=== PATIENT | female | born 1975 | race Caucasian/White ===

== ENCOUNTER 2018-03-12 21:18 | Emergency (ER) | payer OTHER, MEDICAID, SELFPAY ==
[2018-03-12 21:18] VITALS: BP 162/81; PULSE 75; RESP 15; TEMP 36.8; O2SAT 98; BMI 40.8
--- NOTE | 2018-03-12 22:31 | ED.VISSUMM ---
- ER Visit Summary Date of Service: 03/12/18 Chief Complaint: Left-sided facial pain and swelling History of Present Illness: The patient is a 43 F who notes 2-3 days of toothache and beginning yesterday left mandibular swelling. This has gotten worse today. The patient states that she is on Coumadin for DVT and PE due to antiphospholipid syndrome she is also diabetic. No fevers. She is unsure if she has a dentist due to insurance reasons Physical Examination: Afebrile vital signs are stable Patient has swelling along the left mandible. She has focal gum swelling is still very soft and I would not characterize is fluctuant along the left outer gumline. She has dental tenderness of 1 of the premolars. There is no significant erythema of the face there is no trismus and floor the mouth is soft. Test Results: INR was checked. This was 4.8. Emergency Department Course and Treatment: Patient will be started on Pen-Vee K and a few [place]. Dose given in the department. She is to follow-up with dentistry as soon as possible. Patient was advised that there is a chance she may require incision and drainage of this abscess if it would progress and she will return. As the area along the gumline is still very soft but not fluctuant and her INR is 4.8 I do not feel strongly we should incise and drain this area. She is to hold her Coumadin tonight tomorrow and have her rechecked on Wednesday. Impression: 1. Dental abscess 2. Supratherapeutic INR This note was generated with DashThis dictation software. It may contain incorrect words, spelling, and punctuation that were not noted in review of the chart prior to signing ED Disposition - Plan for ED Patient: Disposition: Home or Assisted Living Chief Complaint: Dental Instructions: Dental Abscess Prescriptions: Hydrocodone/Acetaminophen [[place] 5-325 Tablet] 1 - 2 ea PO 4X/DAY PRN PRN 3 Days #12 tab PRN Reason: Pain Penicillin V Potassium 500 mg PO 4X/DAY #40 tab Referrals: Carla Fountain MD [Primary Care Provider] - As Needed Additional Instructions: Return if worsening or concerns. As we discussed your abscess may progress to require incision and drainage. You need to see a dentist as soon as possible Your INR was 4.8 tonight. Please hold your Coumadin dose tonight as well as tomorrow and you will need your INR rechecked on Wednesday.
--- NOTE | 2018-03-12 22:36 | ED.DCSUM_ITS ---
- ER Visit Summary Date of Service: 03/12/18 Chief Complaint: Left-sided facial pain and swelling History of Present Illness: The patient is a 43 F who notes 2-3 days of toothache and beginning yesterday left mandibular swelling. This has gotten worse today. The patient states that she is on Coumadin for DVT and PE due to antiphospholipid syndrome she is also diabetic. No fevers. She is unsure if she has a dentist due to insurance reasons Physical Examination: Afebrile vital signs are stable Patient has swelling along the left mandible. She has focal gum swelling is still very soft and I would not characterize is fluctuant along the left outer gumline. She has dental tenderness of 1 of the premolars. There is no significant erythema of the face there is no trismus and floor the mouth is soft. Test Results: INR was checked. This was 4.8. Emergency Department Course and Treatment: Patient will be started on Pen-Vee K and a few [place]. Dose given in the department. She is to follow-up with dentistry as soon as possible. Patient was advised that there is a chance she may require incision and drainage of this abscess if it would progress and she will return. As the area along the gumline is still very soft but not fluctuant and her INR is 4.8 I do not feel strongly we should incise and drain this area. She is to hold her Coumadin tonight tomorrow and have her rechecked on Wednesday. Impression: 1. Dental abscess 2. Supratherapeutic INR This note was generated with [employer] dictation software. It may contain incorrect words, spelling, and punctuation that were not noted in review of the chart prior to signing ED Disposition - Plan for ED Patient: Disposition: Home or Assisted Living Chief Complaint: Dental Instructions: Dental Abscess Prescriptions: Hydrocodone/Acetaminophen [[place] 5-325 Tablet] 1 - 2 ea PO 4X/DAY PRN PRN 3 Days #12 tab PRN Reason: Pain Penicillin V Potassium 500 mg PO 4X/DAY #40 tab Referrals: Carla Fountain MD [Primary Care Provider] - As Needed Additional Instructions: Return if worsening or concerns. As we discussed your abscess may progress to require incision and drainage. You need to see a dentist as soon as possible Your INR was 4.8 tonight. Please hold your Coumadin dose tonight as well as tomorrow and you will need your INR rechecked on Wednesday.
[2018-03-12 22:42] LABS: Prothrombin Time (Protime)PT. 45.2 SECONDS (11.7-14.9)
[2018-03-12 22:45] LABS: International Normalized Ratio 4.8
[2018-03-12] MEDS: Penicillin Vk 250 MG Tablet 1000 MG PO (23:10)
[2018-03-12] MEDS: HYDROcodone Bitartrate/Apap 5/325 Tablet PO (23:11)
[2018-03-12 23:16] VITALS: BP 170/80; PULSE 82; RESP 16; O2SAT 94
== END 2018-03-12 23:17 | disposition home or self-care (01) ==
PROVIDERS: Emergency Provider Emergency Medicine; Family Provider Internal Medicine; PCP Internal Medicine
DX: K04.7 Periapical abscess without sinus (principal); D68.61 Antiphospholipid syndrome; E11.9 Type 2 diabetes mellitus without complications; Z79.01 Long term (current) use of anticoagulants; Z86.711 Personal history of pulmonary embolism; Z86.718 Personal history of other venous thrombosis and embolism
CPT/HCPCS: 36415; 85610; 99283

== ENCOUNTER 2018-03-13 22:22 | Inpatient (IN) | payer OTHER, SELFPAY ==
[2018-03-13 22:24] VITALS: BP 121/72; PULSE 93; RESP 18; TEMP 36.9; O2SAT 94; BMI 40.0
--- NOTE | 2018-03-13 22:58 | CT_ITS ---
STUDY: CT SOFT TISSUE NECK WITH CONTRAST REASON FOR EXAM: Female, 43 years old. Left-sided dental abscess. RADIATION DOSAGE (If Supplied By Facility): CTDIvol = ( 19.87 ) mGy, DLP = ( 521.02 ) mGycm TECHNIQUE: The patient was scanned in a multi-detector CT scanner. High resolution transaxial imaging was performed following intravenous administration of 100 ml of Isovue 300 contrast material. Sagittal and coronal images were reconstructed. Individualized dose optimization techniques were used for this CT. COMPARISON: None. FINDINGS: Normal bilateral parotid glands. There is enlargement of the left-sided masseter muscle compared to the right probably related to the left-sided dental infection. Normal bilateral parapharyngeal spaces. Normal bilateral carotid spaces. Normal bilateral sublingual and submandibular glands and spaces. Normal visualized nasopharynx. Normal retropharyngeal space. Normal perivertebral space. Normal visualized bilateral faucial tonsils. The visualized tongue, tongue base and oropharynx are normal. There are enlarged bilateral submandibular nodes. The largest node is on left measuring 1.6 x 1.1 x 1.2 cm in size. This is likely hyperplastic. Scattered subcentimeter lymph nodes within the rest of the neck are within normal limits. There is abnormal heterogeneous increased attenuation within the subcutaneous soft tissues adjacent to the mandible. This is likely related to the known dental abscess. There may be some phlegmon adjacent to the left mandible. This is located near the molar teeth. There is no definite evidence for abscess however. There is gas adjacent to the left-sided mandibular molars consistent also with periodontal disease and infection. There is no abnormal contrast enhancement. Normal epiglottis, bilateral vallecula and hypopharynx. The pre-epiglottic and paraglottic adipose spaces are normal. Normal visualized bilateral piriform sinuses, aryepiglottic folds, vocal cords, and arytenoid-cricoid articulations. Normal subglottic trachea. Normal bilateral lobes of the thyroid gland. Normal visualized pulmonary apices. Normal visualized paranasal sinuses. Normal visualized cervical spine. CT/Soft Tissue Neck WITH Contrast IMPRESSION: Acute inflammation involving the left mandibular region of the face and submandibular regions with hyperplastic lymph nodes and evidence for phlegmon adjacent to the left mandibular body. Electronically Signed: Lisa Albert MD at 0:13 EDT , Service support ,
[2018-03-13 23:21] LABS: Absolute Lymphocyte Count 1.64 X10^3/ul (0.83-4.51); Absolute Neutrophil Count 5.5 X10^3/uL (2.0-7.7); Basophil# 0.01 X10^3/uL; Basophil% 0.1 % (0-1); Eosinophil# 0.12 X10^3/uL; Eosinophils% 1.5 % (0-5); Hematocrit 38.2 % (37-47); Hemoglobin 12.4 g/dl (12.0-15.0); Lymphocyte # 1.64 X10^3/ul (4.0); Lymphocyte % 20.5 % (19-41); Mean Corp Hgb Conc 32.5 g/gl (32-36); Mean Corpuscular Hgb 28.3 pg (27.0-32.0); Mean Corpuscular Volume 87.2 fL (81-99); Mean Platelet Vol. 9.3 fl (6.2-12.0); Monocyte# 0.72 X10^3/uL; Neutrophil % 68.8 % (47-70); POSITIVE COUNT NO; POSITIVE DIFFERENTIAL NO; POSITIVE MORPHOLOGY NO; Platelet Count 220 K/mm3 (150-450); RBC Distribution Width CV 12.8 % (11.6-14.6); RBC Distribution Width SD 41.2 fl (35.1-43.9); Red Blood Count 4.38 M/mm3 (4.2-5.4)
[2018-03-13 23:30] LABS: Anion Gap 4 (5-15); BUN 9 mg/dL (7-18); Calcium,Total 8.6 mg/dL (8.5-10.1); Chloride 103 mmol/L (98-107); EST Glomerular Filtration Rate 114 mL/min (>60); Est Glom Filt Rate - Afr Amer 138 mL/min (>60); Estimated Creatinine Clearance 102.25 ml/min; Glucose 316 mg/dL (74-106); Potassium 4.1 mmol/L (3.5-5.1); Sodium Level 137 mmol/L (136-145)
[2018-03-13 23:40] LABS: Prothrombin Time (Protime)PT. 35.3 SECONDS (11.7-14.9)
--- NOTE | 2018-03-13 23:45 | ED.VISSUMM ---
- ER Visit Summary Date of Service: 03/13/18 Chief Complaint: Dental infection History of Present Illness: The patient is a 43 F presenting with dental infection. She states this started 3 days ago. She has swelling to the left lower face. She was seen in the emergency department last night for similar complaints. She was started on penicillin. She states today the swelling worsened. She has swelling of her lower lip as well as her left side of her face. She has no difficulty swallowing. Denies fever. Denies other complaints. Physical Examination: Vitals are stable. Patient is afebrile. Alert no acute distress. HEENT exam tenderness left lower molar with no intraoral fluctuance. No sublingual edema. Left mandibular swelling. Neck is supple. Lungs are clear and equal bilaterally. Heart is regular rate and rhythm. Abdomen is soft nontender nondistended. Extremities are unremarkable. Skin is warm and dry. Remainder of exam is unremarkable. Emergency Department Course and Treatment: CBC, chemistries unremarkable other than glucose 316. INR is 3.5. CT soft tissue neck shows acute inflammation involving the left mandibular region of the face and submandibular regions with hyperplastic lymph nodes and evidence for phlegmon adjacent to the left mandibular body. She was given Clindamycin IV. Discussed with the hospitalist for admission. Disposition: Admission Impression: Facial cellulitis secondary to dental infection This note was generated with PasswordBank dictation software. It may contain incorrect words, spelling, and punctuation that were not noted in review of the chart prior to signing ED Disposition - Plan for ED Patient: Chief Complaint: Abscess Referrals: Calra Fountain MD [Primary Care Provider] -
[2018-03-13 23:55] LABS: International Normalized Ratio 3.5
--- NOTE | 2018-03-13 23:56 | ED.RN ---
DR IZAGUIRRE AWARE OF INR3.5.
[2018-03-14 00:38] VITALS: BP 120/75; PULSE 80; RESP 17; O2SAT 99
--- NOTE | 2018-03-14 00:57 | PCM.HP.STD ---
Problem List (1) Cellulitis and abscess of face Status: Acute (2) Diabetes Status: Acute Qualifiers: Diabetes mellitus type: type 2 (3) Antiphospholipid syndrome Status: Chronic History of Present Illness Date of Admission: 03/14/18 Chief Complaint: Swelling of left side of face The patient is a 43 year old F with a significant history of antiphospholipid syndrome on home warfarin therapy; DVT; PE and type 2 diabetes who presented with 3 days swelling of her left mandibular area radiating to her neck. She reported that her symptoms first started as a painful knot at her left mandibular region that was preventing her from chewing. She resulted to chewing at the right side. This is her second visit to our emergency department. She first came to our emergency department a day before this admission. At that time she was prescribed antibiotics and sent home. Because her symptoms progressively got worse she came back to the emergency department and will be admitted. Past Medical History Past Medical History (Chronic Problems): Chronic Problems (Last Updated 03/14/18 @ 02:42 by Yamil Bettencourt MD) Antiphospholipid syndrome (Chronic) Medical History: Medical History (Last Updated 03/14/18 @ 02:42 by Yamil Bettencourt MD) Antiphospholipid syndrome D68.61 DVT (deep venous thrombosis) I82.409 Diabetes mellitus type 2 in obese E11.69, E66.9 Pulmonary embolism I26.99 Allergies codeine Allergy (Verified 03/13/18 22:24) Rash Home Medications: Ambulatory Orders Medication Instructions Recorded Metformin HCl 1,000 mg PO DAILY 03/21/17 Pantoprazole Sodium 40 mg PO DAILY 03/21/17 Sertraline HCl [Zoloft] 50 mg PO DAILY 03/21/17 Hydrocodone/Acetaminophen [[place] 1 - 2 ea PO 4X/DAY PRN PRN 3 Days 03/12/18 5-325 Tablet] #12 tab Warfarin [Coumadin ([facility])] 5 mg PO TUTHSA 03/12/18 Warfarin [Coumadin ([facility])] 7.5 mg PO MOWEFR 03/12/18 Penicillin V Potassium 500 mg PO 4X/DAY 03/14/18 Surgical History: - - Lipoma removal from her abdomen; skin graft to right leg Psychiatric History: No pertinent psych hx Smoking Status: Former smoker Tobacco Use: Non-smoker Alcohol: None Drugs: None - *Family History Maternal History Items: No pertinent history Paternal History Items: No pertinent history Review of Systems Constitutional: Denies: Chills, Fever, Weight Change Eyes: Denies: Blurred vision, Pain HEENT: Reports: - - Difficulty chewing at left side of cheek Cardiovascular: Denies: Chest Pain, Palpitations Respiratory: Denies: Cough, Shortness of breath at rest, Sputum production Gastrointestinal: Denies: Abdominal Pain, Nausea, Vomiting Genitourinary: Denies: Dysuria Musculoskeletal: Denies: Joint Pain, Joint Tenderness Skin: Denies: Rash, Wounds Neurological: Denies: Numbness, Tingling, Focal weakness Psychiatric: Denies: Anxiety, Depression, Homicidal Ideations, Suicidal Ideations Hematologic/ Lymphatic: Reports: Adenopathy VTE Information - Inpt Only VTE Present on Admission: No VTE Mechan Device Prophylaxis: SCD's VTE Pharm Prophylaxis ordered?: No Reason prophylaxis not ordered:: Medical Contraindication Patient Problems: Active and Suspected Problems (Last Updated 03/14/18 @ 02:42 by Yamil Bettencourt MD) Cellulitis and abscess of face (Acute) Diabetes (Acute) - Physical Exam General: Alert, Oriented x3, Cooperative HEENT: Atraumatic, PERRLA, EOMI, - - Swelling and tenderness of left mandibular area. Redness to midline of neck. Neck: No Nuchal Rigidity, Trachea Midline Lungs: Clear to auscultation, Normal air movement Cardiovascular: Regular rate, No murmurs Abdomen: Bowel Sounds Present, Soft, Non Tender Extremities: No edema, Capillary Refill Less than 3 Seconds Skin: No rashes, No breakdown Musculoskeletal: No Tenderness to Palpation of Joints or Extremities Lymphatic: - - Could not be fully assessed because of extreme pain to left jaw and neck. Neurological: Cranial nerves II-XII grossly intact Psych/Mental Status: Normal Affect, Appropriate Vital Signs Temp Pulse Resp BP Pulse Ox 98.5 F 80 17 120/75 99 03/13/18 22:24 03/14/18 00:38 03/14/18 00:38 03/14/18 00:38 03/14/18 00:38 Oxygen Delivery Method Room Air Weight: 105.9 kg Body Mass Index (BMI) 40.0 Laboratory Tests Past 24 Hrs 03/13/18 03/13/18 03/13/18 23:08 23:08 23:08 WBC 8.0 RBC 4.38 Hgb 12.4 Hct 38.2 MCV 87.2 MCH 28.3 MCHC 32.5 RDW 12.8 RDW Differential 41.2 Plt Count 220 MPV 9.3 Immature Gran % (Auto) 0.100 Neut % (Auto) 68.8 Lymph % (Auto) 20.5 [place] % (Auto) 9.0 Eos % (Auto) 1.5 Baso % (Auto) 0.1 Absolute Neuts (auto) 5.5 Absolute Lymphs (auto) 1.64 Total Counted Not Reportable PT 35.3 H INR 3.5 H* Sodium 137 Potassium 4.1 Chloride 103 Carbon Dioxide 30.0 Anion Gap 4 L BUN 9 Creatinine 0.60 Estim Creat Clear Calc 102.25 Est GFR (MDRD) Af Amer 138 Est GFR (MDRD) Non-Af 114 BUN/Creatinine Ratio 15.0 Glucose 316 H Calcium 8.6 Assessment/Plan All Active Problems (Last Updated 03/14/18 @ 02:42 by Yamil Bettencourt MD) Cellulitis and abscess of face (Acute) Diabetes (Acute) The patient is a 43 year old F with a significant history of antiphospholipid syndrome on home warfarin therapy; DVT; PE and type 2 diabetes who presented with swelling of left mandibular area; radiographic evidence of acute inflammation of left mandibular region; lymphadenopathy and phlegmon to left mandibular body. Cellulitis of left mandibular area with phelgmon Receive clindamycin at the ED. We will continue clindamycin for aerobic and anaerobic bacteria in the mouth. I am concerned about Pedro angina. Oxycodone and morphine sulfate as needed for pain. Tylenol scheduled Prednisone for [id number] ID and oral surgeon consulted Diabetes mellitus with acute hypoglycemia. It is too early in her admission. Will hold metformin for now to prevent any obstruction with further diagnostic study if needed. Because of hypoglycemia with blood glucose over 250 will start patient on a correction scale short acting insulin and basal insulin Lispro 6 units subcutaneous ?1 now Antiphospholipid syndrome with history of DVT and PE Patient INR is elevated at this time. Coumadin on hold. Daily PT/INR. Will patient on SCDs for now DVT prophylaxis SCD Code Visit Inpatient E&M: 67243 Init Hosp L2
[2018-03-14] MEDS: Clindamycin 600 MG/50 ML BAG 100 MG IV (01:04)
[2018-03-14] MEDS: HYDROcodone Bitartrate/Apap 5/325 Tablet PO (01:12)
[2018-03-14 02:03] VITALS: BMI 39.5; BMI 39.6
[2018-03-14 02:19] VITALS: BP 118/79; PULSE 73; RESP 18; TEMP 37; O2SAT 95
[2018-03-14] MEDS: 0.9% Normal Saline 1,000 ML 75 ML IV ×2 (02:48→17:11)
--- NOTE | 2018-03-14 03:10 | NURSING ---
Dr. Bettencourt notified of blood glucose 251. OK to give 6 units humalog and 10 units of Lantus now.
[2018-03-14] MEDS: Insulin Lispro 100 UNIT/ML INSULN.PEN 8 UNIT SC (03:13)
[2018-03-14 03:26] LABS: Bedside Glucose 251 mg/dL (70-110)
[2018-03-14 04:15] LABS: Absolute Lymphocyte Count 2.18 X10^3/ul (0.83-4.51); Absolute Neutrophil Count 5.7 X10^3/uL (2.0-7.7); Basophil# 0.02 X10^3/uL; Basophil% 0.2 % (0-1); Eosinophil# 0.13 X10^3/uL; Eosinophils% 1.5 % (0-5); Hematocrit 36.8 % (37-47); Hemoglobin 12.1 g/dl (12.0-15.0); Lymphocyte # 2.18 X10^3/ul (4.0); Lymphocyte % 24.8 % (19-41); Mean Corp Hgb Conc 32.9 g/gl (32-36); Mean Corpuscular Hgb 28.8 pg (27.0-32.0); Mean Corpuscular Volume 87.6 fL (81-99); Mean Platelet Vol. 9.4 fl (6.2-12.0); Monocyte# 0.75 X10^3/uL; Monocyte% 8.5 % (0-10); Neutrophil % 64.8 % (47-70); Platelet Count 235 K/mm3 (150-450); RBC Distribution Width CV 12.6 % (11.6-14.6); RBC Distribution Width SD 39.2 fl (35.1-43.9); White Blood Count 8.8 K/mm3 (4.4-11.0)
[2018-03-14 04:16] LABS: POSITIVE COUNT NO; POSITIVE DIFFERENTIAL NO; POSITIVE MORPHOLOGY NO
[2018-03-14 04:23] LABS: Erythrocyte Sedimentation Rate 47 mm/hr (0-20)
[2018-03-14 04:30] LABS: Prothrombin Time (Protime)PT. 35.4 SECONDS (11.7-14.9)
[2018-03-14 04:32] LABS: Anion Gap 9 (5-15); BUN 8 mg/dL (7-18); BUN/Creat Ratio 16.8 RATIO (10-20); Calcium,Total 8.4 mg/dL (8.5-10.1); Chloride 103 mmol/L (98-107); Creatinine, Serum 0.48 mg/dL (0.55-1.02); EST Glomerular Filtration Rate 150 mL/min (>60); Est Glom Filt Rate - Afr Amer 182 mL/min (>60); Estimated Creatinine Clearance 127.81 ml/min; Glucose 255 mg/dL (74-106); Potassium 3.8 mmol/L (3.5-5.1); Sodium Level 139 mmol/L (136-145)
[2018-03-14] MEDS: predniSONE 20 MG Tablet PO (05:00)
[2018-03-14] MEDS: Acetaminophen 500 MG Tablet PO ×4 (05:01→23:10)
[2018-03-14 05:06] LABS: International Normalized Ratio 3.5
--- NOTE | 2018-03-14 06:38 | NURSING ---
Dr. Ibanez paged via drum saw operator.
[2018-03-14 07:01] VITALS: O2SAT 95
[2018-03-14 08:20] VITALS: BP 113/65; PULSE 72; RESP 18; TEMP 36.7; O2SAT 96
[2018-03-14] MEDS: Insulin Lispro 100 UNIT/ML INSULN.PEN SQ ×4 (08:22→21:44)
[2018-03-14] MEDS: Sertraline 50 MG Tablet PO (08:24)
[2018-03-14] MEDS: Pantoprazole Sodium 40 MG Tablet PO (08:24)
[2018-03-14] MEDS: oxyCODONE 5 MG Tablet 10 MG PO ×3 (08:28→21:43)
[2018-03-14 08:36] LABS: Bedside Glucose 252 mg/dL (70-110)
--- NOTE | 2018-03-14 10:30 | CASEMGMT ---
RN MALINDA Face to Face with patient for initial transition planning/care coordination assessment. RN CM introduced self and role at [facility]. Patient lyingin bed, alert and oriented. Patient willing to participate in assessment and is able to answer all questions appropriately. Care providers, pharmacy, and demographics verified. See link attached. Patient wishes to discharge home, denies need for home health at this time. Patient states she has no further needs or concerns at this time. CM to follow for discharge planning needs that may arise. Disposition Plan: Patient to discharge home with follow-up plans in place.
[2018-03-14 12:16] LABS: Bedside Glucose 243 mg/dL (70-110)
--- NOTE | 2018-03-14 12:50 | PCM.HP.ID ---
Problem List (1) Cellulitis and abscess of face Status: Acute Reason for Consult: abscess Consulted by: Dr. Ruvalcaba History of Present Illness: The patient is a 43 year old F with h/o APLAS who presented to ED 03/13 with 3-4 days of L face pain (rated 6/10), swelling, redness, and difficulty opening jaw. Had cavity in the area before. No drainage inside her mouth. Sx started, came to ED 03/12, sent home on po PCN, sx worsened, came back. No fever or chills. No n/v/d. Face much better, on iv clinda. ENT consulted. Full ROS performed and neg except as noted above. - Medical History Past Medical History (Chronic Problems): Chronic Problems (Last Updated 03/14/18 @ 02:42 by Yamil Bettencourt MD) Antiphospholipid syndrome (Chronic) Allergies/Adverse Reactions: Allergies codeine Allergy (Verified 03/13/18 22:24) Rash Home Medications: Ambulatory Orders Medication Instructions Recorded Metformin HCl 1,000 mg PO DAILY 03/21/17 Pantoprazole Sodium 40 mg PO DAILY 03/21/17 Sertraline HCl [Zoloft] 50 mg PO DAILY 03/21/17 Hydrocodone/Acetaminophen [[place] 1 - 2 ea PO 4X/DAY PRN PRN 3 Days 03/12/18 5-325 Tablet] #12 tab Warfarin [Coumadin ([facility])] 5 mg PO TUTHSA 03/12/18 Warfarin [Coumadin ([facility])] 7.5 mg PO MOWEFR 03/12/18 Penicillin V Potassium 500 mg PO 4X/DAY 03/14/18 - Social History SMOKING STATUS:: Former smoker Vital Signs Temp Pulse Resp BP Pulse Ox 98.0 F 72 18 113/65 96 03/14/18 08:20 03/14/18 08:20 03/14/18 08:20 03/14/18 08:20 03/14/18 08:20 Oxygen Delivery Method Room Air Weight: 104.553 kg Body Mass Index (BMI) 39.5 Laboratory Tests Past 24 Hrs 03/14/18 03/14/18 03/14/18 03:56 03:56 03:56 WBC 8.8 RBC 4.20 Hgb 12.1 Hct 36.8 L MCV 87.6 MCH 28.8 MCHC 32.9 RDW 12.6 RDW Differential 39.2 Plt Count 235 MPV 9.4 Immature Gran % (Auto) 0.200 Neut % (Auto) 64.8 Lymph % (Auto) 24.8 [place] % (Auto) 8.5 Eos % (Auto) 1.5 Baso % (Auto) 0.2 Absolute Neuts (auto) 5.7 Absolute Lymphs (auto) 2.18 Total Counted Not Reportable ESR 47 H PT 35.4 H INR 3.5 H* Sodium 139 Potassium 3.8 Chloride 103 Carbon Dioxide 27.0 Anion Gap 9 BUN 8 Creatinine 0.48 L Estim Creat Clear Calc 127.81 Est GFR (MDRD) Af Amer 182 Est GFR (MDRD) Non-Af 150 BUN/Creatinine Ratio 16.8 Glucose 255 H Calcium 8.4 L - Other Studies Radiology: [] reviewed Other Studies: [] Route of nutrition/ use of supplements: [] Nutritional Intake: [] IV Site: [] Nieto Catheter: [] - Physical Exam General: Alert, Oriented x3, Cooperative, No apparent distress HEENT: Atraumatic, PERRLA, EOMI, - - difficulty opening jaw, some inflammation and swelling around L mandible Neck: Supple, No Nodes Lungs: Clear to auscultation, Normal air movement Cardiovascular: Regular rate, Regular Rhythm, No murmurs Abdomen: Soft, Non Tender, Non-Distended Extremities: No edema Skin: No rashes IV Site: Peripheral, without redness Musculoskeletal: No Tenderness to Palpation of Joints or Extremities Neurological: Cranial nerves II-XII grossly intact - Assessment/Plan Antibiotics: [] Assessment/Plan: [] Active and Suspected Problems (Last Updated 03/14/18 @ 02:42 by Yamil Bettencourt MD) Cellulitis and abscess of face (Acute) Diabetes (Acute) L mandibular dental abscess - ENT consulted for I&D. Improved since admit. Change clinda to unasyn for narrower coverage of oral coco. Thank you, will follow.
--- NOTE | 2018-03-14 12:54 | CON.PCM_ITS ---
Problem List (1) Cellulitis and abscess of face Status: Acute Reason for Consult: abscess Consulted by: Dr. Ruvalcaba History of Present Illness: The patient is a 43 year old F with h/o APLAS who presented to ED 03/13 with 3-4 days of L face pain (rated 6/10), swelling, redness, and difficulty opening jaw. Had cavity in the area before. No drainage inside her mouth. Sx started , came to ED 03/12, sent home on po PCN, sx worsened, came back. No fever or chills. No n/v/d. Face much better, on iv clinda. ENT consulted. Full ROS performed and neg except as noted above. - Medical History Past Medical History (Chronic Problems): Chronic Problems (Last Updated 03/14/18 @ 02:42 by Yamil Bettencourt MD) Antiphospholipid syndrome (Chronic) Allergies/Adverse Reactions: Allergies codeine Allergy (Verified 03/13/18 22:24) Rash Home Medications: Ambulatory Orders Medication Instructions Recorded Metformin HCl 1,000 mg PO DAILY 03/21/17 Pantoprazole Sodium 40 mg PO DAILY 03/21/17 Sertraline HCl [Zoloft] 50 mg PO DAILY 03/21/17 Hydrocodone/Acetaminophen [[place] 1 - 2 ea PO 4X/DAY PRN PRN 3 Days 03/12/18 5-325 Tablet] #12 tab Warfarin [Coumadin ([facility])] 5 mg PO TUTHSA 03/12/18 Warfarin [Coumadin ([facility])] 7.5 mg PO MOWEFR 03/12/18 Penicillin V Potassium 500 mg PO 4X/DAY 03/14/18 - Social History SMOKING STATUS:: Former smoker Vital Signs Temp Pulse Resp BP Pulse Ox 98.0 F 72 18 113/65 96 03/14/18 08:20 03/14/18 08:20 03/14/18 08:20 03/14/18 08:20 03/14/18 08:20 Oxygen Delivery Method Room Air Weight: 104.553 kg Body Mass Index (BMI) 39.5 Laboratory Tests Past 24 Hrs 03/14/18 03/14/18 03/14/18 03:56 03:56 03:56 WBC 8.8 RBC 4.20 Hgb 12.1 Hct 36.8 L MCV 87.6 MCH 28.8 MCHC 32.9 RDW 12.6 RDW Differential 39.2 Plt Count 235 MPV 9.4 Immature Gran % (Auto) 0.200 Neut % (Auto) 64.8 Lymph % (Auto) 24.8 [place] % (Auto) 8.5 Eos % (Auto) 1.5 Baso % (Auto) 0.2 Absolute Neuts (auto) 5.7 Absolute Lymphs (auto) 2.18 Total Counted Not Reportable ESR 47 H PT 35.4 H INR 3.5 H* Sodium 139 Potassium 3.8 Chloride 103 Carbon Dioxide 27.0 Anion Gap 9 BUN 8 Creatinine 0.48 L Estim Creat Clear Calc 127.81 Est GFR (MDRD) Af Amer 182 Est GFR (MDRD) Non-Af 150 BUN/Creatinine Ratio 16.8 Glucose 255 H Calcium 8.4 L - Other Studies Radiology: [] reviewed Other Studies: [] Route of nutrition/ use of supplements: [] Nutritional Intake: [] IV Site: [] Nieto Catheter: [] - Physical Exam General: Alert, Oriented x3, Cooperative, No apparent distress HEENT: Atraumatic, PERRLA, EOMI, - - difficulty opening jaw, some inflammation and swelling around L mandible Neck: Supple, No Nodes Lungs: Clear to auscultation, Normal air movement Cardiovascular: Regular rate, Regular Rhythm, No murmurs Abdomen: Soft, Non Tender, Non-Distended Extremities: No edema Skin: No rashes IV Site: Peripheral, without redness Musculoskeletal: No Tenderness to Palpation of Joints or Extremities Neurological: Cranial nerves II-XII grossly intact - Assessment/Plan Antibiotics: [] Assessment/Plan: [] Active and Suspected Problems (Last Updated 03/14/18 @ 02:42 by Yamil Bettencourt MD) Cellulitis and abscess of face (Acute) Diabetes (Acute) L mandibular dental abscess - ENT consulted for I&D. Improved since admit. Change clinda to unasyn for narrower coverage of oral coco. Thank you, will follow.
--- NOTE | 2018-03-14 13:17 | PCM.CONS.GEN ---
Problem List (1) Cellulitis and abscess of face Status: Acute Comment: Have evaluated the patient. She is sitting upright speaking coherently. She can swallow. The neck is soft. She is able to open her mouth wide and is handling secretions well. There is no evidence for airway distress. She appears to have an abscessed tooth most likely tooth 19. It involves the bucaal space and deepr spaces such as the submandibular, sublingual and electric fan assembler spaces do not appear to be involved. This is not a sol angina picture. She states her swelling is reduced since last night. I would continue IV fluids and antibiotics and I will be glad to see her if the clinical picture does not continue to improve. No acute surgery necessary at this time. She can also f/u to her dentist if discharge will be soon. Reason for Consult History of Present Illness: The patient is a 43 year old F [] Past Medical History Past Medical History (Chronic Problems): Chronic Problems (Last Updated 03/14/18 @ 02:42 by Yamil Bettencourt MD) Antiphospholipid syndrome (Chronic) Medical History: Medical History (Last Updated 03/14/18 @ 02:42 by Yamil Bettencourt MD) Antiphospholipid syndrome D68.61 DVT (deep venous thrombosis) I82.409 Diabetes mellitus type 2 in obese E11.69, E66.9 Pulmonary embolism I26.99 Allergies codeine Allergy (Verified 03/13/18 22:24) Rash Home Medications: Ambulatory Orders Medication Instructions Recorded Metformin HCl 1,000 mg PO DAILY 03/21/17 Pantoprazole Sodium 40 mg PO DAILY 03/21/17 Sertraline HCl [Zoloft] 50 mg PO DAILY 03/21/17 Hydrocodone/Acetaminophen [[place] 1 - 2 ea PO 4X/DAY PRN PRN 3 Days 03/12/18 5-325 Tablet] #12 tab Warfarin [Coumadin ([facility])] 5 mg PO TUTHSA 03/12/18 Warfarin [Coumadin ([facility])] 7.5 mg PO MOWEFR 03/12/18 Penicillin V Potassium 500 mg PO 4X/DAY 03/14/18 Surgical History: - - Lipoma removal from her abdomen; skin graft to right leg Psychiatric History: No pertinent psych hx Smoking Status: Former smoker Tobacco Use: Non-smoker Alcohol: None Drugs: None - *Family History Maternal History Items: No pertinent history Paternal History Items: No pertinent history Patient Problems: Active and Suspected Problems (Last Updated 03/14/18 @ 02:42 by Yamil Bettencourt MD) Cellulitis and abscess of face (Acute) Have evaluated the patient. She is sitting upright speaking coherently. She can swallow. The neck is soft. She is able to open her mouth wide and is handling secretions well. There is no evidence for airway distress. She appears to have an abscessed tooth most likely tooth 19. It involves the bucaal space and deepr spaces such as the submandibular, sublingual and electric fan assembler spaces do not appear to be involved. This is not a sol angina picture. She states her swelling is reduced since last night. I would continue IV fluids and antibiotics and I will be glad to see her if the clinical picture does not continue to improve. No acute surgery necessary at this time. She can also f/u to her dentist if discharge will be soon. Diabetes (Acute) - Physical Exam Vital Signs Temp Pulse Resp BP Pulse Ox 98.0 F 72 18 113/65 96 03/14/18 08:20 03/14/18 08:20 03/14/18 08:20 03/14/18 08:20 03/14/18 08:20 Oxygen Delivery Method Room Air Weight: 104.553 kg Body Mass Index (BMI) 39.5 Intake and Output for Last 24 Hours 03/12/18 03/13/18 03/14/18 23:59 23:59 23:59 Intake Total 1556 / 1556 Output Total 450 / 450 Balance 1106 / 1106 Laboratory Tests Past 24 Hrs 03/14/18 03/14/18 03/14/18 03:56 03:56 03:56 WBC 8.8 RBC 4.20 Hgb 12.1 Hct 36.8 L MCV 87.6 MCH 28.8 MCHC 32.9 RDW 12.6 RDW Differential 39.2 Plt Count 235 MPV 9.4 Immature Gran % (Auto) 0.200 Neut % (Auto) 64.8 Lymph % (Auto) 24.8 [place] % (Auto) 8.5 Eos % (Auto) 1.5 Baso % (Auto) 0.2 Absolute Neuts (auto) 5.7 Absolute Lymphs (auto) 2.18 Total Counted Not Reportable ESR 47 H PT 35.4 H INR 3.5 H* Sodium 139 Potassium 3.8 Chloride 103 Carbon Dioxide 27.0 Anion Gap 9 BUN 8 Creatinine 0.48 L Estim Creat Clear Calc 127.81 Est GFR (MDRD) Af Amer 182 Est GFR (MDRD) Non-Af 150 BUN/Creatinine Ratio 16.8 Glucose 255 H Calcium 8.4 L POC Glucose 03/14/18 03/14/18 03/14/18 11:15 08:15 03:00 POC Glucose 243 H 252 H 251 H Assessment/Plan All Active Problems (Last Updated 03/14/18 @ 02:42 by Yamil Bettencourt MD) Cellulitis and abscess of face (Acute) Diabetes (Acute)
--- NOTE | 2018-03-14 16:25 | PN_ITS ---
<Milan Cates - Last Filed: 03/14/18 16:19> Patient Problems: Active and Suspected Problems (Last Updated 03/14/18 @ 02:42 by Yamil Bettencourt MD) Cellulitis and abscess of face (Acute) Have evaluated the patient. She is sitting upright speaking coherently. She can swallow. The neck is soft. She is able to open her mouth wide and is handling secretions well. There is no evidence for airway distress. She appears to have an abscessed tooth most likely tooth 19. It involves the bucaal space and deepr spaces such as the submandibular, sublingual and supervisor plate forming spaces do not appear to be involved. This is not a sol angina picture. She states her swelling is reduced since last night. I would continue IV fluids and antibiotics and I will be glad to see her if the clinical picture does not continue to improve. No acute surgery necessary at this time. She can also f/u to her dentist if discharge will be soon. Diabetes (Acute) Subjective: Pt still having complaints of mouth pain. No fever or chills. She is able to eat. Speaking without issue. No discharge in her mouth. She had some bleeding in her mouth, none this AM. - Physical Exam General: Alert, Oriented x3, Cooperative HEENT: Atraumatic, PERRLA, EOMI, Normocephalic, - - left cheek and neck swollen Neck: Supple, No JVD, Negative Carotid Bruits Lungs: Clear to auscultation, Normal air movement Cardiovascular: Regular rate, No murmurs Abdomen: Bowel Sounds Present, Soft, Non Tender Extremities: No edema, Capillary Refill Less than 3 Seconds Skin: No rashes, No breakdown Musculoskeletal: No Tenderness to Palpation of Joints or Extremities Neurological: Cranial nerves II-XII grossly intact Psych/Mental Status: Normal Affect, Appropriate Vital Signs Temp Pulse Resp BP Pulse Ox 98.0 F 72 18 113/65 96 03/14/18 08:20 03/14/18 08:20 03/14/18 08:20 03/14/18 08:20 03/14/18 08:20 Oxygen Delivery Method Room Air Weight: 230 lb 8 oz Body Mass Index (BMI) 39.5 Intake and Output for Last 24 Hours 03/12/18 03/13/18 03/14/18 23:59 23:59 23:59 Intake Total 1556 / 1556 Output Total 450 / 450 Balance 1106 / 1106 Laboratory Tests Past 24 Hrs 03/14/18 03/14/18 03/14/18 03:56 03:56 03:56 WBC 8.8 RBC 4.20 Hgb 12.1 Hct 36.8 L MCV 87.6 MCH 28.8 MCHC 32.9 RDW 12.6 RDW Differential 39.2 Plt Count 235 MPV 9.4 Immature Gran % (Auto) 0.200 Neut % (Auto) 64.8 Lymph % (Auto) 24.8 [place] % (Auto) 8.5 Eos % (Auto) 1.5 Baso % (Auto) 0.2 Absolute Neuts (auto) 5.7 Absolute Lymphs (auto) 2.18 Total Counted Not Reportable ESR 47 H PT 35.4 H INR 3.5 H* Sodium 139 Potassium 3.8 Chloride 103 Carbon Dioxide 27.0 Anion Gap 9 BUN 8 Creatinine 0.48 L Estim Creat Clear Calc 127.81 Est GFR (MDRD) Af Amer 182 Est GFR (MDRD) Non-Af 150 BUN/Creatinine Ratio 16.8 Glucose 255 H Calcium 8.4 L POC Glucose 03/14/18 03/14/18 03/14/18 11:15 08:15 03:00 POC Glucose 243 H 252 H 251 H Medical Necessity - Tobacco Use Smoking Status: Former smoker Tobacco Use: Non-smoker Assessment/Plan All Active Problems (Last Updated 03/14/18 @ 02:42 by Yamil Bettencourt MD) Cellulitis and abscess of face (Acute) Diabetes (Acute) 1. Dental abscess - ID consulted. No signs of sepsis. Oral surgeon following. Monitor on abx for now. Failed PenVK as o/p. Unasyn now, also had doses of clinda. Blood cultures pending. CT neck with inflammation and adenopathy, phlegmon. 2. Antiphospholipid antibody syndrome - hold warfarin for high inr. 3. DMt2 - continue lantus and SSI. Metformin held. 4. Anx/dep - continue current meds. DVT ppx: coumadin. This patient was seen by Milan Cates PA-C under the supervision of Doctor Jordon. <Yamile Ruvalcaba - Last Filed: 03/14/18 16:42> - Physical Exam Vital Signs Temp Pulse Resp BP Pulse Ox 98.0 F 72 18 113/65 96 03/14/18 08:20 03/14/18 08:20 03/14/18 08:20 03/14/18 08:20 03/14/18 08:20 Oxygen Delivery Method Room Air Weight: 230 lb 8 oz Body Mass Index (BMI) 39.5 Intake and Output for Last 24 Hours 03/12/18 03/13/18 03/14/18 23:59 23:59 23:59 Intake Total 1556 / 1556 Output Total 450 / 450 Balance 1106 / 1106 Laboratory Tests Past 24 Hrs 03/14/18 03/14/18 03/14/18 03:56 03:56 03:56 WBC 8.8 RBC 4.20 Hgb 12.1 Hct 36.8 L MCV 87.6 MCH 28.8 MCHC 32.9 RDW 12.6 RDW Differential 39.2 Plt Count 235 MPV 9.4 Immature Gran % (Auto) 0.200 Neut % (Auto) 64.8 Lymph % (Auto) 24.8 [place] % (Auto) 8.5 Eos % (Auto) 1.5 Baso % (Auto) 0.2 Absolute Neuts (auto) 5.7 Absolute Lymphs (auto) 2.18 Total Counted Not Reportable ESR 47 H PT 35.4 H INR 3.5 H* Sodium 139 Potassium 3.8 Chloride 103 Carbon Dioxide 27.0 Anion Gap 9 BUN 8 Creatinine 0.48 L Estim Creat Clear Calc 127.81 Est GFR (MDRD) Af Amer 182 Est GFR (MDRD) Non-Af 150 BUN/Creatinine Ratio 16.8 Glucose 255 H Calcium 8.4 L POC Glucose 03/14/18 03/14/18 03/14/18 11:15 08:15 03:00 POC Glucose 243 H 252 H 251 H Assessment/Plan Hospitalist note: I am seeing this patient in conjunction with Milan Cates. I independently seen and examined the patient. Progress note above, laboratory data and imaging studies reviewed and I agree with above treatment plan. Patient was admitted for left mandibular dental abscess with failure of outpatient therapy. She is on IV Unasyn. Routine blood work was unremarkable. No leukocytosis. Vital signs are stable, afebrile. Blood cultures are pending. Oral surgeon consulted , recommended to continue IV antibiotics and no indication for surgical intervention. Plan to continue same treatment, repeat INR tomorrow morning. Appreciate infectious disease input.
[2018-03-14 16:53] VITALS: BP 116/70; PULSE 66; RESP 18; TEMP 36.8; O2SAT 97
[2018-03-14 17:11] LABS: Bedside Glucose 167 mg/dL (70-110)
[2018-03-14] MEDS: Morphine 2 MG/ML Syringe IV (19:18)
[2018-03-14 21:37] VITALS: BP 149/80; PULSE 69; RESP 16; TEMP 37; O2SAT 100
[2018-03-14] MEDS: Zolpidem Tartrate 5 MG Tablet PO (21:44)
[2018-03-14 21:55] LABS: Bedside Glucose 249 mg/dL (70-110)
[2018-03-15 03:40] VITALS: BP 125/80; PULSE 64; RESP 16; TEMP 36.7; O2SAT 97
[2018-03-15] MEDS: Acetaminophen 500 MG Tablet PO ×2 (05:28→11:21)
[2018-03-15] MEDS: oxyCODONE 5 MG Tablet 10 MG PO ×2 (05:28→11:21)
[2018-03-15] MEDS: 0.9% Normal Saline 1,000 ML 75 ML IV (05:28)
[2018-03-15 06:09] LABS: International Normalized Ratio 3.2; Prothrombin Time (Protime)PT. 32.7 SECONDS (11.7-14.9)
[2018-03-15] MEDS: Insulin Lispro 100 UNIT/ML INSULN.PEN SQ ×2 (07:35→11:22)
[2018-03-15 07:41] LABS: Bedside Glucose 203 mg/dL (70-110)
[2018-03-15 08:55] VITALS: BP 146/89; PULSE 69; RESP 16; TEMP 36.8; O2SAT 99
[2018-03-15 09:00] VITALS: PULSE 60
[2018-03-15] MEDS: Sertraline 50 MG Tablet PO (09:01)
[2018-03-15] MEDS: Pantoprazole Sodium 40 MG Tablet PO (09:01)
[2018-03-15] MEDS: 0.9% NaCl Peripheral Flush Adult/Peds IV (09:01)
--- NOTE | 2018-03-15 10:40 | PN.ID_ITS ---
Patient Problems: Active and Suspected Problems (Last Updated 03/14/18 @ 02:42 by Yamil Bettencourt MD) Cellulitis and abscess of face (Acute) Have evaluated the patient. She is sitting upright speaking coherently. She can swallow. The neck is soft. She is able to open her mouth wide and is handling secretions well. There is no evidence for airway distress. She appears to have an abscessed tooth most likely tooth 19. It involves the bucaal space and deepr spaces such as the submandibular, sublingual and airworthiness safety inspector spaces do not appear to be involved. This is not a sol angina picture. She states her swelling is reduced since last night. I would continue IV fluids and antibiotics and I will be glad to see her if the clinical picture does not continue to improve. No acute surgery necessary at this time. She can also f/u to her dentist if discharge will be soon. Diabetes (Acute) Subjective: Feeling better, pain and swelling improved. No fever, no n/v/d. - Physical Exam General: Alert, Cooperative, No apparent distress HEENT: - - improved L jaw induration/redness/pain Lungs: Clear to auscultation, Normal air movement Cardiovascular: Regular rate, Regular Rhythm Abdomen: Soft, Non Tender, Non-Distended Skin: No rashes Vital Signs Temp Pulse Resp BP Pulse Ox 98.2 F 60 16 146/89 H 99 03/15/18 08:55 03/15/18 09:00 03/15/18 08:55 03/15/18 08:55 03/15/18 08:55 Oxygen Delivery Method Room Air Weight: 104.553 kg Body Mass Index (BMI) 39.5 Intake and Output for Last 24 Hours 03/13/18 03/14/18 03/15/18 23:59 23:59 23:59 Intake Total 3012 / 3012 470 / 470 Output Total 1250 / 1250 Balance 1762 / 1762 470 / 470 Laboratory Tests Past 24 Hrs 03/15/18 05:15 PT 32.7 H INR 3.2 POC Glucose 03/15/18 03/14/18 03/14/18 07:35 21:40 16:51 POC Glucose 203 H 249 H 167 H 03/14/18 11:15 POC Glucose 243 H Medical Necessity - Tobacco Use Smoking Status: Former smoker Tobacco Use: Non-smoker Route of nutrition/ use of supplements: [] Nutritional Intake: [] IV Site: [] Nieto Catheter: [] - Assessment/Plan Antibiotics: [] Assessment/Plan: [] Active and Suspected Problems (Last Updated 03/14/18 @ 02:42 by Yamil Bettencourt MD) Cellulitis and abscess of face (Acute) Diabetes (Acute) L mandibular dental abscess - Improving on unasyn. ENT has seen, plan is for outpatient dental extraction. Ok for d/c home on 2 weeks of augmentin; needs to stay on abx until gets tooth out. D/w primary team, will follow.
[2018-03-15 11:10] LABS: Bedside Glucose 192 mg/dL (70-110)
--- NOTE | 2018-03-15 11:46 | PCM.DC ---
- Discharge Diagnoses Current Active Problems: Current Active and Chronic Problems (Last Updated 03/14/18 @ 02:42 by Yamil Bettencourt MD) Cellulitis and abscess of face (Acute) Have evaluated the patient. She is sitting upright speaking coherently. She can swallow. The neck is soft. She is able to open her mouth wide and is handling secretions well. There is no evidence for airway distress. She appears to have an abscessed tooth most likely tooth 19. It involves the bucaal space and deepr spaces such as the submandibular, sublingual and urban planner spaces do not appear to be involved. This is not a sol angina picture. She states her swelling is reduced since last night. I would continue IV fluids and antibiotics and I will be glad to see her if the clinical picture does not continue to improve. No acute surgery necessary at this time. She can also f/u to her dentist if discharge will be soon. Diabetes (Acute) Antiphospholipid syndrome (Chronic) You will use the following diet at home:: Calorie/Carbohydrate Controlled (specify 1200, 1400, etc) - 1800 marcial / day, Cardiac - 2-3 g sodium per day max Your food should be the consistency of: Regular Your liquids should be the consistency of: Regular/Thin Discharge Activity: Return to Normal Activity Allergies/Adverse Reactions: Allergies codeine Allergy (Verified 03/13/18 22:24) Rash Medications to take at Discharge Metformin HCl 1,000 mg PO DAILY 03/21/17 Pantoprazole Sodium 40 mg PO DAILY 03/21/17 Sertraline HCl [Zoloft] 50 mg PO DAILY 03/21/17 Acetaminophen [Tylenol] 500 mg PO Q6 tablet 03/15/18 Amoxicillin/Potassium Clav [Augmentin 875-125 Tablet] 1 ea PO BID #28 tab 03/15/18 Warfarin [Coumadin] 5 mg PO TUTHSA #0 03/15/18 Warfarin [Coumadin] 7.5 mg PO MOWEFR #0 03/15/18 The following prescriptions were given: Amoxicillin/Potassium Clav [Augmentin 875-125 Tablet] 1 ea PO BID #28 tab Primary Care Physician: Carla Fountain MD [Primary Care Provider] - Please follow up with your Primary Care Physician in: 1-2 weeks Test Results: Test results from this visit will be discussed in further detail at your follow-up appointment, if applicable. Please Follow Up With: Dentist,Your When: 3 days
[2018-03-15 13:39] VITALS: BP 159/94; PULSE 72; RESP 18; TEMP 37.1; O2SAT 98
--- NOTE | 2018-03-15 13:45 | PCM.DC.SUM ---
<Milan Cates - Last Filed: 03/15/18 13:45> Discharge Date and Diagnosis Date of Admission: 03/14/18 Date of Discharge: 03/15/18 - Primary Discharge Diagnosis Active and Suspected Problems (Last Updated 03/14/18 @ 02:42 by Yamil Bettencourt MD) Dental abscess Antiphospholipid antibody syndrome Diabetes mellitus type 2 Anxiety/depression - Secondary Discharge Diagnosis Chronic Problems (Last Updated 03/14/18 @ 02:42 by Yamil Bettencourt MD) Antiphospholipid syndrome (Chronic) Hospital Course and Treatment Imaging Results: CT/Soft Tissue Neck WITH Contrast IMPRESSION: Acute inflammation involving the left mandibular region of the face and submandibular regions with hyperplastic lymph nodes and evidence for phlegmon adjacent to the left mandibular body. Consultations: Infectious disease-[place] Oral facial surgeon-Marcelle Operations: None Procedures: None Summary of Care Provided: Physical exam on day of discharge: General: Resting comfortably NAD Psych: A/Ox3 normal affect HEENT: Improvement in left facial swelling. No discharge. Neck: Supple NT CV: RRR no m/t/r/g/h Resp: CTA Abd: [id number] Soft NT no guarding or rigidity Ext: DP2+= no edema Skin: W/D normal turgor Lymph/Heme: No active bleeding or adenopathy Neuro: CN2-12 intact Hospital course: The patient is a 43 year old F with a history of diabetes mellitus type 2, antiphospholipid antibody syndrome on Coumadin, anxiety and depression who presented to the emergency room with left-sided facial swelling and pain, previously diagnosed with dental abscess and started on PenVK as an outpatient. She had no improvement on oral medications. She presented to the hospital with worsening swelling. CAT scan of the soft tissue of the neck with contrast demonstrated acute inflammation of the left mandibular region, submandibular regions, hyperplastic lymph nodes and phlegmon. Infectious disease and oral facial surgery were consulted. She was placed on clindamycin transitioned to Unasyn. She had no evidence of sepsis at admission. By the following day her pain and swelling had improved. She was able to eat. Surgery did not feel that there is any need for acute intervention that she could follow-up as an outpatient with her dentist. She is transitioned to Augmentin for 14 more days and discharged home in stable condition. She will also need to follow up with her PCP in 1-2 weeks. This patient was seen by Milan Cates PA-C under the supervision of Doctor Jordon. [] Discharge Diet: 1800 Calorie Control Diet Discharge Activity: Return to Normal Activity Home Medications: Medications to take at Discharge Metformin HCl 1,000 mg PO DAILY 03/21/17 Pantoprazole Sodium 40 mg PO DAILY 03/21/17 Sertraline HCl [Zoloft] 50 mg PO DAILY 03/21/17 Acetaminophen [Tylenol] 500 mg PO Q6 tablet 03/15/18 Amoxicillin/Potassium Clav [Augmentin 875-125 Tablet] 1 ea PO BID #28 tab 03/15/18 Oxycodone [Oxyir] 5 mg PO Q6H PRN PRN 3 Days #10 tab 03/15/18 Warfarin [Coumadin] 5 mg PO TUTHSA #0 03/15/18 Warfarin [Coumadin] 7.5 mg PO MOWEFR #0 03/15/18 Following Prescrptions Were Given to Patient: Amoxicillin/Potassium Clav [Augmentin 875-125 Tablet] 1 ea PO BID #28 tab Oxycodone [Oxyir] 5 mg PO Q6H PRN PRN 3 Days #10 tab PRN Reason: Pain Primary Care Physician: Carla Fountain MD [Primary Care Provider] - Please follow up with your Primary Care Physician in: 1-2 weeks Please Follow Up With: Dentist,Your When: 3 days Disposition: Home Medical Necessity - Tobacco Use Smoking Status: Former smoker Tobacco Use: Non-smoker Meaningful Use Info Meaningful Use Diagnoses (Choose all that apply): None applicable <aYmile Ruvalcaba E - Last Filed: 03/15/18 16:20> Discharge Date and Diagnosis - Secondary Discharge Diagnosis Chronic Problems (Last Updated 03/14/18 @ 02:42 by Yamil Bettencourt MD) Antiphospholipid syndrome (Chronic) Hospital Course and Treatment Imaging Results: Clinical Impression(s) from Imaging Studies Soft Tissue Neck CT 03/13/18 22:58 IMPRESSION: Acute inflammation involving the left mandibular region of the face and submandibular regions with hyperplastic lymph nodes and evidence for phlegmon adjacent to the left mandibular body. Electronically Signed: Lisa Albert MD at 0:13 EDT , Service support , Summary of Care Provided: Hospitalist note: Discharge summary above reviewed and I agree with above discharge and treatment plan. Patient was admitted for left mandibular pain and swelling, found to have left mandibular dental abscess with failure of outpatient therapy. She was treated with IV antibiotics. Oral surgery consulted and recommended to continue IV antibiotic therapy and no indication for surgical interventions. Patient was treated with IV Unasyn. Her routine blood work was unremarkable, no leukocytosis. She remained afebrile throughout admission. Blood cultures remain negative up to the time of discharge. With treatment, swelling of her left mandible improved as well as her pain. Patient discharged home on Augmentin, recommend follow-up with her dentist as outpatient and follow-up with her PCP in 1-2 weeks. - Physical Exam General: Alert, Oriented x3, Cooperative, No apparent distress. HEENT: Atraumatic, PERRLA, EOMI. Neck: Supple, No JVD, Negative Carotid Bruits, Trachea Midline, Thyroid Normal. Lungs: Clear to auscultation, Normal air movement, No rhonchi, No wheeze, No rales. Cardiovascular: Regular rate, Regular Rhythm, Normal S1, Normal S2, PMI Normal. Abdomen: Bowel Sounds Present, Soft, Non Tender, Non-Distended, No Hepato-splenomegaly. Extremities: No clubbing, No cyanosis, No edema Skin: No rashes, No breakdown Neurological: Neuro grossly intact Vital Signs are stable. This note was generated with [employer] dictation software. It may contain incorrect words, spelling, and punctuation that were not noted in checking the note before signing. Disposition: Home Minutes spent on discharge:: 26 Patient Condition:: Stable Meaningful Use Info Meaningful Use Diagnoses (Choose all that apply): None applicable Code Visit Inpatient E&M: 68109 Disch Hosp
--- NOTE | 2018-03-15 13:51 | DS.PCM_ITS ---
<Milan Cates - Last Filed: 03/15/18 13:45> Discharge Date and Diagnosis Date of Admission: 03/14/18 Date of Discharge: 03/15/18 - Primary Discharge Diagnosis Active and Suspected Problems (Last Updated 03/14/18 @ 02:42 by Yamil Bettencourt MD) Dental abscess Antiphospholipid antibody syndrome Diabetes mellitus type 2 Anxiety/depression - Secondary Discharge Diagnosis Chronic Problems (Last Updated 03/14/18 @ 02:42 by Yamil Bettencourt MD) Antiphospholipid syndrome (Chronic) Hospital Course and Treatment Imaging Results: CT/Soft Tissue Neck WITH Contrast IMPRESSION: Acute inflammation involving the left mandibular region of the face and submandibular regions with hyperplastic lymph nodes and evidence for phlegmon adjacent to the left mandibular body. Consultations: Infectious disease-Kwesi Oral facial surgeon-Marcelle Operations: None Procedures: None Summary of Care Provided: Physical exam on day of discharge: General: Resting comfortably NAD Psych: A/Ox3 normal affect HEENT: Improvement in left facial swelling. No discharge. Neck: Supple NT CV: RRR no m/t/r/g/h Resp: CTA Abd: [id number] Soft NT no guarding or rigidity Ext: DP2+= no edema Skin: W/D normal turgor Lymph/Heme: No active bleeding or adenopathy Neuro: CN2-12 intact Hospital course: The patient is a 43 year old F with a history of diabetes mellitus type 2, antiphospholipid antibody syndrome on Coumadin, anxiety and depression who presented to the emergency room with left-sided facial swelling and pain, previously diagnosed with dental abscess and started on PenVK as an outpatient. She had no improvement on oral medications. She presented to the hospital with worsening swelling. CAT scan of the soft tissue of the neck with contrast demonstrated acute inflammation of the left mandibular region, submandibular regions, hyperplastic lymph nodes and phlegmon. Infectious disease and oral facial surgery were consulted. She was placed on clindamycin transitioned to Unasyn. She had no evidence of sepsis at admission. By the following day her pain and swelling had improved. She was able to eat. Surgery did not feel that there is any need for acute intervention that she could follow-up as an outpatient with her dentist. She is transitioned to Augmentin for 14 more days and discharged home in stable condition. She will also need to follow up with her PCP in 1-2 weeks. This patient was seen by Milan Cates PA-C under the supervision of Doctor Jordon. [] Discharge Diet: 1800 Calorie Control Diet Discharge Activity: Return to Normal Activity Home Medications: Medications to take at Discharge Metformin HCl 1,000 mg PO DAILY 03/21/17 Pantoprazole Sodium 40 mg PO DAILY 03/21/17 Sertraline HCl [Zoloft] 50 mg PO DAILY 03/21/17 Acetaminophen [Tylenol] 500 mg PO Q6 tablet 03/15/18 Amoxicillin/Potassium Clav [Augmentin 875-125 Tablet] 1 ea PO BID #28 tab Oxycodone [Oxyir] 5 mg PO Q6H PRN PRN 3 Days #10 tab 03/15/18 Warfarin [Coumadin] 5 mg PO TUTHSA #0 03/15/18 Warfarin [Coumadin] 7.5 mg PO MOWEFR #0 03/15/18 Following Prescrptions Were Given to Patient: Amoxicillin/Potassium Clav [Augmentin 875-125 Tablet] 1 ea PO BID #28 tab Oxycodone [Oxyir] 5 mg PO Q6H PRN PRN 3 Days #10 tab PRN Reason: Pain Primary Care Physician: Carla Fountain MD [Primary Care Provider] - Please follow up with your Primary Care Physician in: 1-2 weeks Please Follow Up With: Dentist,Your When: 3 days Disposition: Home Medical Necessity - Tobacco Use Smoking Status: Former smoker Tobacco Use: Non-smoker Meaningful Use Info Meaningful Use Diagnoses (Choose all that apply): None applicable <Yamile Ruvalcaba E - Last Filed: 03/15/18 16:20> Discharge Date and Diagnosis - Secondary Discharge Diagnosis Chronic Problems (Last Updated 03/14/18 @ 02:42 by Yamil Bettencourt MD) Antiphospholipid syndrome (Chronic) Hospital Course and Treatment Imaging Results: Clinical Impression(s) from Imaging Studies Soft Tissue Neck CT 03/13/18 22:58 IMPRESSION: Acute inflammation involving the left mandibular region of the face and submandibular regions with hyperplastic lymph nodes and evidence for phlegmon adjacent to the left mandibular body. Electronically Signed: Lisa Albert MD at 0:13 EDT , Service support , Summary of Care Provided: Hospitalist note: Discharge summary above reviewed and I agree with above discharge and treatment plan. Patient was admitted for left mandibular pain and swelling, found to have left mandibular dental abscess with failure of outpatient therapy. She was treated with IV antibiotics. Oral surgery consulted and recommended to continue IV antibiotic therapy and no indication for surgical interventions. Patient was treated with IV Unasyn. Her routine blood work was unremarkable, no leukocytosis. She remained afebrile throughout admission. Blood cultures remain negative up to the time of discharge. With treatment, swelling of her left mandible improved as well as her pain. Patient discharged home on Augmentin, recommend follow-up with her dentist as outpatient and follow-up with her PCP in 1-2 weeks. - Physical Exam General: Alert, Oriented x3, Cooperative, No apparent distress. HEENT: Atraumatic, PERRLA, EOMI. Neck: Supple, No JVD, Negative Carotid Bruits, Trachea Midline, Thyroid Normal. Lungs: Clear to auscultation, Normal air movement, No rhonchi, No wheeze, No rales. Cardiovascular: Regular rate, Regular Rhythm, Normal S1, Normal S2, PMI Normal. Abdomen: Bowel Sounds Present, Soft, Non Tender, Non-Distended, No Hepato- splenomegaly. Extremities: No clubbing, No cyanosis, No edema Skin: No rashes, No breakdown Neurological: Neuro grossly intact Vital Signs are stable. This note was generated with [employer] dictation software. It may contain incorrect words, spelling, and punctuation that were not noted in checking the note before signing. Disposition: Home Minutes spent on discharge:: 26 Patient Condition:: Stable Meaningful Use Info Meaningful Use Diagnoses (Choose all that apply): None applicable Code Visit Inpatient E&M: 30687 Disch Hosp
== END 2018-03-15 13:48 | disposition home or self-care (01) | DRG 158 ==
LOC: ED 22:51 → MS3 03-14 01:35
PROVIDERS: Admitting Provider Hospitalist; Emergency Provider Emergency Medicine; Family Provider Internal Medicine; PCP Internal Medicine; Visit Provider Hospitalist
DX: K04.7 Periapical abscess without sinus (principal); L03.211 Cellulitis of face; D68.61 Antiphospholipid syndrome; E11.649 Type 2 diabetes mellitus with hypoglycemia without coma; F41.9 Anxiety disorder, unspecified; F32.9 Major depressive disorder, single episode, unspecified; Z88.5 Allergy status to narcotic agent; Z79.01 Long term (current) use of anticoagulants; Z87.891 Personal history of nicotine dependence; Z86.718 Personal history of other venous thrombosis and embolism; Z86.711 Personal history of pulmonary embolism
CPT/HCPCS: 36415; 70491; 80048; 82962; 85025; 85610; 85652; 87040; 97802; 97803; 99282; J7030; Q9967; A4216; J0295

== ENCOUNTER 2019-03-10 23:10 | Emergency (ER) | payer MEDICAID, SELFPAY ==
[2019-03-10 23:10] VITALS: BP 148/88; PULSE 101; RESP 15; TEMP 36.8; BMI 39.4
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
--- NOTE | 2019-03-10 23:22 | ED.RN ---
PT DECLINES REFERRAL TO CASE MANAGEMENT OR HARP REGULATOR.
[2019-03-10] MEDS: Acetaminophen 500 MG Tablet 1000 MG PO (23:25)
== END 2019-03-10 23:33 | disposition home or self-care (01) ==
LOC: ED 23:32
PROVIDERS: Emergency Provider Emergency Medicine; Family Provider Internal Medicine; PCP Internal Medicine
DX: S00.31XA Abrasion of nose, initial encounter (principal); Y04.2XXA Assault by strike against or bumped into by another person, initial encounter; Y93.9 Activity, unspecified; Y92.89 Other specified places as the place of occurrence of the external cause; Y99.9 Unspecified external cause status; E11.9 Type 2 diabetes mellitus without complications; D68.61 Antiphospholipid syndrome; Z88.5 Allergy status to narcotic agent; Z87.891 Personal history of nicotine dependence
CPT/HCPCS: 99283

== ENCOUNTER → 2020-02-26 12:17 | Outpatient (CLI) | payer MEDICAID, SELFPAY ==
[2019-12-15 17:11] VITALS: BMI 39.4
[2020-02-26 13:06] LABS: Prothrombin Time (Protime)PT. 37.7 SECONDS (11.7-14.9)
[2020-02-26 14:03] LABS: International Normalized Ratio 3.9
== END ==
PROVIDERS: PCP Internal Medicine; Referring Provider Internal Medicine; Visit Provider Internal Medicine
DX: Z79.01 Long term (current) use of anticoagulants (principal)
CPT/HCPCS: 85610

== ENCOUNTER 2021-03-14 21:30 | Emergency (ER) | payer MEDICAID, SELFPAY ==
[2019-12-15 17:11] VITALS: BMI 39.4
[2021-03-14 21:32] VITALS: BP 156/89; PULSE 87; RESP 15; TEMP 36.7; O2SAT 98; BMI 36.6
--- NOTE | 2021-03-14 22:33 | US_ITS ---
HISTORY: LLE PAIN EXAMINATION: US Venous Duplex LE Unilat / Limited: TECHNIQUE: Mcmillan scale, pulse wave, and color flow Doppler imaging was performed of the lower extremity venous system. The left greater saphenous, common femoral, femoral, popliteal and posterior tibial veins were interrogated. COMPARISON: None FINDINGS: # of images incl. paperwork: 36 There is normal compression, augmentation, and color flow signal throughout the visualized deep lower extremity veins. Lymph node proximal thigh measures up to 3.7 cm. US/Venous Duplex Imag/Limited/Uni IMPRESSION: No sonographic evidence of deep venous thrombosis. at 2339 Reported and signed by: Tramaine Villalobos MD Electronically Signed: Tramaine Villalobos MD at 23:37 EDT Tel , Service support ,
--- NOTE | 2021-03-14 23:11 | ED.VIS.LOWEX ---
HPI History of Present Illness Chief Complaint: Lower Extremity Injury Informant: patient Onset/Context/Timing Onset: Yesterday Context: Gradual Onset Timing: Continuous Quality of Pain: Dull Current Severity: Moderate Maximum Severity: Moderate Worsened by: palpation Relieved by: leaving alone Associated Symptoms Associated Symptoms: Negative for Parasthesia, Weakness and Loss of Funtion Narrative Narrative: Spontaneous onset of pain and some redness in her distal left lower leg where she has some chronic scarring and discoloration related to prior injuries and according to her prior blood clots in the veins. She was diagnosed with antiphospholipid antibody syndrome after being diagnosed with DVT and pulmonary embolus in the past, and is chronically on warfarin; she is not on a NOAC mainly related to cost and insurance coverage. She states that several weeks ago she stopped taking it inadvertently and did not go back on it, but yesterday when she started having discomfort she started herself back on warfarin without consulting anyone. She has taken no other anticoagulants with it. She denies any shortness of breath, chest pain, presyncopal symptoms, or any other systemic symptoms such as fevers or chills or recent injury to her leg to explain this. [facility] Medical History Antiphospholipid syndrome Diabetes mellitus type 2 in obese DVT (deep venous thrombosis) Pulmonary embolism Home Medications metformin 1,000 mg PO DAILY 03/21/17 [History Last Taken 03/11/18 08:00 1000 mg] pantoprazole 40 mg PO DAILY 03/21/17 [History Last Taken 03/11/18 08:00 40 mg] sertraline [Zoloft] 50 mg PO DAILY 03/21/17 [History Last Taken 03/11/18 08:00 50 mg] acetaminophen 500 mg PO Q6 tablet 03/15/18 [Rx Last Taken Unknown] amoxicillin-pot clavulanate 1 ea PO BID #28 tab 03/15/18 [Rx Last Taken Unknown] oxycodone 5 mg PO Q6H PRN PRN 3 Days #10 tab 03/15/18 [Rx Last Taken Unknown] atorvastatin 40 mg PO QHS 03/14/21 [History Last Taken Unknown] cephalexin 500 mg PO Q6 #40 capsule 03/14/21 [Rx Last Taken Unknown] enoxaparin [Lovenox] 100 mg SUBCUT Q12H 5 Days #10 ml 03/14/21 [Rx Last Taken Unknown] gabapentin 100 mg PO DAILY 03/14/21 [History Last Taken Unknown] Allergy/AdvReac Type Severity Reaction Status Date / Time codeine Allergy Rash Verified 03/14/21 21:37 Social History Smoking Status: Former smoker ROS ROS ED Constitutional Constitutional ED: Denies chills or fever(s) Musculoskeletal Musculoskeletal: Reports extremity pain; Denies neck pain Integumentary Reports as per HPI, erythema and rash; Denies Abrasions or wounds Neurologic Neurologic: Denies paresthesias or weakness EXAM Physical Exam Const Vital Signs: 03/14/21 21:32 Temperature 98.0 F Temperature Source Temporal Pulse Rate 87 Respiratory Rate 15 Blood Pressure 156/89 H Blood Pressure Mean 111 Pulse Ox 98 Oxygen Delivery Method Room Air Positive well nourished and well developed General Appearance ED: well developed and NAD Neck full ROM and supple Back/Spine normal ROM and normal to inspection Extremity Extremity Narrative: Tender at the distal right graf, where there is some erythematous skin. It is a patch approximately 3 cm x 3 cm. Full range of motion throughout all joints. No calf tenderness. No palpable cords. Neuro oriented x3, no focal motor deficits and no sensory deficits noted Sensorium / Orientation: alert Psych mental status grossly normal and thought process normal Skin no wounds Skin Narrative: There is chronic appearing discoloration in the skin of the left lower leg mostly medial, a fairly large portion of it. At the anterior aspect of the lower leg, more distal within this discoloration which is more brown-conley, there is some erythema that is mild, blanching, and tender. No focal abscess or collection palpable. No lymphangitis. Rashes: no rashes MDM MDM MDM Narrative Medical decision making narrative: Venous duplex ultrasound was obtained of the left lower extremity, it shows no evidence of a DVT or SVT, there is some edematous tissue according to the forestry technician in the affected area, in my opinion this is consistent with its appearance of probable cellulitis more so than DVT. I will treat her for this with antibiotics. The bigger concern is that the patient started warfarin treatment on her own, making her hypercoagulable in the acute phase of doing so which I discussed with her. Since she was off of her warfarin completely for several weeks, I think it is relatively useless to perform an INR especially since blue top tubes right now are in critical shortage. She needs to start back on her warfarin and she knows that, but she needs to do it while bridging with Lovenox. She was given a 1.5 mg/kg dose here in the emergency department to last her 24 hours. She was given a prescription for 5 days of Lovenox twice daily that she will need to use while taking her warfarin and follow-up with her doctor for repeat INR check and further advice, also recheck of her cellulitis. She understands and is comfortable with that plan. Additionally, patient initially expressed interest in getting the single injection Covid vaccine from [employer] which we recently started offering here. When I asked her about it she said that she did not want it because of the risk of blood clots associated with it. This I discussed with her this risk is very low, and additionally she is fully anticoagulated, probably for the rest of her life which she agreed with. Therefore, she is at even lower risk of getting clots from this injection. She was agreeable to it and it was given by nursing. Discharge Plan Triage Chief Complaint: Lower Extremity Injury ED Provider: Gautam Jarquin Dx/Rx/DC Orders Clinical Impression: Cellulitis of left lower leg, Noncompliance with medication regimen Instructions: ED Cellulitis Prescriptions: New cephalexin [cephalexin] 500 MG capsule 500 mg PO Q6 Qty: 40 RF: 0 enoxaparin [Lovenox] 100 mg/mL syringe 100 mg subcut Q12H 5 Days Qty: 10 RF: 0 No Action metformin 500 MG tablet 1,000 mg PO DAILY RF: 0 pantoprazole 40 MG tablet,delayed release (DR/EC) 40 mg PO DAILY RF: 0 sertraline [Zoloft] 50 MG tablet 50 mg PO DAILY RF: 0 acetaminophen 500 MG tablet 500 mg PO Q6 RF: 0 amoxicillin-pot clavulanate 1 EACH tablet 1 ea PO BID Qty: 28 RF: 0 oxycodone 5 MG tablet 5 mg PO Q6H PRN PRN (Reason: Pain) 3 Days Qty: 10 RF: 0 atorvastatin 40 mg tablet 40 mg PO QHS RF: 0 gabapentin 100 mg capsule 100 mg PO DAILY RF: 0 Primary Care Provider: Carla Fountain Referrals: Carla Fountain MD [Primary Care Provider] - 3-5 Days (For reevaluation of cellulitis and INR) Activity Restrictions/Additional Instructions: Your next dose of Lovenox is due around 11 PM on 03/15. Then, as prescribed every 12 hours or so. Continue taking your warfarin as prescribed. Make sure you follow-up with your doctor to get a repeat INR so that you can be guided on when to discontinue the Lovenox. Disposition Disposition: Home, Self Care
[2021-03-14] MEDS: Enoxaparin 150 MG/ML Syringe SC (23:18)
[2021-03-15] MEDS: Cefazolin 1 GM/5 ML Vial IM
[2021-03-15] MEDS: COVID-19 VAC,AD26(JANSSEN)/PF 0.5 ML SYRINGE IM (00:24)
== END 2021-03-15 01:08 | disposition home or self-care (01) ==
PROVIDERS: Emergency Provider Emergency Medicine; PCP Internal Medicine
DX: L03.116 Cellulitis of left lower limb (principal); D68.61 Antiphospholipid syndrome; E11.9 Type 2 diabetes mellitus without complications; E66.9 Obesity, unspecified; Z79.01 Long term (current) use of anticoagulants; Z79.899 Other long term (current) drug therapy; Z91.14 Patient's other noncompliance with medication regimen; Z79.84 Long term (current) use of oral hypoglycemic drugs; Z86.711 Personal history of pulmonary embolism; Z86.718 Personal history of other venous thrombosis and embolism; Z87.891 Personal history of nicotine dependence
CPT/HCPCS: 91303; 93971; 96372; 99282; A4216

== ENCOUNTER 2022-05-13 09:45 | Outpatient (RCR) | payer MEDICAID, SELFPAY ==
[2022-05-06 08:13] VITALS: BP 148/85; PULSE 73; RESP 18; TEMP 36.1; BMI 38.6
--- NOTE | 2022-05-06 09:05 | PCM.WC.HP ---
History of Present Illness Date of Service: 05/06/22 Chief Complaint: Left medial, distal leg non healing ulcer History of Wound: Patient is a 47 year old female who presents with a non healing ulcer that occurred in February after tripping. She states she tripped, hitting her left lower leg, then noticed the wound starting a couple weeks later, so she associates it with the tripping. She has been treating it with antibiotic ointment, has seen her PCP who has treated her several different antibiotics. She has a history of DM II, Antiphospholipid syndrome which she is on anticoagulants, DVT and PE. Today she denies fever, chills, nausea and vomiting. She states she has a good appetite. Progress of Wound: Left medial distal leg ulcer is very painful and has fibrous tissue in the base. Left leg has hemosiderin staining. She has +1 pitting edema. Left pedal pulse audible with Doppler. [facility] Medical History Antiphospholipid syndrome Diabetes mellitus type 2 in obese DVT (deep venous thrombosis) Pulmonary embolism Home Medications pantoprazole 40 mg tablet,delayed release 40 mg PO DAILY GERD 03/21/17 [History Last Taken 03/11/18 08:00 40 mg] sertraline 50 mg tablet (Zoloft) 50 mg PO DAILY anxiety 03/21/17 [History Last Taken 03/11/18 08:00 50 mg] acetaminophen 500 mg tablet 500 mg PO Q6 03/15/18 [Rx Last Taken Unknown] atorvastatin 40 mg tablet 40 mg PO QHS 03/14/21 [History Last Taken Unknown] gabapentin 100 mg capsule 100 mg PO DAILY 03/14/21 [History Last Taken Unknown] Lactobacillus acidoph-L.bulgaricus 1 million cell tablet 2 tab PO DAILY 05/06/22 [History Last Taken Unknown] ascorbic acid (vitamin C) 500 mg tablet (Vitamin C) 500 mg PO DAILY 05/06/22 [History Last Taken Unknown] canagliflozin 100 mg tablet (Invokana) 100 mg PO DAILY 05/06/22 [History Last Taken Unknown] celecoxib 100 mg capsule (Celebrex) 100 mg PO BID 05/06/22 [History Last Taken Unknown] clonazepam 1 mg tablet (Klonopin) 1 mg PO QHS 05/06/22 [History Last Taken Unknown] copper 380 square mm intrauterine device (ParaGard T 380A) mm2 intrauterine 05/06/22 [History Last Taken Unknown] cyanocobalamin (vitamin B-12) 1,000 mcg tablet 1,000 mcg PO DAILY 05/06/22 [History Last Taken Unknown] diclofenac sodium 1 % topical gel (Voltaren Arthritis Pain) 1 ea topical PRN PRN Pain 05/06/22 [History Last Taken Unknown] glimepiride 4 mg tablet (Amaryl) 4 mg PO DAILY 05/06/22 [History Last Taken Unknown] hydrocortisone acetate 1 % rectal ointment ea 05/06/22 [History Last Taken Unknown] warfarin 5 mg tablet 5 mg PO DAILY 05/06/22 [History Last Taken Unknown] Allergy/AdvReac Type Severity Reaction Status Date / Time codeine Allergy Rash Verified 03/14/21 21:37 Social History Smoking Status: Never smoker ROS Constitutional Constitutional: Denies chills, frequent falls, headache(s) or malaise Eyes Eyes: Reports requires corrective lenses ENT HEENT: Reports none Cardiovascular Cardiovascular: Denies chest pain or dyspnea Respiratory/Chest Respiratory/Chest: Denies cough or dyspnea Gastrointestinal Gastrointestinal: Denies abdominal pain, diarrhea, nausea or vomiting Genitourinary Genitourinary: Reports none Musculoskeletal Musculoskeletal: Reports systems reviewed and no addt'l complaints, except as documented Integumentary Integumentary: Reports skin ulcer Neurologic Neurologic: Denies dizziness, frequent falls or numbness Psychiatric Psychiatric: Reports anxiety and depression Endocrine Endocrinology: Reports none Hematologic/Lymphatic Hematologic/Lymphatic: Reports easy bleeding, easy bruising and other Details: clotting disorder Allergic/Immunologic Allergic/Immunologic: Reports none Vital Signs Vital Signs Vital Signs: 05/06/22 08:13 Temperature 97 F L Temperature Source Temporal Pulse Rate 73 Respiratory Rate 18 Blood Pressure 148/85 H Blood Pressure Mean 106 Blood Pressure Source Monitor Blood Pressure Position Semi-Fowlers Blood Pressure Location Left Arm Weight Weight: 225 lb Body Mass Index (BMI) 38.6 Physical Exam Const alert, oriented x3 and well nourished General Appearance: cooperative HEENT normocephalic Head and Scalp: normocephalic Lymph Lymphatic: no lymphedema noted Resp normal respiratory effort and normal air movement Effort and Inspection: able to speak in complete sentences Auscultation: clear to auscultation bilaterally Cardio regular rate and regular rhythm Peripheral Pulses: dorsalis pedis pulses present right 2+ and left dopplerable GI soft to palpation and non-tender Back/Spine normal ROM Extremity full ROM and normal capillary refill Extremity Narrative: +1-+2 edema of left leg Skin Wound Narrative: Left medial distal leg ulcer, very painful with fibrous tissue in the base of ulcer. Neuro oriented x3 Sensorium / Orientation: awake Psych mental status grossly normal Appearance: appropriate and well kempt Debridement Note Debridement Note Wound debrided: Medial, distal leg ulcer Laterality: Left Wound Grade/Stage: Stage III Type of Debridement: Excisional debridement Anesthesia Used: 5% Lidocaine Gel Depth: Down to and including healthy tissue and in the subcutaneous layer Percentage of wound debrided: 100 Instrument Used: 3mm curette Tissue Removed: Devitalized tissue and slough Severity: Fat Layer Exposed Amount of bleeding with debridement: Mild Bleeding Controlled with: Compression and gauze Patient tolerated procedure: Patient tolerated procedure well Post-Debridement Measurements and Additional Note: Post-Debridement Measurements/Treatment - Nurse 1 - General Ulcer Assessment Start: 05/06/22 08:12 Freq: Status: Active Protocol: ERIK.SAHRA Activity Type Activity Date Activity User E-sign Co-sign Detail Recorded Client Recorded Date Recorded By Document 05/06/22 08:13 [id number] 05/06/22 08:23 05/06/22 08:13 - Today's Visit Information Type of service Initial Visit Arrival Mode Ambulatory Transfer Assistance None Patient Identification Verified (Name & Yes ) Patient Requires Transmission-Based No Precautions Height and Weight Height 5 ft 4 in Weight 225 lb Weight in Pounds 225.0 lbs Body Mass Index (BMI) 38.6 BMI Classification Obese BSA - Gabbie 2.06 Vital Signs Temperature (97.8 F-99.1 F) 97 F L Temperature Source Temporal Pulse Rate (60-100) 73 Pulse Location Apical Respiratory Rate (12-18) 18 Respiratory rate source Observation Blood Pressure (90/60-120/80) 148/85 H Blood Pressure Mean 106 Source Monitor Position Semi-Fowlers Blood Pressure Location Left Arm History Since Last Visit- (Skip if this is Patient's initial visit) Have you changed medications since your No last visit? Any new allergies or adverse reactions No Had a fall/change in ADL's that may No increase risk of falls Signs or symptoms of abuse and/or No neglect since last visit Have you been in the hospital since your No last visit? Has dressing in place as prescribed Yes Has compression in place as prescribed No Has offloadiing in place as prescribed No Experienced any changes in pain level or No management Left Footwear Regular Shoe Right Footwear Regular Shoe Pain Scale: 0-10 Numeric Is Patient Pain Free? No LLE -Description Aching -Intensity 7 -Duration (hours) Chronic -Pain Behavior Withdrawal from Touch -Pain Aggravating Factors ADL's -Alleviating Factors/Interventions Medication -Effectiveness of Alleviating Factor/ Minimally Intervention effective Lower Extremity Assessment/ Foot Assessment/ Toe Nail Assessment Right -Posterior Tibial Palpable Yes -Posterior Tibial Doppler Multiphasic -Dorsalis Pedis Palpable Yes -Dorsalis Pedis Doppler Multiphasic -Extremity Color Normal -Hair Growth on Legs Yes -Hair Growth on Toes No -Temperature of Extremity Cool -Dependent Rubor No -Blanched when Elevated No -Lipodermatosclerosis No -Other Deformity No -Prior Foot Ulcer No -Charcot Joint No -Prior Amputation No -Thick Yes -Discolored Yes -Deformed Yes -Improper Length & Hygeine No Left -Posterior Tibial Palpable Yes -Posterior Tibial Doppler Multiphasic -Dorsalis Pedis Palpable Yes -Dorsalis Pedis Doppler Multiphasic -Extremity Color Hemosiderin -Hair Growth on Legs Yes -Hair Growth on Toes No -Temperature of Extremity Cool -Capillary Refill Less than 3 Seconds -Dependent Rubor No -Blanched when Elevated No -Lipodermatosclerosis No -Other Deformity No -Prior Foot Ulcer No -Charcot Joint No -Prior Amputation No -Thick Yes -Discolored Yes -Deformed Yes -Improper Length & Hygeine No Communication Assessment Preferred language Maori Appliance Servicer Required No Able to Read Yes Able to Write Yes Communication Tools None Caregiver Communication Skills No Impairment Impairment Right Hearing Abillity Normal Left Hearing Abillity Normal Visual Assistive Devices Glasses Teaching Assessment Preferences Verbal,Written, Demonstration Barriers to Learning Unable to Comprehend Readiness To Learn Good Willingness to Engage in Self Management Med Activies Readiness to Engage in Self Management Med Activities Anxiety Level Calm Cooperation Cooperative Perception Coherent Interest in Health Problem Asks Questions Education Importance Acknowledges Need Does Patient Smoke tobacco or other No substances Smoking Status Never smoker Is Patient Diabetic Yes Functional Assessment Recent Decline in Ability to Perform Denies Any Declines Assistive Device With Patient No Culture/Druze/Java Web Developer Cultural/Druze Needs that may affect No Treatment Plan Would you allow our hospital sports book writer to No meet you for the purpose of spiritual/ emotional support? Java Web Developer to contact place of cheondoism No Teaching: Wound Center *Welcome to the Wound Center -Person Taught Patient -Teaching Method Discussion -Response to teaching Verbalize understanding ERIK - Nurse 1 - General Ulcer Measurement Start: 05/06/22 08:12 Freq: Status: Active Protocol: Activity Type Activity Date Activity User E-sign Co-sign Detail Recorded Client Recorded Date Recorded By Document 05/06/22 08:13 RB [id number] 05/06/22 08:23 RB 05/06/22 08:13 Wound Center Nurse 1 1. LLE medial -Combined with other wound No -Current Size (cm) - Length 0.1 -Current Size (cm) - Width 0.1 -Current Size (cm) - Depth 0.1 -Total Square Cm 0.01 -Photo Taken Yes -Tunneling No -Undermining/Tunneling No -Circular Undermining No -Exudate Amt Small -Exudate Type Serosanguineous -Wound Margin Distinct, Outline Attached -Granulation Amt Medium (34-66%) -Granulation Quality Cadott -Slough/Fibrin Yes -Necrosis Amt Medium (34-66%) -Necrotic Tissue Type Adherent Slough -Structure Exposed N/A -Texture (Darlene-wound Skin Appearance) Assessed -Moisture (Darlene-wound Skin Appearance) Assessed -Color (Darleen-wound Skin Appearance) Assessed, Hemosiderin Staining -Temperature (Darlene-wound Skin No Abnormality Appearance) (Pt Warm) -Tenderness on Palpation (Darlene-wound No Skin Appearance) -Ulcer Cleansing Wound Cleanser -Foul Odor after Cleansing No -Anesthetic Used 5% Lidocaine Gel Lower Limb Edema Present Yes Right Calf (cm) 39.5 Right Ankle (cm) 24 Left Calf (cm) 43 Left Ankle (cm) 24.7 ERIK - Nurse 2 - General Ulcer CM Notes Start: 05/06/22 08:12 Freq: Status: Active Protocol: Activity Type Activity Date Activity User E-sign Co-sign Detail Recorded Client Recorded Date Recorded By Document 05/06/22 08:45 JAMES [id number] 05/06/22 08:49 JF 05/06/22 08:45 Wound Center Nurse 2 1Hanane BRAN medial -Time 08:45 -Correct Patient Yes -Correct Side, Site, Position Yes -Correct Procedure Yes -Procedure Performed Yes -Type of Procedure Debridement -Clinical Debridement Subcutaneous -Tissue Removed Subcutaneous -Post Debridement (cm) - Length 1.4 -Post Debridement (cm) - Width 0.7 -Post Debridement (cm) - Depth 0.3 -Total Square (Post) (cm) 0.98 -Area of Debridement (cm) - Length 1.4 -Area of Debridement (cm) - Width 0.7 -Total Square (Area) (cm) 0.98 -Tunneling No -Undermining/Tunneling No -Circular Undermining No -Wound/Ulcer Outcome Not Healed -Ulcer Cleansing Rinsed/ Irrigated with Saline -Foul Odor after Cleansing No -Bioengineered Tissue No -Bleeding Controlled with Pressure -Treatment Response Procedure Tolerated Well -Offloading No -Debridement - Subq, 1st 20sq cm Yes Pain Scale: 0-10 Numeric Is Patient Pain Free? Yes Charges/Coding Visit Charges Office Visits / Consults: 41398 OV L4 Est (25 modifier) Procedures Integumentary [id number]: [id number] Shefali subq tissue 20 sq cm/< Assessment/Plan Assessment/Plan (1) Ulcer of left lower extremity with fat layer exposed: CODE(S): L97.922 - Non-pressure chronic ulcer of unspecified part of left lower leg with fat layer exposed (2) Non-healing ulcer: CODE(S): L98.499 - Non-pressure chronic ulcer of skin of other sites with unspecified severity (3) Diabetes: CODE(S): E11.9 - Type 2 diabetes mellitus without complications QUALIFIERS: Diabetes mellitus type: type 2 (4) History of DVT of lower extremity: CODE(S): Z86.718 - Personal history of other venous thrombosis and embolism PLAN: Plan Patient was evaluated at the wound center today, a subcutaneous debridement was performed as documented. Wound care - Collagen Santyl, gatito thickness, covered with gauze daily. Compression - Double tubigrip stockings. May remove when sleeping. Will order venous and arterial studies since she has had this ulcer over 2 months. Encouraged patient to keep legs elevated when sitting. Encouraged increase in protein intake to help with wound healing. Will consider a wound culture next week. Follow up one week. Call or come in sooner if develop any concerns. 25 minutes spent with patient, planning of care, reviewing previous notes and ordering tests.
[2022-05-13 10:03] VITALS: BP 178/88; PULSE 63; RESP 18; TEMP 36.6; BMI 38.6
--- NOTE | 2022-05-13 12:42 | PCM.WC.PN ---
History of Present Illness Date of Service: 05/13/22 Chief Complaint: Left medial, distal leg non healing ulcer History of Wound: Patient is a 47 year old female who presents with a non healing ulcer that occurred in February after tripping. She states she tripped, hitting her left lower leg, then noticed the wound starting a couple weeks later, so she associates it with the tripping. She has been treating it with antibiotic ointment, has seen her PCP who has treated her several different antibiotics. She has a history of DM II, Antiphospholipid syndrome which she is on anticoagulants, DVT and PE. Today she denies fever, chills, nausea and vomiting. She states she has a good appetite. Progress of Wound: Left medial distal leg ulcer is very painful and has fibrous tissue in the base. Left leg has hemosiderin staining. She has +1 pitting edema. Objective Data Objective Data Vital Signs: Vital Signs Temp Pulse Resp BP 97.8 F 63 18 178/88 H 05/13/22 10:03 05/13/22 10:03 05/13/22 10:03 05/13/22 10:03 Weight: 225 lb Body Mass Index (BMI) 38.6 Charges/Coding Procedures Integumentary 111xxx-113xx: 70049 Shefali subq tissue 20 sq cm/< Physical Exam Const alert and oriented x3 General Appearance: cooperative HEENT normocephalic Lymph Lymphatic: no lymphedema noted Resp normal respiratory effort Effort and Inspection: able to speak in complete sentences Cardio regular rate Extremity full ROM and normal capillary refill Extremity Narrative: +1-+2 edema of left leg Skin Wound Narrative: Left medial distal leg ulcer, very painful with fibrous tissue in the base of ulcer. Neuro oriented x3 Sensorium / Orientation: awake Psych mental status grossly normal Appearance: appropriate and well kempt Debridement Note Debridement Note Wound debrided: Medial, distal leg ulcer Laterality: Left Type of Debridement: Excisional debridement Anesthesia Used: 5% Lidocaine Gel Depth: Down to and including healthy tissue and in the subcutaneous layer Percentage of wound debrided: 100 Instrument Used: - (Misonix aquasonic) Tissue Removed: Devitalized tissue and slough Severity: Fat Layer Exposed Amount of bleeding with debridement: Mild Bleeding Controlled with: Compression and gauze Patient tolerated procedure: Patient tolerated procedure well Post-Debridement Measurements and Additional Note: Post-Debridement Measurements/Treatment WC - Nurse 1 - General Ulcer Assessment Start: 05/06/22 08:12 Freq: Status: Active Protocol: ERIK.LOWANDRIYT Activity Type Activity Date Activity User E-sign Co-sign Detail Recorded Client Recorded Date Recorded By Document 05/06/22 08:13 RB [id number] 05/06/22 08:23 RB Document 05/13/22 10:03 RB [id number] 05/13/22 10:11 RB 05/06/22 05/13/22 08:13 10:03 - Today's Visit Information Type of service Initial Visit 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/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 ) Arrival Mode Ambulatory Ambulatory Transfer Assistance None None Patient Identification Verified (Name & Yes Yes ) Patient Requires Transmission-Based No No Precautions Height and Weight Height 5 ft 4 in Weight 225 lb Weight in Pounds 225.0 lbs Body Mass Index (BMI) 38.6 38.6 BMI Classification Obese Obese BSA - Gabbie 2.06 Vital Signs Temperature (97.8 F-99.1 F) 97 F L 97.8 F Temperature Source Temporal Temporal Pulse Rate (60-100) 73 63 Pulse Location Apical Monitor Respiratory Rate (12-18) 18 18 Respiratory rate source Observation Observation Blood Pressure (90/60-120/80) 148/85 H 178/88 H Blood Pressure Mean (mm Hg) 106 118 Source Monitor Monitor Position Semi-Fowlers Sitting Blood Pressure Location Left Arm Right Arm History Since Last Visit- (Skip if this is Patient's initial visit) Have you changed medications since your No No last visit? Any new allergies or adverse reactions No No Had a fall/change in ADL's that may No No increase risk of falls Signs or symptoms of abuse and/or No No neglect since last visit Have you been in the hospital since your No No last visit? Has dressing in place as prescribed Yes Yes Has compression in place as prescribed No Yes Has offloadiing in place as prescribed No No Experienced any changes in pain level or No No management Left Footwear Regular Shoe Right Footwear Regular Shoe Pain Scale: 0-10 Numeric Is Patient Pain Free? No Yes LLE -Description Aching -Intensity 7 -Duration (hours) Chronic -Pain Behavior Withdrawal from Touch -Pain Aggravating Factors ADL's -Alleviating Factors/Interventions Medication -Effectiveness of Alleviating Factor/ Minimally Intervention effective Lower Extremity Assessment/ Foot Assessment/ Toe Nail Assessment Right -Posterior Tibial Palpable Yes -Posterior Tibial Doppler Multiphasic -Dorsalis Pedis Palpable Yes -Dorsalis Pedis Doppler Multiphasic -Extremity Color Normal -Hair Growth on Legs Yes -Hair Growth on Toes No -Temperature of Extremity Cool -Dependent Rubor No -Blanched when Elevated No -Lipodermatosclerosis No -Other Deformity No -Prior Foot Ulcer No -Charcot Joint No -Prior Amputation No -Thick Yes -Discolored Yes -Deformed Yes -Improper Length & Hygeine No Left -Posterior Tibial Palpable Yes -Posterior Tibial Doppler Multiphasic -Dorsalis Pedis Palpable Yes -Dorsalis Pedis Doppler Multiphasic -Extremity Color Hemosiderin -Hair Growth on Legs Yes -Hair Growth on Toes No -Temperature of Extremity Cool -Capillary Refill Less than 3 Seconds -Dependent Rubor No -Blanched when Elevated No -Lipodermatosclerosis No -Other Deformity No -Prior Foot Ulcer No -Charcot Joint No -Prior Amputation No -Thick Yes -Discolored Yes -Deformed Yes -Improper Length & Hygeine No Communication Assessment Preferred language Swedish Electronic Prepress Technician Required No Able to Read Yes Able to Write Yes Communication Tools None Caregiver Communication Skills No Impairment Impairment Right Hearing Abillity Normal Left Hearing Abillity Normal Visual Assistive Devices Glasses Teaching Assessment Preferences Verbal,Written, Demonstration Barriers to Learning Unable to Comprehend Readiness To Learn Good Willingness to Engage in Self Management Med Activies Readiness to Engage in Self Management Med Activities Anxiety Level Calm Cooperation Cooperative Perception Coherent Interest in Health Problem Asks Questions Education Importance Acknowledges Need Does Patient Smoke tobacco or other No substances Smoking Status Never smoker Is Patient Diabetic Yes Functional Assessment Recent Decline in Ability to Perform Denies Any Declines Assistive Device With Patient No Culture/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 Production Assembly Supervisor to contact place of mandaen No Teaching: Wound Center *Welcome to the Wound Center -Person Taught Patient -Teaching Method Discussion -Response to teaching Verbalize understanding WC - Nurse 1 - General Ulcer Measurement Start: 05/06/22 08:12 Freq: Status: Active Protocol: Activity Type Activity Date Activity User E-sign Co-sign Detail Recorded Client Recorded Date Recorded By Document 05/06/22 08:13 [id number] 05/06/22 08:23 RB Document 05/13/22 10:03 [id number] 05/13/22 10:11 05/06/22 05/13/22 08:13 10:03 Wound Center Nurse 1 1. LLE medial -Combined with other wound No No -Current Size (cm) - Length 0.1 0.8 -Current Size (cm) - Width 0.1 0.5 -Current Size (cm) - Depth 0.1 0.2 -Total Square Cm 0.01 0.40 -Photo Taken Yes Yes -Tunneling No No -Undermining/Tunneling No No -Circular Undermining No No -Exudate Amt Small Medium -Exudate Type Serosanguineous Serosanguineous -Wound Margin Distinct, Distinct, Outline Outline Attached Attached -Granulation Amt Medium (34-66%) Medium (34-66%) -Granulation Quality [place] -Slough/Fibrin Yes Yes -Necrosis Amt Medium (34-66%) Medium (34-66%) -Necrotic Tissue Type Adherent Slough Adherent Slough -Structure Exposed N/A N/A -Texture (Darlene-wound Skin Appearance) Assessed No Abnormality -Moisture (Darlene-wound Skin Appearance) Assessed Assessed -Color (Darlene-wound Skin Appearance) Assessed, Hemosiderin Hemosiderin Staining Staining -Temperature (Darlene-wound Skin No Abnormality No Abnormality Appearance) (Pt Warm) (Pt Warm) -Tenderness on Palpation (Darlene-wound No No Skin Appearance) -Ulcer Cleansing Wound Cleanser Wound Cleanser -Foul Odor after Cleansing No No -Anesthetic Used 5% Lidocaine 5% Lidocaine Gel Gel Lower Limb Edema Present Yes Right Calf (cm) 39.5 Right Ankle (cm) 24 Left Calf (cm) 43 Left Ankle (cm) 24.7 WC - Nurse 2 - General Ulcer CM Notes Start: 05/06/22 08:12 Freq: Status: Active Protocol: Activity Type Activity Date Activity User E-sign Co-sign Detail Recorded Client Recorded Date Recorded By Document 05/06/22 08:45 [id number] 05/06/22 08:49 Document 05/13/22 10:41 Desktop 05/13/22 10:49 05/06/22 05/13/22 08:45 10:41 Wound Center Nurse 2 1. LLE medial -Time 08:45 10:48 -Correct Patient Yes Yes -Correct Side, Site, Position Yes Yes -Correct Procedure Yes Yes -Procedure Performed Yes Yes -Type of Procedure Debridement Debridement -Clinical Debridement Subcutaneous Subcutaneous -Tissue Removed Subcutaneous Subcutaneous -Post Debridement (cm) - Length 1.4 1.1 -Post Debridement (cm) - Width 0.7 1 -Post Debridement (cm) - Depth 0.3 0.2 -Total Square (Post) (cm) 0.98 1.1 -Area of Debridement (cm) - Length 1.4 1.1 -Area of Debridement (cm) - Width 0.7 1 -Total Square (Area) (cm) 0.98 1.1 -Tunneling No No -Undermining/Tunneling No No -Circular Undermining No No -Wound/Ulcer Outcome Not Healed Not Healed -Ulcer Cleansing Rinsed/ Rinsed/ Irrigated with Irrigated with Saline Saline -Foul Odor after Cleansing No No -Bioengineered Tissue No No -Bleeding Controlled with Pressure Pressure -Treatment Response Procedure Procedure Tolerated Well Tolerated Well -Offloading No No -Debridement - Subq, 1st 20sq cm Yes Yes Pain Scale: 0-10 Numeric Is Patient Pain Free? Yes Yes - Nurse 3 - General Ulcer D/C NN Start: 05/06/22 08:12 Freq: Status: Active Protocol: Activity Type Activity Date Activity User E-sign Co-sign Detail Recorded Client Recorded Date Recorded By Document 05/06/22 09:43 [id number] 05/06/22 09:44 RB Document 05/13/22 10:59 [facility] [id number] 05/13/22 11:00 [facility] 05/06/22 05/13/22 09:43 10:59 Wound Care Nurse 3 1. LLE medial -Ulcer Cleansing Rinsed/ Rinsed/ Irrigated with Irrigated with Saline Saline -Foul Odor after Cleansing No -Primary Dressing Applied Other -Other Dressing hydrogel hydrogel -Primary Dressing Covered/Secured with Dry Gauze,Dry Dry Gauze & Gauze & Roll Roll Gauze, Gauze,Secured Secured with with Tape Tape Left -Tubular Bandage Double Layer Double Layer -Size of Tubigrip Used Size E Size E -Size E ($) 2 1 Treatment Response Procedure Procedure Tolerated Well Tolerated Well Pain Scale: 0-10 Numeric Is Patient Pain Free? No No LLE -Duration (hours) Acute -Pain Behavior Withdrawal from Touch,Facial Grimacing -Pain Aggravating Factors Sitting -Alleviating Factors/Interventions Distraction, Patient denies need for intervention, Emotional Support Teaching: Wound Center Dressing Your Wound -Person Taught Patient -Teaching Method Discussion, Demonstration -Response to teaching Verbalize understanding WC - Visit Discharge Discharge Condition Stable Stable Ambulatory Status Ambulatory Ambulatory Transportation Private Auto Private Auto Medication Reconcilliation completed & No provided to patient/care provider Clinical Summary of Care Provided Yes Assessment/Plan Assessment/Plan (1) Ulcer of left lower extremity with fat layer exposed: CODE(S): L97.922 - Non-pressure chronic ulcer of unspecified part of left lower leg with fat layer exposed (2) Non-healing ulcer: CODE(S): L98.499 - Non-pressure chronic ulcer of skin of other sites with unspecified severity (3) Diabetes: CODE(S): E11.9 - Type 2 diabetes mellitus without complications QUALIFIERS: Diabetes mellitus type: type 2 (4) History of DVT of lower extremity: CODE(S): Z86.718 - Personal history of other venous thrombosis and embolism PLAN: Plan Patient was evaluated at the wound center today, a subcutaneous debridement was performed as documented. Wound care - Collagen Santyl, gatito thickness, covered with gauze daily. Compression - Double tubigrip stockings. May remove when sleeping. Obtained today, 05/13/2022, depending on the results of the culture it may necessitate treatment with antibiotics. Ordered venous and arterial studies since she has had this ulcer over 2 months. Encouraged patient to keep legs elevated when sitting. Encouraged increase in protein intake to help with wound healing. Follow up one week. Call or come in sooner if develop any concerns.
== END 2022-05-15 23:59 | disposition home or self-care (01) ==
LOC: WC 09:45
PROVIDERS: PCP Internal Medicine; Visit Provider Nurse Practitioner Family
DX: E11.622 Type 2 diabetes mellitus with other skin ulcer (principal); L97.822 Non-pressure chronic ulcer of other part of left lower leg with fat layer exposed; D68.61 Antiphospholipid syndrome; R60.0 Localized edema; Z79.84 Long term (current) use of oral hypoglycemic drugs; Z79.899 Other long term (current) drug therapy; Z86.711 Personal history of pulmonary embolism; Z86.718 Personal history of other venous thrombosis and embolism
CPT/HCPCS: 11042; 87070; 87075; 87077; 87186; 87205; 99213; G0463

== ENCOUNTER 2022-06-10 08:30 | Outpatient (RCR) | payer MEDICAID, SELFPAY ==
[2022-05-16 01:44] VITALS: BP 178/88; PULSE 63; RESP 18; TEMP 36.6; BMI 38.6
[2022-05-20 09:02] VITALS: BP 157/86; PULSE 70; RESP 18; TEMP 36.1; BMI 38.6
--- NOTE | 2022-05-20 09:47 | PN.PCM_ITS ---
History of Present Illness Date of Service: 05/20/22 Chief Complaint: Left medial, distal leg non healing ulcer History of Wound: Patient is a 47 year old female who presents with a non healing ulcer that occurred in February after tripping. She states she tripped, hitting her left lower leg, then noticed the wound starting a couple weeks later, so she associates it with the tripping. She has been treating it with antibiotic ointment, has seen her PCP who has treated her several different antibiotics. She has a history of DM II, Antiphospholipid syndrome which she is on anticoagulants, DVT and PE. Wound culture from 05/13/22 positive for Staphylococcus haemolyticus, Corynebacterium minutissimum, Corynebacterium amycolatum and Anaerobic cocci. With the resistance of the Staph, will start her on Levaquin and Flagyl to treat the anaerobic bacteria. Wound care 0 Aquacel-Ag covered with gauze. 3M 2 layer wraps for compression. Today she denies fever, chills, nausea and vomiting. She states she has a good appetite. Progress of Wound: Left leg ulcer is stable and continues to be very painful with hemosiderin staining surrounding the ulcer. Objective Data Objective Data Vital Signs: Vital Signs Temp Pulse Resp BP 97 F L 70 18 157/86 H 05/20/22 09:02 05/20/22 09:02 05/20/22 09:02 05/20/22 09:02 Weight: 225 lb Body Mass Index (BMI) 38.6 Charges/Coding Procedures Integumentary 111xxx-113xx: 64716 Shefali subq tissue 20 sq cm/< Physical Exam Const alert and oriented x3 General Appearance: cooperative HEENT normocephalic Lymph Lymphatic: no lymphedema noted Resp normal respiratory effort Effort and Inspection: able to speak in complete sentences Cardio regular rate Extremity full ROM and normal capillary refill Extremity Narrative: +2 edema of left leg Skin Wound Narrative: Left medial distal leg ulcer, very painful with fibrous tissue in the base of ulcer. Neuro oriented x3 Sensorium / Orientation: awake Psych mental status grossly normal Appearance: appropriate and well kempt Debridement Note Debridement Note Wound debrided: Medial, distal leg ulcer Laterality: Left Type of Debridement: Excisional debridement Anesthesia Used: 5% Lidocaine Gel Depth: Down to and including healthy tissue and in the subcutaneous layer Percentage of wound debrided: 100 Instrument Used: - (Misonix aquasonic) Tissue Removed: Devitalized tissue and slough Severity: Fat Layer Exposed Amount of bleeding with debridement: Mild Bleeding Controlled with: Compression and gauze Patient tolerated procedure: Patient tolerated procedure well Post-Debridement Measurements and Additional Note: Post-Debridement Measurements/Treatment - Nurse 1 - General Ulcer Assessment Start: 05/20/22 09:02 Freq: Status: Active Protocol: FLO Activity Type Activity Date Activity User E-sign Co-sign Detail Recorded Client Recorded Date Recorded By Document 05/20/22 09:02 RB Desktop 05/20/22 09:04 RB 05/20/22 09:02 WC - Today's Visit Information Type of service 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/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 ) Arrival Mode Ambulatory Transfer Assistance None Patient Identification Verified (Name & Yes ) Patient Requires Transmission-Based No Precautions Height and Weight Body Mass Index (BMI) 38.6 BMI Classification Obese Vital Signs Temperature (97.8 F-99.1 F) 97 F L Temperature Source Temporal Pulse Rate (60-100) 70 Pulse Location Monitor Respiratory Rate (12-18) 18 Respiratory rate source Observation Blood Pressure (90/60-120/80) 157/86 H Blood Pressure Mean (mm Hg) 109 Source Monitor Position Sitting Blood Pressure Location Right Arm History Since Last Visit- (Skip if this is Patient's initial visit) Have you changed medications since your No last visit? Any new allergies or adverse reactions No Had a fall/change in ADL's that may No increase risk of falls Signs or symptoms of abuse and/or No neglect since last visit Have you been in the hospital since your No last visit? Has dressing in place as prescribed Yes Has compression in place as prescribed Yes Has offloadiing in place as prescribed No Experienced any changes in pain level or No management Left Footwear Regular Shoe Right Footwear Regular Shoe Pain Scale: 0-10 Numeric Is Patient Pain Free? Yes - Nurse 1 - General Ulcer Measurement Start: 05/20/22 09:02 Freq: Status: Active Protocol: Activity Type Activity Date Activity User E-sign Co-sign Detail Recorded Client Recorded Date Recorded By Document 05/20/22 09:02 RB Desktop 05/20/22 09:04 RB 05/20/22 09:02 Wound Center Nurse 1 1. LLE medial -Combined with other wound No -Current Size (cm) - Length 2 -Current Size (cm) - Width 1.8 -Current Size (cm) - Depth 0.1 -Total Square Cm 3.6 -Tunneling No -Undermining/Tunneling No -Circular Undermining No -Exudate Amt Medium -Exudate Type Serosanguineous -Wound Margin Distinct, Outline Attached -Granulation Amt Medium (34-66%) -Granulation Quality [place] -Slough/Fibrin Yes -Necrosis Amt Medium (34-66%) -Necrotic Tissue Type Adherent Slough -Structure Exposed N/A -Texture (Darlene-wound Skin Appearance) Assessed, Localized Edema -Moisture (Darlene-wound Skin Appearance) Assessed -Color (Darlene-wound Skin Appearance) Hemosiderin Staining -Temperature (Darlene-wound Skin No Abnormality Appearance) (Pt Warm) -Tenderness on Palpation (Darlene-wound No Skin Appearance) -Ulcer Cleansing Wound Cleanser -Foul Odor after Cleansing No -Anesthetic Used 5% Lidocaine Gel Left Calf (cm) 44.2 Left Ankle (cm) 26 WC - Nurse 2 - General Ulcer CM Notes Start: 05/20/22 09:02 Freq: Status: Active Protocol: Activity Type Activity Date Activity User E-sign Co-sign Detail Recorded Client Recorded Date Recorded By Document 05/20/22 09:17 JAMES [id number] 05/20/22 09:19 JAMES 05/20/22 09:17 Wound Center Nurse 2 1. LLE medial -Time 09:17 -Correct Patient Yes -Correct Side, Site, Position Yes -Correct Procedure Yes -Procedure Performed Yes -Type of Procedure Debridement -Clinical Debridement Subcutaneous -Tissue Removed Subcutaneous -Post Debridement (cm) - Length 2.0 -Post Debridement (cm) - Width 2 -Post Debridement (cm) - Depth 0.1 -Total Square (Post) (cm) 4.0 -Area of Debridement (cm) - Length 2 -Area of Debridement (cm) - Width 2 -Total Square (Area) (cm) 4 -Tunneling No -Undermining/Tunneling No -Circular Undermining No -Wound/Ulcer Outcome Not Healed -Ulcer Cleansing Rinsed/ Irrigated with Saline -Foul Odor after Cleansing No -Bioengineered Tissue No -Bleeding Controlled with Pressure -Treatment Response Procedure Tolerated Well -Offloading No -Debridement - Subq, 1st 20sq cm Yes Pain Scale: 0-10 Numeric Is Patient Pain Free? Yes - Nurse 3 - General Ulcer D/C NN Start: 05/20/22 09:02 Freq: Status: Active Protocol: Activity Type Activity Date Activity User E-sign Co-sign Detail Recorded Client Recorded Date Recorded By Document 05/20/22 09:40 [facility] [id number] 05/20/22 09:40 [facility] 05/20/22 09:40 Wound Care Nurse 3 1. LLE medial -Ulcer Cleansing Rinsed/ Irrigated with Saline -Foul Odor after Cleansing No -Primary Dressing Applied Aquacel AG 2x2 -Primary Dressing Covered/Secured with Dry Gauze -Aquacel AG 2x2 1 Left -Lotion applied to leg before Yes compression wrap -Multi-Layered Wrap Application Multi-Layer Comp - Left ($) Treatment Response Procedure Tolerated Well Pain Scale: 0-10 Numeric Is Patient Pain Free? Yes WC - Visit Discharge Discharge Condition Stable Ambulatory Status Ambulatory Transportation Private Auto Assessment/Plan Assessment/Plan (1) Ulcer of left lower extremity with fat layer exposed: CODE(S): L97.922 - Non-pressure chronic ulcer of unspecified part of left lower leg with fat layer exposed (2) Non-healing ulcer: CODE(S): L98.499 - Non-pressure chronic ulcer of skin of other sites with unspecified severity (3) Diabetes: CODE(S): E11.9 - Type 2 diabetes mellitus without complications QUALIFIERS: Diabetes mellitus type: type 2 (4) History of DVT of lower extremity: CODE(S): Z86.718 - Personal history of other venous thrombosis and embolism PLAN: Plan Patient was evaluated at the wound center today, a subcutaneous debridement was performed as documented. Wound care - Aquacel-Ag covered with gauze. Compression - 3M 2 layer wraps. She will come in Wednesday for a nurses visit to have the wrap and the dressing changed. Encouraged to keep legs elevated as much as possible when sitting. 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 Obtained today, 05/13/2022, depending on the results of the culture it may necessitate treatment with antibiotics. Ordered venous and arterial studies since she has had this ulcer over 2 months. Encouraged patient to keep legs elevated when sitting. Encouraged increase in protein intake to help with wound healing. Wound cultures results positive and will start her on Levaquin and Flagyl. Follow up for a nurses visit on Wednesday. Follow up one week to see me. Call or come in sooner if develop any concerns.
[2022-05-25 08:50] VITALS: BP 163/69; PULSE 78; TEMP 35.7; BMI 38.6
[2022-05-27 08:41] VITALS: BP 150/75; PULSE 71; RESP 18; TEMP 36.3; BMI 38.6
--- NOTE | 2022-05-27 09:40 | PCM.WC.PN ---
History of Present Illness Date of Service: 05/27/22 Chief Complaint: Left medial, distal leg non healing ulcer History of Wound: Patient is a 47 year old female who presents with a non healing ulcer that occurred in February after tripping. She states she tripped, hitting her left lower leg, then noticed the wound starting a couple weeks later, so she associates it with the tripping. She has been treating it with antibiotic ointment, has seen her PCP who has treated her several different antibiotics. She has a history of DM II, Antiphospholipid syndrome which she is on anticoagulants, DVT and PE. Wound culture from 05/13/22 positive for Staphylococcus haemolyticus, Corynebacterium minutissimum, Corynebacterium amycolatum and Anaerobic cocci. With the resistance of the Staph, will start her on Levaquin and Flagyl to treat the anaerobic bacteria. Wound care 0 Aquacel-Ag covered with gauze. 3M 2 layer wraps for compression. Today she denies fever, chills, nausea and vomiting. She states she has a good appetite. Progress of Wound: Left leg ulcer is slightly smaller and continues to be very painful with hemosiderin staining surrounding the ulcer. Edema is controlled with the 3M 2layer wraps which she states she is tolerating well while working. Objective Data Objective Data Vital Signs: Vital Signs Temp Pulse Resp BP 97.4 F L 71 18 150/75 H 05/27/22 08:41 05/27/22 08:41 05/27/22 08:41 05/27/22 08:41 Weight: 225 lb Body Mass Index (BMI) 38.6 Charges/Coding Procedures Integumentary [id number]: [id number] Shefali subq tissue 20 sq cm/< Debridement Note Debridement Note Wound debrided: Medial, distal leg ulcer Laterality: Left Type of Debridement: Excisional debridement Anesthesia Used: 5% Lidocaine Gel Depth: Down to and including healthy tissue and in the subcutaneous layer Percentage of wound debrided: 100 Instrument Used: 5mm curette Tissue Removed: Devitalized tissue and slough Severity: Fat Layer Exposed Amount of bleeding with debridement: Mild Bleeding Controlled with: Compression and gauze Patient tolerated procedure: Patient tolerated procedure well Debridement Free Text: She continues to have discomfort with debridement. Post-Debridement Measurements and Additional Note: Post-Debridement Measurements/Treatment WC - Nurse 1 - General Ulcer Assessment Start: 05/20/22 09:02 Freq: Status: Active Protocol: [email or web address] Activity Type Activity Date Activity User E-sign Co-sign Detail Recorded Client Recorded Date Recorded By Document 05/20/22 09:02 RB Desktop 05/20/22 09:04 RB Document 05/25/22 08:50 AK [id number] 05/25/22 08:52 AK Document 05/27/22 08:41 DL [id number] 05/27/22 08:48 DL 05/20/22 05/25/22 05/27/22 09:02 08:50 08:41 WC - Today's Visit Information Type of service Follow-up Visit Nurse-only 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/RIVET STICKER Visit (Physician/RIVET STICKER ) ) Arrival Mode Ambulatory Ambulatory Ambulatory Transfer Assistance None None Patient Identification Verified (Name & Yes Yes Yes ) Patient Requires Transmission-Based No No No Precautions Height and Weight Body Mass Index (BMI) 38.6 38.6 38.6 BMI Classification Obese Obese Obese Vital Signs Temperature (97.8 F-99.1 F) 97 F L 96.2 F L 97.4 F L Temperature Source Temporal Temporal Temporal Pulse Rate (60-100) 70 78 71 Pulse Location Monitor Monitor Monitor Respiratory Rate (12-18) 18 18 Respiratory rate source Observation Observation Blood Pressure (90/60-120/80) 157/86 H 163/69 H 150/75 H Blood Pressure Mean (mm Hg) 109 100 100 Source Monitor Monitor Monitor Position Sitting Blood Pressure Location Right Arm History Since Last Visit- (Skip if this is Patient's initial visit) Have you changed medications since your No No No last visit? Any new allergies or adverse reactions No No No Had a fall/change in ADL's that may No No No increase risk of falls Signs or symptoms of abuse and/or No No No neglect since last visit Have you been in the hospital since your No No last visit? Has dressing in place as prescribed Yes Yes Yes Has compression in place as prescribed Yes Yes Yes Has offloadiing in place as prescribed No N/A N/A Experienced any changes in pain level or No No No management Left Footwear Regular Shoe Regular Shoe Right Footwear Regular Shoe Regular Shoe Pain Scale: 0-10 Numeric Is Patient Pain Free? Yes No Yes - Nurse 1 - General Ulcer Measurement Start: 05/20/22 09:02 Freq: Status: Active Protocol: Activity Type Activity Date Activity User E-sign Co-sign Detail Recorded Client Recorded Date Recorded By Document 05/20/22 09:02 RB Desktop 05/20/22 09:04 RB Document 05/27/22 08:41 DL [id number] 05/27/22 08:48 DL 05/20/22 05/27/22 09:02 08:41 Wound Center Nurse 1 1. LLE medial -Combined with other wound No -Current Size (cm) - Length 2 1.8 -Current Size (cm) - Width 1.8 1.9 -Current Size (cm) - Depth 0.1 0.2 -Total Square Cm 3.6 3.42 -Photo Taken Yes -Tunneling No -Undermining/Tunneling No -Circular Undermining No -Exudate Amt Medium Medium -Exudate Type Serosanguineous Serosanguineous -Wound Margin Distinct, Distinct, Outline Outline Attached Attached -Granulation Amt Medium (34-66%) Medium (34-66%) -Granulation Quality [place] Red -Slough/Fibrin Yes -Necrosis Amt Medium (34-66%) Medium (34-66%) -Necrotic Tissue Type Adherent Slough Adherent Slough -Structure Exposed N/A N/A -Texture (Darlene-wound Skin Appearance) Assessed, Scarring Localized Edema -Moisture (Darlene-wound Skin Appearance) Assessed No Abnormality -Color (Darlene-wound Skin Appearance) Hemosiderin Hemosiderin Staining Staining -Temperature (Darlene-wound Skin No Abnormality No Abnormality Appearance) (Pt Warm) (Pt Warm) -Tenderness on Palpation (Darlene-wound No Yes Skin Appearance) -Ulcer Cleansing Wound Cleanser Soap and Water -Foul Odor after Cleansing No No -Anesthetic Used 5% Lidocaine 4% Lidocaine Gel Solution Left Calf (cm) 44.2 39 Left Ankle (cm) 26 24.2 WC - Nurse 2 - General Ulcer CM Notes Start: 05/20/22 09:02 Freq: Status: Active Protocol: Activity Type Activity Date Activity User E-sign Co-sign Detail Recorded Client Recorded Date Recorded By Document 05/20/22 09:17 JAMES [id number] 05/20/22 09:19 JAMES 05/20/22 09:17 Wound Center Nurse 2 1. LLE medial -Time 09:17 -Correct Patient Yes -Correct Side, Site, Position Yes -Correct Procedure Yes -Procedure Performed Yes -Type of Procedure Debridement -Clinical Debridement Subcutaneous -Tissue Removed Subcutaneous -Post Debridement (cm) - Length 2.0 -Post Debridement (cm) - Width 2 -Post Debridement (cm) - Depth 0.1 -Total Square (Post) (cm) 4.0 -Area of Debridement (cm) - Length 2 -Area of Debridement (cm) - Width 2 -Total Square (Area) (cm) 4 -Tunneling No -Undermining/Tunneling No -Circular Undermining No -Wound/Ulcer Outcome Not Healed -Ulcer Cleansing Rinsed/ Irrigated with Saline -Foul Odor after Cleansing No -Bioengineered Tissue No -Bleeding Controlled with Pressure -Treatment Response Procedure Tolerated Well -Offloading No -Debridement - Subq, 1st 20sq cm Yes Pain Scale: 0-10 Numeric Is Patient Pain Free? Yes WC - Nurse 3 - General Ulcer D/C NN Start: 05/20/22 09:02 Freq: Status: Active Protocol: Activity Type Activity Date Activity User E-sign Co-sign Detail Recorded Client Recorded Date Recorded By Document 05/20/22 09:40 [facility] [id number] 05/20/22 09:40 [facility] Document 05/25/22 08:50 AK [id number] 05/25/22 08:52 AK 05/20/22 05/25/22 09:40 08:50 Wound Care Nurse 3 1. LLE medial -Ulcer Cleansing Rinsed/ Soap and Water Irrigated with Saline -Foul Odor after Cleansing No No -Negative Pressure Wound Therapy N/A -Primary Dressing Applied Aquacel AG 2x2 Aquacel AG 4x4 -Primary Dressing Covered/Secured with Dry Gauze Dry Gauze -Aquacel AG 4x4 1 -Aquacel AG 2x2 1 Left -Lotion applied to leg before Yes No compression wrap -Multi-Layered Wrap Application Multi-Layer Multi-Layer Comp - Left ($) Comp - Left ($) Treatment Response Procedure Tolerated Well Vital Signs Temperature (97.8 F-99.1 F) 96.2 F L Temperature Source Temporal Pulse Rate (60-100) 78 Pulse Location Monitor Blood Pressure (90/60-120/80) 163/69 H Blood Pressure Mean (mm Hg) 100 Source Monitor Pain Scale: 0-10 Numeric Is Patient Pain Free? Yes No WC - Visit Discharge Discharge Condition Stable Stable Ambulatory Status Ambulatory Ambulatory Transportation Private Auto Private Auto Medication Reconcilliation completed & Yes provided to patient/care provider Clinical Summary of Care Provided Yes Assessment/Plan Assessment/Plan (1) Ulcer of left lower extremity with fat layer exposed: CODE(S): L97.922 - Non-pressure chronic ulcer of unspecified part of left lower leg with fat layer exposed (2) Non-healing ulcer: CODE(S): L98.499 - Non-pressure chronic ulcer of skin of other sites with unspecified severity (3) Diabetes: CODE(S): E11.9 - Type 2 diabetes mellitus without complications QUALIFIERS: Diabetes mellitus type: type 2 (4) History of DVT of lower extremity: CODE(S): Z86.718 - Personal history of other venous thrombosis and embolism PLAN: Plan Patient was evaluated at the wound center today, a subcutaneous debridement was performed as documented. Wound care - Moistened Aquacel-Ag covered with gauze. Compression - 3M 2 layer wraps. Encouraged to keep legs elevated as much as possible when sitting. 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 Obtained today, 05/13/2022, depending on the results of the culture it may necessitate treatment with antibiotics. Ordered venous and arterial studies since she has had this ulcer over 2 months. Scheduled 06/05. Encouraged patient to keep legs elevated when sitting. Encouraged increase in protein intake to help with wound healing. Wound cultures results positive, continue Levaquin and Flagyl. Follow up one week. Call or come in sooner if develop any concerns.
--- NOTE | 2022-06-05 09:11 | VDLE_ITS ---
Reason For Study: ulcer RIGHT LEFT CFV is compressible, spontaneous, phasic, CFV is compressible, spontaneous, phasic, competent and demonstrates normal competent, and demonstrates normal augmentation. augmentation. FV is compressible, spontaneous, phasic, FV is compressible, spontaneous, phasic, competent and demonstrates normal competent and demonstrates normal augmentation. augmentation. POP V is compressible, spontaneous, phasic, POP V is compressible, spontaneous, phasic, competent and demonstrates normal competent and demonstrates normal augmentation. augmentation. T/P Trunk is compressible. T/P Trunk is compressible. PTV is compressible. PTV is compressible. RT PerV is compressible. LT PerV is compressible. SFJ is competent and measures .62 cm. SFJ is competent and measures .72 cm. GSV proximal thigh measures .45 x .49 cm. GSV proximal thigh measures .6 x .66 cm. GSV at knee measures .63 x .62 cm. GSV at knee measures .58 x .58 cm. GSV INCOMPETENT throughout for greater than GSV INCOMPETENT throughout for greater than 0.5 seconds. 0.5 seconds. SSV proximal calf is INCOMPETENT for greater SSV proximal calf is INCOMPETENT for greater than 0.5 seconds and measures .35 x .35 cm. than 0.5 seconds and measures .53 x .63 cm. ASV distal thigh is INCOMPETENT for greater ASV proximal thigh is INCOMPETENT for greater than 0.5 seconds and measures .28 x .28 cm. than 0.5 seconds and measures .29 x .31 cm. ASV at knee is INCOMPETENT for greater than ASV at knee is INCOMPETENT for greater than 0.5 seconds and measures .28 x .33 cm. 0.5 seconds and measures .33 x .37 cm. ASV mid calf is INCOMPETENT for greater than 0.5 seconds and measures .29 x .3 cm. Procedure This is a venous duplex using B-mode, color flow and spectral Doppler. Exam performed in department. The exam was diagnostic. VL/Venous Duplex US - [place] Extrem Interpretation Summary Deep veins of the lower extremities are bilaterally patent and compressible seg mentally. There is no evidence of deep vein thrombosis on either side. Valvular competence appears in tact within the proximal deep venous systems bilaterally. The great saphenous veins appear bila terally patent and compressible segmentally. Sapheno-femoral junctions are bilaterally competent . Segmental valvular incompetence is noted within the great saphenous veins bilaterally. Small saphe nous veins are patent and incompetent bilaterally. The accessory saphenous vein in the right distal t high is incompetent. The accessory saphenous vein at the right knee is incomprtent. The accessory sa phenous vein in the right mid-calf is incompetent. The accessory saphenous vein in the left proxima l thigh is incompetent. The accessory saphenous vein at the left knee is incompetent. Ordering Physician: Kiya Almeida Performed By: Jm Blandon RVT
--- NOTE | 2022-06-05 09:13 | ART_ITS ---
Reason For Study: ulcer Procedure A bilateral lower extremity continuous wave Doppler with analog waveform analysis,segmental pressures,and ankle brachial indexes without exercise. Left Segmental Pressures Left brachial= 148mmHg. Left posterior tibial artery = 167mmHg. Left dorsalis pedis artery = 180mmHg. Left digit = 138 mmHg. The left posterior tibial artery waveforms are biphasic. The left dorsalis pedis waveforms are triphasic. Right Segmental Pressures Right brachial= 151mmHg. Right posterior tibial artery = 198mmHg. Right dorsalis pedis artery = 188mmHg. Right digit = 142 mmHg. The right dorsalis pedis waveforms are triphasic. The right posterior tibial artery waveforms are triphasic. Indices The right ankle brachial index by the posterior tibial artery is 1.31. The right ankle brachial index by the dorsalis pedis is 1.25. The right digital-brachial index is .94. The left ankle brachial index by the dorsalis pedis is 1.19. The left ankle brachial index by the posterior tibial artery is 1.11. The left digital-brachial index is .91. VL/Lower Ext Art Exam w/o Exercis Interpretation Summary Triphasic Doppler waveforms are noted at ankle level on the right. Triphasic an d biphasic Doppler waveforms are noted at ankle level on the left. Pulse-volume recordings appear satisfactory at all levels bilaterally. Resting ankle-brachial indices are normal bilaterally. Digi kamryn-brachial indices are normal bilaterally. There is no evidence of significant arterial occlusive disease in the lower ext remities bilaterally. Ordering Physician: Kiya Almeida Performed By: Jm Blandon RVT
[2022-06-05 11:30] VITALS: BP 128/79; PULSE 74; TEMP 36.7; BMI 38.6
[2022-06-10 08:47] VITALS: BP 162/90; PULSE 93; RESP 16; BMI 38.6
--- NOTE | 2022-06-10 12:30 | PCM.WC.PN ---
History of Present Illness Date of Service: 06/10/22 Chief Complaint: Left medial, distal leg non healing ulcer History of Wound: Patient is a 47 year old female who presents with a non healing ulcer that occurred in February after tripping. She states she tripped, hitting her left lower leg, then noticed the wound starting a couple weeks later, so she associates it with the tripping. She has been treating it with antibiotic ointment, has seen her PCP who has treated her several different antibiotics. She has a history of DM II, Antiphospholipid syndrome which she is on anticoagulants, DVT and PE. Wound culture from 05/13/22 positive for Staphylococcus haemolyticus, Corynebacterium minutissimum, Corynebacterium amycolatum and Anaerobic cocci. With the resistance of the Staph, will start her on Levaquin and Flagyl to treat the anaerobic bacteria. Wound care - Aquacel-Ag covered with gauze. 3M 2 layer wraps for compression. Arterial studies done 06/05/22 - Right DONAVON = 1.25, Left DONAVON = 1.19. There is no evidence of significant arterial occlusive disease in the lower extremities bilaterally. Venous duplex studies from 06/05/22 - Deep veins of the lower extremities are bilaterally patent and compressible segmentally. There is no evidence of deep vein thrombosis on either side. Valvular competence appears intact within the proximal deep venous systems bilaterally. The great saphenous veins appear bilaterally patent and compressible segmentally. Sapheno-femoral junctions are bilaterally competent . Segmental valvular incompetence is noted within the great saphenous veins bilaterally. Small saphenous veins are patent and incompetent bilaterally. The accessory saphenous vein in the right distal thigh is incompetent. The accessory saphenous vein at the right knee is incompetent. The accessory saphenous vein in the right mid-calf is incompetent. The accessory saphenous vein in the left proximal thigh is incompetent. The accessory saphenous vein at the left knee is incompetent. Will refer to Dr. Olson for further evaluation. Today she denies fever, chills, nausea and vomiting. She states she has a good appetite. Progress of Wound: Left leg ulcer cluster is slightly smaller and continues to be very painful with hemosiderin staining surrounding the ulcer. Edema is controlled with the 3M 2layer wraps which she states she is tolerating well while working. Objective Data Objective Data Vital Signs: Vital Signs Temp Pulse Resp BP O2 Del Method 98.0 F 93 16 162/90 H Room Air 06/05/22 11:30 06/10/22 08:47 06/10/22 08:47 06/10/22 08:47 06/10/22 08:47 Oxygen Delivery Method Room Air Weight: 225 lb Body Mass Index (BMI) 38.6 Charges/Coding Procedures Integumentary 111xxx-113xx: [id number] Shefali subq tissue 20 sq cm/< Debridement Note Debridement Note Wound debrided: Medial, distal leg ulcer Laterality: Left Wound Grade/Stage: Stage II Type of Debridement: Excisional debridement Anesthesia Used: 5% Lidocaine Gel Depth: Down to and including healthy tissue and in the subcutaneous layer Percentage of wound debrided: 100 Instrument Used: 5mm curette Tissue Removed: Devitalized tissue and slough Severity: Fat Layer Exposed Amount of bleeding with debridement: Mild Bleeding Controlled with: Compression and gauze Patient tolerated procedure: Patient did not tolerate procedure well Debridement Free Text: She continues to have quite a bit of discomfort with debridement. Post-Debridement Measurements and Additional Note: Post-Debridement Measurements/Treatment - Nurse 1 - General Ulcer Assessment Start: 05/20/22 09:02 Freq: Status: Active Protocol: FLO Activity Type Activity Date Activity User E-sign Co-sign Detail Recorded Client Recorded Date Recorded By Document 05/20/22 09:02 RB Desktop 05/20/22 09:04 RB Document 05/25/22 08:50 AK [id number] 05/25/22 08:52 AK Document 05/27/22 08:41 DL [id number] 05/27/22 08:48 DL Document 06/05/22 11:30 KR [id number] 06/05/22 11:32 KR Document 06/10/22 08:47 BMF [id number] 06/10/22 08:53 BMF 05/20/22 05/25/22 05/27/22 09:02 08:50 08:41 - Today's Visit Information Type of service Follow-up Visit Nurse-only 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/BOLT MAN Visit (Physician/BOLT MAN ) ) Arrival Mode Ambulatory Ambulatory Ambulatory Transfer Assistance None None Patient Identification Verified (Name & Yes Yes Yes ) Patient Requires Transmission-Based No No No Precautions Height and Weight Body Mass Index (BMI) 38.6 38.6 38.6 BMI Classification Obese Obese Obese Vital Signs Temperature (97.8 F-99.1 F) 97 F L 96.2 F L 97.4 F L Temperature Source Temporal Temporal Temporal Pulse Rate (60-100) 70 78 71 Pulse Location Monitor Monitor Monitor Respiratory Rate (12-18) 18 18 Respiratory rate source Observation Observation Oxygen Delivery Method Blood Pressure (90/60-120/80) 157/86 H 163/69 H 150/75 H Blood Pressure Mean (mm Hg) 109 100 100 Source Monitor Monitor Monitor Position Sitting Blood Pressure Location Right Arm History Since Last Visit- (Skip if this is Patient's initial visit) Have you changed medications since your No No No last visit? Any new allergies or adverse reactions No No No Had a fall/change in ADL's that may No No No increase risk of falls Signs or symptoms of abuse and/or No No No neglect since last visit Have you been in the hospital since your No No last visit? Has dressing in place as prescribed Yes Yes Yes Has compression in place as prescribed Yes Yes Yes Has offloadiing in place as prescribed No N/A N/A Experienced any changes in pain level or No No No management Left Footwear Regular Shoe Regular Shoe Right Footwear Regular Shoe Regular Shoe Pain Scale: 0-10 Numeric Is Patient Pain Free? Yes No Yes 06/05/22 06/10/22 11:30 08:47 WC - Today's Visit Information Type of service Nurse-only Follow-up Visit Visit (Physician/BOLT MAN ) Arrival Mode Ambulatory Ambulatory Transfer Assistance None Patient Identification Verified (Name & Yes Yes ) Patient Requires Transmission-Based No Precautions Height and Weight Body Mass Index (BMI) 38.6 38.6 BMI Classification Obese Obese Vital Signs Temperature (97.8 F-99.1 F) 98.0 F Temperature Source Temporal Pulse Rate (60-100) 74 93 Pulse Location Monitor Monitor Respiratory Rate (12-18) 16 Respiratory rate source Observation Oxygen Delivery Method Room Air Blood Pressure (90/60-120/80) 128/79 H 162/90 H Blood Pressure Mean (mm Hg) 95 114 Source Monitor Monitor Position Semi-Fowlers Sitting Blood Pressure Location Left Arm Left Arm History Since Last Visit- (Skip if this is Patient's initial visit) Have you changed medications since your No No last visit? Any new allergies or adverse reactions No No Had a fall/change in ADL's that may No No increase risk of falls Signs or symptoms of abuse and/or No No neglect since last visit Have you been in the hospital since your No No last visit? Has dressing in place as prescribed Yes Yes Has compression in place as prescribed Yes Yes Has offloadiing in place as prescribed N/A N/A Experienced any changes in pain level or No No management Left Footwear Regular Shoe Regular Shoe Right Footwear Regular Shoe Regular Shoe Pain Scale: 0-10 Numeric Is Patient Pain Free? Yes Yes WC - Nurse 1 - General Ulcer Measurement Start: 05/20/22 09:02 Freq: Status: Active Protocol: Activity Type Activity Date Activity User E-sign Co-sign Detail Recorded Client Recorded Date Recorded By Document 05/20/22 09:02 RB Desktop 05/20/22 09:04 RB Document 05/27/22 08:41 DL [id number] 05/27/22 08:48 DL Document 06/05/22 11:32 KR [id number] 06/05/22 11:32 KR Document 06/10/22 08:47 BMF [id number] 06/10/22 08:53 BMF 05/20/22 05/27/22 06/05/22 09:02 08:41 11:32 Wound Center Nurse 1 1. LLE medial -Combined with other wound No -Current Size (cm) - Length 2 1.8 -Current Size (cm) - Width 1.8 1.9 -Current Size (cm) - Depth 0.1 0.2 -Total Square Cm 3.6 3.42 -Photo Taken Yes -Epithelialization -Tunneling No -Undermining/Tunneling No -Circular Undermining No -Exudate Amt Medium Medium -Exudate Type Serosanguineous Serosanguineous -Wound Margin Distinct, Distinct, Outline Outline Attached Attached -Granulation Amt Medium (34-66%) Medium (34-66%) -Granulation Quality [place] Red -Slough/Fibrin Yes -Necrosis Amt Medium (34-66%) Medium (34-66%) -Necrotic Tissue Type Adherent Slough Adherent Slough -Structure Exposed N/A N/A -Texture (Darlene-wound Skin Appearance) Assessed, Scarring Localized Edema -Moisture (Darlene-wound Skin Appearance) Assessed No Abnormality -Color (Darlene-wound Skin Appearance) Hemosiderin Hemosiderin Staining Staining -Temperature (Darlene-wound Skin No Abnormality No Abnormality Appearance) (Pt Warm) (Pt Warm) -Tenderness on Palpation (Darlene-wound No Yes Skin Appearance) -Ulcer Cleansing Wound Cleanser Soap and Water -Foul Odor after Cleansing No No -Anesthetic Used 5% Lidocaine 4% Lidocaine Gel Solution Lower Limb Edema Present Left Calf (cm) 44.2 39 42 Left Ankle (cm) 26 24.2 24 06/10/22 08:47 Wound Center Nurse 1 1. LLE medial -Combined with other wound No -Current Size (cm) - Length 1.5 -Current Size (cm) - Width 1 -Current Size (cm) - Depth 0.2 -Total Square Cm 1.5 -Photo Taken No -Epithelialization Small 1-33% -Tunneling No -Undermining/Tunneling No -Circular Undermining No -Exudate Amt Medium -Exudate Type Serosanguineous -Wound Margin Distinct, Outline Attached -Granulation Amt Medium (34-66%) -Granulation Quality Red -Slough/Fibrin Yes -Necrosis Amt Medium (34-66%) -Necrotic Tissue Type Adherent Slough -Structure Exposed -Texture (Darlene-wound Skin Appearance) Assessed, Scarring -Moisture (Darlene-wound Skin Appearance) Assessed -Color (Darlene-wound Skin Appearance) Assessed, Hemosiderin Staining -Temperature (Darlene-wound Skin No Abnormality Appearance) (Pt Warm) -Tenderness on Palpation (Darlene-wound Yes Skin Appearance) -Ulcer Cleansing Soap and Water -Foul Odor after Cleansing No -Anesthetic Used 5% Lidocaine Gel Lower Limb Edema Present Yes Left Calf (cm) 40.4 Left Ankle (cm) 24.8 WC - Nurse 2 - General Ulcer CM Notes Start: 05/20/22 09:02 Freq: Status: Active Protocol: Activity Type Activity Date Activity User E-sign Co-sign Detail Recorded Client Recorded Date Recorded By Document 05/20/22 09:17 JAMES [id number] 05/20/22 09:19 JF Document 05/27/22 07:05 PL [id number] 05/28/22 07:07 PL Document 06/10/22 09:10 Laptop 10/26/22 09:15 05/20/22 05/27/22 06/10/22 09:17 07:05 09:10 Wound Center Nurse 2 1Hanane KATEJacque medial -Time 09:17 09:10 -Correct Patient Yes Yes Yes -Correct Side, Site, Position Yes Yes Yes -Correct Procedure Yes Yes Yes -Procedure Performed Yes Yes Yes -Type of Procedure Debridement Debridement Debridement -Clinical Debridement Subcutaneous Subcutaneous Subcutaneous -Tissue Removed Subcutaneous Subcutaneous Subcutaneous -Post Debridement (cm) - Length 2.0 1.8 2.0 -Post Debridement (cm) - Width 2 1.9 2.0 -Post Debridement (cm) - Depth 0.1 0.2 0.2 -Total Square (Post) (cm) 4.0 3.42 4.00 -Area of Debridement (cm) - Length 2 1.8 2.0 -Area of Debridement (cm) - Width 2 1.9 2.0 -Total Square (Area) (cm) 4 3.42 4.00 -Tunneling No No No -Undermining/Tunneling No No No -Circular Undermining No No No -Wound/Ulcer Outcome Not Healed Not Healed Not Healed -Ulcer Cleansing Rinsed/ Rinsed/ Irrigated with Irrigated with Saline Saline -Foul Odor after Cleansing No No -Bioengineered Tissue No No No -Bleeding Controlled with Pressure Pressure Pressure -Treatment Response Procedure Procedure Procedure Tolerated Well Tolerated Well Tolerated Well -Offloading No No -Debridement - Subq, 1st 20sq cm Yes Yes Yes Pain Scale: 0-10 Numeric Is Patient Pain Free? Yes Yes Yes WC - Nurse 3 - General Ulcer D/C NN Start: 05/20/22 09:02 Freq: Status: Active Protocol: Activity Type Activity Date Activity User E-sign Co-sign Detail Recorded Client Recorded Date Recorded By Document 05/20/22 09:40 [facility] [id number] 05/20/22 09:40 [facility] Document 05/25/22 08:50 AK [id number] 05/25/22 08:52 AK Document 05/27/22 09:46 DL [id number] 05/27/22 09:47 DL Document 06/05/22 11:30 KR [id number] 06/05/22 11:32 KR Document 06/10/22 09:26 [facility] [id number] 06/10/22 09:27 [facility] 05/20/22 05/25/22 05/27/22 09:40 08:50 09:46 Wound Care Nurse 3 1. LLE medial -Ulcer Cleansing Rinsed/ Soap and Water Soap and Water Irrigated with Saline -Foul Odor after Cleansing No No No -Negative Pressure Wound Therapy N/A -Primary Dressing Applied Aquacel AG 2x2 Aquacel AG 4x4 Aquacel AG 2x2 -Primary Dressing Covered/Secured with Dry Gauze Dry Gauze Dry Gauze -Aquacel AG 4x4 1 -Aquacel AG 2x2 1 1 Left -Lotion applied to leg before Yes No compression wrap -Multi-Layered Wrap Application Multi-Layer Multi-Layer Multi-Layer Comp - Left ($) Comp - Left ($) Comp - Left ($) Treatment Response Procedure Procedure Tolerated Well Tolerated Well Vital Signs Temperature (97.8 F-99.1 F) 96.2 F L Temperature Source Temporal Pulse Rate (60-100) 78 Pulse Location Monitor Blood Pressure (90/60-120/80) 163/69 H Blood Pressure Mean (mm Hg) 100 Source Monitor Position Blood Pressure Location Pain Scale: 0-10 Numeric Is Patient Pain Free? Yes No Yes WC - Visit Discharge Discharge Condition Stable Stable Stable Ambulatory Status Ambulatory Ambulatory Ambulatory Transportation Private Auto Private Auto Private Auto Medication Reconcilliation completed & Yes provided to patient/care provider Clinical Summary of Care Provided Yes 06/05/22 06/10/22 11:30 09:26 Wound Care Nurse 3 1. LLE medial -Ulcer Cleansing Soap and Water Rinsed/ Irrigated with Saline -Foul Odor after Cleansing No -Negative Pressure Wound Therapy -Primary Dressing Applied Aquacel AG 4x4 Aquacel AG 2x2 -Primary Dressing Covered/Secured with Dry Gauze, Dry Gauze Secured with Tape -Aquacel AG 4x4 1 -Aquacel AG 2x2 1 Left -Lotion applied to leg before Yes compression wrap -Multi-Layered Wrap Application Multi-Layer Multi-Layer Comp - Left ($) Comp - Left ($) Treatment Response Procedure Tolerated Well Vital Signs Temperature (97.8 F-99.1 F) 98.0 F Temperature Source Temporal Pulse Rate (60-100) 74 Pulse Location Monitor Blood Pressure (90/60-120/80) 128/79 H Blood Pressure Mean (mm Hg) 95 Source Monitor Position Semi-Fowlers Blood Pressure Location Left Arm Pain Scale: 0-10 Numeric Is Patient Pain Free? Yes Yes WC - Visit Discharge Discharge Condition Stable Stable Ambulatory Status Ambulatory Ambulatory Transportation Private Auto Private Auto Medication Reconcilliation completed & provided to patient/care provider Clinical Summary of Care Provided Assessment/Plan Assessment/Plan (1) Ulcer of left lower extremity with fat layer exposed: CODE(S): L97.922 - Non-pressure chronic ulcer of unspecified part of left lower leg with fat layer exposed (2) Non-healing ulcer: CODE(S): L98.499 - Non-pressure chronic ulcer of skin of other sites with unspecified severity (3) Diabetes: CODE(S): E11.9 - Type 2 diabetes mellitus without complications QUALIFIERS: Diabetes mellitus type: type 2 (4) History of DVT of lower extremity: CODE(S): Z86.718 - Personal history of other venous thrombosis and embolism PLAN: Plan Patient was evaluated at the wound center today, a subcutaneous debridement was performed as documented. Wound care - Moistened Aquacel-Ag covered with gauze. Compression - 3M 2 layer wraps. Encouraged to keep legs elevated as much as possible when sitting. 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 Obtained wound cultures on 05/13/2022, which were positive for Staphylococcus haemolyticus, Corynebacterium minutissimum, Corynebacterium amycolatum and Anaerobic cocci. She was treated with Levofloxacin and Metronidazole. Ordered venous and arterial studies which were done on 06/05. She has no arterial compromise but has bilateral venous insufficiency. With the amount of pain she is experiencing, her young age and lack of improvement in her ulcer, I will refer her to Dr. Olson for further evaluation. Encouraged patient to keep legs elevated when sitting. This is difficult for her since she works 3-5, 12 hour shifts per week. Encouraged increase in protein intake to help with wound healing. Follow up one week. Call or come in sooner if develop any concerns.
== END 2022-06-15 23:59 | disposition home or self-care (01) ==
LOC: WC 08:30
PROVIDERS: PCP Internal Medicine; Referring Provider Nurse Practitioner Family; Visit Provider Nurse Practitioner Family
DX: E11.622 Type 2 diabetes mellitus with other skin ulcer (principal); L97.822 Non-pressure chronic ulcer of other part of left lower leg with fat layer exposed; L97.922 Non-pressure chronic ulcer of unspecified part of left lower leg with fat layer exposed; D68.61 Antiphospholipid syndrome; M79.605 Pain in left leg; Z86.718 Personal history of other venous thrombosis and embolism; Z86.711 Personal history of pulmonary embolism; Z79.899 Other long term (current) drug therapy; Z79.84 Long term (current) use of oral hypoglycemic drugs; R60.0 Localized edema
CPT/HCPCS: 11042; 29581; 93923; 93970

== ENCOUNTER → 2022-06-26 | Outpatient (CLI) | payer MEDICAID, SELFPAY ==
[2022-06-26 11:10] LABS: International Normalized Ratio 1.3
[2022-06-26 11:35] LABS: Creatinine, Serum 0.79 mg/dL (0.55-1.02); EST Glomerular Filtration Rate 83 mL/min (>60); Est Glom Filt Rate - Afr Amer 100 mL/min (>60)
== END | disposition home or self-care (01) ==
PROVIDERS: PCP Internal Medicine; Referring Provider Physician Assistant; Visit Provider Physician Assistant
DX: E11.9 Type 2 diabetes mellitus without complications (principal); D68.61 Antiphospholipid syndrome
CPT/HCPCS: 36415; 82565; 85610

== ENCOUNTER 2022-07-06 14:15 | Outpatient (RCR) | payer MEDICAID, SELFPAY ==
[2022-06-16 00:36] VITALS: BP 162/90; PULSE 93; RESP 16; TEMP 36.7; BMI 38.6
[2022-06-17 08:53] VITALS: BP 157/75; PULSE 92; RESP 18; TEMP 36.2; BMI 38.6
--- NOTE | 2022-06-17 13:44 | PCM.WC.PN ---
History of Present Illness Date of Service: 06/17/22 Chief Complaint: Left medial, distal leg non healing ulcer History of Wound: Patient is a 47 year old female who presents with a non healing ulcer that occurred in February after tripping. She states she tripped, hitting her left lower leg, then noticed the wound starting a couple weeks later, so she associates it with the tripping. She has been treating it with antibiotic ointment, has seen her PCP who has treated her several different antibiotics. She has a history of DM II, Antiphospholipid syndrome which she is on anticoagulants, DVT and PE. Wound culture from 05/13/22 positive for Staphylococcus haemolyticus, Corynebacterium minutissimum, Corynebacterium amycolatum and Anaerobic cocci. With the resistance of the Staph, will start her on Levaquin and Flagyl to treat the anaerobic bacteria. Wound care - Aquacel-Ag covered with gauze. 3M 2 layer wraps for compression. Arterial studies done 06/05/22 - Right DONAVON = 1.25, Left DONAVON = 1.19. There is no evidence of significant arterial occlusive disease in the lower extremities bilaterally. Venous duplex studies from 06/05/22 - Deep veins of the lower extremities are bilaterally patent and compressible segmentally. There is no evidence of deep vein thrombosis on either side. Valvular competence appears intact within the proximal deep venous systems bilaterally. The great saphenous veins appear bilaterally patent and compressible segmentally. Sapheno-femoral junctions are bilaterally competent . Segmental valvular incompetence is noted within the great saphenous veins bilaterally. Small saphenous veins are patent and incompetent bilaterally. The accessory saphenous vein in the right distal thigh is incompetent. The accessory saphenous vein at the right knee is incompetent. The accessory saphenous vein in the right mid-calf is incompetent. The accessory saphenous vein in the left proximal thigh is incompetent. The accessory saphenous vein at the left knee is incompetent. Will refer to Dr. Olson for further evaluation. Today she denies fever, chills, nausea and vomiting. She states she has a good appetite. Progress of Wound: Left medial leg ulcer is stable, it continues to be very painful. She has been tolerating the 3M 2 layer wraps but would like a break for a couple days. Objective Data Objective Data Vital Signs: Vital Signs Temp Pulse Resp BP 97.1 F L 92 18 157/75 H 06/17/22 08:53 06/17/22 08:53 06/17/22 08:53 06/17/22 08:53 Weight: 225 lb Body Mass Index (BMI) 38.6 Charges/Coding Procedures Integumentary 111xxx-113xx: [id number] Shefali subq tissue 20 sq cm/< Debridement Note Debridement Note Wound debrided: Medial, distal leg ulcer Laterality: Left Wound Grade/Stage: Stage II Type of Debridement: Excisional debridement Anesthesia Used: 5% Lidocaine Gel Depth: Down to and including healthy tissue and in the subcutaneous layer Percentage of wound debrided: 100 Instrument Used: 5mm curette Tissue Removed: Devitalized tissue and slough Severity: Fat Layer Exposed Amount of bleeding with debridement: Mild Bleeding Controlled with: Compression and gauze Patient tolerated procedure: Patient did not tolerate procedure well Debridement Free Text: She continues to have quite a bit of discomfort with debridement. Post-Debridement Measurements and Additional Note: Post-Debridement Measurements/Treatment - Nurse 1 - General Ulcer Assessment Start: 06/17/22 08:53 Freq: Status: Active Protocol: .LOWANDRIYT Activity Type Activity Date Activity User E-sign Co-sign Detail Recorded Client Recorded Date Recorded By Document 06/17/22 08:53 Desktop 06/17/22 08:57 06/17/22 08:53 - Today's Visit Information Type of service 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/AIRLINE LOUNGE RECEPTIONIST ) Arrival Mode Ambulatory Transfer Assistance None Patient Identification Verified (Name & Yes ) Patient Requires Transmission-Based No Precautions Height and Weight Body Mass Index (BMI) 38.6 BMI Classification Obese Vital Signs Temperature (97.8 F-99.1 F) 97.1 F L Temperature Source Temporal Pulse Rate (60-100) 92 Pulse Location Monitor Respiratory Rate (12-18) 18 Respiratory rate source Observation Blood Pressure (90/60-120/80) 157/75 H Blood Pressure Mean (mm Hg) 102 Source Monitor Position Semi-Fowlers Blood Pressure Location Left Arm History Since Last Visit- (Skip if this is Patient's initial visit) Have you changed medications since your No last visit? Any new allergies or adverse reactions No Had a fall/change in ADL's that may No increase risk of falls Signs or symptoms of abuse and/or No neglect since last visit Have you been in the hospital since your No last visit? Has dressing in place as prescribed Yes Has compression in place as prescribed No Has offloadiing in place as prescribed No Experienced any changes in pain level or No management Left Footwear Regular Shoe Right Footwear Regular Shoe Pain Scale: 0-10 Numeric Is Patient Pain Free? Yes - Nurse 1 - General Ulcer Measurement Start: 06/17/22 08:53 Freq: Status: Active Protocol: Activity Type Activity Date Activity User E-sign Co-sign Detail Recorded Client Recorded Date Recorded By Document 06/17/22 08:53 RB Desktop 06/17/22 08:57 RB 06/17/22 08:53 Wound Center Nurse 1 1. LLE medial -Combined with other wound No -Current Size (cm) - Length 1.7 -Current Size (cm) - Width 1 -Current Size (cm) - Depth 0.1 -Total Square Cm 1.7 -Photo Taken Yes -Tunneling No -Undermining/Tunneling No -Circular Undermining No -Exudate Amt Medium -Exudate Type Serosanguineous -Wound Margin Distinct, Outline Attached -Granulation Amt Medium (34-66%) -Granulation Quality [place] -Slough/Fibrin Yes -Necrosis Amt Medium (34-66%) -Necrotic Tissue Type Adherent Slough -Structure Exposed N/A -Texture (Darlene-wound Skin Appearance) Assessed, Scarring -Moisture (Darlene-wound Skin Appearance) Assessed -Color (Darlene-wound Skin Appearance) Hemosiderin Staining -Temperature (Darlene-wound Skin No Abnormality Appearance) (Pt Warm) -Tenderness on Palpation (Darlene-wound No Skin Appearance) -Ulcer Cleansing Wound Cleanser -Anesthetic Used 5% Lidocaine Gel Lower Limb Edema Present Yes Left Calf (cm) 39 Left Ankle (cm) 25.7 - Nurse 2 - General Ulcer CM Notes Start: 06/17/22 08:53 Freq: Status: Active Protocol: Activity Type Activity Date Activity User E-sign Co-sign Detail Recorded Client Recorded Date Recorded By Document 06/17/22 09:30 JAMES [id number] 06/17/22 09:34 JAMES 06/17/22 09:30 Wound Center Nurse 2 1. LLE medial -Time 09:31 -Correct Patient Yes -Correct Side, Site, Position Yes -Correct Procedure Yes -Procedure Performed Yes -Type of Procedure Debridement -Clinical Debridement Subcutaneous -Tissue Removed Subcutaneous -Post Debridement (cm) - Length 2.0 -Post Debridement (cm) - Width 2.0 -Post Debridement (cm) - Depth 0.1 -Total Square (Post) (cm) 4.00 -Area of Debridement (cm) - Length 2.0 -Area of Debridement (cm) - Width 2.0 -Total Square (Area) (cm) 4.00 -Tunneling No -Undermining/Tunneling No -Circular Undermining No -Wound/Ulcer Outcome Not Healed -Ulcer Cleansing Rinsed/ Irrigated with Saline -Foul Odor after Cleansing No -Bioengineered Tissue No -Bleeding Controlled with Pressure -Treatment Response Procedure Tolerated Well -Offloading No -Debridement - Subq, 1st 20sq cm Yes Pain Scale: 0-10 Numeric Is Patient Pain Free? Yes - Nurse 3 - General Ulcer D/C NN Start: 06/17/22 08:53 Freq: Status: Active Protocol: Activity Type Activity Date Activity User E-sign Co-sign Detail Recorded Client Recorded Date Recorded By Document 06/17/22 09:57 [facility] [id number] 06/17/22 09:58 [facility] 06/17/22 09:57 Wound Care Nurse 3 1. LLE medial -Ulcer Cleansing Rinsed/ Irrigated with Saline -Foul Odor after Cleansing No -Other Dressing hydrogel -Primary Dressing Covered/Secured with Dry Gauze & Roll Gauze, Secured with Tape Left -Compression Wrap Donaldo Wrap -Tubular Bandage Single Layer -Size of Tubigrip Used Size E -Size E ($) 1 Treatment Response Procedure Tolerated Well Pain Scale: 0-10 Numeric Is Patient Pain Free? Yes - Visit Discharge Discharge Condition Stable Ambulatory Status Ambulatory Transportation Private Auto Assessment/Plan Assessment/Plan (1) Ulcer of left lower extremity with fat layer exposed: CODE(S): L97.922 - Non-pressure chronic ulcer of unspecified part of left lower leg with fat layer exposed (2) Non-healing ulcer: CODE(S): L98.499 - Non-pressure chronic ulcer of skin of other sites with unspecified severity (3) Diabetes: CODE(S): E11.9 - Type 2 diabetes mellitus without complications QUALIFIERS: Diabetes mellitus type: type 2 (4) History of DVT of lower extremity: CODE(S): Z86.718 - Personal history of other venous thrombosis and embolism PLAN: Plan Patient was evaluated at the wound center today, a subcutaneous debridement was performed as documented. Wound care - Today will do collagen hydrogel covered with gauze daily after washing with soap and water. Compression - Tubigrip and DONALDO wrap. Encouraged to keep legs elevated as much as possible when sitting. 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 Obtained wound cultures on 05/13/2022, which were positive for Staphylococcus haemolyticus, Corynebacterium minutissimum, Corynebacterium amycolatum and Anaerobic cocci. She was treated with Levofloxacin and Metronidazole. Ordered venous and arterial studies which were done on 06/05. She has no arterial compromise but has bilateral venous insufficiency. With the amount of pain she is experiencing, her young age and lack of improvement in her ulcer, she was referred to Dr. Olson for further evaluation. Encouraged patient to keep legs elevated when sitting. This is difficult for her since she works 3-5, 12 hour shifts per week. Encouraged increase in protein intake to help with wound healing. Follow up Wednesday for 3M 2 layer wraps to be placed to help control her edema. May apply Aquacel-Ag covered with gauze at that time. Follow up one week. Call or come in sooner if develop any concerns.
[2022-06-19 13:24] VITALS: BP 161/88; PULSE 88; RESP 16; TEMP 36.2; BMI 38.6
[2022-06-24 08:57] VITALS: BP 165/90; PULSE 86; RESP 18; TEMP 36.1; BMI 38.6
--- NOTE | 2022-06-24 09:52 | PCM.WC.PN ---
History of Present Illness Date of Service: 06/24/22 Chief Complaint: Left medial, distal leg non healing ulcer History of Wound: Patient is a 47 year old female who presents with a non healing ulcer that occurred in February after tripping. She states she tripped, hitting her left lower leg, then noticed the wound starting a couple weeks later, so she associates it with the tripping. She has been treating it with antibiotic ointment, has seen her PCP who has treated her several different antibiotics. She has a history of DM II, Antiphospholipid syndrome which she is on anticoagulants, DVT and PE. Wound culture from 05/13/22 positive for Staphylococcus haemolyticus, Corynebacterium minutissimum, Corynebacterium amycolatum and Anaerobic cocci. With the resistance of the Staph, will start her on Levaquin and Flagyl to treat the anaerobic bacteria. Wound care - Aquacel-Ag covered with gauze. 3M 2 layer wraps for compression. Arterial studies done 06/05/22 - Right DONAVON = 1.25, Left DONAVON = 1.19. There is no evidence of significant arterial occlusive disease in the lower extremities bilaterally. Venous duplex studies from 06/05/22 - Deep veins of the lower extremities are bilaterally patent and compressible segmentally. There is no evidence of deep vein thrombosis on either side. Valvular competence appears intact within the proximal deep venous systems bilaterally. The great saphenous veins appear bilaterally patent and compressible segmentally. Sapheno-femoral junctions are bilaterally competent . Segmental valvular incompetence is noted within the great saphenous veins bilaterally. Small saphenous veins are patent and incompetent bilaterally. The accessory saphenous vein in the right distal thigh is incompetent. The accessory saphenous vein at the right knee is incompetent. The accessory saphenous vein in the right mid-calf is incompetent. The accessory saphenous vein in the left proximal thigh is incompetent. The accessory saphenous vein at the left knee is incompetent. Will refer to Dr. Olson for further evaluation. Today she denies fever, chills, nausea and vomiting. She states she has a good appetite. Progress of Wound: Left medial leg ulcer is stable, it continues to be very painful and fibrous. Her edema is improved wearing the 3M 2 layer wraps. Objective Data Objective Data Vital Signs: Vital Signs Temp Pulse Resp BP O2 Del Method 97 F L 86 18 165/90 H Room Air 06/24/22 08:57 06/24/22 08:57 06/24/22 08:57 06/24/22 08:57 06/19/22 13:24 Oxygen Delivery Method Room Air Weight: 225 lb Body Mass Index (BMI) 38.6 Charges/Coding Procedures Integumentary 111xxx-113xx: 29695 Shefali subq tissue 20 sq cm/< Debridement Note Debridement Note Wound debrided: Medial, distal leg ulcer Laterality: Left Wound Grade/Stage: Stage II Type of Debridement: Excisional debridement Anesthesia Used: 5% Lidocaine Gel Depth: Down to and including healthy tissue and in the subcutaneous layer Percentage of wound debrided: 100 Instrument Used: 5mm curette Tissue Removed: Devitalized tissue and slough Severity: Fat Layer Exposed Amount of bleeding with debridement: Mild Bleeding Controlled with: Compression and gauze Patient tolerated procedure: Patient did not tolerate procedure well Debridement Free Text: She continues to have quite a bit of discomfort with debridement. Post-Debridement Measurements and Additional Note: Post-Debridement Measurements/Treatment - Nurse 1 - General Ulcer Assessment Start: 06/17/22 08:53 Freq: Status: Active Protocol: FLO Activity Type Activity Date Activity User E-sign Co-sign Detail Recorded Client Recorded Date Recorded By Document 06/17/22 08:53 Desktop 06/17/22 08:57 Document 06/19/22 13:24 [id number] 06/19/22 13:26 Document 06/24/22 08:57 [id number] 06/24/22 08:58 RB 06/17/22 06/19/22 06/24/22 08:53 13:24 08:57 - Today's Visit Information Type of service Follow-up Visit Nurse-only 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/SWIMMING COACH OR INSTRUCTOR Visit (Physician/SWIMMING COACH OR INSTRUCTOR ) ) Arrival Mode Ambulatory Ambulatory Ambulatory Transfer Assistance None None None Accompanied by self Patient Identification Verified (Name & Yes Yes Yes ) Patient Requires Transmission-Based No No No Precautions Safety Precautions NA Height and Weight Body Mass Index (BMI) 38.6 38.6 38.6 BMI Classification Obese Obese Obese Vital Signs Temperature (97.8 F-99.1 F) 97.1 F L 97.1 F L 97 F L Temperature Source Temporal Temporal Temporal Pulse Rate (60-100) 92 88 86 Pulse Location Monitor Monitor Monitor Respiratory Rate (12-18) 18 16 18 Respiratory rate source Observation Observation Observation Oxygen Delivery Method Room Air Blood Pressure (90/60-120/80) 157/75 H 161/88 H 165/90 H Blood Pressure Mean (mm Hg) 102 112 115 Source Monitor Monitor Monitor Position Semi-Fowlers Sitting Semi-Fowlers Blood Pressure Location Left Arm Left Arm Left Arm History Since Last Visit- (Skip if this is Patient's initial visit) Have you changed medications since your No No No last visit? Any new allergies or adverse reactions No No No Had a fall/change in ADL's that may No No No increase risk of falls Signs or symptoms of abuse and/or No No No neglect since last visit Have you been in the hospital since your No No No last visit? Has dressing in place as prescribed Yes Yes Yes Has compression in place as prescribed No Yes Yes Has offloadiing in place as prescribed No N/A No Experienced any changes in pain level or No No No management Left Footwear Regular Shoe Regular Shoe Right Footwear Regular Shoe Regular Shoe Pain Scale: 0-10 Numeric Is Patient Pain Free? Yes Yes Yes WC - Nurse 1 - General Ulcer Measurement Start: 06/17/22 08:53 Freq: Status: Active Protocol: Activity Type Activity Date Activity User E-sign Co-sign Detail Recorded Client Recorded Date Recorded By Document 06/17/22 08:53 RB Desktop 06/17/22 08:57 RB Document 06/19/22 13:24 [id number] 06/19/22 13:26 Document 06/24/22 08:57 RB [id number] 06/24/22 08:58 RB 06/17/22 06/19/22 06/24/22 08:53 13:24 08:57 Wound Center Nurse 1 1. LLE medial -Combined with other wound No No -Current Size (cm) - Length 1.7 1.7 -Current Size (cm) - Width 1 1.5 -Current Size (cm) - Depth 0.1 0.1 -Total Square Cm 1.7 2.55 -Photo Taken Yes Yes -Tunneling No No -Undermining/Tunneling No No -Circular Undermining No No -Exudate Amt Medium Medium -Exudate Type Serosanguineous Serosanguineous -Wound Margin Distinct, Distinct, Outline Outline Attached Attached -Granulation Amt Medium (34-66%) Large (67-100%) -Granulation Quality [place] -Slough/Fibrin Yes Yes -Necrosis Amt Medium (34-66%) Small (1-33%) -Necrotic Tissue Type Adherent Slough -Structure Exposed N/A N/A -Texture (Darlene-wound Skin Appearance) Assessed, Assessed, Scarring Scarring Localized Edema -Moisture (Darlene-wound Skin Appearance) Assessed Assessed,Dry/ Assessed Scaly -Color (Darlene-wound Skin Appearance) Hemosiderin No Abnormality, Hemosiderin Staining Assessed Staining -Temperature (Darlene-wound Skin No Abnormality No Abnormality No Abnormality Appearance) (Pt Warm) (Pt Warm) (Pt Warm) -Tenderness on Palpation (Darlene-wound No No No Skin Appearance) -Ulcer Cleansing Wound Cleanser Soap and Water Wound Cleanser -Foul Odor after Cleansing No -Anesthetic Used 5% Lidocaine 5% Lidocaine Gel Gel Lower Limb Edema Present Yes Yes Yes Left Calf (cm) 39 39.7 41.5 Left Ankle (cm) 25.7 24.0 24 - Nurse 2 - General Ulcer CM Notes Start: 06/17/22 08:53 Freq: Status: Active Protocol: Activity Type Activity Date Activity User E-sign Co-sign Detail Recorded Client Recorded Date Recorded By Document 06/17/22 09:30 [id number] 06/17/22 09:34 Document 06/24/22 09:27 [id number] 06/24/22 09:32 06/17/22 06/24/22 09:30 09:27 Wound Center Nurse 2 1. YINA medial -Time 09:31 09:28 -Correct Patient Yes Yes -Correct Side, Site, Position Yes Yes -Correct Procedure Yes Yes -Procedure Performed Yes Yes -Type of Procedure Debridement Debridement -Clinical Debridement Subcutaneous Subcutaneous -Tissue Removed Subcutaneous Subcutaneous -Post Debridement (cm) - Length 2.0 2.2 -Post Debridement (cm) - Width 2.0 1.9 -Post Debridement (cm) - Depth 0.1 0.1 -Total Square (Post) (cm) 4.00 4.18 -Area of Debridement (cm) - Length 2.0 2.2 -Area of Debridement (cm) - Width 2.0 1.9 -Total Square (Area) (cm) 4.00 4.18 -Tunneling No No -Undermining/Tunneling No No -Circular Undermining No No -Wound/Ulcer Outcome Not Healed Not Healed -Ulcer Cleansing Rinsed/ Rinsed/ Irrigated with Irrigated with Saline Saline -Foul Odor after Cleansing No No -Bioengineered Tissue No No -Bleeding Controlled with Pressure Pressure -Treatment Response Procedure Procedure Tolerated Well Tolerated Well -Offloading No No -Debridement - Subq, 1st 20sq cm Yes Yes Pain Scale: 0-10 Numeric Is Patient Pain Free? Yes Yes WC - Nurse 3 - General Ulcer D/C NN Start: 06/17/22 08:53 Freq: Status: Active Protocol: Activity Type Activity Date Activity User E-sign Co-sign Detail Recorded Client Recorded Date Recorded By Document 06/17/22 09:57 [facility] [id number] 06/17/22 09:58 BMF Document 06/19/22 13:24 MW [id number] 06/19/22 13:26 MW Document 06/24/22 09:45 RB [id number] 06/24/22 09:46 RB 06/17/22 06/19/22 06/24/22 09:57 13:24 09:45 Wound Care Nurse 3 1. LLE medial -Ulcer Cleansing Rinsed/ Soap and Water Rinsed/ Irrigated with Irrigated with Saline Saline -Foul Odor after Cleansing No No -Negative Pressure Wound Therapy N/A -Primary Dressing Applied Aquacel AG 4x4 C Hydrogel ($), NonAdherent Contact Layer -Other Dressing hydrogel -Primary Dressing Covered/Secured with Dry Gauze & Dry Gauze, Roll Gauze, Secured with Secured with Tape Tape -Aquacel AG 4x4 1 Left -Lotion applied to leg before Yes compression wrap -Multi-Layered Wrap Application Multi-Layer Comp - Left ($) -Compression Wrap Donaldo Wrap -Tubular Bandage Single Layer Double Layer -Size of Tubigrip Used Size E Size D -Size D ($) 2 -Size E ($) 1 -Stockings Yes Treatment Response Procedure Procedure Procedure Tolerated Well Tolerated Well Tolerated Well Vital Signs Temperature (97.8 F-99.1 F) 97.1 F L Temperature Source Temporal Pulse Rate (60-100) 88 Pulse Location Monitor Respiratory Rate (12-18) 16 Respiratory rate source Observation Oxygen Delivery Method Room Air Blood Pressure (90/60-120/80) 161/88 H Blood Pressure Mean (mm Hg) 112 Source Monitor Position Sitting Blood Pressure Location Left Arm Pain Scale: 0-10 Numeric Is Patient Pain Free? Yes Yes Yes WC - Visit Discharge Discharge Condition Stable Stable Stable Ambulatory Status Ambulatory Ambulatory Ambulatory Transportation Private Auto Private Auto Private Auto Accompanied by self Medication Reconcilliation completed & No No provided to patient/care provider Clinical Summary of Care Provided Yes Yes Assessment/Plan Assessment/Plan (1) Ulcer of left lower extremity with fat layer exposed: CODE(S): L97.922 - Non-pressure chronic ulcer of unspecified part of left lower leg with fat layer exposed (2) Non-healing ulcer: CODE(S): L98.499 - Non-pressure chronic ulcer of skin of other sites with unspecified severity (3) Diabetes: CODE(S): E11.9 - Type 2 diabetes mellitus without complications QUALIFIERS: Diabetes mellitus type: type 2 (4) History of DVT of lower extremity: CODE(S): Z86.718 - Personal history of other venous thrombosis and embolism PLAN: Plan Patient was evaluated at the wound center today, a subcutaneous debridement was performed as documented. Wound care - Santyl nickel thickness covered with gauze daily after washing with soap and water. Compression - Tubigrip and DONALDO wrap. Encouraged to keep legs elevated as much as possible when sitting. 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 Obtained wound cultures on 05/13/2022, which were positive for Staphylococcus haemolyticus, Corynebacterium minutissimum, Corynebacterium amycolatum and Anaerobic cocci. She was treated with Levofloxacin and Metronidazole. Ordered venous and arterial studies which were done on 06/05. She has no arterial compromise but has bilateral venous insufficiency. With the amount of pain she is experiencing, her young age and lack of improvement in her ulcer, she was referred to Dr. Olson for further evaluation. Encouraged patient to keep legs elevated when sitting. This is difficult for her since she works 3-5, 12 hour shifts per week. Encouraged increase in protein intake to help with wound healing. Follow up one week. Call or come in sooner if develop any concerns.
[2022-07-06 14:25] VITALS: BP 144/81; PULSE 89; RESP 18; TEMP 36.4; BMI 38.6
--- NOTE | 2022-07-06 15:15 | PN.PCM_ITS ---
History of Present Illness Date of Service: 07/06/22 Chief Complaint: Left medial, distal leg non healing ulcer History of Wound: Patient is a 47 year old female who presents with a non healing ulcer that occurred in February after tripping. She states she tripped, hitting her left lower leg, then noticed the wound starting a couple weeks later, so she associates it with the tripping. She has been treating it with antibiotic ointment, has seen her PCP who has treated her several different antibiotics. She has a history of DM II, Antiphospholipid syndrome which she is on anticoagulants, DVT and PE. Wound culture from 05/13/22 positive for Staphylococcus haemolyticus, Corynebacterium minutissimum, Corynebacterium amycolatum and Anaerobic cocci. With the resistance of the Staph, will start her on Levaquin and Flagyl to treat the anaerobic bacteria. Wound care - Aquacel-Ag covered with gauze. 3M 2 layer wraps for compression. Arterial studies done 06/05/22 - Right DONAVON = 1.25, Left DONAVON = 1.19. There is no evidence of significant arterial occlusive disease in the lower extremities bilaterally. Venous duplex studies from 06/05/22 - Deep veins of the lower extremities are bilaterally patent and compressible segmentally. There is no evidence of deep vein thrombosis on either side. Valvular competence appears intact within the proximal deep venous systems bilaterally. The great saphenous veins appear bilaterally patent and compressible segmentally. Sapheno-femoral junctions are bilaterally competent . Segmental valvular incompetence is noted within the great saphenous veins bilaterally. Small saphenous veins are patent and incompetent bilaterally. The accessory saphenous vein in the right distal thigh is incompetent. The accessory saphenous vein at the right knee is incompetent. The accessory saphenous vein in the right mid-calf is incompetent. The accessory saphenous vein in the left proximal thigh is incompetent. The accessory saphenous vein at the left knee is incompetent. She has seen Dr. Olson and he is recommending a venogram to assess central system. Today she denies fever, chills, nausea and vomiting. She states she has a good appetite. Progress of Wound: Left medial leg ulcer is slighlty smaller, it continues to be very painful and fibrous. Her edema is improved wearing her tubigrip and DONALDO wrap. Objective Data Objective Data Vital Signs: Vital Signs Temp Pulse Resp BP O2 Del Method 97.6 F L 89 18 144/81 H Room Air 07/06/22 14:25 07/06/22 14:25 07/06/22 14:25 07/06/22 14:25 06/19/22 13:24 Oxygen Delivery Method Room Air Weight: 225 lb Body Mass Index (BMI) 38.6 Charges/Coding Procedures Integumentary 111xxx-113xx: [id number] Shefali subq tissue 20 sq cm/< Debridement Note Debridement Note Wound debrided: Medial, distal leg ulcer Laterality: Left Wound Grade/Stage: Stage II Type of Debridement: Excisional debridement Anesthesia Used: 5% Lidocaine Gel Depth: Down to and including healthy tissue and in the subcutaneous layer Percentage of wound debrided: 100 Instrument Used: 5mm curette Tissue Removed: Devitalized tissue and slough Severity: Fat Layer Exposed Amount of bleeding with debridement: Mild Bleeding Controlled with: Compression and gauze Patient tolerated procedure: Patient did not tolerate procedure well Debridement Free Text: She continues to have quite a bit of discomfort with debridement. Post-Debridement Measurements and Additional Note: Post-Debridement Measurements/Treatment - Nurse 1 - General Ulcer Assessment Start: 06/17/22 08:53 Freq: Status: Active Protocol: FLO Activity Type Activity Date Activity User E-sign Co-sign Detail Recorded Client Recorded Date Recorded By Document 06/17/22 08:53 RB Desktop 06/17/22 08:57 RB Document 06/19/22 13:24 MW [id number] 06/19/22 13:26 MW Document 06/24/22 08:57 RB [id number] 06/24/22 08:58 RB Document 07/06/22 14:25 DL [id number] 07/06/22 14:28 DL 06/17/22 06/19/22 06/24/22 08:53 13:24 08:57 - Today's Visit Information Type of service Follow-up Visit Nurse-only 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/[facility] Visit (Physician/[facility] ) ) Arrival Mode Ambulatory Ambulatory Ambulatory Transfer Assistance None None None Accompanied by self Patient Identification Verified (Name & Yes Yes Yes ) Patient Requires Transmission-Based No No No Precautions Safety Precautions NA Height and Weight Body Mass Index (BMI) 38.6 38.6 38.6 BMI Classification Obese Obese Obese Vital Signs Temperature (97.8 F-99.1 F) 97.1 F L 97.1 F L 97 F L Temperature Source Temporal Temporal Temporal Pulse Rate (60-100) 92 88 86 Pulse Location Monitor Monitor Monitor Respiratory Rate (12-18) 18 16 18 Respiratory rate source Observation Observation Observation Oxygen Delivery Method Room Air Blood Pressure (90/60-120/80) 157/75 H 161/88 H 165/90 H Blood Pressure Mean (mm Hg) 102 112 115 Source Monitor Monitor Monitor Position Semi-Fowlers Sitting Semi-Fowlers Blood Pressure Location Left Arm Left Arm Left Arm History Since Last Visit- (Skip if this is Patient's initial visit) Have you changed medications since your No No No last visit? Any new allergies or adverse reactions No No No Had a fall/change in ADL's that may No No No increase risk of falls Signs or symptoms of abuse and/or No No No neglect since last visit Have you been in the hospital since your No No No last visit? Has dressing in place as prescribed Yes Yes Yes Has compression in place as prescribed No Yes Yes Has offloadiing in place as prescribed No N/A No Experienced any changes in pain level or No No No management Left Footwear Regular Shoe Regular Shoe Right Footwear Regular Shoe Regular Shoe Pain Scale: 0-10 Numeric Is Patient Pain Free? Yes Yes Yes 07/06/22 14:25 WC - Today's Visit Information Type of service 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/[facility] ) Arrival Mode Ambulatory Transfer Assistance None Accompanied by Patient Identification Verified (Name & Yes ) Patient Requires Transmission-Based Precautions Safety Precautions Height and Weight Body Mass Index (BMI) 38.6 BMI Classification Obese Vital Signs Temperature (97.8 F-99.1 F) 97.6 F L Temperature Source Temporal Pulse Rate (60-100) 89 Pulse Location Monitor Respiratory Rate (12-18) 18 Respiratory rate source Observation Oxygen Delivery Method Blood Pressure (90/60-120/80) 144/81 H Blood Pressure Mean (mm Hg) 102 Source Monitor Position Blood Pressure Location History Since Last Visit- (Skip if this is Patient's initial visit) Have you changed medications since your No last visit? Any new allergies or adverse reactions No Had a fall/change in ADL's that may No increase risk of falls Signs or symptoms of abuse and/or No neglect since last visit Have you been in the hospital since your No last visit? Has dressing in place as prescribed Yes Has compression in place as prescribed Yes Has offloadiing in place as prescribed N/A Experienced any changes in pain level or No management Left Footwear Right Footwear Pain Scale: 0-10 Numeric Is Patient Pain Free? Yes WC - Nurse 1 - General Ulcer Measurement Start: 06/17/22 08:53 Freq: Status: Active Protocol: Activity Type Activity Date Activity User E-sign Co-sign Detail Recorded Client Recorded Date Recorded By Document 06/17/22 08:53 RB Desktop 06/17/22 08:57 RB Document 06/19/22 13:24 MW [id number] 06/19/22 13:26 MW Document 06/24/22 08:57 RB [id number] 06/24/22 08:58 RB Document 07/06/22 14:25 DL [id number] 07/06/22 14:28 DL 06/17/22 06/19/22 06/24/22 08:53 13:24 08:57 Wound Center Nurse 1 1. LLE medial -Combined with other wound No No -Current Size (cm) - Length 1.7 1.7 -Current Size (cm) - Width 1 1.5 -Current Size (cm) - Depth 0.1 0.1 -Total Square Cm 1.7 2.55 -Photo Taken Yes Yes -Tunneling No No -Undermining/Tunneling No No -Circular Undermining No No -Exudate Amt Medium Medium -Exudate Type Serosanguineous Serosanguineous -Wound Margin Distinct, Distinct, Outline Outline Attached Attached -Granulation Amt Medium (34-66%) Large (67-100%) -Granulation Quality Prescott Prescott -Slough/Fibrin Yes Yes -Necrosis Amt Medium (34-66%) Small (1-33%) -Necrotic Tissue Type Adherent Slough -Structure Exposed N/A N/A -Texture (Darlene-wound Skin Appearance) Assessed, Assessed, Scarring Scarring Localized Edema -Moisture (Darlene-wound Skin Appearance) Assessed Assessed,Dry/ Assessed Scaly -Color (Darlene-wound Skin Appearance) Hemosiderin No Abnormality, Hemosiderin Staining Assessed Staining -Temperature (Darlnee-wound Skin No Abnormality No Abnormality No Abnormality Appearance) (Pt Warm) (Pt Warm) (Pt Warm) -Tenderness on Palpation (Darlene-wound No No No Skin Appearance) -Ulcer Cleansing Wound Cleanser Soap and Water Wound Cleanser -Foul Odor after Cleansing No -Anesthetic Used 5% Lidocaine 5% Lidocaine Gel Gel Lower Limb Edema Present Yes Yes Yes Left Calf (cm) 39 39.7 41.5 Left Ankle (cm) 25.7 24.0 24 07/06/22 14:25 Wound Center Nurse 1 1. LLE medial -Combined with other wound -Current Size (cm) - Length 0.1 -Current Size (cm) - Width 0.1 -Current Size (cm) - Depth 0.1 -Total Square Cm 0.01 -Photo Taken Yes -Tunneling -Undermining/Tunneling -Circular Undermining -Exudate Amt Small -Exudate Type Serosanguineous -Wound Margin -Granulation Amt Small (1-33%) -Granulation Quality [place] -Slough/Fibrin -Necrosis Amt Large (67-100%) -Necrotic Tissue Type Adherent Slough -Structure Exposed N/A -Texture (Darlene-wound Skin Appearance) Scarring -Moisture (Darlene-wound Skin Appearance) No Abnormality -Color (Darlene-wound Skin Appearance) Hemosiderin Staining -Temperature (Darlene-wound Skin Appearance) -Tenderness on Palpation (Darlene-wound Skin Appearance) -Ulcer Cleansing Rinsed/ Irrigated with Saline -Foul Odor after Cleansing No -Anesthetic Used 5% Lidocaine Gel Lower Limb Edema Present Left Calf (cm) 39 Left Ankle (cm) 24 - Nurse 2 - General Ulcer CM Notes Start: 06/17/22 08:53 Freq: Status: Active Protocol: Activity Type Activity Date Activity User E-sign Co-sign Detail Recorded Client Recorded Date Recorded By Document 06/17/22 09:30 [id number] 06/17/22 09:34 Document 06/24/22 09:27 JAMES [id number] 06/24/22 09:32 Document 07/06/22 14:41 [id number] 07/06/22 14:44 06/17/22 06/24/22 07/06/22 09:30 09:27 14:41 Wound Center Nurse 2 1. LLE medial -Time 09:31 09:28 14:42 -Correct Patient Yes Yes Yes -Correct Side, Site, Position Yes Yes Yes -Correct Procedure Yes Yes Yes -Procedure Performed Yes Yes Yes -Type of Procedure Debridement Debridement Debridement -Clinical Debridement Subcutaneous Subcutaneous Subcutaneous -Tissue Removed Subcutaneous Subcutaneous Subcutaneous -Post Debridement (cm) - Length 2.0 2.2 1.4 -Post Debridement (cm) - Width 2.0 1.9 1.4 -Post Debridement (cm) - Depth 0.1 0.1 0.1 -Total Square (Post) (cm) 4.00 4.18 1.96 -Area of Debridement (cm) - Length 2.0 2.2 1.4 -Area of Debridement (cm) - Width 2.0 1.9 1.4 -Total Square (Area) (cm) 4.00 4.18 1.96 -Tunneling No No No -Undermining/Tunneling No No No -Circular Undermining No No No -Wound/Ulcer Outcome Not Healed Not Healed Not Healed -Ulcer Cleansing Rinsed/ Rinsed/ Rinsed/ Irrigated with Irrigated with Irrigated with Saline Saline Saline -Foul Odor after Cleansing No No No -Bioengineered Tissue No No No -Bleeding Controlled with Pressure Pressure NA,Pressure -Treatment Response Procedure Procedure Procedure Tolerated Well Tolerated Well Tolerated Well -Offloading No No No -Debridement - Subq, 1st 20sq cm Yes Yes Yes Pain Scale: 0-10 Numeric Is Patient Pain Free? Yes Yes Yes WC - Nurse 3 - General Ulcer D/C NN Start: 06/17/22 08:53 Freq: Status: Active Protocol: Activity Type Activity Date Activity User E-sign Co-sign Detail Recorded Client Recorded Date Recorded By Document 06/17/22 09:57 [facility] [id number] 06/17/22 09:58 [facility] Document 06/19/22 13:24 MW [id number] 06/19/22 13:26 MW Document 06/24/22 09:45 RB [id number] 06/24/22 09:46 RB Document 07/06/22 14:52 [facility] [id number] 07/06/22 14:52 [facility] 06/17/22 06/19/22 06/24/22 09:57 13:24 09:45 Wound Care Nurse 3 1. LLE medial -Ulcer Cleansing Rinsed/ Soap and Water Rinsed/ Irrigated with Irrigated with Saline Saline -Foul Odor after Cleansing No No -Negative Pressure Wound Therapy N/A -Primary Dressing Applied Aquacel AG 4x4 C Hydrogel ($), NonAdherent Contact Layer -Other Dressing hydrogel -Primary Dressing Covered/Secured with Dry Gauze & Dry Gauze, Roll Gauze, Secured with Secured with Tape Tape -Aquacel AG 4x4 1 Left -Lotion applied to leg before Yes compression wrap -Multi-Layered Wrap Application Multi-Layer Comp - Left ($) -Compression Wrap Donaldo Wrap -Tubular Bandage Single Layer Double Layer -Size of Tubigrip Used Size E Size D -Size D ($) 2 -Size E ($) 1 -Stockings Yes Treatment Response Procedure Procedure Procedure Tolerated Well Tolerated Well Tolerated Well Vital Signs Temperature (97.8 F-99.1 F) 97.1 F L Temperature Source Temporal Pulse Rate (60-100) 88 Pulse Location Monitor Respiratory Rate (12-18) 16 Respiratory rate source Observation Oxygen Delivery Method Room Air Blood Pressure (90/60-120/80) 161/88 H Blood Pressure Mean (mm Hg) 112 Source Monitor Position Sitting Blood Pressure Location Left Arm Pain Scale: 0-10 Numeric Is Patient Pain Free? Yes Yes Yes WC - Visit Discharge Discharge Condition Stable Stable Stable Ambulatory Status Ambulatory Ambulatory Ambulatory Transportation Private Auto Private Auto Private Auto Accompanied by self Medication Reconcilliation completed & No No provided to patient/care provider Clinical Summary of Care Provided Yes Yes 07/06/22 14:52 Wound Care Nurse 3 1. LLE medial -Ulcer Cleansing Rinsed/ Irrigated with Saline -Foul Odor after Cleansing No -Negative Pressure Wound Therapy -Primary Dressing Applied NonAdherent Contact Layer -Other Dressing HYDROGEL -Primary Dressing Covered/Secured with Dry Gauze & Roll Gauze, Secured with Tape -Aquacel AG 4x4 Left -Lotion applied to leg before compression wrap -Multi-Layered Wrap Application -Compression Wrap -Tubular Bandage Double Layer -Size of Tubigrip Used Size D -Size D ($) 1 -Size E ($) -Stockings Treatment Response Procedure Tolerated Well Vital Signs Temperature (97.8 F-99.1 F) Temperature Source Pulse Rate (60-100) Pulse Location Respiratory Rate (12-18) Respiratory rate source Oxygen Delivery Method Blood Pressure (90/60-120/80) Blood Pressure Mean (mm Hg) Source Position Blood Pressure Location Pain Scale: 0-10 Numeric Is Patient Pain Free? Yes WC - Visit Discharge Discharge Condition Stable Ambulatory Status Ambulatory Transportation Private Auto Accompanied by Medication Reconcilliation completed & provided to patient/care provider Clinical Summary of Care Provided Assessment/Plan Assessment/Plan (1) Ulcer of left lower extremity with fat layer exposed: CODE(S): L97.922 - Non-pressure chronic ulcer of unspecified part of left lower leg with fat layer exposed (2) Non-healing ulcer: CODE(S): L98.499 - Non-pressure chronic ulcer of skin of other sites with unspecified severity (3) Diabetes: CODE(S): E11.9 - Type 2 diabetes mellitus without complications QUALIFIERS: Diabetes mellitus type: type 2 (4) History of DVT of lower extremity: CODE(S): Z86.718 - Personal history of other venous thrombosis and embolism PLAN: Plan Patient was evaluated at the wound center today, a subcutaneous debridement was performed as documented. Wound care - Collagen hydrogel topped with adaptic, covered with gauze daily after washing with soap and water. Compression - Tubigrip and DONALDO wrap. Encouraged to keep legs elevated as much as possible when sitting. 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 Obtained wound cultures on 05/13/2022, which were positive for Staphylococcus haemolyticus, Corynebacterium minutissimum, Corynebacterium amycolatum and Anaerobic cocci. She completed Levofloxacin and Metronidazole. Venous and arterial studies were done on 06/05/22. She has no arterial compromise but has bilateral venous insufficiency. With the amount of pain she is experiencing, her young age and lack of improvement in her ulcer, she was referred to Dr. Olson for further evaluation. Encouraged patient to keep legs elevated when sitting. This is difficult for her since she works 3-5, 12 hour shifts per week. Encouraged increase in protein intake to help with wound healing. Follow up two weeks. Call or come in sooner if develop any concerns.
== END 2022-07-15 23:59 | disposition home or self-care (01) ==
LOC: WC 14:15
PROVIDERS: PCP Internal Medicine; Referring Provider Nurse Practitioner Family; Visit Provider Nurse Practitioner Family
DX: E11.622 Type 2 diabetes mellitus with other skin ulcer (principal); L97.922 Non-pressure chronic ulcer of unspecified part of left lower leg with fat layer exposed; L98.492 Non-pressure chronic ulcer of skin of other sites with fat layer exposed; M79.605 Pain in left leg; Z86.718 Personal history of other venous thrombosis and embolism
CPT/HCPCS: 11042; 29581

== ENCOUNTER 2022-07-22 09:37 | Day surgery (SDC) | payer MEDICAID, SELFPAY ==
[2022-07-21 08:06] VITALS: BMI 39.8
[2022-07-22 09:50] LABS: Prothrombin Time Fingerstick 12.8 SEC (11.7-14.9)
[2022-07-22 10:21] LABS: Hematocrit 38.9 % (37-47); Hemoglobin 12.5 g/dL (12.0-15.0); Mean Corp Hgb Conc 32.1 g/dL (32-36); Mean Corpuscular Hgb 28.5 pg (27.0-32.0); Mean Corpuscular Volume 88.6 fL (81-99); Mean Platelet Vol. 9.3 fl (6.2-12.0); Platelet Count 318 K/mm3 (150-450); RBC Distribution Width SD 45.2 fl (35.1-43.9); Red Blood Count 4.39 M/mm3 (4.2-5.4); White Blood Count 9.2 K/mm3 (4.4-11.0)
[2022-07-22 10:34] LABS: Anion Gap 7 (5-15); BUN 13 mg/dL (7-18); BUN/Creat Ratio 20.5 RATIO (10-20); Calcium,Total 8.8 mg/dL (8.5-10.1); Chloride 103 mmol/L (98-107); Creatinine, Serum 0.64 mg/dL (0.55-1.02); EST Glomerular Filtration Rate 106 mL/min (>60); Est Glom Filt Rate - Afr Amer 128 mL/min (>60); Estimated Creatinine Clearance 91.82 ml/min; Glucose 206 mg/dL (74-106); Potassium 3.6 mmol/L (3.5-5.1); Sodium Level 137 mmol/L (136-145)
--- NOTE | 2022-07-22 13:48 | OP.PCM_ITS ---
Report of Operation Date of Procedure: 07/22/22 Pre-Operative Diagnosis: Venous insufficiency Post-Operative Diagnosis: Same Surgery/Procedure Performed:: IVC venogram, IVUS IVC, bilateral common iliac veins, bilateral external iliac veins Description of Surgical Findings:: Patent IVC filter (Trapese), no significant occlusion or compression. Left external iliac vein wall thickening/chronic thrombus Surgeon: Gavino Olson Type of Anesthesia: Local and Sedation,Conscious Estimated Blood Loss (mL): 3 Description of Procedure: HPI: Patient is a 47-year-old female with chronic venous changes of the bilateral extremities, factor V Leiden and antiphospholipid antibody history, and prior inferior vena cava filter. Given her coagulation history and prior filter in conjunction with the severity of her venous disease felt that a central venous occlusion or compression should be evaluated prior to dealing with any infrainguinal disease. She presents now for venogram and intravascular sound. Description of procedure: Upon obtaining form consent and verification correct patient procedure site patient was taken to the Development [facility] where she was positioned prepped and draped in you sterile fashion. Time was then performed and conscious sedation administered with intermittent doses of Versed and fentanyl. Skin overlying the right common femoral vein was anesthetized with 1% lidocaine and ultrasound-guided retrograde access with a micropuncture needle wire was performed. This exchanged out for micropuncture sheath through which hand-injection ilio caval venogram was performed which revealed satisfactory placement no extravasation or dissection. Through the micropuncture sheath a surgery wire was advanced and the micro sheath exchanged out for a short 8 Malian sheath. Next skin over the the left common femoral vein anesthetized and ultrasound-guided access in retrograde fashion a microneedle wire was performed. This was exchanged out for micropuncture sheath through which injection ilio caval venogram was performed revealing satisfactory position no extravasation or dissection. Through the micro sheath a J-wire was advanced and the micropuncture sheath exchanged out for an 8 Malian sheath. A Bentson wire is advanced via the right femoral vein access sheath advancing into the inferior vena cava cephalad to the filter. Next a J-wire was advanced via the left femoral sheath and likewise advanced to the vena cava above the filter. Intravascular sound was then introduced over the right femoral access wire and digital recorded pullback initiated at the suprarenal vena cava performed with pulldown through the vena cava right common iliac vein and right external leg vein. The cath was then withdrawn and a readvanced via the left femoral access wire digital recorded pullback performed of the inferior vena cava left common iliac vein left external leg vein. The catheter was then withdrawn and at this point simultaneous injection via the bilateral femoral vein sheath was performed to evaluate contrast transit across the iliac system and into the vena cava. The wires and sheath were then withdrawn and manual pressure held for 5 minutes after which satisfactory stasis was noted. Patient was then taken recovery anticipated discharge home after bedrest. Radiograph interpretation: Inferior vena cava patent with prior TrapEase filter, with some intimal hyperplasia within the struts but overall brisk contrast and no significant caval stenosis. Bilateral common iliac veins widely patent with no significant stenosis and brisk contrast transit. No significant filling of any collaterals. Bilateral external leg veins patent with brisk contrast transit. Intravascular sound evaluation revealed patent inferior vena cava and right common and external leg veins with no compression or stenosis. The left common iliac vein was patent with no stenosis and very mild compression less than 50%. The left external leg vein was patent with no compression, there was some mild stenosis from chronic mural thrombus.
== END 2022-07-22 14:40 | disposition home or self-care (01) ==
LOC: CLSP 09:39
PROVIDERS: PCP Internal Medicine; Referring Provider Surgery Trauma Surgery; Visit Provider Surgery Trauma Surgery
DX: I87.2 Venous insufficiency (chronic) (peripheral) (principal); L97.929 Non-pressure chronic ulcer of unspecified part of left lower leg with unspecified severity; I82.522 Chronic embolism and thrombosis of left iliac vein; D68.61 Antiphospholipid syndrome; D68.51 Activated protein C resistance; E11.9 Type 2 diabetes mellitus without complications; I87.1 Compression of vein; Z79.01 Long term (current) use of anticoagulants; Z79.899 Other long term (current) drug therapy; Z79.82 Long term (current) use of aspirin; Z86.711 Personal history of pulmonary embolism
CPT/HCPCS: 36415; 36010; 36416; 37252; 37253; 75825; 76937; 80048; 85027; 85610; 99152; 99153; C1753; C1769; J7040; Q9967; C1894

== ENCOUNTER 2022-08-03 16:20 | Emergency (ER) | payer MEDICAID, SELFPAY ==
[2022-08-03 16:20] VITALS: BP 156/92; PULSE 84; RESP 18; TEMP 37.1; O2SAT 100; BMI 39.8
--- NOTE | 2022-08-03 17:49 | EKG12_ITS ---
Test Reason : DIZZY Blood Pressure : / mmHG Vent. Rate : 070 BPM Atrial Rate : 070 BPM P-R Int : 160 ms QRS Dur : 088 ms QT Int : 388 ms P-R-T Axes : 042 -11 029 degrees QTc Int : 419 ms Normal sinus rhythm Normal ECG Confirmed by MARI BONILLA, GERMÁN ([id number]), editor producer CYN ABDI ([id number]) on 08/05/2022 10:42:13 AM Referred By: Confirmed By:GERMÁN GUERRA MD
--- NOTE | 2022-08-03 17:50 | EX.ED.DYSGE1 ---
HPI History of Present Illness Chief Complaint: Dizziness Informant: patient Onset/Context/Timing Onset: Days (3 days) Narrative Narrative: Patient present secondary to lightheadedness and dizziness. She states when she stood up on Wednesday she felt lightheaded and dizzy and fell striking her left ribs. She did not strike her head when she fell. She states since then she has been lightheaded and dizzy when she first stands or if she bends over and then stands up quickly. She denies chest pain or palpitations. She did have a venogram performed on and is not sure if this is related. She had puncture wounds to both groins that are not ecchymotic or swollen. She is chronically on Coumadin and this was held prior to the procedure. It was restarted on Wednesday. [facility] Medical History Antiphospholipid syndrome Diabetes mellitus type 2 in obese DVT (deep venous thrombosis) Pulmonary embolism Home Medications pantoprazole 40 mg tablet,delayed release 40 mg PO DAILY GERD 03/21/17 [History Last Taken 03/11/18 08:00 40 mg] sertraline 50 mg tablet (Zoloft) 50 mg PO DAILY anxiety 03/21/17 [History Last Taken 03/11/18 08:00 50 mg] atorvastatin 40 mg tablet 40 mg PO QHS 03/14/21 [History Last Taken Unknown] canagliflozin 100 mg tablet (Invokana) 100 mg PO DAILY 05/06/22 [History Last Taken Unknown] clonazepam 1 mg tablet (Klonopin) 1 mg PO QHS 05/06/22 [History Last Taken Unknown] copper 380 square mm intrauterine device (ParaGard T 380A) 1 mm2 intrauterine QMONTH 05/06/22 [History Last Taken Unknown] diclofenac sodium 1 % topical gel (Voltaren Arthritis Pain) 1 ea topical PRN PRN Pain 05/06/22 [History Last Taken Unknown] glimepiride 4 mg tablet (Amaryl) 4 mg PO DAILY 05/06/22 [History Last Taken Unknown] hydrocortisone acetate 1 % rectal ointment 1 ea topical DAILY PRN PRN Itching 05/06/22 [History Last Taken Unknown] warfarin 5 mg tablet 5 mg PO DAILY 05/06/22 [History Last Taken Unknown] acetaminophen 500 mg tablet 1,000 mg PO Q6 06/25/22 [History Last Taken Unknown] gabapentin 100 mg capsule 200 mg PO DAILY 06/25/22 [History Last Taken Unknown] Allergy/AdvReac Type Severity Reaction Status Date / Time acetaminophen Allergy Rash Verified 08/03/22 16:22 [From Tylenol-Codeine] codeine Allergy Rash Verified 08/03/22 16:23 Surgical History H/O skin graft (~2002) Social History Smoking Status: Former smoker substance use type: other details: smokes medical marijuana ROS ROS ED Constitutional Constitutional ED: Denies chills or fever(s) Eyes Eyes: Denies change in vision or discharge from eye(s) ENT ENT ED: Denies discharge from eye(s), rhinorrhea or sore throat Cardiovascular Cardiovascular: Denies chest pain or palpitations Respiratory/Chest Respiratory/Chest: Denies cough or dyspnea Gastrointestinal Gastrointestinal: Denies abdominal pain, diarrhea, nausea or vomiting Genitourinary Genitourinary ED: Denies difficulty urinating or dysuria Musculoskeletal Musculoskeletal: Denies back pain or extremity pain Integumentary Denies Abrasions or rash Neurologic Neurologic: Denies headache(s) or weakness Psychiatric Psychiatric: Denies anxiety or depression Endocrine Endocrinology: Denies polydipsia or polyuria Allergic/Immunologic Allergic/Immunologic ED: Denies lip swelling or urticaria EXAM Physical Exam Const Vital Signs: 08/03/22 16:20 Temperature 98.8 F Temperature Source Temporal Pulse Rate 84 Respiratory Rate 18 Blood Pressure 156/92 H Blood Pressure Mean 113 Pulse Ox 100 Oxygen Delivery Method Room Air Positive well nourished and well developed General Appearance ED: well developed HEENT Reports normocephalic and head/scalp atraumatic Eyes PERRL and EOMs intact bilaterally Neck supple Chest Wall palpation of chest normal Chest Narrative: Small ecchymotic area noted to the left lateral ribs. No significant underlying hematoma appreciated. Resp normal respiratory effort and clear to auscultation bilaterally Cardio regular rate and regular rhythm GI normal to inspection, nondistended, normoactive bowel sounds Palpation: soft Back/Spine no CVA tenderness Extremity normal to inspection Extremity Narrative: Puncture wounds to bilateral groins clean without significant hematoma. Neuro oriented x3 and no sensory deficits noted Sensorium / Orientation: alert Motor Exam: strength 5/5 throughout Psych mental status grossly normal MDM MDM MDM Narrative Medical decision making narrative: Lab work obtained. Patient given a liter IV fluid. Lab Data Attestation: I reviewed the patient's lab results. Labs: Laboratory Results - last 24 hr 08/03/22 08/03/22 08/03/22 18:00 18:00 18:00 WBC 9.0 RBC 4.76 Hgb 13.5 Hct 42.5 MCV 89.3 MCH 28.4 MCHC 31.8 L RDW Std Deviation 44.8 H RDW Coeff of Jace 13.7 Plt Count 288 MPV 9.5 Immature Gran % (Auto) 1.300 H Neut % (Auto) 57.4 Lymph % (Auto) 31.3 Drew % (Auto) 6.3 Eos % (Auto) 3.3 Baso % (Auto) 0.4 Absolute Neuts (auto) 5.2 Absolute Lymphs (auto) 2.83 Nucleated RBC % 0 PT 18.4 H INR 1.6 Sodium 139 Potassium 4.0 Chloride 106 Carbon Dioxide 30.0 Anion Gap 3 L BUN 7 Creatinine 0.67 Estim Creat Clear Calc 87.71 Est GFR (MDRD) Af Amer 120 Est GFR (MDRD) Non-Af 99 BUN/Creatinine Ratio 10.4 Glucose 231 H Calcium 8.9 EKG Initial EKG: Attestation: I personally reviewed and interpreted this EKG as follows: Interpretation: Sinus Rhythm (Sinus at 70 with no acute ischemia.) Treatment and Re-Evaluation Narrative: CBC reveals normal white count and hemoglobin. INR is 1.6. Patient just restarted her Coumadin 2 days ago. Chemistry studies reveal no significant acute findings. Test results discussed with the patient. Reassurance is given. She will continue to push p.o. fluids. Return instructions given. Discharge Plan Triage Chief Complaint: Dizziness ED Provider: Sandra Puckett Dx/Rx/DC Orders Clinical Impression: Lightheadedness Instructions: ED Dizziness, Uncertain Cause Prescriptions: No Action acetaminophen 500 mg tablet 1,000 mg PO Q6 pantoprazole 40 MG tablet,delayed release (DR/EC) 40 mg PO DAILY Label Comments: sertraline [Zoloft] 50 MG tablet 50 mg PO DAILY atorvastatin 40 mg tablet 40 mg PO QHS gabapentin 100 mg capsule 200 mg PO DAILY glimepiride [Amaryl] 4 mg Tablet 4 mg PO DAILY warfarin [Coumadin] 5 mg Tablet 5 mg PO DAILY Invokana 100 mg Tablet 100 mg PO DAILY diclofenac sodium [Voltaren Arthritis Pain] 1 % Gel 1 ea TOPICAL PRN PRN (Reason: Pain) ParaGard T 380A 380 square mm Intrauterine Device 1 mm2 INTRAUTERINE QMONTH clonazepam [Klonopin] 1 mg Tablet 1 mg PO QHS Rx Instructions: administer 30 minutes before bedtime Anusol HC-1 1 % Ointment 1 ea topical DAILY PRN PRN (Reason: Itching) Primary Care Provider: Carla Fountain Referrals: Carla Fountain MD [Primary Care Provider] - 1 Week if not improving Disposition Disposition: Home, Self Care
[2022-08-03] MEDS: 0.9% Normal Saline 1,000 ML 1000 ML IV (18:05)
[2022-08-03 18:13] LABS: Absolute Lymphocyte Count 2.83 X10^3/uL (0.83-4.51); Absolute Neutrophil Count 5.2 X10^3/uL (2.0-7.7); Basophil# 0.04 X10^3/uL; Basophil% 0.4 % (0-1); Eosinophils% 3.3 % (0-5); Hematocrit 42.5 % (37-47); Hemoglobin 13.5 g/dL (12.0-15.0); Lymphocyte # 2.83 X10^3/ul (0.83-4.51); Lymphocyte % 31.3 % (19-41); Mean Corp Hgb Conc 31.8 g/dL (32-36); Mean Corpuscular Hgb 28.4 pg (27.0-32.0); Mean Corpuscular Volume 89.3 fL (81-99); Mean Platelet Vol. 9.5 fl (6.2-12.0); Monocyte# 0.57 X10^3/uL; Monocyte% 6.3 % (0-10); NRBC Flagged by Analyzer 0 % (0-5); Neutrophil # 5.17 X10^3/uL (2.7-7.7); Neutrophil % 57.4 % (47-70); Platelet Count 288 K/mm3 (150-450); RBC Distribution Width CV 13.7 % (11.6-14.6); RBC Distribution Width SD 44.8 fl (35.1-43.9); Red Blood Count 4.76 M/mm3 (4.2-5.4)
[2022-08-03 18:25] LABS: Anion Gap 3 (5-15); BUN 7 mg/dL (7-18); BUN/Creat Ratio 10.4 RATIO (10-20); Calcium,Total 8.9 mg/dL (8.5-10.1); Chloride 106 mmol/L (98-107); Creatinine, Serum 0.67 mg/dL (0.55-1.02); EST Glomerular Filtration Rate 99 mL/min (>60); Est Glom Filt Rate - Afr Amer 120 mL/min (>60); Estimated Creatinine Clearance 87.71 ml/min; Glucose 231 mg/dL (74-106); Sodium Level 139 mmol/L (136-145)
[2022-08-03 18:33] LABS: International Normalized Ratio 1.6; Prothrombin Time (Protime)PT. 18.4 SECONDS (11.7-14.9)
== END 2022-08-03 19:35 | disposition home or self-care (01) ==
PROVIDERS: Emergency Provider Emergency Medicine; PCP Internal Medicine; Visit Provider Emergency Medicine
DX: R42 Dizziness and giddiness (principal); E11.9 Type 2 diabetes mellitus without complications; Z87.891 Personal history of nicotine dependence; Z79.01 Long term (current) use of anticoagulants
CPT/HCPCS: 80048; 85025; 85610; 93005; 96360; 99284; A4216

== ENCOUNTER 2022-08-05 08:45 | Outpatient (RCR) | payer MEDICAID, SELFPAY ==
[2022-07-16 00:32] VITALS: BP 144/81; PULSE 89; RESP 18; TEMP 36.4; BMI 38.6
[2022-07-29 08:29] VITALS: BP 135/89; PULSE 85; RESP 18; TEMP 36.6; BMI 38.6
--- NOTE | 2022-07-29 09:19 | PN.PCM_ITS ---
History of Present Illness Date of Service: 07/29/22 Chief Complaint: Left medial, distal leg non healing ulcer History of Wound: Patient is a 47 year old female who presents with a non healing ulcer that occurred in February after tripping. She states she tripped, hitting her left lower leg, then noticed the wound starting a couple weeks later, so she associates it with the tripping. She has been treating it with antibiotic ointment, has seen her PCP who has treated her several different antibiotics. She has a history of DM II, Antiphospholipid syndrome which she is on anticoagulants, DVT and PE. Wound culture from 05/13/22 positive for Staphylococcus haemolyticus, Corynebacterium minutissimum, Corynebacterium amycolatum and Anaerobic cocci. With the resistance of the Staph, will start her on Levaquin and Flagyl to treat the anaerobic bacteria. Wound care - Aquacel-Ag covered with gauze. 3M 2 layer wraps for compression. Arterial studies done 06/05/22 - Right DONAVON = 1.25, Left DONAVON = 1.19. There is no evidence of significant arterial occlusive disease in the lower extremities bilaterally. Venous duplex studies from 06/05/22 - Deep veins of the lower extremities are bilaterally patent and compressible segmentally. There is no evidence of deep vein thrombosis on either side. Valvular competence appears intact within the proximal deep venous systems bilaterally. The great saphenous veins appear bilaterally patent and compressible segmentally. Sapheno-femoral junctions are bilaterally competent . Segmental valvular incompetence is noted within the great saphenous veins bilaterally. Small saphenous veins are patent and incompetent bilaterally. The accessory saphenous vein in the right distal thigh is incompetent. The accessory saphenous vein at the right knee is incompetent. The accessory saphenous vein in the right mid-calf is incompetent. The accessory saphenous vein in the left proximal thigh is incompetent. The accessory saphenous vein at the left knee is incompetent. She has seen Dr. Olson and he performed a venogram on 07/22/22. Today she denies fever, chills, nausea and vomiting. She states she has a good appetite. Progress of Wound: Left medial leg ulcer is now a cluster, it is smaller and continues to be very painful to light palpation. Her edema is improved wearing her tubigrip and SU wrap. Objective Data Objective Data Vital Signs: Vital Signs Temp Pulse Resp BP 97.8 F 85 18 135/89 H 07/29/22 08:29 07/29/22 08:29 07/29/22 08:29 07/29/22 08:29 Weight: 225 lb Body Mass Index (BMI) 38.6 Charges/Coding Procedures Integumentary 111xxx-113xx: [id number] Shefali subq tissue 20 sq cm/< Debridement Note Debridement Note Wound debrided: Medial, distal leg ulcer cluster Laterality: Left Wound Grade/Stage: Stage II Type of Debridement: Excisional debridement Anesthesia Used: 5% Lidocaine Gel Depth: Down to and including healthy tissue and in the subcutaneous layer Percentage of wound debrided: 100 Instrument Used: 3mm curette Tissue Removed: Devitalized tissue and slough Severity: Fat Layer Exposed Amount of bleeding with debridement: Mild Bleeding Controlled with: Compression and gauze Patient tolerated procedure: Patient did not tolerate procedure well Debridement Free Text: She continues to have discomfort with debridement. 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 ) Arrival Mode Ambulatory Transfer Assistance None Patient Identification Verified (Name & Yes ) Patient Requires Transmission-Based No Precautions Height and Weight Body Mass Index (BMI) 38.6 BMI Classification Obese Vital Signs Temperature (97.8 F-99.1 F) 97.8 F Temperature Source Temporal Pulse Rate (60-100) 85 Pulse Location Monitor Respiratory Rate (12-18) 18 Respiratory rate source Observation Blood Pressure (90/60-120/80) 135/89 H Blood Pressure Mean (mm Hg) 104 Source Monitor Position Semi-Fowlers Blood Pressure Location Left Arm History Since Last Visit- (Skip if this is Patient's initial visit) Have you changed medications since your No last visit? Any new allergies or adverse reactions No Had a fall/change in ADL's that may No increase risk of falls Signs or symptoms of abuse and/or No neglect since last visit Have you been in the hospital since your No last visit? Has dressing in place as prescribed Yes Has compression in place as prescribed Yes Has offloadiing in place as prescribed No Experienced any changes in pain level or No management Pain Scale: 0-10 Numeric Is Patient Pain Free? Yes WC - Nurse 1 - General Ulcer Measurement Start: 07/29/22 08:29 Freq: Status: Active Protocol: Activity Type Activity Date Activity User E-sign Co-sign Detail Recorded Client Recorded Date Recorded By Document 07/29/22 08:29 [id number] 07/29/22 08:31 RB 07/29/22 08:29 Wound Center Nurse 1 1. LLE medial -Combined with other wound No -Current Size (cm) - Length 1.5 -Current Size (cm) - Width 1.3 -Current Size (cm) - Depth 0.2 -Total Square Cm 1.95 -Photo Taken Yes -Tunneling No -Undermining/Tunneling No -Circular Undermining No -Exudate Amt Medium -Exudate Type Serosanguineous -Wound Margin Distinct, Outline Attached -Granulation Amt Medium (34-66%) -Granulation Quality [place] -Slough/Fibrin Yes -Necrosis Amt Medium (34-66%) -Necrotic Tissue Type Adherent Slough -Structure Exposed N/A -Texture (Darlene-wound Skin Appearance) Assessed, Scarring -Moisture (Darlene-wound Skin Appearance) Assessed -Color (Darlene-wound Skin Appearance) Hemosiderin Staining -Temperature (Darlene-wound Skin No Abnormality Appearance) (Pt Warm) -Tenderness on Palpation (Darlene-wound No Skin Appearance) -Ulcer Cleansing Wound Cleanser -Foul Odor after Cleansing No -Anesthetic Used 5% Lidocaine Gel Lower Limb Edema Present Yes Left Calf (cm) 40 Left Ankle (cm) 23.5 WC - Nurse 2 - General Ulcer CM Notes Start: 07/29/22 08:29 Freq: Status: Active Protocol: Activity Type Activity Date Activity User E-sign Co-sign Detail Recorded Client Recorded Date Recorded By Document 07/29/22 08:49 JAMES [id number] 07/29/22 08:50 JAMES 07/29/22 08:49 Wound Center Nurse 2 1. LLE medial -Time 08:50 -Correct Patient Yes -Correct Side, Site, Position Yes -Correct Procedure Yes -Procedure Performed Yes -Type of Procedure Debridement -Clinical Debridement Subcutaneous -Tissue Removed Subcutaneous -Post Debridement (cm) - Length 1.6 -Post Debridement (cm) - Width 1.4 -Post Debridement (cm) - Depth 0.1 -Total Square (Post) (cm) 2.24 -Area of Debridement (cm) - Length 1.6 -Area of Debridement (cm) - Width 1.4 -Total Square (Area) (cm) 2.24 -Tunneling No -Undermining/Tunneling No -Circular Undermining No -Wound/Ulcer Outcome Not Healed -Ulcer Cleansing Rinsed/ Irrigated with Saline -Foul Odor after Cleansing No -Bioengineered Tissue No -Bleeding Controlled with Pressure -Treatment Response Procedure Tolerated Well -Offloading No -Debridement - Subq, 1st 20sq cm Yes Pain Scale: 0-10 Numeric Is Patient Pain Free? Yes - Nurse 3 - General Ulcer D/C NN Start: 07/29/22 08:29 Freq: Status: Active Protocol: Activity Type Activity Date Activity User E-sign Co-sign Detail Recorded Client Recorded Date Recorded By Document 07/29/22 09:01 [id number] 07/29/22 09:02 07/29/22 09:01 Wound Care Nurse 3 1. LLE medial -Ulcer Cleansing Wound Cleanser -Primary Dressing Applied C Hydrogel ($), NonAdherent Contact Layer -Primary Dressing Covered/Secured with Dry Gauze,Dry Gauze & Roll Gauze,Secured with Tape Left -Tubular Bandage Double Layer -Size of Tubigrip Used Size D -Size D ($) 2 Treatment Response Procedure Tolerated Well Pain Scale: 0-10 Numeric Is Patient Pain Free? Yes - Visit Discharge Discharge Condition Stable Ambulatory Status Ambulatory Transportation Private Auto Medication Reconcilliation completed & No provided to patient/care provider Clinical Summary of Care Provided Yes Assessment/Plan Assessment/Plan (1) Ulcer of left lower extremity with fat layer exposed: CODE(S): L97.922 - Non-pressure chronic ulcer of unspecified part of left lower leg with fat layer exposed (2) Non-healing ulcer: CODE(S): L98.499 - Non-pressure chronic ulcer of skin of other sites with unspecified severity (3) Diabetes: CODE(S): E11.9 - Type 2 diabetes mellitus without complications QUALIFIERS: Diabetes mellitus type: type 2 (4) History of DVT of lower extremity: CODE(S): Z86.718 - Personal history of other venous thrombosis and embolism PLAN: Plan Patient was evaluated at the wound center today. Wound care - Collagen hydrogel topped with adaptic, covered with gauze daily after washing with soap and water. Compression - Tubigrip and SU wrap. Encouraged to keep legs elevated as much as possible when sitting. 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 Obtained wound cultures on 05/13/2022, which were positive for Staphylococcus haemolyticus, Corynebacterium minutissimum, Corynebacterium amycolatum and Anaerobic cocci. She completed Levofloxacin and Metronidazole. Venous and arterial studies were done on 06/05/22. She has no arterial compromise but has bilateral venous insufficiency. With the amount of pain she is experiencing, her young age and lack of improvement in her ulcer, she was referred to Dr. Olson and he performed a venogram on 07/22/22. She follows up with him next week. Encouraged patient to keep legs elevated when sitting. This is difficult for her since she works 3-5, 12 hour shifts per week. Encouraged increase in protein intake to help with wound healing. Follow up one week. Call or come in sooner if develop any concerns.
[2022-08-05 09:04] VITALS: BP 135/78; PULSE 77; RESP 18; TEMP 36.1; BMI 38.6
--- NOTE | 2022-08-05 11:18 | PN.PCM_ITS ---
History of Present Illness Date of Service: 08/05/22 Chief Complaint: Left medial, distal leg non healing ulcer History of Wound: Patient is a 47 year old female who presents with a non healing ulcer that occurred in February after tripping. She states she tripped, hitting her left lower leg, then noticed the wound starting a couple weeks later, so she associates it with the tripping. She has been treating it with antibiotic ointment, has seen her PCP who has treated her several different antibiotics. She has a history of DM II, Antiphospholipid syndrome which she is on anticoagulants, DVT and PE. Wound culture from 05/13/22 positive for Staphylococcus haemolyticus, Corynebacterium minutissimum, Corynebacterium amycolatum and Anaerobic cocci. With the resistance of the Staph, will start her on Levaquin and Flagyl to treat the anaerobic bacteria. Wound care - Aquacel-Ag covered with gauze. 3M 2 layer wraps for compression. Arterial studies done 06/05/22 - Right DONAVON = 1.25, Left DONAVON = 1.19. There is no evidence of significant arterial occlusive disease in the lower extremities bilaterally. Venous duplex studies from 06/05/22 - Deep veins of the lower extremities are bilaterally patent and compressible segmentally. There is no evidence of deep vein thrombosis on either side. Valvular competence appears intact within the proximal deep venous systems bilaterally. The great saphenous veins appear bilaterally patent and compressible segmentally. Sapheno-femoral junctions are bilaterally competent . Segmental valvular incompetence is noted within the great saphenous veins bilaterally. Small saphenous veins are patent and incompetent bilaterally. The accessory saphenous vein in the right distal thigh is incompetent. The accessory saphenous vein at the right knee is incompetent. The accessory saphenous vein in the right mid-calf is incompetent. The accessory saphenous vein in the left proximal thigh is incompetent. The accessory saphenous vein at the left knee is incompetent. She has seen Dr. Olson and he performed a venogram on 07/22/22. Today she denies fever, chills, nausea and vomiting. She states she has a good appetite. Progress of Wound: Left medial leg ulcer is no longer a cluster, it is smaller and continues to be very painful to light palpation. Her edema is improved wearing her tubigrip and SU wrap and not having worked since her venogram. She is scheduled to see Dr. Olson this week. Objective Data Objective Data Vital Signs: Vital Signs Temp Pulse Resp BP 97 F L 77 18 135/78 H 08/05/22 09:04 08/05/22 09:04 08/05/22 09:04 08/05/22 09:04 Weight: 225 lb Body Mass Index (BMI) 38.6 Charges/Coding Procedures Integumentary 111xxx-113xx: 38944 Shefali subq tissue 20 sq cm/< Debridement Note Debridement Note Wound debrided: Medial, distal leg ulcer Laterality: Left Wound Grade/Stage: Stage II Type of Debridement: Excisional debridement Anesthesia Used: 5% Lidocaine Gel Depth: Down to and including healthy tissue and in the subcutaneous layer Percentage of wound debrided: 100 Instrument Used: 3mm curette Tissue Removed: Devitalized tissue and slough Severity: Fat Layer Exposed Amount of bleeding with debridement: Mild Bleeding Controlled with: Compression and gauze Patient tolerated procedure: Patient did not tolerate procedure well Debridement Free Text: She continues to have discomfort with debridement. Post-Debridement Measurements and Additional Note: Post-Debridement Measurements/Treatment - Nurse 1 - General Ulcer Assessment Start: 07/29/22 08:29 Freq: Status: Active Protocol: FLO Activity Type Activity Date Activity User E-sign Co-sign Detail Recorded Client Recorded Date Recorded By Document 07/29/22 08:29 [id number] 07/29/22 08:31 RB Document 08/05/22 09:04 [id number] 08/05/22 09:06 RB 07/29/22 08/05/22 08:29 09:04 - Today's Visit Information Type of service Follow-up Visit 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/MALE IMPERSONATOR (Physician/MALE IMPERSONATOR ) ) Arrival Mode Ambulatory Ambulatory Transfer Assistance None None Patient Identification Verified (Name & Yes Yes ) Patient Requires Transmission-Based No No Precautions Height and Weight Body Mass Index (BMI) 38.6 38.6 BMI Classification Obese Obese Vital Signs Temperature (97.8 F-99.1 F) 97.8 F 97 F L Temperature Source Temporal Temporal Pulse Rate (60-100) 85 77 Pulse Location Monitor Monitor Respiratory Rate (12-18) 18 18 Respiratory rate source Observation Observation Blood Pressure (90/60-120/80) 135/89 H 135/78 H Blood Pressure Mean (mm Hg) 104 97 Source Monitor Monitor Position Semi-Fowlers Sitting Blood Pressure Location Left Arm Left Arm History Since Last Visit- (Skip if this is Patient's initial visit) Have you changed medications since your No No last visit? Any new allergies or adverse reactions No No Had a fall/change in ADL's that may No No increase risk of falls Signs or symptoms of abuse and/or No No neglect since last visit Have you been in the hospital since your No No last visit? Has dressing in place as prescribed Yes Yes Has compression in place as prescribed Yes Yes Has offloadiing in place as prescribed No No Experienced any changes in pain level or No No management Pain Scale: 0-10 Numeric Is Patient Pain Free? Yes Yes WC - Nurse 1 - General Ulcer Measurement Start: 07/29/22 08:29 Freq: Status: Active Protocol: Activity Type Activity Date Activity User E-sign Co-sign Detail Recorded Client Recorded Date Recorded By Document 07/29/22 08:29 [id number] 07/29/22 08:31 RB Document 08/05/22 09:04 RB [id number] 08/05/22 09:06 RB 07/29/22 08/05/22 08:29 09:04 Wound Center Nurse 1 1. LLE medial -Combined with other wound No No -Current Size (cm) - Length 1.5 0.1 -Current Size (cm) - Width 1.3 0.1 -Current Size (cm) - Depth 0.2 0.1 -Total Square Cm 1.95 0.01 -Photo Taken Yes Yes -Tunneling No No -Undermining/Tunneling No No -Circular Undermining No No -Exudate Amt Medium Small -Exudate Type Serosanguineous Serosanguineous -Wound Margin Distinct, Distinct, Outline Outline Attached Attached -Granulation Amt Medium (34-66%) Medium (34-66%) -Granulation Quality [place] -Slough/Fibrin Yes Yes -Necrosis Amt Medium (34-66%) Large (67-100%) -Necrotic Tissue Type Adherent Slough Adherent Slough -Structure Exposed N/A N/A -Texture (Darlene-wound Skin Appearance) Assessed, Scarring Scarring -Moisture (Darlene-wound Skin Appearance) Assessed Assessed -Color (Darlene-wound Skin Appearance) Hemosiderin Hemosiderin Staining Staining -Temperature (Darlene-wound Skin No Abnormality No Abnormality Appearance) (Pt Warm) (Pt Warm) -Tenderness on Palpation (Darlene-wound No No Skin Appearance) -Ulcer Cleansing Wound Cleanser Wound Cleanser -Foul Odor after Cleansing No No -Anesthetic Used 5% Lidocaine 5% Lidocaine Gel Gel Lower Limb Edema Present Yes Left Calf (cm) 40 Left Ankle (cm) 23.5 - Nurse 2 - General Ulcer CM Notes Start: 07/29/22 08:29 Freq: Status: Active Protocol: Activity Type Activity Date Activity User E-sign Co-sign Detail Recorded Client Recorded Date Recorded By Document 07/29/22 08:49 [id number] 07/29/22 08:50 Document 08/05/22 09:11 [id number] 08/05/22 09:15 07/29/22 08/05/22 08:49 09:11 Wound Center Nurse 2 1Hanane BRAN medial -Time 08:50 09:12 -Correct Patient Yes Yes -Correct Side, Site, Position Yes Yes -Correct Procedure Yes Yes -Procedure Performed Yes Yes -Type of Procedure Debridement Debridement -Clinical Debridement Subcutaneous Subcutaneous -Tissue Removed Subcutaneous Subcutaneous -Post Debridement (cm) - Length 1.6 0.4 -Post Debridement (cm) - Width 1.4 0.7 -Post Debridement (cm) - Depth 0.1 0.1 -Total Square (Post) (cm) 2.24 0.28 -Area of Debridement (cm) - Length 1.6 0.4 -Area of Debridement (cm) - Width 1.4 0.7 -Total Square (Area) (cm) 2.24 0.28 -Tunneling No No -Undermining/Tunneling No No -Circular Undermining No No -Wound/Ulcer Outcome Not Healed Not Healed -Ulcer Cleansing Rinsed/ Rinsed/ Irrigated with Irrigated with Saline Saline -Foul Odor after Cleansing No No -Bioengineered Tissue No No -Bleeding Controlled with Pressure Pressure -Treatment Response Procedure Procedure Tolerated Well Tolerated Well -Offloading No No -Debridement - Subq, 1st 20sq cm Yes Yes Pain Scale: 0-10 Numeric Is Patient Pain Free? Yes Yes - Nurse 3 - General Ulcer D/C NN Start: 07/29/22 08:29 Freq: Status: Active Protocol: Activity Type Activity Date Activity User E-sign Co-sign Detail Recorded Client Recorded Date Recorded By Document 07/29/22 09:01 RB [id number] 07/29/22 09:02 RB Document 08/05/22 09:24 RB [id number] 08/05/22 09:25 RB 07/29/22 08/05/22 09:01 09:24 Wound Care Nurse 3 1. LLE medial -Ulcer Cleansing Wound Cleanser Rinsed/ Irrigated with Saline -Primary Dressing Applied C Hydrogel ($), NonAdherent NonAdherent Contact Layer Contact Layer -Other Dressing hydogel -Primary Dressing Covered/Secured with Dry Gauze,Dry Dry Gauze & Gauze & Roll Roll Gauze, Gauze,Secured Secured with with Tape Tape Left -Tubular Bandage Double Layer Double Layer -Size of Tubigrip Used Size D Size D -Size D ($) 2 2 Treatment Response Procedure Procedure Tolerated Well Tolerated Well Pain Scale: 0-10 Numeric Is Patient Pain Free? Yes Yes WC - Visit Discharge Discharge Condition Stable Stable Ambulatory Status Ambulatory Ambulatory Transportation Private Auto Private Auto Medication Reconcilliation completed & No No provided to patient/care provider Clinical Summary of Care Provided Yes Yes Assessment/Plan Assessment/Plan (1) Ulcer of left lower extremity with fat layer exposed: CODE(S): L97.922 - Non-pressure chronic ulcer of unspecified part of left lower leg with fat layer exposed (2) Non-healing ulcer: CODE(S): L98.499 - Non-pressure chronic ulcer of skin of other sites with unspecified severity (3) Diabetes: CODE(S): E11.9 - Type 2 diabetes mellitus without complications QUALIFIERS: Diabetes mellitus type: type 2 (4) History of DVT of lower extremity: CODE(S): Z86.718 - Personal history of other venous thrombosis and embolism PLAN: Plan Patient was evaluated at the wound center today. Wound care - Collagen hydrogel topped with adaptic, covered with gauze daily after washing with soap and water. Compression - Double Tubigrip. Her edema is much improved this visit since she has been off work since her venogram. Encouraged to keep legs elevated as much as possible when sitting. 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 Obtained wound cultures on 05/13/2022, which were positive for Staphylococcus haemolyticus, Corynebacterium minutissimum, Corynebacterium amycolatum and Anaer obic cocci. She completed Levofloxacin and Metronidazole. Venous and arterial studies were done on 06/05/22. She has no arterial compromise but has bilateral venous insufficiency. With the amount of pain she is experiencing, her young age and lack of improvement in her ulcer, she was referred to Dr. Olson and he performed a venogram on 07/22/22. She follows up with him this week. Encouraged patient to keep legs elevated when sitting. This is difficult for her since she works 3-5, 12 hour shifts per week. Encouraged increase in protein intake to help with wound healing. Follow up two weeks. Call or come in sooner if develop any concerns.
== END 2022-08-15 23:59 | disposition home or self-care (01) ==
LOC: WC 08:45
PROVIDERS: PCP Internal Medicine; Referring Provider Nurse Practitioner Family; Visit Provider Nurse Practitioner Family
DX: E11.622 Type 2 diabetes mellitus with other skin ulcer (principal); L98.492 Non-pressure chronic ulcer of skin of other sites with fat layer exposed; L97.922 Non-pressure chronic ulcer of unspecified part of left lower leg with fat layer exposed; M79.605 Pain in left leg; Z86.718 Personal history of other venous thrombosis and embolism
CPT/HCPCS: 11042

== ENCOUNTER 2022-09-02 08:45 | Outpatient (RCR) | payer MEDICAID, SELFPAY ==
[2022-08-16 00:26] VITALS: BP 135/78; PULSE 77; RESP 18; TEMP 36.1; BMI 38.6
[2022-08-19 08:59] VITALS: BP 149/86; PULSE 77; RESP 16; TEMP 35.8; BMI 38.6
--- NOTE | 2022-08-19 09:50 | PN.PCM_ITS ---
History of Present Illness Date of Service: 08/19/22 Chief Complaint: Left medial, distal leg non healing ulcer History of Wound: Patient is a 47 year old female who presents with a non healing ulcer that occurred in February after tripping. She states she tripped, hitting her left lower leg, then noticed the wound starting a couple weeks later, so she associates it with the tripping. She has been treating it with antibiotic ointment, has seen her PCP who has treated her several different antibiotics. She has a history of DM II, Antiphospholipid syndrome which she is on anticoagulants, DVT and PE. Wound culture from 05/13/22 positive for Staphylococcus haemolyticus, Corynebacterium minutissimum, Corynebacterium amycolatum and Anaerobic cocci. With the resistance of the Staph, will start her on Levaquin and Flagyl to treat the anaerobic bacteria. Wound care - Aquacel-Ag covered with gauze. 3M 2 layer wraps for compression. Arterial studies done 06/05/22 - Right DONAVON = 1.25, Left DONAVON = 1.19. There is no evidence of significant arterial occlusive disease in the lower extremities bilaterally. Venous duplex studies from 06/05/22 - Deep veins of the lower extremities are bilaterally patent and compressible segmentally. There is no evidence of deep vein thrombosis on either side. Valvular competence appears intact within the proximal deep venous systems bilaterally. The great saphenous veins appear bilaterally patent and compressible segmentally. Sapheno-femoral junctions are bilaterally competent . Segmental valvular incompetence is noted within the great saphenous veins bilaterally. Small saphenous veins are patent and incompetent bilaterally. The accessory saphenous vein in the right distal thigh is incompetent. The accessory saphenous vein at the right knee is incompetent. The accessory saphenous vein in the right mid-calf is incompetent. The accessory saphenous vein in the left proximal thigh is incompetent. The accessory saphenous vein at the left knee is incompetent. She has seen Dr. Olson and he performed a venogram on 07/22/22. Today she denies fever, chills, nausea and vomiting. She states she has a good appetite. Progress of Wound: Left medial leg ulcer is small. It continues to be painful, but not as much as it previously was. She has +1-+2 edema, even wearing her compression because she is back to work and on her feet for 12 hours. Objective Data Objective Data Vital Signs: Vital Signs Temp Pulse Resp BP O2 Del Method 96.5 F L 77 16 149/86 H Room Air 08/19/22 08:59 08/19/22 08:59 08/19/22 08:59 08/19/22 08:59 08/19/22 08:59 Oxygen Delivery Method Room Air Weight: 225 lb Body Mass Index (BMI) 38.6 Charges/Coding Procedures Integumentary 111xxx-113xx: 76045 Shefali subq tissue 20 sq cm/< Debridement Note Debridement Note Wound debrided: Medial, distal leg ulcer Laterality: Left Wound Grade/Stage: Stage II Type of Debridement: Excisional debridement Anesthesia Used: 5% Lidocaine Gel Depth: Down to and including healthy tissue and in the subcutaneous layer Percentage of wound debrided: 100 Instrument Used: 3mm curette Tissue Removed: Devitalized tissue and slough Severity: Fat Layer Exposed Amount of bleeding with debridement: Mild Bleeding Controlled with: Compression and gauze Patient tolerated procedure: Patient tolerated procedure well Debridement Free Text: She continues to have discomfort with debridement but is tolerating much better than previously. 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 ) Arrival Mode Ambulatory Transfer Assistance None Patient Identification Verified (Name & Yes ) Patient Requires Transmission-Based No Precautions Height and Weight Body Mass Index (BMI) 38.6 BMI Classification Obese Vital Signs Temperature (97.8 F-99.1 F) 96.5 F L Temperature Source Temporal Pulse Rate (60-100) 77 Pulse Location Monitor Respiratory Rate (12-18) 16 Respiratory rate source Observation Oxygen Delivery Method Room Air Blood Pressure (90/60-120/80) 149/86 H Blood Pressure Mean (mm Hg) 107 Source Monitor Position Sitting Blood Pressure Location Left Arm History Since Last Visit- (Skip if this is Patient's initial visit) Have you changed medications since your No last visit? Any new allergies or adverse reactions No Had a fall/change in ADL's that may No increase risk of falls Signs or symptoms of abuse and/or No neglect since last visit Have you been in the hospital since your No last visit? Has dressing in place as prescribed Yes Has compression in place as prescribed Yes Has offloadiing in place as prescribed N/A Experienced any changes in pain level or No management Left Footwear Regular Shoe Right Footwear Regular Shoe Pain Scale: 0-10 Numeric Is Patient Pain Free? Yes WC - Nurse 1 - General Ulcer Measurement Start: 08/19/22 08:59 Freq: Status: Active Protocol: Activity Type Activity Date Activity User E-sign Co-sign Detail Recorded Client Recorded Date Recorded By Document 08/19/22 08:59 [facility] [id number] 08/19/22 09:02 [facility] 08/19/22 08:59 Wound Center Nurse 1 1. LLE medial -Combined with other wound No -Current Size (cm) - Length 0.1 -Current Size (cm) - Width 0.1 -Current Size (cm) - Depth 0.1 -Total Square Cm 0.01 -Date of Last Picture (Recall this 08/19/22 field) -Photo Taken Yes -Epithelialization Large 67-100% -Tunneling No -Undermining/Tunneling No -Circular Undermining No -Exudate Amt None Present -Wound Margin Distinct, Outline Attached -Granulation Amt None Present (0 %) -Slough/Fibrin Yes -Necrosis Amt Small (1-33%) -Necrotic Tissue Type Eschar -Texture (Darlene-wound Skin Appearance) Assessed, Scarring -Moisture (Darlene-wound Skin Appearance) Assessed,Dry/ Scaly -Color (Darlene-wound Skin Appearance) Assessed, Hemosiderin Staining -Temperature (Darlene-wound Skin No Abnormality Appearance) (Pt Warm) -Tenderness on Palpation (Darlene-wound No Skin Appearance) -Ulcer Cleansing Rinsed/ Irrigated with Saline -Foul Odor after Cleansing No -Anesthetic Used 5% Lidocaine Gel Lower Limb Edema Present Yes Left Calf (cm) 41.5 Left Ankle (cm) 24.5 WC - Nurse 2 - General Ulcer CM Notes Start: 08/19/22 08:59 Freq: Status: Active Protocol: Activity Type Activity Date Activity User E-sign Co-sign Detail Recorded Client Recorded Date Recorded By Document 08/19/22 09:11 JAMES [id number] 08/19/22 09:14 JAMES 08/19/22 09:11 Wound Center Nurse 2 1. LLE medial -Time 09:12 -Correct Patient Yes -Correct Side, Site, Position Yes -Correct Procedure Yes -Procedure Performed Yes -Type of Procedure Debridement -Clinical Debridement Subcutaneous -Tissue Removed Subcutaneous -Post Debridement (cm) - Length 0.3 -Post Debridement (cm) - Width 0.2 -Post Debridement (cm) - Depth 0.1 -Total Square (Post) (cm) 0.06 -Area of Debridement (cm) - Length 0.3 -Area of Debridement (cm) - Width 0.2 -Total Square (Area) (cm) 0.06 -Tunneling No -Undermining/Tunneling No -Circular Undermining No -Wound/Ulcer Outcome Not Healed -Ulcer Cleansing Rinsed/ Irrigated with Saline -Foul Odor after Cleansing No -Bioengineered Tissue No -Bleeding Controlled with Pressure -Treatment Response Procedure Tolerated Well -Offloading No -Debridement - Subq, 1st 20sq cm Yes Pain Scale: 0-10 Numeric Is Patient Pain Free? Yes - Nurse 3 - General Ulcer D/C NN Start: 08/19/22 08:59 Freq: Status: Active Protocol: Activity Type Activity Date Activity User E-sign Co-sign Detail Recorded Client Recorded Date Recorded By Document 08/19/22 09:23 DL [id number] 08/19/22 09:25 DL 08/19/22 09:23 Wound Care Nurse 3 1. LLE medial -Ulcer Cleansing Rinsed/ Irrigated with Saline -Foul Odor after Cleansing No -Primary Dressing Applied NonAdherent Contact Layer -Other Dressing hydrogel -Primary Dressing Covered/Secured with Dry Gauze & Roll Gauze, Secured with Tape Left -Tubular Bandage Double Layer -Size of Tubigrip Used Size D -Size D ($) 1 Treatment Response Procedure Tolerated Well Pain Scale: 0-10 Numeric Is Patient Pain Free? Yes WC - Visit Discharge Discharge Condition Stable Ambulatory Status Ambulatory Transportation Private Auto Assessment/Plan Assessment/Plan (1) Ulcer of left lower extremity with fat layer exposed: CODE(S): L97.922 - Non-pressure chronic ulcer of unspecified part of left lower leg with fat layer exposed (2) Non-healing ulcer: CODE(S): L98.499 - Non-pressure chronic ulcer of skin of other sites with unspecified severity (3) Diabetes: CODE(S): E11.9 - Type 2 diabetes mellitus without complications QUALIFIERS: Diabetes mellitus type: type 2 (4) History of DVT of lower extremity: CODE(S): Z86.718 - Personal history of other venous thrombosis and embolism PLAN: Plan Patient was evaluated at the wound center today. Wound care - Collagen hydrogel topped with adaptic, covered with gauze daily after washing with soap and water. Make sure to moisturize leg around the ulcer with lotion. Compression - Double Tubigrip. Encouraged to keep legs elevated as much as possible when sitting. 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 Obtained wound cultures on 05/13/2022, which were positive for Staphylococcus haemolyticus, Corynebacterium minutissimum, Corynebacterium amycolatum and Anaerobic cocci. She completed Levofloxacin and Metronidazole. Venous and arterial studies were done on 06/05/22. She has no arterial compromise but has bilateral venous insufficiency. Dr. Olson performed a venogram on 07/22/22. She will be scheduling a venous ablation in the near future. Encouraged increase in protein intake to help with wound healing. Follow up two weeks. Call or come in sooner if develop any concerns.
[2022-09-02 08:45] VITALS: BP 126/71; PULSE 77; RESP 18; TEMP 35.7; BMI 38.6
--- NOTE | 2022-09-02 09:07 | PCM.WC.PN ---
History of Present Illness Date of Service: 09/02/22 Chief Complaint: Left medial, distal leg non healing ulcer History of Wound: Patient is a 47 year old female who presents with a non healing ulcer that occurred in February after tripping. She states she tripped, hitting her left lower leg, then noticed the wound starting a couple weeks later, so she associates it with the tripping. She has been treating it with antibiotic ointment, has seen her PCP who has treated her several different antibiotics. She has a history of DM II, Antiphospholipid syndrome which she is on anticoagulants, DVT and PE. Wound culture from 05/13/22 positive for Staphylococcus haemolyticus, Corynebacterium minutissimum, Corynebacterium amycolatum and Anaerobic cocci. With the resistance of the Staph, will start her on Levaquin and Flagyl to treat the anaerobic bacteria. Arterial studies done 06/05/22 - Right DONAVON = 1.25, Left DONAVON = 1.19. There is no evidence of significant arterial occlusive disease in the lower extremities bilaterally. Venous duplex studies from 06/05/22 - Deep veins of the lower extremities are bilaterally patent and compressible segmentally. There is no evidence of deep vein thrombosis on either side. Valvular competence appears intact within the proximal deep venous systems bilaterally. The great saphenous veins appear bilaterally patent and compressible segmentally. Sapheno-femoral junctions are bilaterally competent . Segmental valvular incompetence is noted within the great saphenous veins bilaterally. Small saphenous veins are patent and incompetent bilaterally. The accessory saphenous vein in the right distal thigh is incompetent. The accessory saphenous vein at the right knee is incompetent. The accessory saphenous vein in the right mid-calf is incompetent. The accessory saphenous vein in the left proximal thigh is incompetent. The accessory saphenous vein at the left knee is incompetent. She has seen Dr. Olson and he performed a venogram on 07/22/22. Today she denies fever, chills, nausea and vomiting. She states she has a good appetite. Progress of Wound: Left medial leg ulcer is healed today. Her edema is +1. She has not obtained her compression stockings that she has a prescription for. She has been wearing tubigrips for compression. Objective Data Objective Data Vital Signs: Vital Signs Temp Pulse Resp BP O2 Del Method 96.3 F L 77 18 126/71 H Room Air 09/02/22 08:45 09/02/22 08:45 09/02/22 08:45 09/02/22 08:45 08/19/22 08:59 Oxygen Delivery Method Room Air Weight: 225 lb Body Mass Index (BMI) 38.6 Charges/Coding Visit Charges Office Visits / Consults: 28487 OV L3 Est Physical Exam Const alert and oriented x3 HEENT normocephalic Head and Scalp: atraumatic Lymph Lymphatic: no lymphedema noted Resp normal respiratory effort and clear to auscultation bilaterally Effort and Inspection: able to speak in complete sentences Cardio regular rate and regular rhythm GI non-tender Palpation: soft Extremity full ROM and normal capillary refill Extremity Narrative: +1 edema of left leg. She has discoloration of her left leg. Skin Wound Narrative: Left medial distal leg ulcer is healed. The area is still sensitive to palpation. Neuro oriented x3 Sensorium / Orientation: awake Psych mental status grossly normal Appearance: appropriate and well kempt Debridement Note Debridement Note No debridement was completed: No debridement was completed today Post-Debridement Measurements and Additional Note: Post-Debridement Measurements/Treatment - Nurse 1 - General Ulcer Assessment Start: 08/19/22 08:59 Freq: Status: Active Protocol: FLO Activity Type Activity Date Activity User E-sign Co-sign Detail Recorded Client Recorded Date Recorded By Document 08/19/22 08:59 [facility] [id number] 08/19/22 09:02 [facility] Document 09/02/22 08:45 DL [id number] 09/02/22 08:49 DL 08/19/22 09/02/22 08:59 08:45 - Today's Visit Information Type of service Follow-up Visit 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/DEVICE PROCESSING ENGINEER (Physician/DEVICE PROCESSING ENGINEER ) ) Arrival Mode Ambulatory Ambulatory Transfer Assistance None None Patient Identification Verified (Name & Yes Yes ) Patient Requires Transmission-Based No No Precautions Height and Weight Body Mass Index (BMI) 38.6 38.6 BMI Classification Obese Obese Vital Signs Temperature (97.8 F-99.1 F) 96.5 F L 96.3 F L Temperature Source Temporal Temporal Pulse Rate (60-100) 77 77 Pulse Location Monitor Monitor Respiratory Rate (12-18) 16 18 Respiratory rate source Observation Observation Oxygen Delivery Method Room Air Blood Pressure (90/60-120/80) 149/86 H 126/71 H Blood Pressure Mean (mm Hg) 107 89 Source Monitor Monitor Position Sitting Blood Pressure Location Left Arm History Since Last Visit- (Skip if this is Patient's initial visit) Have you changed medications since your No No last visit? Any new allergies or adverse reactions No No Had a fall/change in ADL's that may No No increase risk of falls Signs or symptoms of abuse and/or No No neglect since last visit Have you been in the hospital since your No No last visit? Has dressing in place as prescribed Yes Yes Has compression in place as prescribed Yes Yes Has offloadiing in place as prescribed N/A N/A Experienced any changes in pain level or No Yes management Left Footwear Regular Shoe Right Footwear Regular Shoe Pain Scale: 0-10 Numeric Is Patient Pain Free? Yes Yes WC - Nurse 1 - General Ulcer Measurement Start: 08/19/22 08:59 Freq: Status: Active Protocol: Activity Type Activity Date Activity User E-sign Co-sign Detail Recorded Client Recorded Date Recorded By Document 08/19/22 08:59 [facility] [id number] 08/19/22 09:02 [facility] Document 09/02/22 08:45 DL [id number] 09/02/22 08:49 DL 08/19/22 09/02/22 08:59 08:45 Wound Center Nurse 1 1. LLE medial -Combined with other wound No -Current Size (cm) - Length 0.1 0 -Current Size (cm) - Width 0.1 0 -Current Size (cm) - Depth 0.1 0 -Total Square Cm 0.01 0 -Date of Last Picture (Recall this 08/19/22 field) -Photo Taken Yes Yes -Epithelialization Large 67-100% -Tunneling No -Undermining/Tunneling No -Circular Undermining No -Exudate Amt None Present None Present -Wound Margin Distinct, Indistinct, Non Outline -Visible Attached -Granulation Amt None Present (0 Large (67-100%) %) -Granulation Quality Arnot -Slough/Fibrin Yes -Necrosis Amt Small (1-33%) None Present (0 %) -Necrotic Tissue Type Eschar -Structure Exposed N/A -Texture (Darlene-wound Skin Appearance) Assessed, Scarring Scarring -Moisture (Darlene-wound Skin Appearance) Assessed,Dry/ Dry/Scaly Scaly -Color (Darlene-wound Skin Appearance) Assessed, Hemosiderin Hemosiderin Staining Staining -Temperature (Darlene-wound Skin No Abnormality No Abnormality Appearance) (Pt Warm) (Pt Warm) -Tenderness on Palpation (Darlene-wound No No Skin Appearance) -Ulcer Cleansing Rinsed/ Rinsed/ Irrigated with Irrigated with Saline Saline -Foul Odor after Cleansing No No -Anesthetic Used 5% Lidocaine Gel Lower Limb Edema Present Yes Left Calf (cm) 41.5 42.2 Left Ankle (cm) 24.5 26 - Nurse 2 - General Ulcer CM Notes Start: 08/19/22 08:59 Freq: Status: Active Protocol: Activity Type Activity Date Activity User E-sign Co-sign Detail Recorded Client Recorded Date Recorded By Document 08/19/22 09:11 [id number] 08/19/22 09:14 Document 09/02/22 08:57 [id number] 09/02/22 08:58 08/19/22 09/02/22 09:11 08:57 Wound Center Nurse 2 1. LLE medial -Time 09:12 -Correct Patient Yes No -Correct Side, Site, Position Yes No -Correct Procedure Yes No -Procedure Performed Yes No -Type of Procedure Debridement -Clinical Debridement Subcutaneous -Tissue Removed Subcutaneous -Post Debridement (cm) - Length 0.3 0 -Post Debridement (cm) - Width 0.2 0 -Post Debridement (cm) - Depth 0.1 0 -Total Square (Post) (cm) 0.06 0 -Area of Debridement (cm) - Length 0.3 0 -Area of Debridement (cm) - Width 0.2 0 -Total Square (Area) (cm) 0.06 0 -Tunneling No -Undermining/Tunneling No -Circular Undermining No -Wound/Ulcer Outcome Not Healed Healed- Epithelialized -Ulcer Cleansing Rinsed/ Irrigated with Saline -Foul Odor after Cleansing No -Bioengineered Tissue No -Bleeding Controlled with Pressure -Treatment Response Procedure Tolerated Well -Offloading No -Debridement - Subq, 1st 20sq cm Yes Pain Scale: 0-10 Numeric Is Patient Pain Free? Yes Yes - Nurse 3 - General Ulcer D/C NN Start: 08/19/22 08:59 Freq: Status: Active Protocol: Activity Type Activity Date Activity User E-sign Co-sign Detail Recorded Client Recorded Date Recorded By Document 08/19/22 09:23 DL [id number] 08/19/22 09:25 DL Document 09/02/22 08:58 JAMES [id number] 09/02/22 08:59 JF 08/19/22 09/02/22 09:23 08:58 Wound Care Nurse 3 1. LLE medial -Ulcer Cleansing Rinsed/ Irrigated with Saline -Foul Odor after Cleansing No -Primary Dressing Applied NonAdherent Contact Layer -Other Dressing hydrogel -Primary Dressing Covered/Secured with Dry Gauze & Roll Gauze, Secured with Tape Left -Tubular Bandage Double Layer Double Layer -Size of Tubigrip Used Size D Size D -Size D ($) 1 2 Treatment Response Procedure Tolerated Well Pain Scale: 0-10 Numeric Is Patient Pain Free? Yes Yes WC - Visit Discharge Discharge Condition Stable Stable Ambulatory Status Ambulatory Ambulatory Transportation Private Auto Private Auto Medication Reconcilliation completed & Yes provided to patient/care provider Assessment/Plan Assessment/Plan (1) Ulcer of left lower extremity with fat layer exposed: CODE(S): L97.922 - Non-pressure chronic ulcer of unspecified part of left lower leg with fat layer exposed (2) Venous insufficiency (chronic) (peripheral): CODE(S): I87.2 - Venous insufficiency (chronic) (peripheral) (3) Non-healing ulcer: CODE(S): L98.499 - Non-pressure chronic ulcer of skin of other sites with unspecified severity (4) Diabetes: CODE(S): E11.9 - Type 2 diabetes mellitus without complications QUALIFIERS: Diabetes mellitus type: type 2 (5) History of DVT of lower extremity: CODE(S): Z86.718 - Personal history of other venous thrombosis and embolism PLAN: Plan Patient was evaluated at the wound center today. Her ulcer is healed today. Instructed her to massage the healed ulcer with lotion to help soften the scarring. Compression - Double Tubigrip until she purchases the stockings that she has a prescription for. Stressed the importance of the compression to help prevent further ulcers. Encouraged to keep legs elevated as much as possible when sitting. 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 Obtained wound cultures on 05/13/2022, which were positive for Staphylococcus haemolyticus, Corynebacterium minutissimum, Corynebacterium amycolatum and Anaerobic cocci. She completed Levofloxacin and Metronidazole. Venous and arterial studies were done on 06/05/22. She has no arterial compromise but has bilateral venous insufficiency. Dr. Olson performed a venogram on 07/22/22. Stressed to her that she needs to follow up with Dr. Olson to schedule her venous ablation. Encouraged increase in protein intake to help with wound healing. Follow up as needed.
== END 2022-09-02 15:29 | disposition home or self-care (01) ==
LOC: WC 08:45
PROVIDERS: PCP Internal Medicine; Referring Provider Nurse Practitioner Family; Visit Provider Nurse Practitioner Family
DX: L97.922 Non-pressure chronic ulcer of unspecified part of left lower leg with fat layer exposed (principal); L98.492 Non-pressure chronic ulcer of skin of other sites with fat layer exposed; E11.59 Type 2 diabetes mellitus with other circulatory complications; I87.2 Venous insufficiency (chronic) (peripheral); Z86.718 Personal history of other venous thrombosis and embolism
CPT/HCPCS: 11042; 99213; G0463

== ENCOUNTER 2022-12-03 07:54 | Day surgery (SDC) | payer MEDICAID, SELFPAY ==
[2022-12-02 09:01] VITALS: BMI 39.8
[2022-12-03 08:10] LABS: Absolute Neutrophil Count 5.2 X10^3/uL (2.0-7.7); Basophil# 0.04 X10^3/uL; Basophil% 0.4 % (0-1); Eosinophil# 0.18 X10^3/uL; Eosinophils% 1.9 % (0-5); Hematocrit 41.3 % (37-47); Hemoglobin 13.3 g/dL (12.0-15.0); Lymphocyte % 34.3 % (19-41); Mean Corp Hgb Conc 32.2 g/dL (32-36); Mean Corpuscular Hgb 27.7 pg (27.0-32.0); Mean Corpuscular Volume 85.9 fL (81-99); Mean Platelet Vol. 9.1 fl (6.2-12.0); Monocyte# 0.74 X10^3/uL; Monocyte% 7.9 % (0-10); NRBC Flagged by Analyzer 0 % (0-5); Neutrophil # 5.15 X10^3/uL (2.7-7.7); Neutrophil % 55.3 % (47-70); Platelet Count 351 K/mm3 (150-450); RBC Distribution Width CV 13.7 % (11.6-14.6); RBC Distribution Width SD 43.3 fl (35.1-43.9); Red Blood Count 4.81 M/mm3 (4.2-5.4); White Blood Count 9.3 K/mm3 (4.4-11.0)
[2022-12-03 08:18] LABS: International Normalized Ratio 1.5; Prothrombin Time (Protime)PT. 17.4 SECONDS (11.7-14.9)
[2022-12-03 08:23] LABS: Anion Gap 3 (5-15); BUN 11 mg/dL (7-18); BUN/Creat Ratio 19.5 RATIO (10-20); Chloride 109 mmol/L (98-107); Creatinine, Serum 0.56 mg/dL (0.55-1.02); EST Glomerular Filtration Rate 121 mL/min (>60); Est Glom Filt Rate - Afr Amer 146 mL/min (>60); Estimated Creatinine Clearance 104.94 ml/min; Glucose 169 mg/dL (74-106); Potassium 3.8 mmol/L (3.5-5.1); Sodium Level 137 mmol/L (136-145)
--- NOTE | 2022-12-03 10:17 | PCM.OPRPT ---
Report of Operation Date of Procedure: 12/03/22 Pre-Operative Diagnosis: venous insufficiency with ulceration, left lower extremity Post-Operative Diagnosis: same Surgery/Procedure Performed:: left greater saphenous ablation with radiofrequency Surgeon: Gavino Olson Type of Anesthesia: Local and Sedation,Conscious Estimated Blood Loss (mL): 1 Description of Procedure: HPI: Patient is a 47-year-old female with left lower extremity venous insufficiency with recurrent ulcerations that have been refractory to local wound care and compression. She had venous reflux studies which revealed incompetent valves throughout the left greater saphenous vein. She presents now for ablation of the left great saphenous vein. Description of procedure: Upon obtaining form consent and verification correct patient procedure site patient was taken to the [facility] where she was positioned prepped and draped in usual sterile fashion. Timeout was then performed conscious sedation administered with Versed and fentanyl. Ultrasound used to evaluate to the left great saphenous vein which was patent and large caliber from the saphenofemoral junction to the distal thigh. At the distal thigh for a length of approximately 20 to 30 cm there was a very sclerotic segment inferior to which there was return to large caliber saphenous vein in the calf. The thigh saphenous vein appeared to be fed via large collaterals that came in just above the sclerotic segment. Skin overlying the great saphenous vein in the distal thigh was anesthetized with 1% lidocaine and the vein accessed in a retrograde fashion with a micropuncture needle wire under ultrasound guidance. This was then exchanged out for the 7 Gabonese RF ablation sheath. The radiofrequency ablation probe was advanced via 7 Gabonese sheath and positioned 2.8 cm distal to the saphenofemoral junction. Distance to saphenofemoral junction was confirmed with measurements in longitudinal probe orientation. Next tumescent solution was infused along the entirety of the saphenous vein segment to be treated up to just below the saphenofemoral junction. The RF ablation device was then activated along the length of segment to be treated and after therapy was performed catheter and sheath were withdrawn followed by 5 minutes of manual pressure. Dry sterile dressing was applied to the access site and Donaldo wrap from the toes to the proximal thigh. Patient was then taken to recovery room with dissipated discharge home.
== END 2022-12-03 11:20 | disposition home or self-care (01) ==
PROVIDERS: PCP Internal Medicine; Referring Provider Surgery Trauma Surgery; Visit Provider Surgery Trauma Surgery
DX: L97.929 Non-pressure chronic ulcer of unspecified part of left lower leg with unspecified severity (principal); E11.9 Type 2 diabetes mellitus without complications; I87.2 Venous insufficiency (chronic) (peripheral); Z86.718 Personal history of other venous thrombosis and embolism; Z86.711 Personal history of pulmonary embolism; Z87.891 Personal history of nicotine dependence
CPT/HCPCS: 36415; 36475; 80048; 85025; 85610; 99152; 99153; C1888; C1894; J7030; J7040

== ENCOUNTER 2022-12-09 18:44 | Emergency (ER) | payer MEDICAID, SELFPAY ==
[2022-12-09 18:44] VITALS: BP 150/83; PULSE 90; RESP 16; TEMP 35.9; O2SAT 100; BMI 39.6
[2022-12-09 18:54] VITALS: BP 153/76; PULSE 77; RESP 19; O2SAT 99
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
--- NOTE | 2022-12-09 19:03 | RAD_ITS ---
STUDY: X-RAY - CERVICAL SPINE REASON FOR EXAM: Female, 47 years old. NECK PAIN TECHNIQUE: XR Spine Cervical 2 or 3 Views COMPARISON: None FINDINGS: Normal anterior atlantoaxial articulation. Normal odontoid process. Normal cervical lordosis. Normal vertebral bodies and endplates. Normal disc space heights. Normal visualized intervertebral neuroforamina. C5-6: Loss of intervertebral disc height. There is endplate spondylosis of the vertebral body. C6-7: Loss of intervertebral disc height. There is endplate spondylosis of the vertebral body. The soft tissue structures are unremarkable. RAD/Cerv Spine 2 or 3 Views IMPRESSION: There are no acute findings. Electronically Signed: Elijah Boudreaux MD at 19:54 EDT ,
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
[2022-12-09 20:36] VITALS: RESP 16
== END 2022-12-09 21:24 | disposition home or self-care (01) ==
PROVIDERS: Emergency Provider Emergency Medicine; PCP Internal Medicine; Visit Provider Emergency Medicine
DX: S39.012A Strain of muscle, fascia and tendon of lower back, initial encounter (principal); E11.9 Type 2 diabetes mellitus without complications; V89.2XXA Person injured in unspecified motor-vehicle accident, traffic, initial encounter; S16.1XXA Strain of muscle, fascia and tendon at neck level, initial encounter; F12.10 Cannabis abuse, uncomplicated; Z87.891 Personal history of nicotine dependence
CPT/HCPCS: 70450; 71045; 72040; 72100; 99282; A4216

== ENCOUNTER 2023-01-06 14:00 | Outpatient (RCR) | payer MEDICAID, SELFPAY ==
[2023-01-01 10:30] VITALS: BP 149/88; PULSE 78; TEMP 35.4
--- NOTE | 2023-01-01 21:52 | PCM.WC.HP ---
History of Present Illness Date of Service: 01/01/23 Chief Complaint: Left medial, distal leg non healing ulcer History of Wound: Patient presents to [facility] for evaluation and management of left medial malleolus ulcer which has been present since the end of October. Patient is well known to me from the vascular office. Dr. Olson performed a venogram on 07/22/22 which was negative for significant central venous compression. On 12/03/2022, Dr. 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 She is well known to the wound care center as well, has received care for prior ulcers here. She was last discharged from [facility] on 09/03/22, at that time she had a left medial leg ulcer (not the same location as current one). She was discharged with instructions to obtain new measured compression stockings, she has not done so yet. She has been taking her coumadin as directed. She has had significantly increased pain in this wound over the last few weeks. 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 After these shifts, her swelling and pain is much worse. She denies fevers, chills, nausea, vomiting. [facility] Medical History Antiphospholipid syndrome Diabetes mellitus type 2 in obese DVT (deep venous thrombosis) Pulmonary embolism Home Medications pantoprazole 40 mg tablet,delayed release 40 mg PO DAILY GERD 03/21/17 [History Last Taken 03/11/18 08:00 40 mg] atorvastatin 40 mg tablet 40 mg PO QHS 03/14/21 [History Last Taken Unknown] canagliflozin 100 mg tablet (Invokana) 100 mg PO DAILY 05/06/22 [History Last Taken Unknown] clonazepam 1 mg tablet (Klonopin) 1 mg PO QHS 05/06/22 [History Last Taken Unknown] copper 380 square mm intrauterine device (ParaGard T 380A) 1 mm2 intrauterine QMONTH 05/06/22 [History Last Taken Unknown] diclofenac sodium 1 % topical gel (Voltaren Arthritis Pain) 1 ea topical PRN PRN Pain 05/06/22 [History Last Taken Unknown] glimepiride 4 mg tablet (Amaryl) 4 mg PO DAILY 05/06/22 [History Last Taken Unknown] hydrocortisone acetate 1 % rectal ointment 1 ea topical DAILY PRN PRN Itching 05/06/22 [History Last Taken Unknown] warfarin 5 mg tablet 5 mg PO DAILY 05/06/22 [History Last Taken Unknown] acetaminophen 500 mg tablet 1,000 mg PO Q6 06/25/22 [History Last Taken Unknown] gabapentin 100 mg capsule 200 mg PO DAILY 06/25/22 [History Last Taken Unknown] sertraline 100 mg tablet 100 mg PO DAILY 11/17/22 [History Last Taken Unknown] cyclobenzaprine 10 mg tablet 10 mg PO TID PRN Muscle Spasm #20 TABLETS 12/09/22 [Rx Last Taken Unknown] hydrocodone-acetaminophen 5-325mg 5mg-325mg 1 tab PO Q4H PRN PRN Pain 2 days #10 TABLETS 12/09/22 [Rx Last Taken Unknown] Allergy/AdvReac Type Severity Reaction Status Date / Time acetaminophen Allergy Rash Verified 12/31/22 14:08 [From Tylenol-Codeine] codeine Allergy Rash Verified 12/31/22 14:08 Surgical History H/O skin graft (~2002) Social History Smoking Status: Former smoker substance use type: other details: smokes medical marijuana Vital Signs Vital Signs Vital Signs: 01/01/23 10:30 Temperature 95.8 F L Temperature Source Temporal Pulse Rate 78 Blood Pressure 149/88 H Blood Pressure Mean 108 Blood Pressure Source Monitor Physical Exam Narrative Const General: cooperative Nutritional Appearance: well nourished Orientation: alert, awake and oriented x3 HENMT Head: normocephalic and atraumatic Ears: hearing grossly normal bilaterally Nose: external nose normal Eyes General: appearance normal, both eyes and all related structures EOM: EOM intact bilaterally Neck Neck: normal visual inspection, full ROM and trachea midline Resp Effort & Inspection: normal respiratory effort, able to speak in complete sentences, symmetric chest movement, no audible wheezes, not labored, no stridor and no use of accessory muscles Cardio Rate: regular rate Rhythm: regular rhythm Pulses: posterior tibial pulses present and dorsalis pedis present Skin General: no rashes or lesions noted and no erythema Wounds: wounds noted: left medial malleolus wound with moderate slough, pink granulation tissue at base, periwound erythema, significant tenderness to even light palpation Neuro Cranial Nerves: CN's II-XI intact bilaterally and EOM intact bilaterally Speech: speech normal Extremities Lower Extremity Edema: 1+: Bilateral Additional Details: Significant hemosiderin staining and chronic venous stasis skin changes of LLE. Psych Appearance: grossly normal and well kempt Mental Status: mental status grossly normal Mood: congruent mood Speech and Movement: speech and movement normal Thought Content: normal Judgment: judgment good Debridement Note Debridement Note No debridement was completed: No debridement was completed today Post-Debridement Measurements and Additional Note: Post-Debridement Measurements/Treatment WC - Nurse 1 - General Ulcer Assessment Start: 01/01/23 10:16 Freq: Status: Active Protocol: FLO Activity Type Activity Date Activity User E-sign Co-sign Detail Recorded Client Recorded Date Recorded By Document 01/01/23 10:30 DIGNA [id number] 01/01/23 10:36 DIGNA 01/01/23 10:30 WC - Today's Visit Information Type of service Initial Visit Arrival Mode Ambulatory Patient Identification Verified (Name & Yes ) Patient Requires Transmission-Based No Precautions Safety Precautions NA Finger Stick Blood Sugar(mg/dl) (if 149 indicated): Blood Sugar Stated by Patient Vital Signs Temperature (97.8 F-99.1 F) 95.8 F L Temperature Source Temporal Pulse Rate (60-100) 78 Pulse Location Monitor Blood Pressure (90/60-120/80) 149/88 H Blood Pressure Mean (mm Hg) 108 Source Monitor History Since Last Visit- (Skip if this is Patient's initial visit) Left Footwear Regular Shoe Right Footwear Regular Shoe Pain Scale: 0-10 Numeric Is Patient Pain Free? No WC - Nurse 1 - General Ulcer Measurement Start: 01/01/23 10:16 Freq: Status: Active Protocol: Activity Type Activity Date Activity User E-sign Co-sign Detail Recorded Client Recorded Date Recorded By Document 01/01/23 10:30 AK [id number] 01/01/23 10:36 DIGNA 01/01/23 10:30 Wound Center Nurse 1 #2 L med ankle -Combined with other wound No -Current Size (cm) - Length 0.5 -Current Size (cm) - Width 0.8 -Current Size (cm) - Depth 0.2 -Total Square Cm 0.40 -Date of Last Picture (Recall this 01/01/23 field) -Photo Taken Yes -Tunneling No -Undermining/Tunneling No -Circular Undermining No -Change in Wound Grade/Stage No -Exudate Amt Medium -Exudate Type Serosanguineous -Wound Margin Distinct, Outline Attached -Granulation Amt Medium (34-66%) -Granulation Quality Red -Slough/Fibrin Yes -Necrosis Amt Medium (34-66%) -Necrotic Tissue Type Adherent Slough -Structure Exposed N/A -Texture (Darlene-wound Skin Appearance) Assessed, Scarring -Moisture (Darlene-wound Skin Appearance) Assessed,Dry/ Scaly -Color (Darlene-wound Skin Appearance) Assessed, Erythema -Temperature (Darlene-wound Skin No Abnormality Appearance) (Pt Warm) -Tenderness on Palpation (Darlene-wound No Skin Appearance) -Ulcer Cleansing Soap and Water -Foul Odor after Cleansing No -Anesthetic Used 5% Lidocaine Gel WC - Nurse 2 - General Ulcer CM Notes Start: 01/01/23 10:16 Freq: Status: Active Protocol: Activity Type Activity Date Activity User E-sign Co-sign Detail Recorded Client Recorded Date Recorded By Document 01/01/23 11:50 PL [id number] 01/01/23 11:51 PL Edit Result 01/01/23 11:50 PL (1) [id number] 01/01/23 11:54 PL (1) #2 L med ankle - Time 10:26 => - Correct Patient Yes => - Correct Side, Site, Position Yes => - Correct Procedure Yes => - Procedure Performed Yes => No - Type of Procedure Debridement => - Clinical Debridement Subcutaneous => - Tissue Removed Subcutaneous => - Area of Debridement (cm) - Length 0.9 => - Area of Debridement (cm) - Width 1.0 => - Total Square (Area) (cm) 0.90 => - Bleeding Controlled with Pressure => - Treatment Response Procedure => Tolerated Well => - Debridement - Subq, 1st 20sq cm Yes => 01/01/23 11:50 Wound Center Nurse 2 -Procedure Performed No -Post Debridement (cm) - Length 0.9 -Post Debridement (cm) - Width 1.0 -Post Debridement (cm) - Depth 0.2 -Total Square (Post) (cm) 0.90 -Tunneling No -Undermining/Tunneling No -Circular Undermining No -Wound/Ulcer Outcome Not Healed -Ulcer Cleansing Rinsed/ Irrigated with Saline -Foul Odor after Cleansing No -Bioengineered Tissue No Pain Scale: 0-10 Numeric Is Patient Pain Free? Yes - Nurse 3 - General Ulcer D/C NN Start: 01/01/23 10:16 Freq: Status: Active Protocol: Activity Type Activity Date Activity User E-sign Co-sign Detail Recorded Client Recorded Date Recorded By Document 01/01/23 11:07 DIGNA [id number] 01/01/23 11:08 DIGNA 01/01/23 11:07 Wound Care Center Nurse 3 #2 L med ankle -Ulcer Cleansing Rinsed/ Irrigated with Saline -Foul Odor after Cleansing No -Negative Pressure Wound Therapy N/A -Primary Dressing Applied Aquacel AG 4x4, Mepilex Border -Aquacel AG 4x4 1 -Mepilex Border 1 Left -Lotion applied to leg before No compression wrap -Tubular Bandage Double Layer -Size of Tubigrip Used Size D -Size D ($) 2 -Other single layer but gave 2 Pain Scale: 0-10 Numeric Is Patient Pain Free? Yes - Visit Discharge Discharge Condition Stable Ambulatory Status Ambulatory Transportation Private Auto Medication Reconcilliation completed & Yes provided to patient/care provider Clinical Summary of Care Provided Yes Lab / Micro Data Micro: Microbiology 01/01/23 10:30 Wound Abcess - Leg, Left Gram Stain - Final Charges/Coding Visit Charges Office Visits / Consults: [id number] OV L3 Est Assessment/Plan Assessment/Plan (1) Ulcer of extremity due to chronic venous insufficiency: CODE(S): L98.499 - Non-pressure chronic ulcer of skin of other sites with unspecified severity; I87.2 - Venous insufficiency (chronic) (peripheral) (2) Ulcer of left lower extremity with fat layer exposed: CODE(S): L97.922 - Non-pressure chronic ulcer of unspecified part of left lower leg with fat layer exposed PLAN: Due to patient's significant tenderness, no debridement was performed today. Will apply nickel-thick layer of santyl to wound base, aquacell silver over top, then super absorber. Wear 20-30mmHg tubigrips for compression. Elevate legs when resting/sleeping. Avoid prolonged standing or sitting with legs dependent. I think patient would benefit from shorter working shifts. Will write a work note to limit her shifts to 8 hours each while trying to heal this wound. Wound cultures were obtained, will prescribed antibiotics as directed by C&S. Patient will return to clinic next Wednesday.
[2023-01-06 14:37] VITALS: BP 144/78; PULSE 74; TEMP 36.2
--- NOTE | 2023-01-06 22:08 | PN.PCM_ITS ---
History of Present Illness Date of Service: 01/06/23 Chief Complaint: Left medial, distal leg non healing ulcer History of Wound: Patient presents to [facility] for evaluation and management of left medial malleolus ulcer which has been present since the end of October. Patient is well known to me from the vascular office. Dr. Olson performed a venogram on 07/22/22 which was negative for significant central venous compression. On 12/03/2022, Dr. 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 She is well known to the wound care center as well, has received care for prior ulcers here. She was last discharged from [facility] on 09/03/22, at that time she had a left medial leg ulcer (not the same location as current one). She was discharged with instructions to obtain new measured compression stockings, she has not done so yet. She has been taking her coumadin as directed. She has had significantly increased pain in this wound over the last few weeks. 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 After these shifts, her swelling and pain is much worse. She denies fevers, chills, nausea, vomiting. Subjective Subjective She has been doing well with dressing changes. She was able to reduce her work hours to 8 hours/day versus 12 hours/day, although she still works about 6 days a week as an aide at SNF. She is picking up the antibiotics I prescribed after her appointment today and will start them this evening. She has been compliant with compression. Still with significant pain around the ulcer, but not any worse than prior. No N/V, F/C. Objective Data Objective Data Vital Signs: Vital Signs Temp Pulse BP 97.1 F L 74 144/78 H 01/06/23 14:37 01/06/23 14:37 01/06/23 14:37 Lab / Micro Data Micro: Microbiology 01/01/23 10:30 Wound Abcess - Leg, Left Gram Stain - Final 01/01/23 10:30 Wound Abcess - Leg, Left Wound Culture - Final Meth. resistant Staph. aureus 01/01/23 10:30 Wound Abcess - Leg, Left Anaerobic Culture - Final No anaerobic bacteria isolated. Charges/Coding Visit Charges Office Visits / Consults: [id number] OV L3 Est Physical Exam Narrative Const General: cooperative Nutritional Appearance: well nourished Orientation: alert, awake and oriented x3 HENMT Head: normocephalic and atraumatic Ears: hearing grossly normal bilaterally Nose: external nose normal Eyes General: appearance normal, both eyes and all related structures EOM: EOM intact bilaterally Neck Neck: normal visual inspection, full ROM and trachea midline Resp Effort & Inspection: normal respiratory effort, able to speak in complete sentences, symmetric chest movement, no audible wheezes, not labored, no stridor and no use of accessory muscles Cardio Rate: regular rate Rhythm: regular rhythm Pulses: posterior tibial pulses present and dorsalis pedis present Skin General: no rashes or lesions noted and no erythema Wounds: wounds noted: left medial malleolus wound with moderate slough, pink granulation tissue at base, periwound erythema, significant tenderness to even light palpation Neuro Cranial Nerves: CN's II-XI intact bilaterally and EOM intact bilaterally Speech: speech normal Extremities Lower Extremity Edema: 1+: Bilateral Additional Details: Significant hemosiderin staining and chronic venous stasis skin changes of LLE. Psych Appearance: grossly normal and well kempt Mental Status: mental status grossly normal Mood: congruent mood Speech and Movement: speech and movement normal Thought Content: normal Judgment: judgment good Debridement Note Debridement Note Wound debrided: Left medial malleolus Laterality: Left Type of Debridement: Selective debridement Anesthesia Used: 5% Lidocaine Gel Depth: Down to and including healthy tissue and in the subcutaneous layer Percentage of wound debrided: 100 Instrument Used: - (gauze) Tissue Removed: slough Severity: Fat Layer Exposed Amount of bleeding with debridement: Mild Bleeding Controlled with: Pressure Patient tolerated procedure: Patient tolerated procedure well Post-Debridement Measurements and Additional Note: Post-Debridement Measurements/Treatment - Nurse 1 - General Ulcer Assessment Start: 01/01/23 10:16 Freq: Status: Active Protocol: ERIK.SAHRA Activity Type Activity Date Activity User E-sign Co-sign Detail Recorded Client Recorded Date Recorded By Document 01/01/23 10:30 DIGNA [id number] 01/01/23 10:36 AK Document 01/06/23 14:37 DIGNA [id number] 01/06/23 14:39 AK 01/01/23 01/06/23 10:30 14:37 - Today's Visit Information Type of service Initial Visit 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 ) Arrival Mode Ambulatory Ambulatory Patient Identification Verified (Name & Yes No ) Patient Requires Transmission-Based No No Precautions Safety Precautions NA Finger Stick Blood Sugar(mg/dl) (if 149 indicated): Blood Sugar Stated by Patient Vital Signs Temperature (97.8 F-99.1 F) 95.8 F L 97.1 F L Temperature Source Temporal Temporal Pulse Rate (60-100) 78 74 Pulse Location Monitor Monitor Blood Pressure (90/60-120/80) 149/88 H 144/78 H Blood Pressure Mean (mm Hg) 108 100 Source Monitor Monitor History Since Last Visit- (Skip if this is Patient's initial visit) Have you changed medications since your No last visit? Any new allergies or adverse reactions No Had a fall/change in ADL's that may No increase risk of falls Signs or symptoms of abuse and/or No neglect since last visit Have you been in the hospital since your No last visit? Has dressing in place as prescribed Yes Has compression in place as prescribed N/A Has offloadiing in place as prescribed N/A Experienced any changes in pain level or No management Left Footwear Regular Shoe Regular Shoe Right Footwear Regular Shoe Regular Shoe Pain Scale: 0-10 Numeric Is Patient Pain Free? No Yes WC - Nurse 1 - General Ulcer Measurement Start: 01/01/23 10:16 Freq: Status: Active Protocol: Activity Type Activity Date Activity User E-sign Co-sign Detail Recorded Client Recorded Date Recorded By Document 01/01/23 10:30 AR [id number] 01/01/23 10:36 AK Document 01/06/23 14:37 AR [id number] 01/06/23 14:39 AR 01/01/23 01/06/23 10:30 14:37 Wound Center Nurse 1 #2 L med ankle -Combined with other wound No No -Current Size (cm) - Length 0.5 0.8 -Current Size (cm) - Width 0.8 0.8 -Current Size (cm) - Depth 0.2 0.1 -Total Square Cm 0.40 0.64 -Date of Last Picture (Recall this 01/01/23 field) -Photo Taken Yes Yes -Tunneling No No -Undermining/Tunneling No No -Circular Undermining No No -Change in Wound Grade/Stage No No -Exudate Amt Medium Medium -Exudate Type Serosanguineous Serosanguineous -Wound Margin Distinct, Distinct, Outline Outline Attached Attached -Granulation Amt Medium (34-66%) Large (67-100%) -Granulation Quality Red Buell -Slough/Fibrin Yes Yes -Necrosis Amt Medium (34-66%) Small (1-33%) -Necrotic Tissue Type Adherent Slough Adherent Slough -Structure Exposed N/A N/A -Texture (Darlene-wound Skin Appearance) Assessed, No Abnormality, Scarring Assessed, Localized Edema -Moisture (Darlene-wound Skin Appearance) Assessed,Dry/ No Abnormality, Scaly Assessed,Dry/ Scaly -Color (Darlene-wound Skin Appearance) Assessed, No Abnormality, Erythema Assessed -Temperature (Darlene-wound Skin No Abnormality No Abnormality Appearance) (Pt Warm) (Pt Warm) -Tenderness on Palpation (Darlene-wound No No Skin Appearance) -Ulcer Cleansing Soap and Water Rinsed/ Irrigated with Saline -Foul Odor after Cleansing No No -Anesthetic Used 5% Lidocaine 4% Lidocaine Gel Solution Lower Limb Edema Present No Left Calf (cm) 41 Left Ankle (cm) 27 WC - Nurse 2 - General Ulcer CM Notes Start: 01/01/23 10:16 Freq: Status: Active Protocol: Activity Type Activity Date Activity User E-sign Co-sign Detail Recorded Client Recorded Date Recorded By Document 01/01/23 11:50 PL [id number] 01/01/23 11:51 PL Edit Result 01/01/23 11:50 PL (1) [id number] 01/01/23 11:54 PL Document 01/06/23 14:24 MW [id number] 01/06/23 14:31 MW (1) #2 L med ankle - Time 10:26 => - Correct Patient Yes => - Correct Side, Site, Position Yes => - Correct Procedure Yes => - Procedure Performed Yes => No - Type of Procedure Debridement => - Clinical Debridement Subcutaneous => - Tissue Removed Subcutaneous => - Area of Debridement (cm) - Length 0.9 => - Area of Debridement (cm) - Width 1.0 => - Total Square (Area) (cm) 0.90 => - Bleeding Controlled with Pressure => - Treatment Response Procedure => Tolerated Well => - Debridement - Subq, 1st 20sq cm Yes => 01/01/23 01/06/23 11:50 14:24 Wound Center Nurse 2 #2 L med ankle -Time 14:25 -Correct Patient Yes -Correct Side, Site, Position Yes -Correct Procedure Yes -Procedure Performed No Yes -Type of Procedure Debridement -Clinical Debridement Epidermis / Dermis -Tissue Removed Epidermis -Post Debridement (cm) - Length 0.9 1.0 -Post Debridement (cm) - Width 1.0 0.7 -Post Debridement (cm) - Depth 0.2 0.2 -Total Square (Post) (cm) 0.90 0.70 -Area of Debridement (cm) - Length 1.0 -Area of Debridement (cm) - Width 0.7 -Total Square (Area) (cm) 0.70 -Tunneling No No -Undermining/Tunneling No No -Circular Undermining No No -Wound/Ulcer Outcome Not Healed Not Healed -Ulcer Cleansing Rinsed/ Rinsed/ Irrigated with Irrigated with Saline Saline -Foul Odor after Cleansing No No -Bioengineered Tissue No No -Bleeding Controlled with Pressure -Treatment Response Procedure Tolerated Well -Offloading No -Debridement - Open, 1st 20sq cm Yes Pain Scale: 0-10 Numeric Is Patient Pain Free? Yes Yes WC - Nurse 3 - General Ulcer D/C NN Start: 01/01/23 10:16 Freq: Status: Active Protocol: Activity Type Activity Date Activity User E-sign Co-sign Detail Recorded Client Recorded Date Recorded By Document 01/01/23 11:07 AR [id number] 01/01/23 11:08 AR Document 01/06/23 14:47 RB [id number] 01/06/23 14:48 RB 01/01/23 01/06/23 11:07 14:47 Wound Care Center Nurse 3 #2 L med ankle -Ulcer Cleansing Rinsed/ Rinsed/ Irrigated with Irrigated with Saline Saline -Foul Odor after Cleansing No -Negative Pressure Wound Therapy N/A -Primary Dressing Applied Aquacel AG 4x4, Aquacel AG 4x4, Mepilex Border Mepilex Border -Other Dressing hydrogel -Aquacel AG 4x4 1 1 -Mepilex Border 1 1 Left -Lotion applied to leg before No compression wrap -Tubular Bandage Double Layer Single Layer -Size of Tubigrip Used Size D Size E -Size D ($) 2 -Size E ($) 1 -Other single layer but gave 2 Treatment Response Procedure Tolerated Well Pain Scale: 0-10 Numeric Is Patient Pain Free? Yes Yes WC - Visit Discharge Discharge Condition Stable Stable Ambulatory Status Ambulatory Ambulatory Transportation Private Auto Private Auto Medication Reconcilliation completed & Yes No provided to patient/care provider Clinical Summary of Care Provided Yes Yes Assessment/Plan Assessment/Plan (1) Ulcer of extremity due to chronic venous insufficiency: CODE(S): L98.499 - Non-pressure chronic ulcer of skin of other sites with unspecified severity; I87.2 - Venous insufficiency (chronic) (peripheral) (2) Ulcer of left lower extremity with fat layer exposed: CODE(S): L97.922 - Non-pressure chronic ulcer of unspecified part of left lower leg with fat layer exposed PLAN: Due to patient's significant tenderness, performed selective debridement with gauze to remove some of the significant slough that was present. Continue to apply nickel-thick layer of santyl to wound base, aquacel silver over top, then super absorber. Change at least once daily, more often as needed to keep clean and dry. Do not submerge the wound in water such as in a bath/pool/hot tub. Continue 20-30mmHg tubigrips for compression. Elevate legs when resting/sleeping. Avoid prolonged standing or sitting with legs dependent. Patient's wound cultures were positive for MRSA. Prescribed doxycycline 100mg BID x14 days. She will start these tonight. Patient will return to clinic for a nurse visit next Wednesday. She will follow-up with me when I return on 01/22. She will call if she feels she needs to be seen by another wound care provider while I am out.
== END 2023-01-13 23:59 | disposition home or self-care (01) ==
LOC: WC 14:00
PROVIDERS: PCP Internal Medicine; Referring Provider Internal Medicine; Visit Provider Physician Assistant
DX: L97.922 Non-pressure chronic ulcer of unspecified part of left lower leg with fat layer exposed (principal); L98.492 Non-pressure chronic ulcer of skin of other sites with fat layer exposed; E11.59 Type 2 diabetes mellitus with other circulatory complications; I87.2 Venous insufficiency (chronic) (peripheral); F12.10 Cannabis abuse, uncomplicated; Z87.891 Personal history of nicotine dependence; Z79.84 Long term (current) use of oral hypoglycemic drugs; Z79.01 Long term (current) use of anticoagulants
CPT/HCPCS: 11042; 87070; 87075; 87077; 87186; 87205; 97597; 99213; G0463

== ENCOUNTER 2023-02-12 10:30 | Outpatient (RCR) | payer MEDICAID, SELFPAY ==
[2023-01-14 00:45] VITALS: BP 144/78; PULSE 74; TEMP 36.2
[2023-01-14 10:21] VITALS: BP 142/79; PULSE 80; RESP 16; TEMP 36.6
--- NOTE | 2023-01-14 10:53 | PCM.WC.PN ---
History of Present Illness Date of Service: 01/14/23 Chief Complaint: Left medial, distal leg non healing ulcer History of Wound: Patient presents to [facility] for evaluation and management of left medial malleolus ulcer which has been present since the end of October. Patient is well known to me from the vascular office. Dr. Olson performed a venogram on 07/22/22 which was negative for significant central venous compression. On 12/03/2022, Dr. 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 She is well known to the wound care center as well, has received care for prior ulcers here. She was last discharged from [facility] on 09/03/22, at that time she had a left medial leg ulcer (not the same location as current one). She was discharged with instructions to obtain new measured compression stockings, she has not done so yet. She has been taking her coumadin as directed. She has had significantly increased pain in this wound over the last few weeks. 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 After these shifts, her swelling and pain is much worse. She denies fevers, chills, nausea, vomiting. Progress of Wound: Courtesy Visit: No acute concerns at this time. Has been applying Santyl and Aquacel as instructed. Objective Data Objective Data Vital Signs: Vital Signs Temp Pulse Resp BP O2 Del Method 97.8 F 80 16 142/79 H Room Air 01/14/23 10:21 01/14/23 10:21 01/14/23 10:21 01/14/23 10:21 01/14/23 10:21 Oxygen Delivery Method Room Air Charges/Coding Procedures Integumentary 111xxx-113xx: 38240 Shefali subq tissue 20 sq cm/< Physical Exam Const alert, oriented x3 and no apparent distress General Appearance: cooperative and comfortable HEENT normocephalic and head/scalp atraumatic Eyes EOMs intact bilaterally Neck full ROM General: normal visual inspection Resp normal respiratory effort Effort and Inspection: able to speak in complete sentences Extremity General Extremity: edema Skin Wounds: wounds noted Neuro oriented x3, CN's II-XII intact bilaterally, moves all extremities and no focal motor deficits Psych mental status grossly normal, thought process normal, cooperative and affect normal Debridement Note Debridement Note Wound debrided: Left lower extremity Type of Debridement: Excisional debridement Anesthesia Used: 5% Lidocaine Gel Depth: Down to and including healthy tissue and in the subcutaneous layer Percentage of wound debrided: 100 Instrument Used: 3mm curette Tissue Removed: Slough and devitalized tissue Severity: Fat Layer Exposed Amount of bleeding with debridement: Mild Bleeding Controlled with: Pressure Post-Debridement Measurements and Additional Note: Post-Debridement Measurements/Treatment ERIK Roman Nurse 1 - General Ulcer Assessment Start: 01/14/23 10:20 Freq: Status: Active Protocol: FLO Activity Type Activity Date Activity User E-sign Co-sign Detail Recorded Client Recorded Date Recorded By Document 01/14/23 10:21 [facility] [id number] 01/14/23 10:28 [facility] 01/14/23 10:21 ERIK Roman Today's Visit Information Type of service 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 ) Arrival Mode Ambulatory Transfer Assistance None Patient Identification Verified (Name & Yes ) Patient Requires Transmission-Based No Precautions Vital Signs Temperature (97.8 F-99.1 F) 97.8 F Temperature Source Temporal Pulse Rate (60-100) 80 Pulse Location Monitor Respiratory Rate (12-18) 16 Respiratory rate source Observation Oxygen Delivery Method Room Air Blood Pressure (90/60-120/80) 142/79 H Blood Pressure Mean (mm Hg) 100 Source Monitor Position Sitting Blood Pressure Location Left Arm History Since Last Visit- (Skip if this is Patient's initial visit) Have you changed medications since your No last visit? Any new allergies or adverse reactions No Had a fall/change in ADL's that may No increase risk of falls Signs or symptoms of abuse and/or No neglect since last visit Have you been in the hospital since your No last visit? Has dressing in place as prescribed Yes Has compression in place as prescribed Yes Has offloadiing in place as prescribed N/A Experienced any changes in pain level or No management Left Footwear Regular Shoe Right Footwear Regular Shoe Pain Scale: 0-10 Numeric Is Patient Pain Free? Yes Jessie Nurse 1 - General Ulcer Measurement Start: 01/14/23 10:20 Freq: Status: Active Protocol: Activity Type Activity Date Activity User E-sign Co-sign Detail Recorded Client Recorded Date Recorded By Document 01/14/23 10:21 [facility] [id number] 01/14/23 10:28 [facility] 01/14/23 10:21 Wound Center Nurse 1 #2 L med ankle -Combined with other wound No -Current Size (cm) - Length 2 -Current Size (cm) - Width 1 -Current Size (cm) - Depth 0.2 -Total Square Cm 2 -Date of Last Picture (Recall this 01/14/23 field) -Photo Taken Yes -Epithelialization None Present -Tunneling No -Undermining/Tunneling No -Circular Undermining No -Exudate Amt Small -Exudate Type Serosanguineous -Wound Margin Flat & Intact -Granulation Amt Medium (34-66%) -Granulation Quality Red -Slough/Fibrin Yes -Necrosis Amt Medium (34-66%) -Necrotic Tissue Type Adherent Slough -Texture (Darlene-wound Skin Appearance) Assessed, Scarring -Moisture (Darlene-wound Skin Appearance) Assessed,Dry/ Scaly -Color (Darlene-wound Skin Appearance) Assessed, Hemosiderin Staining -Temperature (Darlene-wound Skin No Abnormality Appearance) (Pt Warm) -Tenderness on Palpation (Darlene-wound Yes Skin Appearance) -Ulcer Cleansing Rinsed/ Irrigated with Saline -Foul Odor after Cleansing No -Anesthetic Used 5% Lidocaine Gel Lower Limb Edema Present Yes Left Calf (cm) 43.8 Left Ankle (cm) 25.9 WC - Nurse 2 - General Ulcer CM Notes Start: 01/14/23 10:20 Freq: Status: Active Protocol: Activity Type Activity Date Activity User E-sign Co-sign Detail Recorded Client Recorded Date Recorded By Document 01/14/23 10:46 MW [id number] 01/14/23 10:49 MW 01/14/23 10:46 Wound Center Nurse 2 #2 L med ankle -Time 10:47 -Correct Patient Yes -Correct Side, Site, Position Yes -Correct Procedure Yes -Procedure Performed Yes -Type of Procedure Debridement -Clinical Debridement Subcutaneous -Tissue Removed Subcutaneous -Post Debridement (cm) - Length 0.9 -Post Debridement (cm) - Width 1.7 -Post Debridement (cm) - Depth 0.1 -Total Square (Post) (cm) 1.53 -Area of Debridement (cm) - Length 0.9 -Area of Debridement (cm) - Width 1.7 -Total Square (Area) (cm) 1.53 -Tunneling No -Undermining/Tunneling No -Circular Undermining No -Wound/Ulcer Outcome Not Healed -Ulcer Cleansing Rinsed/ Irrigated with Saline -Foul Odor after Cleansing No -Bioengineered Tissue No -Bleeding Controlled with Pressure -Treatment Response Procedure Tolerated Well -Offloading No -Debridement - Subq, 1st 20sq cm Yes Pain Scale: 0-10 Numeric Is Patient Pain Free? Yes Assessment/Plan Assessment/Plan (1) Ulcer of extremity due to chronic venous insufficiency: CODE(S): L98.499 - Non-pressure chronic ulcer of skin of other sites with unspecified severity; I87.2 - Venous insufficiency (chronic) (peripheral) (2) Ulcer of left lower extremity with fat layer exposed: CODE(S): L97.922 - Non-pressure chronic ulcer of unspecified part of left lower leg with fat layer exposed PLAN: Plan Debridement done as documented above, procedure was well-tolerated for the most part. Continue Santyl, Aquacel Ag and superabsorbent dressing over. Change at least daily or more if needed. Continue compression, leg elevation and exercise as tolerated. Continue other chronic wound care management/dietary modifications. Her questions were answered and she was advised to let us know if she has any further questions or concerns. Follow-up as previously scheduled. This note was generated with [employer] dictation software. It may contain incorrect words, spelling, and punctuation that were not noted in checking the note before signing.
[2023-01-22 10:39] VITALS: BP 116/75; PULSE 82; RESP 16; TEMP 35.8
--- NOTE | 2023-01-22 12:20 | PCM.WC.PN ---
History of Present Illness Date of Service: 01/22/23 Chief Complaint: Left medial, distal leg non healing ulcer History of Wound: Patient presents to [facility] for evaluation and management of left medial malleolus ulcer which has been present since the end of October. Patient is well known to me from the vascular office. Dr. Olson performed a venogram on 07/22/22 which was negative for significant central venous compression. On 12/03/2022, Dr. 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 She is well known to the wound care center as well, has received care for prior ulcers here. She was last discharged from [facility] on 09/03/22, at that time she had a left medial leg ulcer (not the same location as current one). She was discharged with instructions to obtain new measured compression stockings, she has not done so yet. She has been taking her coumadin as directed. She has had significantly increased pain in this wound over the last few weeks. 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 After these shifts, her swelling and pain is much worse. She denies fevers, chills, nausea, vomiting. Progress of Wound: She is doing well with dressing changes, changing once daily. Continues to have a lot of drainage, but not soaking through the foam dressing. No N/V, F/C, increased redness. Continues to have a lot of pain/tenderness around the wound. Currently tolerating single-layer tubigrips. Objective Data Objective Data Vital Signs: Vital Signs Temp Pulse Resp BP O2 Del Method 96.5 F L 82 16 116/75 Room Air 01/22/23 10:39 01/22/23 10:39 01/22/23 10:39 01/22/23 10:39 01/14/23 10:21 Oxygen Delivery Method Room Air Charges/Coding Procedures Integumentary 111xxx-113xx: 11411 Shefali subq tissue 20 sq cm/< Physical Exam Narrative Const General: cooperative Nutritional Appearance: well nourished Orientation: alert, awake and oriented x3 HENMT Head: normocephalic and atraumatic Ears: hearing grossly normal bilaterally Nose: external nose normal Eyes General: appearance normal, both eyes and all related structures EOM: EOM intact bilaterally Neck Neck: normal visual inspection, full ROM and trachea midline Resp Effort & Inspection: normal respiratory effort, able to speak in complete sentences, symmetric chest movement, no audible wheezes, not labored, no stridor and no use of accessory muscles Cardio Rate: regular rate Rhythm: regular rhythm Pulses: posterior tibial pulses present and dorsalis pedis present Skin General: no rashes or lesions noted and no erythema Wounds: wounds noted: left medial malleolus wound with moderate slough, pink granulation tissue at base, significant tenderness to even light palpation Neuro Cranial Nerves: CN's II-XI intact bilaterally and EOM intact bilaterally Speech: speech normal Extremities Lower Extremity Edema: 1+: Bilateral Additional Details: Significant hemosiderin staining and chronic venous stasis skin changes of LLE. Psych Appearance: grossly normal and well kempt Mental Status: mental status grossly normal Mood: congruent mood Speech and Movement: speech and movement normal Thought Content: normal Judgment: judgment good Debridement Note Debridement Note Wound debrided: Left medial malleolus Laterality: Left Type of Debridement: Excisional debridement Anesthesia Used: 5% Lidocaine Gel Depth: Down to and including healthy tissue and in the subcutaneous layer Percentage of wound debrided: 100 Instrument Used: 5mm curette Tissue Removed: slough Severity: Fat Layer Exposed Amount of bleeding with debridement: Mild Bleeding Controlled with: Pressure Patient tolerated procedure: Patient tolerated procedure well Post-Debridement Measurements and Additional Note: Post-Debridement Measurements/Treatment - Nurse 1 - General Ulcer Assessment Start: 01/14/23 10:20 Freq: Status: Active Protocol: ERIK.SAHRA Activity Type Activity Date Activity User E-sign Co-sign Detail Recorded Client Recorded Date Recorded By Document 01/14/23 10:21 [facility] [id number] 01/14/23 10:28 [facility] Document 01/22/23 10:39 [id number] 01/22/23 10:40 01/14/23 01/22/23 10:21 10:39 - Today's Visit Information Type of service Follow-up Visit 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/SLEEVE SETTER (Physician/SLEEVE SETTER ) ) Arrival Mode Ambulatory Ambulatory Transfer Assistance None Patient Identification Verified (Name & Yes Yes ) Patient Requires Transmission-Based No No Precautions Vital Signs Temperature (97.8 F-99.1 F) 97.8 F 96.5 F L Temperature Source Temporal Temporal Pulse Rate (60-100) 80 82 Pulse Location Monitor Monitor Respiratory Rate (12-18) 16 16 Respiratory rate source Observation Observation Oxygen Delivery Method Room Air Blood Pressure (90/60-120/80) 142/79 H 116/75 Blood Pressure Mean (mm Hg) 100 88 Source Monitor Monitor Position Sitting Semi-Fowlers Blood Pressure Location Left Arm Left Arm History Since Last Visit- (Skip if this is Patient's initial visit) Have you changed medications since your No No last visit? Any new allergies or adverse reactions No No Had a fall/change in ADL's that may No No increase risk of falls Signs or symptoms of abuse and/or No No neglect since last visit Have you been in the hospital since your No No last visit? Has dressing in place as prescribed Yes Yes Has compression in place as prescribed Yes Yes Has offloadiing in place as prescribed N/A N/A Experienced any changes in pain level or No No management Left Footwear Regular Shoe Regular Shoe Right Footwear Regular Shoe Regular Shoe Pain Scale: 0-10 Numeric Is Patient Pain Free? Yes Yes - Nurse 1 - General Ulcer Measurement Start: 01/14/23 10:20 Freq: Status: Active Protocol: Activity Type Activity Date Activity User E-sign Co-sign Detail Recorded Client Recorded Date Recorded By Document 01/14/23 10:21 [facility] [id number] 01/14/23 10:28 [facility] Document 01/22/23 10:39 [id number] 01/22/23 10:40 01/14/23 01/22/23 10:21 10:39 Wound Center Nurse 1 #2 L med ankle -Combined with other wound No No -Current Size (cm) - Length 2 0.8 -Current Size (cm) - Width 1 1.0 -Current Size (cm) - Depth 0.2 0.1 -Total Square Cm 2 0.80 -Date of Last Picture (Recall this 01/14/23 field) -Photo Taken Yes Yes -Epithelialization None Present Small 1-33% -Tunneling No No -Undermining/Tunneling No No -Circular Undermining No No -Exudate Amt Small Small -Exudate Type Serosanguineous Serosanguineous -Wound Margin Flat & Intact Flat & Intact -Granulation Amt Medium (34-66%) Medium (34-66%) -Granulation Quality Red Red -Slough/Fibrin Yes Yes -Necrosis Amt Medium (34-66%) Small (1-33%) -Necrotic Tissue Type Adherent Slough Adherent Slough -Structure Exposed N/A -Texture (Darlene-wound Skin Appearance) Assessed, Assessed, Scarring Localized Edema -Moisture (Darlene-wound Skin Appearance) Assessed,Dry/ Assessed, Scaly Maceration -Color (Darlene-wound Skin Appearance) Assessed, Assessed, Hemosiderin Hemosiderin Staining Staining -Temperature (Darlene-wound Skin No Abnormality No Abnormality Appearance) (Pt Warm) (Pt Warm) -Tenderness on Palpation (Darlene-wound Yes No Skin Appearance) -Ulcer Cleansing Rinsed/ Rinsed/ Irrigated with Irrigated with Saline Saline -Foul Odor after Cleansing No No -Anesthetic Used 5% Lidocaine 5% Lidocaine Gel Gel Lower Limb Edema Present Yes Yes Left Calf (cm) 43.8 45 Left Ankle (cm) 25.9 26.3 WC - Nurse 2 - General Ulcer CM Notes Start: 01/14/23 10:20 Freq: Status: Active Protocol: Activity Type Activity Date Activity User E-sign Co-sign Detail Recorded Client Recorded Date Recorded By Document 01/14/23 10:46 MW [id number] 01/14/23 10:49 MW Document 01/22/23 12:10 PL [id number] 01/22/23 12:10 PL 01/14/23 01/22/23 10:46 12:10 Wound Center Nurse 2 #2 L med ankle -Time 10:47 10:53 -Correct Patient Yes Yes -Correct Side, Site, Position Yes Yes -Correct Procedure Yes Yes -Procedure Performed Yes Yes -Type of Procedure Debridement Debridement -Clinical Debridement Subcutaneous Subcutaneous -Tissue Removed Subcutaneous Subcutaneous -Post Debridement (cm) - Length 0.9 2.1 -Post Debridement (cm) - Width 1.7 1.0 -Post Debridement (cm) - Depth 0.1 0.1 -Total Square (Post) (cm) 1.53 2.10 -Area of Debridement (cm) - Length 0.9 2.1 -Area of Debridement (cm) - Width 1.7 1.0 -Total Square (Area) (cm) 1.53 2.10 -Tunneling No No -Undermining/Tunneling No No -Circular Undermining No No -Wound/Ulcer Outcome Not Healed Not Healed -Ulcer Cleansing Rinsed/ Rinsed/ Irrigated with Irrigated with Saline Saline -Foul Odor after Cleansing No No -Bioengineered Tissue No No -Bleeding Controlled with Pressure Pressure -Treatment Response Procedure Procedure Tolerated Well Tolerated Well -Offloading No -Debridement - Subq, 1st 20sq cm Yes Yes Pain Scale: 0-10 Numeric Is Patient Pain Free? Yes Yes WC - Nurse 3 - General Ulcer D/C NN Start: 01/14/23 10:20 Freq: Status: Active Protocol: Activity Type Activity Date Activity User E-sign Co-sign Detail Recorded Client Recorded Date Recorded By Document 01/14/23 10:50 MW [id number] 01/14/23 10:56 MW Document 01/22/23 11:23 [id number] 01/22/23 11:26 JF 01/14/23 01/22/23 10:50 11:23 Wound Care Center Nurse 3 #2 L med ankle -Ulcer Cleansing Rinsed/ Rinsed/ Irrigated with Irrigated with Saline Saline -Foul Odor after Cleansing No No -Negative Pressure Wound Therapy N/A -Primary Dressing Applied Aquacel AG 4x4, Mepilex Border -Other Covering santyl/dry aquacel-ag/ excel-sap. -Aquacel AG 4x4 1 -Mepilex Border 1 Treatment Response Procedure Tolerated Well Pain Scale: 0-10 Numeric Is Patient Pain Free? Yes Yes Teaching: Wound Center Dressing Your Wound -Person Taught Patient -Teaching Method Discussion, Demonstration -Response to teaching Verbalize understanding WC - Visit Discharge Discharge Condition Stable Stable Ambulatory Status Ambulatory Ambulatory Transportation Private Auto Private Auto Accompanied by SELF Medication Reconcilliation completed & No Yes provided to patient/care provider Clinical Summary of Care Provided Yes Yes Assessment/Plan Assessment/Plan (1) Ulcer of extremity due to chronic venous insufficiency: CODE(S): L98.499 - Non-pressure chronic ulcer of skin of other sites with unspecified severity; I87.2 - Venous insufficiency (chronic) (peripheral) (2) Ulcer of left lower extremity with fat layer exposed: CODE(S): L97.922 - Non-pressure chronic ulcer of unspecified part of left lower leg with fat layer exposed PLAN: Patient tolerated some sharp debridement today, still with some adherent slough. Continue to apply nickel-thick layer of santyl to wound base, aquacel silver over top, then super absorber. Change at least once daily, more often as needed to keep clean and dry. Do not submerge the wound in water such as in a bath/pool/hot tub. Continue 20-30mmHg tubigrips for compression. Elevate legs when resting/sleeping. Avoid prolonged standing or sitting with legs dependent. She has completed antibiotics. No signs/symptoms of infection today. Return to clinic in 1 week.
--- NOTE | 2023-01-29 07:22 | PN.PCM_ITS ---
History of Present Illness Date of Service: 01/29/23 Chief Complaint: Left medial, distal leg non healing ulcer History of Wound: Patient presents to [facility] for evaluation and management of left medial malleolus ulcer which has been present since the end of October. Patient is well known to me from the vascular office. Dr. Olson performed a venogram on 07/22/22 which was negative for significant central venous compression. On 12/03/2022, Dr. 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 She is well known to the wound care center as well, has received care for prior ulcers here. She was last discharged from [facility] on 09/03/22, at that time she had a left medial leg ulcer (not the same location as current one). She was discharged with instructions to obtain new measured compression stockings, she has not done so yet. She has been taking her coumadin as directed. She has had significantly increased pain in this wound over the last few weeks. 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 After these shifts, her swelling and pain is much worse. She denies fevers, chills, nausea, vomiting. Objective Data Objective Data Vital Signs: Vital Signs Temp Pulse Resp BP O2 Del Method 96.5 F L 82 16 116/75 Room Air 01/22/23 10:39 01/22/23 10:39 01/22/23 10:39 01/22/23 10:39 01/14/23 10:21 Oxygen Delivery Method Room Air Charges/Coding Procedures Integumentary 111xxx-113xx: 96823 Shefali subq tissue 20 sq cm/< Physical Exam Narrative Const General: cooperative Nutritional Appearance: well nourished Orientation: alert, awake and oriented x3 HENMT Head: normocephalic and atraumatic Ears: hearing grossly normal bilaterally Nose: external nose normal Eyes General: appearance normal, both eyes and all related structures EOM: EOM intact bilaterally Neck Neck: normal visual inspection, full ROM and trachea midline Resp Effort & Inspection: normal respiratory effort, able to speak in complete sentences, symmetric chest movement, no audible wheezes, not labored, no stridor and no use of accessory muscles Cardio Rate: regular rate Rhythm: regular rhythm Pulses: posterior tibial pulses present and dorsalis pedis present Skin General: no rashes or lesions noted and no erythema Wounds: wounds noted: left medial malleolus wound with moderate slough, pink granulation tissue at base, significant tenderness to even light palpation Neuro Cranial Nerves: CN's II-XI intact bilaterally and EOM intact bilaterally Speech: speech normal Extremities Lower Extremity Edema: 1+: Bilateral Additional Details: Significant hemosiderin staining and chronic venous stasis skin changes of LLE. Psych Appearance: grossly normal and well kempt Mental Status: mental status grossly normal Mood: congruent mood Speech and Movement: speech and movement normal Thought Content: normal Judgment: judgment good Debridement Note Debridement Note Wound debrided: Left medial malleolus Laterality: Left Type of Debridement: Excisional debridement Anesthesia Used: 5% Lidocaine Gel Depth: Down to and including healthy tissue and in the subcutaneous layer Percentage of wound debrided: 100 Instrument Used: 5mm curette Tissue Removed: slough Severity: Fat Layer Exposed Amount of bleeding with debridement: Mild Bleeding Controlled with: Pressure Patient tolerated procedure: Patient tolerated procedure well Post-Debridement Measurements and Additional Note: Post-Debridement Measurements/Treatment - Nurse 1 - General Ulcer Assessment Start: 01/14/23 10:20 Freq: Status: Active Protocol: FLO Activity Type Activity Date Activity User E-sign Co-sign Detail Recorded Client Recorded Date Recorded By Document 01/14/23 10:21 [facility] [id number] 01/14/23 10:28 [facility] Document 01/22/23 10:39 [id number] 01/22/23 10:40 01/14/23 01/22/23 10:21 10:39 - Today's Visit Information Type of service Follow-up Visit 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/HOTEL CONCIERGE (Physician/HOTEL CONCIERGE ) ) Arrival Mode Ambulatory Ambulatory Transfer Assistance None Patient Identification Verified (Name & Yes Yes ) Patient Requires Transmission-Based No No Precautions Vital Signs Temperature (97.8 F-99.1 F) 97.8 F 96.5 F L Temperature Source Temporal Temporal Pulse Rate (60-100) 80 82 Pulse Location Monitor Monitor Respiratory Rate (12-18) 16 16 Respiratory rate source Observation Observation Oxygen Delivery Method Room Air Blood Pressure (90/60-120/80) 142/79 H 116/75 Blood Pressure Mean (mm Hg) 100 88 Source Monitor Monitor Position Sitting Semi-Fowlers Blood Pressure Location Left Arm Left Arm History Since Last Visit- (Skip if this is Patient's initial visit) Have you changed medications since your No No last visit? Any new allergies or adverse reactions No No Had a fall/change in ADL's that may No No increase risk of falls Signs or symptoms of abuse and/or No No neglect since last visit Have you been in the hospital since your No No last visit? Has dressing in place as prescribed Yes Yes Has compression in place as prescribed Yes Yes Has offloadiing in place as prescribed N/A N/A Experienced any changes in pain level or No No management Left Footwear Regular Shoe Regular Shoe Right Footwear Regular Shoe Regular Shoe Pain Scale: 0-10 Numeric Is Patient Pain Free? Yes Yes - Nurse 1 - General Ulcer Measurement Start: 01/14/23 10:20 Freq: Status: Active Protocol: Activity Type Activity Date Activity User E-sign Co-sign Detail Recorded Client Recorded Date Recorded By Document 01/14/23 10:21 [facility] [id number] 01/14/23 10:28 [facility] Document 01/22/23 10:39 [id number] 01/22/23 10:40 01/14/23 01/22/23 10:21 10:39 Wound Center Nurse 1 #2 L med ankle -Combined with other wound No No -Current Size (cm) - Length 2 0.8 -Current Size (cm) - Width 1 1.0 -Current Size (cm) - Depth 0.2 0.1 -Total Square Cm 2 0.80 -Date of Last Picture (Recall this 01/14/23 field) -Photo Taken Yes Yes -Epithelialization None Present Small 1-33% -Tunneling No No -Undermining/Tunneling No No -Circular Undermining No No -Exudate Amt Small Small -Exudate Type Serosanguineous Serosanguineous -Wound Margin Flat & Intact Flat & Intact -Granulation Amt Medium (34-66%) Medium (34-66%) -Granulation Quality Red Red -Slough/Fibrin Yes Yes -Necrosis Amt Medium (34-66%) Small (1-33%) -Necrotic Tissue Type Adherent Slough Adherent Slough -Structure Exposed N/A -Texture (Darlene-wound Skin Appearance) Assessed, Assessed, Scarring Localized Edema -Moisture (Darlene-wound Skin Appearance) Assessed,Dry/ Assessed, Scaly Maceration -Color (Darlene-wound Skin Appearance) Assessed, Assessed, Hemosiderin Hemosiderin Staining Staining -Temperature (Darlene-wound Skin No Abnormality No Abnormality Appearance) (Pt Warm) (Pt Warm) -Tenderness on Palpation (Darlene-wound Yes No Skin Appearance) -Ulcer Cleansing Rinsed/ Rinsed/ Irrigated with Irrigated with Saline Saline -Foul Odor after Cleansing No No -Anesthetic Used 5% Lidocaine 5% Lidocaine Gel Gel Lower Limb Edema Present Yes Yes Left Calf (cm) 43.8 45 Left Ankle (cm) 25.9 26.3 WC - Nurse 2 - General Ulcer CM Notes Start: 01/14/23 10:20 Freq: Status: Active Protocol: Activity Type Activity Date Activity User E-sign Co-sign Detail Recorded Client Recorded Date Recorded By Document 01/14/23 10:46 MW [id number] 01/14/23 10:49 MW Document 01/22/23 12:10 PL [id number] 01/22/23 12:10 PL 01/14/23 01/22/23 10:46 12:10 Wound Center Nurse 2 #2 L med ankle -Time 10:47 10:53 -Correct Patient Yes Yes -Correct Side, Site, Position Yes Yes -Correct Procedure Yes Yes -Procedure Performed Yes Yes -Type of Procedure Debridement Debridement -Clinical Debridement Subcutaneous Subcutaneous -Tissue Removed Subcutaneous Subcutaneous -Post Debridement (cm) - Length 0.9 2.1 -Post Debridement (cm) - Width 1.7 1.0 -Post Debridement (cm) - Depth 0.1 0.1 -Total Square (Post) (cm) 1.53 2.10 -Area of Debridement (cm) - Length 0.9 2.1 -Area of Debridement (cm) - Width 1.7 1.0 -Total Square (Area) (cm) 1.53 2.10 -Tunneling No No -Undermining/Tunneling No No -Circular Undermining No No -Wound/Ulcer Outcome Not Healed Not Healed -Ulcer Cleansing Rinsed/ Rinsed/ Irrigated with Irrigated with Saline Saline -Foul Odor after Cleansing No No -Bioengineered Tissue No No -Bleeding Controlled with Pressure Pressure -Treatment Response Procedure Procedure Tolerated Well Tolerated Well -Offloading No -Debridement - Subq, 1st 20sq cm Yes Yes Pain Scale: 0-10 Numeric Is Patient Pain Free? Yes Yes WC - Nurse 3 - General Ulcer D/C NN Start: 01/14/23 10:20 Freq: Status: Active Protocol: Activity Type Activity Date Activity User E-sign Co-sign Detail Recorded Client Recorded Date Recorded By Document 01/14/23 10:50 MW [id number] 01/14/23 10:56 MW Document 01/22/23 11:23 [id number] 01/22/23 11:26 JF 01/14/23 01/22/23 10:50 11:23 Wound Care Center Nurse 3 #2 L med ankle -Ulcer Cleansing Rinsed/ Rinsed/ Irrigated with Irrigated with Saline Saline -Foul Odor after Cleansing No No -Negative Pressure Wound Therapy N/A -Primary Dressing Applied Aquacel AG 4x4, Mepilex Border -Other Covering santyl/dry aquacel-ag/ excel-sap. -Aquacel AG 4x4 1 -Mepilex Border 1 Treatment Response Procedure Tolerated Well Pain Scale: 0-10 Numeric Is Patient Pain Free? Yes Yes Teaching: Wound Center Dressing Your Wound -Person Taught Patient -Teaching Method Discussion, Demonstration -Response to teaching Verbalize understanding WC - Visit Discharge Discharge Condition Stable Stable Ambulatory Status Ambulatory Ambulatory Transportation Private Auto Private Auto Accompanied by SELF Medication Reconcilliation completed & No Yes provided to patient/care provider Clinical Summary of Care Provided Yes Yes Assessment/Plan Assessment/Plan (1) Ulcer of extremity due to chronic venous insufficiency: CODE(S): L98.499 - Non-pressure chronic ulcer of skin of other sites with unspecified severity; I87.2 - Venous insufficiency (chronic) (peripheral) (2) Ulcer of left lower extremity with fat layer exposed: CODE(S): L97.922 - Non-pressure chronic ulcer of unspecified part of left lower leg with fat layer exposed PLAN: Patient tolerated some sharp debridement today, still with some adherent slough. Continue to apply nickel-thick layer of santyl to wound base, aquacel silver over top, then super absorber. Change at least once daily, more often as needed to keep clean and dry. Do not submerge the wound in water such as in a bath/pool/hot tub. Continue 20-30mmHg tubigrips for compression. Elevate legs when resting/sleeping. Avoid prolonged standing or sitting with legs dependent. No signs/symptoms of infection today. Return to clinic in 1 week.
[2023-02-05 09:55] VITALS: BP 142/79; PULSE 69; RESP 16; TEMP 35.9
--- NOTE | 2023-02-05 11:25 | PCM.WC.PN ---
History of Present Illness Date of Service: 02/05/23 Chief Complaint: Left medial, distal leg non healing ulcer History of Wound: Patient presents to [facility] for evaluation and management of left medial malleolus ulcer which has been present since the end of October. Patient is well known to me from the vascular office. Dr. Olson performed a venogram on 07/22/22 which was negative for significant central venous compression. On 12/03/2022, Dr. 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 She is well known to the wound care center as well, has received care for prior ulcers here. She was last discharged from [facility] on 09/03/22, at that time she had a left medial leg ulcer (not the same location as current one). She was discharged with instructions to obtain new measured compression stockings, she has not done so yet. She has been taking her coumadin as directed. She has had significantly increased pain in this wound over the last few weeks. 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 After these shifts, her swelling and pain is much worse. She denies fevers, chills, nausea, vomiting. Subjective Subjective Patient missed appointment last week. She was late again today. We discussed making her appointments later or different days if it would improve attendance. She will discuss with scheduling and see if there are better times for her. Unfortunately her wound has gotten larger. She states she has been compliant with compression. She elevates her legs when she can. She still works full-time which does make this difficult though hours reduced to only 8 hours per shift instead of previously 12. No signs/symptoms of infection. Objective Data Objective Data Vital Signs: Vital Signs Temp Pulse Resp BP O2 Del Method 96.7 F L 69 16 142/79 H Room Air 02/05/23 09:55 02/05/23 09:55 02/05/23 09:55 02/05/23 09:55 02/05/23 09:55 Oxygen Delivery Method Room Air Charges/Coding Procedures Integumentary 111xxx-113xx: 54233 Shefali subq tissue 20 sq cm/< Physical Exam Narrative Const General: cooperative Nutritional Appearance: well nourished Orientation: alert, awake and oriented x3 HENMT Head: normocephalic and atraumatic Ears: hearing grossly normal bilaterally Nose: external nose normal Eyes General: appearance normal, both eyes and all related structures EOM: EOM intact bilaterally Neck Neck: normal visual inspection, full ROM and trachea midline Resp Effort & Inspection: normal respiratory effort, able to speak in complete sentences, symmetric chest movement, no audible wheezes, not labored, no stridor and no use of accessory muscles Cardio Rate: regular rate Rhythm: regular rhythm Pulses: posterior tibial pulses present and dorsalis pedis present Skin General: no rashes or lesions noted and no erythema Wounds: wounds noted: left medial malleolus wound with moderate slough, pink granulation tissue at base, significant tenderness to even light palpation, enlarged from prior visit Neuro Cranial Nerves: CN's II-XI intact bilaterally and EOM intact bilaterally Speech: speech normal Extremities Lower Extremity Edema: 1+: Bilateral Additional Details: Significant hemosiderin staining and chronic venous stasis skin changes of LLE. Psych Appearance: grossly normal and well kempt Mental Status: mental status grossly normal Mood: congruent mood Speech and Movement: speech and movement normal Thought Content: normal Judgment: judgment good Debridement Note Debridement Note Wound debrided: Left medial malleolus Laterality: Left Type of Debridement: Excisional debridement Anesthesia Used: 5% Lidocaine Gel Depth: Down to and including healthy tissue and in the subcutaneous layer Percentage of wound debrided: 100 Instrument Used: 5mm curette Tissue Removed: slough Severity: Fat Layer Exposed Amount of bleeding with debridement: Mild Bleeding Controlled with: Pressure Patient tolerated procedure: Patient tolerated procedure well Post-Debridement Measurements and Additional Note: Post-Debridement Measurements/Treatment - Nurse 1 - General Ulcer Assessment Start: 01/14/23 10:20 Freq: Status: Active Protocol: FLO Activity Type Activity Date Activity User E-sign Co-sign Detail Recorded Client Recorded Date Recorded By Document 01/14/23 10:21 [facility] [id number] 01/14/23 10:28 [facility] Document 01/22/23 10:39 [id number] 01/22/23 10:40 Document 02/05/23 09:55 KW [id number] 02/05/23 10:05 KW 01/14/23 01/22/23 02/05/23 10:21 10:39 09:55 - Today's Visit Information Type of service Follow-up Visit Follow-up Visit 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/CAN COVERER (Physician/CAN COVERER (Physician/CAN COVERER ) ) ) Arrival Mode Ambulatory Ambulatory Ambulatory Transfer Assistance None Patient Identification Verified (Name & Yes Yes Yes ) Patient Requires Transmission-Based No No No Precautions Safety Precautions NA Vital Signs Temperature (97.8 F-99.1 F) 97.8 F 96.5 F L 96.7 F L Temperature Source Temporal Temporal Temporal Pulse Rate (60-100) 80 82 69 Pulse Location Monitor Monitor Monitor Respiratory Rate (12-18) 16 16 16 Respiratory rate source Observation Observation Observation Oxygen Delivery Method Room Air Room Air Blood Pressure (90/60-120/80) 142/79 H 116/75 142/79 H Blood Pressure Mean (mm Hg) 100 88 100 Source Monitor Monitor Monitor Position Sitting Semi-Fowlers Semi-Fowlers Blood Pressure Location Left Arm Left Arm Right Arm History Since Last Visit- (Skip if this is Patient's initial visit) Have you changed medications since your No No No last visit? Any new allergies or adverse reactions No No No Had a fall/change in ADL's that may No No No increase risk of falls Signs or symptoms of abuse and/or No No No neglect since last visit Have you been in the hospital since your No No No last visit? Has dressing in place as prescribed Yes Yes Yes Has compression in place as prescribed Yes Yes No Has offloadiing in place as prescribed N/A N/A No Experienced any changes in pain level or No No No management Left Footwear Regular Shoe Regular Shoe Regular Shoe Right Footwear Regular Shoe Regular Shoe Regular Shoe Pain Scale: 0-10 Numeric Is Patient Pain Free? Yes Yes Yes - Nurse 1 - General Ulcer Measurement Start: 01/14/23 10:20 Freq: Status: Active Protocol: Activity Type Activity Date Activity User E-sign Co-sign Detail Recorded Client Recorded Date Recorded By Document 01/14/23 10:21 [facility] [id number] 01/14/23 10:28 [facility] Document 01/22/23 10:39 [id number] 01/22/23 10:40 JF Document 02/05/23 09:55 KW [id number] 02/05/23 10:05 KW 06/09/0701/22/23 02/05/23 10:21 10:39 09:55 Wound Center Nurse 1 #2 L med ankle -Combined with other wound No No -Current Size (cm) - Length 2 0.8 -Current Size (cm) - Width 1 1.0 -Current Size (cm) - Depth 0.2 0.1 -Total Square Cm 2 0.80 -Date of Last Picture (Recall this 01/14/23 field) -Photo Taken Yes Yes -Epithelialization None Present Small 1-33% -Tunneling No No -Undermining/Tunneling No No -Circular Undermining No No -Exudate Amt Small Small Small -Exudate Type Serosanguineous Serosanguineous Serosanguineous -Wound Margin Flat & Intact Flat & Intact Distinct, Outline Attached -Granulation Amt Medium (34-66%) Medium (34-66%) Medium (34-66%) -Granulation Quality Red Red Red -Slough/Fibrin Yes Yes Yes -Necrosis Amt Medium (34-66%) Small (1-33%) Small (1-33%) -Necrotic Tissue Type Adherent Slough Adherent Slough -Structure Exposed N/A -Texture (Darlene-wound Skin Appearance) Assessed, Assessed, Assessed Scarring Localized Edema -Moisture (Darlene-wound Skin Appearance) Assessed,Dry/ Assessed, Assessed,Dry/ Scaly Maceration Scaly -Color (Darlene-wound Skin Appearance) Assessed, Assessed, Assessed,Palor Hemosiderin Hemosiderin Staining Staining -Temperature (Darlene-wound Skin No Abnormality No Abnormality No Abnormality Appearance) (Pt Warm) (Pt Warm) (Pt Warm) -Tenderness on Palpation (Darlene-wound Yes No Skin Appearance) -Ulcer Cleansing Rinsed/ Rinsed/ Rinsed/ Irrigated with Irrigated with Irrigated with Saline Saline Saline -Foul Odor after Cleansing No No -Anesthetic Used 5% Lidocaine 5% Lidocaine 5% Lidocaine Gel Gel Gel Lower Limb Edema Present Yes Yes NA Left Calf (cm) 43.8 45 Left Ankle (cm) 25.9 26.3 WC - Nurse 2 - General Ulcer CM Notes Start: 01/14/23 10:20 Freq: Status: Active Protocol: Activity Type Activity Date Activity User E-sign Co-sign Detail Recorded Client Recorded Date Recorded By Document 01/14/23 10:46 MW [id number] 01/14/23 10:49 MW Document 01/22/23 12:10 PL [id number] 01/22/23 12:10 PL 01/14/23 01/22/23 10:46 12:10 Wound Center Nurse 2 #2 L med ankle -Time 10:47 10:53 -Correct Patient Yes Yes -Correct Side, Site, Position Yes Yes -Correct Procedure Yes Yes -Procedure Performed Yes Yes -Type of Procedure Debridement Debridement -Clinical Debridement Subcutaneous Subcutaneous -Tissue Removed Subcutaneous Subcutaneous -Post Debridement (cm) - Length 0.9 2.1 -Post Debridement (cm) - Width 1.7 1.0 -Post Debridement (cm) - Depth 0.1 0.1 -Total Square (Post) (cm) 1.53 2.10 -Area of Debridement (cm) - Length 0.9 2.1 -Area of Debridement (cm) - Width 1.7 1.0 -Total Square (Area) (cm) 1.53 2.10 -Tunneling No No -Undermining/Tunneling No No -Circular Undermining No No -Wound/Ulcer Outcome Not Healed Not Healed -Ulcer Cleansing Rinsed/ Rinsed/ Irrigated with Irrigated with Saline Saline -Foul Odor after Cleansing No No -Bioengineered Tissue No No -Bleeding Controlled with Pressure Pressure -Treatment Response Procedure Procedure Tolerated Well Tolerated Well -Offloading No -Debridement - Subq, 1st 20sq cm Yes Yes Pain Scale: 0-10 Numeric Is Patient Pain Free? Yes Yes - Nurse 3 - General Ulcer D/C NN Start: 01/14/23 10:20 Freq: Status: Active Protocol: Activity Type Activity Date Activity User E-sign Co-sign Detail Recorded Client Recorded Date Recorded By Document 01/14/23 10:50 MW [id number] 01/14/23 10:56 MW Document 01/22/23 11:23 JF [id number] 01/22/23 11:26 JF Document 02/05/23 10:38 KW [id number] 02/05/23 10:39 KW 01/14/23 01/22/23 02/05/23 10:50 11:23 10:38 Wound Care Center Nurse 3 #2 L med ankle -Ulcer Cleansing Rinsed/ Rinsed/ Rinsed/ Irrigated with Irrigated with Irrigated with Saline Saline Saline -Foul Odor after Cleansing No No No -Negative Pressure Wound Therapy N/A -Primary Dressing Applied Aquacel AG 4x4, Aquacel AG 2x2, Mepilex Border Mepilex Border -Other Covering santyl/dry aquacel-ag/ excel-sap. -Aquacel AG 2x2 1 -Aquacel AG 4x4 1 -Mepilex Border 1 1 Right -Tubular Bandage Double Layer -Size of Tubigrip Used Size E -Size E ($) 2 Treatment Response Procedure Tolerated Well Pain Scale: 0-10 Numeric Is Patient Pain Free? Yes Yes Yes Teaching: Wound Center Dressing Your Wound -Person Taught Patient -Teaching Method Discussion, Demonstration -Response to teaching Verbalize understanding WC - Visit Discharge Discharge Condition Stable Stable Stable Ambulatory Status Ambulatory Ambulatory Ambulatory, Unsteady Transportation Private Auto Private Auto Accompanied by SELF Medication Reconcilliation completed & No Yes No provided to patient/care provider Clinical Summary of Care Provided Yes Yes Yes Assessment/Plan Assessment/Plan (1) Ulcer of extremity due to chronic venous insufficiency: CODE(S): L98.499 - Non-pressure chronic ulcer of skin of other sites with unspecified severity; I87.2 - Venous insufficiency (chronic) (peripheral) (2) Ulcer of left lower extremity with fat layer exposed: CODE(S): L97.922 - Non-pressure chronic ulcer of unspecified part of left lower leg with fat layer exposed PLAN: Patient tolerated some sharp debridement today, still with some adherent slough. Continue to apply nickel-thick layer of santyl to wound base, aquacel silver over top, then super absorber. Change at least once daily, more often as needed to keep clean and dry. Do not submerge the wound in water such as in a bath/pool/hot tub. Continue high-strength compression 40-50mmHg with tubigrips. She wants to discuss potential further venous ablation. Will have our vascular office contact her for an appointment. No signs/symptoms of infection today. Return to clinic in 1 week.
[2023-02-12 11:06] VITALS: BP 138/69
--- NOTE | 2023-02-12 11:06 | WC ---
Pt verbalized extreme pain in left ankle. She is tearful and reports called off of work because of the pain
== END 2023-02-12 23:59 | disposition home or self-care (01) ==
LOC: WC 10:30
PROVIDERS: PCP Internal Medicine; Referring Provider Internal Medicine; Visit Provider Physician Assistant
DX: L97.922 Non-pressure chronic ulcer of unspecified part of left lower leg with fat layer exposed (principal); L98.492 Non-pressure chronic ulcer of skin of other sites with fat layer exposed; I87.2 Venous insufficiency (chronic) (peripheral)
CPT/HCPCS: 11042; 87070; 87075; 87077; 87186; 87205; 99213; G0463

== ENCOUNTER 2023-03-01 17:20 | Emergency (ER) | payer MEDICAID, SELFPAY ==
[2023-03-01 17:22] VITALS: BP 152/88; PULSE 82; RESP 12; TEMP 36.3; O2SAT 97; BMI 38.7
--- NOTE | 2023-03-01 18:02 | CT_ITS ---
STUDY: CT ABDOMEN AND PELVIS WITHOUT CONTRAST REASON FOR EXAM: Female, 48 years old. Right flank pain RADIATION DOSAGE (If Supplied By Facility): CTDIvol = ( 20.64 ) mGy, DLP = ( 1144.59 ) mGycm TECHNIQUE: Transaxial images were obtained from the dome of the diaphragm to the symphysis pubis without oral contrast, and without intravenous contrast. Sagittal and coronal images were reconstructed. A single Individualized dose optimization techniques were used for this CT. COMPARISON: None. FINDINGS: The visualized lung bases are unremarkable. The visualized portions of the heart are within normal limits. Normal liver. Normal gallbladder and extrahepatic biliary system. Normal spleen. Normal pancreas. 1.6 cm left renal nodule. Normal right kidney. Possible punctate lower pole stone in the left kidney. Normal visualized stomach. Normal small intestine. Normal colon. The appendix is visualized and appears normal. Normal abdominal aorta. There is a filter in the inferior vena cava. Normal retroperitoneum. Normal urinary bladder. IUD. in the uterus. Mild bilateral inguinal adenopathy. Normal abdominal wall. Mild dextroscoliosis of the lumbar column. CT/Abdomen/Pelvis without Cont IMPRESSION: Left adrenal nodule. Nonobstructive left renal stone. IVC filter in place. IUD in the uterus. Mild inguinal adenopathy. Electronically Signed: Raffy Joshi DO at 19:09 EDT Reading Location ID and State: [facility] / [place] Tel [phone], Service support ,
--- NOTE | 2023-03-01 18:13 | EDS_ITS ---
HPI History of Present Illness Chief Complaint: Flank Pain Informant: patient Onset/Context/Timing Onset: Days (2) Context: Gradual Onset Timing: Intermittent Quality: Sharp, stabbing, dull Location: Right lower flank and back Worsened by: Nothing Relieved by: Nothing Narrative Narrative: Patient presents with flank pain that has gotten worse over the last 2 days. Patient states she noted some hematuria that is getting worse. Patient describes her pain as sharp, stabbing, and dull at times. Patient states it is over the right lower flank and back area. Patient states nothing makes it better nothing makes it worse. Patient denies any fevers or chills. Patient denies any nausea or vomiting. Patient denies any dysuria. Patient initially thought she was having some vaginal bleeding but then noted it was hematuria. Patient denies any abnormal vaginal discharge. [facility] Medical History Antiphospholipid syndrome Diabetes mellitus type 2 in obese DVT (deep venous thrombosis) Pulmonary embolism Ulcer associated with varicose vein, with infection Home Medications pantoprazole 40 mg tablet,delayed release 40 mg PO DAILY GERD 03/21/17 [History Last Taken 03/11/18 08:00 40 mg] atorvastatin 40 mg tablet 40 mg PO QHS 03/14/21 [History Last Taken Unknown] canagliflozin 100 mg tablet (Invokana) 100 mg PO DAILY 05/06/22 [History Last Taken Unknown] clonazepam 1 mg tablet (Klonopin) 1 mg PO QHS 05/06/22 [History Last Taken Unknown] copper 380 square mm intrauterine device (ParaGard T 380A) 1 mm2 intrauterine QMONTH 05/06/22 [History Last Taken Unknown] diclofenac sodium 1 % topical gel (Voltaren Arthritis Pain) 1 ea topical PRN PRN Pain 05/06/22 [History Last Taken Unknown] glimepiride 4 mg tablet (Amaryl) 4 mg PO DAILY 05/06/22 [History Last Taken Unknown] hydrocortisone acetate 1 % rectal ointment 1 ea topical DAILY PRN PRN Itching 05/06/22 [History Last Taken Unknown] warfarin 5 mg tablet 5 mg PO DAILY 05/06/22 [History Last Taken Unknown] acetaminophen 500 mg tablet 1,000 mg PO Q6 06/25/22 [History Last Taken Unknown] gabapentin 100 mg capsule 200 mg PO DAILY 06/25/22 [History Last Taken Unknown] sertraline 100 mg tablet 100 mg PO DAILY 11/17/22 [History Last Taken Unknown] cyclobenzaprine 10 mg tablet 10 mg PO TID PRN Muscle Spasm #20 TABLETS 12/09/22 [Rx Last Taken Unknown] hydrocodone-acetaminophen 5-325mg 5mg-325mg 1 tab PO Q4H PRN PRN Pain 2 days #10 TABLETS 12/09/22 [Rx Last Taken Unknown] Allergy/AdvReac Type Severity Reaction Status Date / Time acetaminophen Allergy Rash Verified 03/01/23 17:22 [From Tylenol-Codeine] codeine Allergy Rash Verified 03/01/23 17:22 Surgical History H/O skin graft (~2002) Social History Smoking Status: Former smoker substance use type: other details: smokes medical marijuana ROS ROS ED Constitutional Constitutional ED: Denies chills or fever(s) Eyes Eyes: Denies blurry vision or change in vision ENT ENT ED: Denies rhinorrhea or sore throat Cardiovascular Cardiovascular: Denies chest pain or palpitations Respiratory/Chest Respiratory/Chest: Denies cough or dyspnea Gastrointestinal Gastrointestinal: Denies nausea or vomiting Genitourinary Genitourinary ED: Reports hematuria; Denies dysuria Musculoskeletal Musculoskeletal: Reports back pain; Denies neck pain Integumentary Denies abscess or rash Neurologic Neurologic: Denies headache(s) or weakness Allergic/Immunologic Allergic/Immunologic ED: Denies mouth swelling or urticaria EXAM Physical Exam Const Vital Signs: 03/01/23 17:22 Temperature 97.3 F L Temperature Source Temporal Pulse Rate 82 Respiratory Rate 12 Blood Pressure 152/88 H Blood Pressure Mean 109 Pulse Ox 97 Oxygen Delivery Method Room Air Positive well nourished and well developed General Appearance ED: well developed and NAD HEENT Reports moist mucous membranes Neck supple and no JVD Resp normal respiratory effort and clear to auscultation bilaterally Cardio regular rate, regular rhythm and no murmurs GI normal to inspection, nondistended, normoactive bowel sounds and non-tender Palpation: soft Back/Spine Back/Spine Narrative: There is mild tenderness over the right lower lumbar paraspinal area. There is no true CVA tenderness. There is no midline tenderness. There is no bony crepitance or step-off. There is good range of motion. Extremity normal to inspection General Extremety ED: Negative for edema or tenderness General Extremity: Negative for edema Neuro oriented x3, CN's II-XII intact bilaterally and no sensory deficits noted Sensorium / Orientation: alert Motor Exam: strength 5/5 throughout Psych mental status grossly normal Skin no rashes or lesions noted MDM MDM MDM Narrative Medical decision making narrative: Differential diagnosis includes pyelonephritis, ureteral calculus, hemorrhagic cystitis, ovarian cyst, and mesenteric adenitis. CBC will be obtained to assess for leukocytosis and anemia. Basic metabolic profile will be obtained to assess for electrolyte abnormality and renal function. PT was INR and PTT will be obtained to assess for coagulopathy. Urinalysis will be obtained to assess for urinary tract infection and hematuria. CT scan of the abdomen pelvis will be obtained to assess for ureteral calculus, ovarian cyst, and mesenteric adenitis. Lab Data Attestation: I reviewed the patient's lab results. Lab results narrative: CBC was reviewed and was within normal limits. Basic metabolic profile was reviewed and was within normal limits. PT with INR and PTT were reviewed. Pro time was 40.6. INR is 4.1. PTT was 78.9. Urinalysis was reviewed. Leukocyte Estrace was 100 and occult blood was 250. There were greater than 100 red blood cells seen. There were no bacteria seen. There were 0-5 white blood cells seen. Labs: Laboratory Results - last 24 hr 03/01/23 03/01/23 17:45 17:57 WBC 7.6 RBC 4.47 Hgb 12.2 Hct 39.2 MCV 87.7 MCH 27.3 MCHC 31.1 L RDW Std Deviation 49.5 H RDW Coeff of Jace 15.7 H Plt Count 322 MPV 9.5 Immature Gran % (Auto) 0.300 Neut % (Auto) 62.7 Lymph % (Auto) 25.4 Harlan % (Auto) 7.8 Eos % (Auto) 3.4 Baso % (Auto) 0.4 Absolute Neuts (auto) 4.7 Absolute Lymphs (auto) 1.92 Nucleated RBC % 0 PT 40.6 H INR 4.1 H* APTT 78.9 H Sodium 138 Potassium 3.8 Chloride 108 H Carbon Dioxide 26.0 Anion Gap 4 L BUN 11 Creatinine 0.69 Estim Creat Clear Calc 84.23 Est GFR (MDRD) Af Amer 117 Est GFR (MDRD) Non-Af 96 BUN/Creatinine Ratio 16.0 Glucose 116 H Calcium 8.8 Urine Color Brown Urine Clarity Cloudy Urine pH 6.5 Ur Specific [place] 1.020 Urine Protein 100 H Urine Glucose (UA) 1000 H Urine Ketones 5 H Urine Occult Blood 250 H Urine Nitrite Negative Urine Bilirubin 1 H Urine Urobilinogen Normal Ur Leukocyte Esterase 100 H Urine RBC > 100 SEEN Urine WBC 0-5 SEEN Ur Squamous Epith Cells 0-5 SEEN Urine Bacteria 0 SEEN Urine Mucus 0 SEEN Radiography Diagnostic Testing: Clinical Impression(s) from Imaging Studies Abdomen/Pelvis CT 03/01/23 18:02 IMPRESSION: Left adrenal nodule. Nonobstructive left renal stone. IVC filter in place. IUD in the uterus. Mild inguinal adenopathy. Electronically Signed: Raffy Joshi DO at 19:09 EDT Reading Location ID and State: [facility] / [place] Tel [phone], Service support , CT scan of the abdomen and pelvis was obtained. There is a nonobstructing left renal stone. There is no ureteral calculus noted. There is a left adrenal nodule. There is no acute abnormality noted. This was interpreted by the radiologist and was also independently reviewed by myself. Treatment and Re-Evaluation :: Patient was given IV fluids and Toradol. Urine culture was ordered. Patient was advised of her findings. Patient was instructed to hold her Coumadin for 2 days. Patient was instructed to follow-up with her primary care physician in 5 to 7 days. Patient understood and was agreeable with the plan. All questions were answered. Discharge Plan Triage Chief Complaint: Flank Pain Other Complaint: Complaint ED Provider: Gavino Forrest Dx/Rx/DC Orders Clinical Impression: Hematuria, Coagulopathy Instructions: ED Hematuria Prescriptions: No Action acetaminophen 500 mg tablet 1,000 mg PO Q6 sertraline 100 mg tablet 100 mg PO DAILY pantoprazole 40 MG tablet,delayed release (DR/EC) 40 mg PO DAILY Patient Comments: atorvastatin 40 mg tablet 40 mg PO QHS gabapentin 100 mg capsule 200 mg PO DAILY glimepiride [Amaryl] 4 mg Tablet 4 mg PO DAILY warfarin [Coumadin] 5 mg Tablet 5 mg PO DAILY Invokana 100 mg Tablet 100 mg PO DAILY diclofenac sodium [Voltaren Arthritis Pain] 1 % Gel 1 ea TOPICAL PRN PRN (Reason: Pain) ParaGard T 380A 380 square mm Intrauterine Device 1 mm2 INTRAUTERINE QMONTH clonazepam [Klonopin] 1 mg Tablet 1 mg PO QHS Rx Instructions: administer 30 minutes before bedtime Anusol HC-1 1 % Ointment 1 ea topical DAILY PRN PRN (Reason: Itching) cyclobenzaprine [cyclobenzaprine] 10 mg tablet 10 mg PO TID PRN (Reason: Muscle Spasm) Qty: 20 0RF hydrocodone-acetaminophen [hydrocodone-acetaminophen] 5-325 mg tablet 1 tab PO Q4H PRN PRN (Reason: Pain) 2 Days Qty: 10 0RF Primary Care Provider: Carla Fountain Referrals: Carla Fountain MD [Primary Care Provider] - 5-7 Days Activity Restrictions/Additional Instructions: Hold your Coumadin for 2 days. Disposition Disposition: Home, Self Care
[2023-03-01 18:17] LABS: Absolute Lymphocyte Count 1.92 X10^3/uL (0.83-4.51); Absolute Neutrophil Count 4.7 X10^3/uL (2.0-7.7); Basophil# 0.03 X10^3/uL; Basophil% 0.4 % (0-1); Eosinophil# 0.26 X10^3/uL; Eosinophils% 3.4 % (0-5); Hematocrit 39.2 % (37-47); Hemoglobin 12.2 g/dL (12.0-15.0); Lymphocyte # 1.92 X10^3/ul (0.83-4.51); Lymphocyte % 25.4 % (19-41); Mean Corp Hgb Conc 31.1 g/dL (32-36); Mean Corpuscular Hgb 27.3 pg (27.0-32.0); Mean Corpuscular Volume 87.7 fL (81-99); Mean Platelet Vol. 9.5 fl (6.2-12.0); Monocyte# 0.59 X10^3/uL; Monocyte% 7.8 % (0-10); NRBC Flagged by Analyzer 0 % (0-5); Neutrophil # 4.74 X10^3/uL (2.7-7.7); Neutrophil % 62.7 % (47-70); Platelet Count 322 K/mm3 (150-450); RBC Distribution Width CV 15.7 % (11.6-14.6); RBC Distribution Width SD 49.5 fl (35.1-43.9); Red Blood Count 4.47 M/mm3 (4.2-5.4); White Blood Count 7.6 K/mm3 (4.4-11.0)
[2023-03-01 18:25] LABS: Anion Gap 4 (5-15); BUN 11 mg/dL (7-18); Calcium,Total 8.8 mg/dL (8.5-10.1); Chloride 108 mmol/L (98-107); Creatinine, Serum 0.69 mg/dL (0.55-1.02); EST Glomerular Filtration Rate 96 mL/min (>60); Est Glom Filt Rate - Afr Amer 117 mL/min (>60); Estimated Creatinine Clearance 84.23 ml/min; Glucose 116 mg/dL (74-106); Potassium 3.8 mmol/L (3.5-5.1); Sodium Level 138 mmol/L (136-145)
[2023-03-01 18:29] LABS: Prothrombin Time (Protime)PT. 40.6 SECONDS (11.7-14.9)
[2023-03-01 18:30] LABS: Partial Thromboplast Time 78.9 Seconds (24.1-36.2)
[2023-03-01 18:31] LABS: International Normalized Ratio 4.1
[2023-03-01] MEDS: Ketorolac 30 MG/ML Syringe IV (18:34)
[2023-03-01] MEDS: 0.9% Normal Saline 1,000 ML 1000 ML IV (18:34)
[2023-03-01 18:41] LABS: Bacteria 0 SEEN /hpf (None Seen); Mucous, Urine 0 SEEN /hpf (<or=2+)
[2023-03-01 18:44] LABS: Color, Urine Brown (Yellow); Glucose, Dipstick 1000 mg/dl (Normal); Ketone-Dipstick 5 mg/dl (Negative); Leukocyte Esterase-Dipstick 100 /ul (Negative); Nitrite-Dipstick Negative (Negative); Occult Blood-Urine 250 /ul (Negative); Protein-Dipstick 100 mg/dl (Negative); Urine Clarity Cloudy (Clear); Urine Urobilinogen Normal (Normal); Urine pH 6.5 (5.0 - 8.0)
[2023-03-01 18:55] LABS: Red Blood Cells-Urine > 100 SEEN /hpf (0-5); Squamous Epithelial Cells - UA 0-5 SEEN /hpf (5-10); Urine Bilirubin Dipstick 1 mg/dL (Negative); White Blood Cells 0-5 SEEN /hpf (0-5)
[2023-03-01 21:02] VITALS: BP 126/74; PULSE 76; RESP 16
== END 2023-03-01 21:08 | disposition home or self-care (01) ==
PROVIDERS: Emergency Provider Emergency Medicine; PCP Internal Medicine; Referring Provider Internal Medicine; Visit Provider Emergency Medicine
DX: R31.9 Hematuria, unspecified (principal); D68.9 Coagulation defect, unspecified; E11.9 Type 2 diabetes mellitus without complications; Z87.891 Personal history of nicotine dependence; Z79.01 Long term (current) use of anticoagulants; Z86.718 Personal history of other venous thrombosis and embolism
CPT/HCPCS: 74176; 80048; 81001; 85025; 85610; 85730; 96361; 96374; 99283; J7030; A4216

== ENCOUNTER 2023-03-12 15:00 | Outpatient (RCR) | payer MEDICAID, SELFPAY ==
[2023-02-13 01:31] VITALS: BP 138/69; PULSE 69; RESP 16; TEMP 35.9
[2023-02-19 10:17] VITALS: BP 144/84; PULSE 74; RESP 16; TEMP 35.8
--- NOTE | 2023-02-19 12:23 | PCM.WC.PN ---
History of Present Illness Date of Service: 02/12/23 Chief Complaint: Left medial, distal leg non healing ulcer History of Wound: Patient presents to [facility] for evaluation and management of left medial malleolus ulcer which has been present since the end of October. Patient is well known to me from the vascular office. Dr. Olson performed a venogram on 07/22/22 which was negative for significant central venous compression. On 12/03/2022, Dr. 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 She is well known to the wound care center as well, has received care for prior ulcers here. She was last discharged from [facility] on 09/03/22, at that time she had a left medial leg ulcer (not the same location as current one). She was discharged with instructions to obtain new measured compression stockings, she has not done so yet. She has been taking her coumadin as directed. She has had significantly increased pain in this wound over the last few weeks. 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 After these shifts, her swelling and pain is much worse. She denies fevers, chills, nausea, vomiting. Subjective Subjective Patient is having significantly more pain around the wound and LLE this week. She had to call off of work today. She notes some increased drainage and swelling. Denies N/V, F/C. Objective Data Objective Data Vital Signs: Vital Signs Temp Pulse Resp BP 96.5 F L 74 16 144/84 H 02/19/23 10:17 02/19/23 10:17 02/19/23 10:17 02/19/23 10:17 Charges/Coding Visit Charges Office Visits / Consults: 40607 OV L3 Est Physical Exam Narrative Const General: cooperative Nutritional Appearance: well nourished Orientation: alert, awake and oriented x3 HENMT Head: normocephalic and atraumatic Ears: hearing grossly normal bilaterally Nose: external nose normal Eyes General: appearance normal, both eyes and all related structures EOM: EOM intact bilaterally Neck Neck: normal visual inspection, full ROM and trachea midline Resp Effort & Inspection: normal respiratory effort, able to speak in complete sentences, symmetric chest movement, no audible wheezes, not labored, no stridor and no use of accessory muscles Cardio Rate: regular rate Rhythm: regular rhythm Pulses: posterior tibial pulses present and dorsalis pedis present Skin General: no rashes or lesions noted and no erythema Wounds: wounds noted: left medial malleolus wound with moderate slough, pink granulation tissue at base, significant tenderness to even light palpation, enlarged from prior visit, erythematous Neuro Cranial Nerves: CN's II-XI intact bilaterally and EOM intact bilaterally Speech: speech normal Extremities Lower Extremity Edema: 1+: Bilateral Additional Details: Significant hemosiderin staining and chronic venous stasis skin changes of LLE. Psych Appearance: grossly normal and well kempt Mental Status: mental status grossly normal Mood: congruent mood Speech and Movement: speech and movement normal Thought Content: normal Judgment: judgment good Debridement Note Debridement Note Wound debrided: Left medial malleolus Laterality: Left No debridement was completed: No debridement was completed today Post-Debridement Measurements and Additional Note: Post-Debridement Measurements/Treatment ERIK - Nurse 1 - General Ulcer Assessment Start: 02/19/23 10:16 Freq: Status: Active Protocol: FLO Activity Type Activity Date Activity User E-sign Co-sign Detail Recorded Client Recorded Date Recorded By Document 02/19/23 10:17 JAMES [id number] 02/19/23 10:24 JAMES 02/19/23 10:17 ERIK - Today's Visit Information Type of service 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/BOX SORTER ) Arrival Mode Ambulatory Patient Identification Verified (Name & Yes ) Patient Requires Transmission-Based No Precautions Vital Signs Temperature (97.8 F-99.1 F) 96.5 F L Temperature Source Temporal Pulse Rate (60-100) 74 Pulse Location Monitor Respiratory Rate (12-18) 16 Respiratory rate source Observation Blood Pressure (90/60-120/80) 144/84 H Blood Pressure Mean (mm Hg) 104 Source Monitor Position Semi-Fowlers Blood Pressure Location Left Arm History Since Last Visit- (Skip if this is Patient's initial visit) Have you changed medications since your No last visit? Any new allergies or adverse reactions No Had a fall/change in ADL's that may No increase risk of falls Signs or symptoms of abuse and/or No neglect since last visit Have you been in the hospital since your No last visit? Has dressing in place as prescribed Yes Has compression in place as prescribed Yes Has offloadiing in place as prescribed N/A Experienced any changes in pain level or No management Left Footwear Regular Shoe Right Footwear Regular Shoe Pain Scale: 0-10 Numeric Is Patient Pain Free? Yes - Nurse 1 - General Ulcer Measurement Start: 02/19/23 10:16 Freq: Status: Active Protocol: Activity Type Activity Date Activity User E-sign Co-sign Detail Recorded Client Recorded Date Recorded By Document 02/19/23 10:17 JAMES [id number] 02/19/23 10:24 JAMES 02/19/23 10:17 Wound Center Nurse 1 #2 L med ankle cluster -Combined with other wound No -Current Size (cm) - Length 4.7 -Current Size (cm) - Width 1.0 -Current Size (cm) - Depth 0.1 -Total Square Cm 4.70 -Photo Taken Yes -Epithelialization None Present -Tunneling No -Undermining/Tunneling No -Circular Undermining No -Exudate Amt Medium -Exudate Type Serosanguineous -Wound Margin Flat & Intact -Granulation Amt Small (1-33%) -Granulation Quality Red -Slough/Fibrin Yes -Necrosis Amt Large (67-100%) -Necrotic Tissue Type Adherent Slough -Structure Exposed N/A -Texture (Darlene-wound Skin Appearance) Assessed, Localized Edema -Moisture (Darlene-wound Skin Appearance) Assessed -Color (Darlene-wound Skin Appearance) Assessed, Hemosiderin Staining -Temperature (Darlene-wound Skin No Abnormality Appearance) (Pt Warm) -Tenderness on Palpation (Darlene-wound No Skin Appearance) -Ulcer Cleansing Rinsed/ Irrigated with Saline -Foul Odor after Cleansing No -Anesthetic Used 5% Lidocaine Gel Lower Limb Edema Present Yes Left Calf (cm) 42.5 Left Ankle (cm) 24.5 - Nurse 3 - General Ulcer D/C NN Start: 02/19/23 10:16 Freq: Status: Active Protocol: Activity Type Activity Date Activity User E-sign Co-sign Detail Recorded Client Recorded Date Recorded By Document 02/19/23 10:56 JAMES [id number] 02/19/23 10:57 JAMES 02/19/23 10:56 Wound Care Center Nurse 3 #2 L med ankle cluster -Ulcer Cleansing Rinsed/ Irrigated with Saline -Foul Odor after Cleansing No -Primary Dressing Applied Aquacel Extra -Other Dressing hydrogel since santyl was not available -Primary Dressing Covered/Secured with Dry Gauze & Roll Gauze, Secured with Tape -Aquacel Extra 1 Left -Tubular Bandage Double Layer -Size of Tubigrip Used Size D -Size D ($) 2 Pain Scale: 0-10 Numeric Is Patient Pain Free? Yes WC - Visit Discharge Discharge Condition Stable Ambulatory Status Ambulatory Transportation Private Auto Medication Reconcilliation completed & Yes provided to patient/care provider Clinical Summary of Care Provided Yes Assessment/Plan Assessment/Plan (1) Ulcer of extremity due to chronic venous insufficiency: CODE(S): L98.499 - Non-pressure chronic ulcer of skin of other sites with unspecified severity; I87.2 - Venous insufficiency (chronic) (peripheral) (2) Ulcer of left lower extremity with fat layer exposed: CODE(S): L97.922 - Non-pressure chronic ulcer of unspecified part of left lower leg with fat layer exposed PLAN: Due to patient's significant pain and TTP, no debridement performed today. Wound cultures were obtained. I sent Bactrim to her pharmacy to start today, will change as indicated by C&S. Also ordered venous duplex and LEAS due to level of pain. Continue to apply nickel-thick layer of santyl to wound base, aquacel silver over top, then super absorber. Change at least once daily, more often as needed to keep clean and dry. Do not submerge the wound in water such as in a bath/pool/hot tub. Continue high-strength compression 40-50mmHg with tubigrips. She is scheduled for f/u in vascular office on 03/01. Return to clinic in 1 week.
--- NOTE | 2023-02-19 12:32 | PN.PCM_ITS ---
History of Present Illness Date of Service: 02/19/23 Chief Complaint: Left medial, distal leg non healing ulcer History of Wound: Patient presents to [facility] for evaluation and management of left medial malleolus ulcer which has been present since the end of October. Patient is well known to me from the vascular office. Dr. Olson performed a venogram on 07/22/22 which was negative for significant central venous compression. On 12/03/2022, Dr. 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 She is well known to the wound care center as well, has received care for prior ulcers here. She was last discharged from [facility] on 09/03/22, at that time she had a left medial leg ulcer (not the same location as current one). She was discharged with instructions to obtain new measured compression stockings, she has not done so yet. She has been taking her coumadin as directed. She has had significantly increased pain in this wound over the last few weeks. 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 After these shifts, her swelling and pain is much worse. She denies fevers, chills, nausea, vomiting. Subjective Subjective Pain, redness, and swelling reduced from last week. She is taking Bactrim as directed and without any adverse effects. No N/V, F/C. Objective Data Objective Data Vital Signs: Vital Signs Temp Pulse Resp BP 96.5 F L 74 16 144/84 H 02/19/23 10:17 02/19/23 10:17 02/19/23 10:17 02/19/23 10:17 Charges/Coding Visit Charges Office Visits / Consults: [id number] OV L4 Est Physical Exam Narrative Const General: cooperative Nutritional Appearance: well nourished Orientation: alert, awake and oriented x3 HENMT Head: normocephalic and atraumatic Ears: hearing grossly normal bilaterally Nose: external nose normal Eyes General: appearance normal, both eyes and all related structures EOM: EOM intact bilaterally Neck Neck: normal visual inspection, full ROM and trachea midline Resp Effort & Inspection: normal respiratory effort, able to speak in complete sentences, symmetric chest movement, no audible wheezes, not labored, no stridor and no use of accessory muscles Cardio Rate: regular rate Rhythm: regular rhythm Pulses: posterior tibial pulses present and dorsalis pedis present Skin General: no rashes or lesions noted and no erythema Wounds: left medial malleolus wound with moderate slough, pink granulation tissue at base, significant tenderness to even light palpation Neuro Cranial Nerves: CN's II-XI intact bilaterally and EOM intact bilaterally Speech: speech normal Extremities Lower Extremity Edema: 1+: Bilateral Additional Details: Significant hemosiderin staining and chronic venous stasis skin changes of LLE. Psych Appearance: grossly normal and well kempt Mental Status: mental status grossly normal Mood: congruent mood Speech and Movement: speech and movement normal Thought Content: normal Judgment: judgment good Debridement Note Debridement Note Wound debrided: Left medial malleolus Laterality: Left No debridement was completed: No debridement was completed today Post-Debridement Measurements and Additional Note: Post-Debridement Measurements/Treatment - Nurse 1 - General Ulcer Assessment Start: 02/19/23 10:16 Freq: Status: Active Protocol: ERIK.SAHRA Activity Type Activity Date Activity User E-sign Co-sign Detail Recorded Client Recorded Date Recorded By Document 02/19/23 10:17 [id number] 02/19/23 10:24 JAMES 02/19/23 10:17 - Today's Visit Information Type of service 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/CORPORATE EVENTS DIRECTOR ) Arrival Mode Ambulatory Patient Identification Verified (Name & Yes ) Patient Requires Transmission-Based No Precautions Vital Signs Temperature (97.8 F-99.1 F) 96.5 F L Temperature Source Temporal Pulse Rate (60-100) 74 Pulse Location Monitor Respiratory Rate (12-18) 16 Respiratory rate source Observation Blood Pressure (90/60-120/80) 144/84 H Blood Pressure Mean (mm Hg) 104 Source Monitor Position Semi-Fowlers Blood Pressure Location Left Arm History Since Last Visit- (Skip if this is Patient's initial visit) Have you changed medications since your No last visit? Any new allergies or adverse reactions No Had a fall/change in ADL's that may No increase risk of falls Signs or symptoms of abuse and/or No neglect since last visit Have you been in the hospital since your No last visit? Has dressing in place as prescribed Yes Has compression in place as prescribed Yes Has offloadiing in place as prescribed N/A Experienced any changes in pain level or No management Left Footwear Regular Shoe Right Footwear Regular Shoe Pain Scale: 0-10 Numeric Is Patient Pain Free? Yes - Nurse 1 - General Ulcer Measurement Start: 02/19/23 10:16 Freq: Status: Active Protocol: Activity Type Activity Date Activity User E-sign Co-sign Detail Recorded Client Recorded Date Recorded By Document 02/19/23 10:17 JAMES [id number] 02/19/23 10:24 JAMES 02/19/23 10:17 Wound Center Nurse 1 #2 L med ankle cluster -Combined with other wound No -Current Size (cm) - Length 4.7 -Current Size (cm) - Width 1.0 -Current Size (cm) - Depth 0.1 -Total Square Cm 4.70 -Photo Taken Yes -Epithelialization None Present -Tunneling No -Undermining/Tunneling No -Circular Undermining No -Exudate Amt Medium -Exudate Type Serosanguineous -Wound Margin Flat & Intact -Granulation Amt Small (1-33%) -Granulation Quality Red -Slough/Fibrin Yes -Necrosis Amt Large (67-100%) -Necrotic Tissue Type Adherent Slough -Structure Exposed N/A -Texture (Darlene-wound Skin Appearance) Assessed, Localized Edema -Moisture (Darlene-wound Skin Appearance) Assessed -Color (Darlene-wound Skin Appearance) Assessed, Hemosiderin Staining -Temperature (Darlene-wound Skin No Abnormality Appearance) (Pt Warm) -Tenderness on Palpation (Darlene-wound No Skin Appearance) -Ulcer Cleansing Rinsed/ Irrigated with Saline -Foul Odor after Cleansing No -Anesthetic Used 5% Lidocaine Gel Lower Limb Edema Present Yes Left Calf (cm) 42.5 Left Ankle (cm) 24.5 - Nurse 3 - General Ulcer D/C NN Start: 02/19/23 10:16 Freq: Status: Active Protocol: Activity Type Activity Date Activity User E-sign Co-sign Detail Recorded Client Recorded Date Recorded By Document 02/19/23 10:56 JAMES [id number] 02/19/23 10:57 JAMES 02/19/23 10:56 Wound Care Center Nurse 3 #2 L med ankle cluster -Ulcer Cleansing Rinsed/ Irrigated with Saline -Foul Odor after Cleansing No -Primary Dressing Applied Aquacel Extra -Other Dressing hydrogel since santyl was not available -Primary Dressing Covered/Secured with Dry Gauze & Roll Gauze, Secured with Tape -Aquacel Extra 1 Left -Tubular Bandage Double Layer -Size of Tubigrip Used Size D -Size D ($) 2 Pain Scale: 0-10 Numeric Is Patient Pain Free? Yes WC - Visit Discharge Discharge Condition Stable Ambulatory Status Ambulatory Transportation Private Auto Medication Reconcilliation completed & Yes provided to patient/care provider Clinical Summary of Care Provided Yes Assessment/Plan Assessment/Plan (1) Ulcer of extremity due to chronic venous insufficiency: CODE(S): L98.499 - Non-pressure chronic ulcer of skin of other sites with unspecified severity; I87.2 - Venous insufficiency (chronic) (peripheral) (2) Ulcer of left lower extremity with fat layer exposed: CODE(S): L97.922 - Non-pressure chronic ulcer of unspecified part of left lower leg with fat layer exposed PLAN: C&S was positive for MRSA and proteus. Continue Bactrim as prescribed, will extend from 10 to 14 days of therapy, prescription sent. Continue to apply nickel-thick layer of santyl to wound base, aquacel silver over top. Periwound skin is irritated, will switch from adherent dressing to gauze wrap to see if this helps. Change at least once daily, more often as needed to keep clean and dry. Do not submerge the wound in water such as in a bath/pool/hot tub. Continue high-strength compression 40-50mmHg with tubigrips. She is scheduled for vascular imaging next Wednesday and f/u in vascular office on 03/01. Return to clinic in 1 week.
--- NOTE | 2023-02-22 09:47 | VDLE_ITS ---
Reason For Study: LLE Wound / HX Lt GSV Ablation RIGHT LEFT CFV is compressible, spontaneous, phasic, CFV is compressible, spontaneous, phasic, competent and demonstrates normal competent, and demonstrates normal augmentation. augmentation. FV is compressible, spontaneous, phasic, FV is compressible, phasic, and INCOMPETENT competent and demonstrates normal for greater than 1.0 second. augmentation. POP V is compressible, spontaneous, phasic, POP V is compressible, spontaneous, phasic, competent and demonstrates normal competent and demonstrates normal augmentation. augmentation. T/P Trunk is compressible. T/P Trunk is compressible. PTV is compressible. PTV is compressible. LT PerV is compressible. RT PerV is compressible. Enlarged Lymph Node seen in groin measuring SFJ is competent and measures 0.61 x 0.62 approximately 2.64cm x 1.47cm cm. Lt GSV prox to knee is DILATED and GSV proximal thigh measures 0.46 x 0.51 cm. NONCOMPRESSIBLE with mixed intraluminal GSV at knee measures 0.42 x 0.51 cm. echoes consistent with recent ablation. GSV INCOMPETENT throughout for greater than SFJ is INCOMPETENT and measures 0.70 x 0.75 0.5 seconds. cm. SSV at junction is INCOMPETENT for greater GSV is competent throughout. than 0.5 seconds and measures 0.43 x 0.43 SSV at junction is INCOMPETENT for greater cm. than 0.5 seconds and measures 0.44 x 0.48 cm. Chronic SVT noted in prox/mid SSV. ASV proximal thigh is INCOMPETENT for greater ASV proximal thigh is INCOMPETENT for than 0.5 seconds and measures 0.31 x 0.29 cm. greater than 0.5 seconds and measures 0.45 x ASV at knee is INCOMPETENT for greater than 0.50 cm. 0.5 seconds and measures 0.35 x 0.36 cm. ASV mid thigh is INCOMPETENT for greater ASV proximal calf is INCOMPETENT for greater than 0.5 seconds and measures 0.37 x 0.39 than 0.5 seconds and measures 0.37 x 0.46 cm. cm. ASV distal thigh is INCOMPETENT for greater than 0.5 seconds and measures 0.29 x 0.34 cm. ASV at knee is INCOMPETENT for greater than 0.5 seconds and measures 0.40 x 0.48 cm. ASV proximal calf is INCOMPETENT for greater than 0.5 seconds and measures 0.21 x 0.27 cm. ASV mid calf is INCOMPETENT for greater than 0.5 seconds and measures 0.22 x 0.26 cm. Procedure Exam performed in department. The exam was diagnostic. VL/Venous Duplex US - Celso Extrem Interpretation Summary Deep veins of the bilateral lower extremities are patent and compressible segme ntally. There is no evidence of bilateral lower extremity deep vein thrombosis. The right great sap henous vein appears patent and compressible segmentally. Left great saphenous vein occluded consistent with recent ablation. Positive for reflux in the right great saphenous vein throughout, small sapheno us vein, accessory saphenous vein. Positive for reflux in the left femoral vein, saphenofemoral junction, small sa phenous vein, accessory saphenous vein. Ordering Physician: Karyna Mccurdy Referring Physician: Carla Fountain Performed By: Lamberto Jackson RVT
--- NOTE | 2023-02-22 09:48 | ART_ITS ---
Reason For Study: LLE Wound Procedure A bilateral lower extremity continuous wave Doppler with analog waveform analysis,segmental pressures,and ankle brachial indexes without exercise. Left Segmental Pressures Left brachial= 121mmHg. Unable to acquire WELDER APPRENTICE due to open wound. Left dorsalis pedis artery = 133mmHg. Left digit = 121 mmHg. The left dorsalis pedis waveforms are triphasic. Right Segmental Pressures Right brachial= 125mmHg. Right posterior tibial artery = 162mmHg. Right dorsalis pedis artery = 148mmHg. Right digit = 123 mmHg. The right posterior tibial artery waveforms are triphasic. The right dorsalis pedis waveforms are triphasic. Indices The right ankle brachial index by the posterior tibial artery is 1.30. The right ankle brachial index by the dorsalis pedis is 1.18. The right digital-brachial index is 0.98. Unable to acquire WELDER APPRENTICE due to open wound. The left ankle brachial index by the dorsalis pedis is 1.06. The left digital- brachial index is 0.97. VL/Lower Ext Art Exam w/o Exercis Interpretation Summary Right DONAVON 1.3, normal. TBI and Doppler/PVR waveforms of the right leg normal at rest. Left DONAVON 1.06, normal. TBI and Doppler/PVR waveforms of the left leg normal at rest. Ordering Physician: Karyna Ramirez Referring Physician: KARYNA RAMIREZ PA Performed By: Lamberto Jackson RVT
--- NOTE | 2023-02-26 07:14 | PCM.WC.PN ---
History of Present Illness Date of Service: 02/26/23 Chief Complaint: Left medial, distal leg non healing ulcer History of Wound: Patient presents to [facility] for evaluation and management of left medial malleolus ulcer which has been present since the end of October. Patient is well known to me from the vascular office. Dr. Olson performed a venogram on 07/22/22 which was negative for significant central venous compression. On 12/03/2022, Dr. 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 She is well known to the wound care center as well, has received care for prior ulcers here. She was last discharged from [facility] on 09/03/22, at that time she had a left medial leg ulcer (not the same location as current one). She was discharged with instructions to obtain new measured compression stockings, she has not done so yet. She has been taking her coumadin as directed. She has had significantly increased pain in this wound over the last few weeks. 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 After these shifts, her swelling and pain is much worse. She denies fevers, chills, nausea, vomiting. Subjective Subjective She is doing better, pain slightly improved, redness improved. No N/V, F/C, no GI side effects from antibiotics, she has a few days left. Objective Data Objective Data Vital Signs: Vital Signs Temp Pulse Resp BP 96.5 F L 74 16 144/84 H 02/19/23 10:17 02/19/23 10:17 02/19/23 10:17 02/19/23 10:17 Charges/Coding Visit Charges Office Visits / Consults: [id number] OV L3 Est Physical Exam Narrative Const General: cooperative Nutritional Appearance: well nourished Orientation: alert, awake and oriented x3 HENMT Head: normocephalic and atraumatic Ears: hearing grossly normal bilaterally Nose: external nose normal Eyes General: appearance normal, both eyes and all related structures EOM: EOM intact bilaterally Neck Neck: normal visual inspection, full ROM and trachea midline Resp Effort & Inspection: normal respiratory effort, able to speak in complete sentences, symmetric chest movement, no audible wheezes, not labored, no stridor and no use of accessory muscles Cardio Rate: regular rate Rhythm: regular rhythm Pulses: posterior tibial pulses present and dorsalis pedis present Skin General: no rashes or lesions noted and no erythema Wounds: left medial malleolus wound with minimal slough, significantly reduced in size from last week and significantly less erythema, drainage, and maceration. Still TTP, but back to her usual tenderness, not as pronounced as past 2 weeks. Neuro Cranial Nerves: CN's II-XI intact bilaterally and EOM intact bilaterally Speech: speech normal Extremities Lower Extremity Edema: 1+: Bilateral Additional Details: Significant hemosiderin staining and chronic venous stasis skin changes of LLE. Psych Appearance: grossly normal and well kempt Mental Status: mental status grossly normal Mood: congruent mood Speech and Movement: speech and movement normal Thought Content: normal Judgment: judgment good Debridement Note Debridement Note Wound debrided: L medial malleolus Laterality: Left Type of Debridement: Selective debridement Depth: Down to and including healthy tissue Instrument Used: - (gauze) Tissue Removed: slough Amount of bleeding with debridement: Mild Bleeding Controlled with: Pressure Patient tolerated procedure: Patient tolerated procedure well Post-Debridement Measurements and Additional Note: Post-Debridement Measurements/Treatment - Nurse 1 - General Ulcer Assessment Start: 02/19/23 10:16 Freq: Status: Active Protocol: ERIK.SAHRA Activity Type Activity Date Activity User E-sign Co-sign Detail Recorded Client Recorded Date Recorded By Document 02/19/23 10:17 JAMES [id number] 02/19/23 10:24 JAMES 02/19/23 10:17 - Today's Visit Information Type of service 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/DOOR FRAME BUILDER ) Arrival Mode Ambulatory Patient Identification Verified (Name & Yes ) Patient Requires Transmission-Based No Precautions Vital Signs Temperature (97.8 F-99.1 F) 96.5 F L Temperature Source Temporal Pulse Rate (60-100) 74 Pulse Location Monitor Respiratory Rate (12-18) 16 Respiratory rate source Observation Blood Pressure (90/60-120/80) 144/84 H Blood Pressure Mean (mm Hg) 104 Source Monitor Position Semi-Fowlers Blood Pressure Location Left Arm History Since Last Visit- (Skip if this is Patient's initial visit) Have you changed medications since your No last visit? Any new allergies or adverse reactions No Had a fall/change in ADL's that may No increase risk of falls Signs or symptoms of abuse and/or No neglect since last visit Have you been in the hospital since your No last visit? Has dressing in place as prescribed Yes Has compression in place as prescribed Yes Has offloadiing in place as prescribed N/A Experienced any changes in pain level or No management Left Footwear Regular Shoe Right Footwear Regular Shoe Pain Scale: 0-10 Numeric Is Patient Pain Free? Yes WC - Nurse 1 - General Ulcer Measurement Start: 02/19/23 10:16 Freq: Status: Active Protocol: Activity Type Activity Date Activity User E-sign Co-sign Detail Recorded Client Recorded Date Recorded By Document 02/19/23 10:17 JAMES [id number] 02/19/23 10:24 JAMES 02/19/23 10:17 Wound Center Nurse 1 #2 L med ankle cluster -Combined with other wound No -Current Size (cm) - Length 4.7 -Current Size (cm) - Width 1.0 -Current Size (cm) - Depth 0.1 -Total Square Cm 4.70 -Photo Taken Yes -Epithelialization None Present -Tunneling No -Undermining/Tunneling No -Circular Undermining No -Exudate Amt Medium -Exudate Type Serosanguineous -Wound Margin Flat & Intact -Granulation Amt Small (1-33%) -Granulation Quality Red -Slough/Fibrin Yes -Necrosis Amt Large (67-100%) -Necrotic Tissue Type Adherent Slough -Structure Exposed N/A -Texture (Darlene-wound Skin Appearance) Assessed, Localized Edema -Moisture (Darlene-wound Skin Appearance) Assessed -Color (Darlene-wound Skin Appearance) Assessed, Hemosiderin Staining -Temperature (Darlene-wound Skin No Abnormality Appearance) (Pt Warm) -Tenderness on Palpation (Darlene-wound No Skin Appearance) -Ulcer Cleansing Rinsed/ Irrigated with Saline -Foul Odor after Cleansing No -Anesthetic Used 5% Lidocaine Gel Lower Limb Edema Present Yes Left Calf (cm) 42.5 Left Ankle (cm) 24.5 - Nurse 3 - General Ulcer D/C NN Start: 02/19/23 10:16 Freq: Status: Active Protocol: Activity Type Activity Date Activity User E-sign Co-sign Detail Recorded Client Recorded Date Recorded By Document 02/19/23 10:56 JAMES [id number] 02/19/23 10:57 JAMES 02/19/23 10:56 Wound Care Center Nurse 3 #2 L med ankle cluster -Ulcer Cleansing Rinsed/ Irrigated with Saline -Foul Odor after Cleansing No -Primary Dressing Applied Aquacel Extra -Other Dressing hydrogel since santyl was not available -Primary Dressing Covered/Secured with Dry Gauze & Roll Gauze, Secured with Tape -Aquacel Extra 1 Left -Tubular Bandage Double Layer -Size of Tubigrip Used Size D -Size D ($) 2 Pain Scale: 0-10 Numeric Is Patient Pain Free? Yes WC - Visit Discharge Discharge Condition Stable Ambulatory Status Ambulatory Transportation Private Auto Medication Reconcilliation completed & Yes provided to patient/care provider Clinical Summary of Care Provided Yes Assessment/Plan Assessment/Plan (1) Ulcer of extremity due to chronic venous insufficiency: CODE(S): L98.499 - Non-pressure chronic ulcer of skin of other sites with unspecified severity; I87.2 - Venous insufficiency (chronic) (peripheral) (2) Ulcer of left lower extremity with fat layer exposed: CODE(S): L97.922 - Non-pressure chronic ulcer of unspecified part of left lower leg with fat layer exposed PLAN: Complete antibiotics as prescribed. Continue to apply nickel-thick layer of santyl to wound base, aquacel silver over top. Periwound skin is improved. Will continue with gauze wrap for secondary dressing. Change at least once daily, more often as needed to keep clean and dry. Do not submerge the wound in water such as in a bath/pool/hot tub. Continue high-strength compression 40-50mmHg with tubigrips. Return to clinic in 2 weeks as I am out next week.
[2023-02-26 10:28] VITALS: BP 144/86; PULSE 76; RESP 18; TEMP 36.4
[2023-03-12 10:26] VITALS: BP 139/83; PULSE 77; RESP 16
--- NOTE | 2023-03-12 11:14 | PCM.WC.PN ---
History of Present Illness Date of Service: 03/12/23 Chief Complaint: Left medial, distal leg non healing ulcer History of Wound: Patient presents to [facility] for evaluation and management of left medial malleolus ulcer which has been present since the end of October. Patient is well known to me from the vascular office. Dr. Olson performed a venogram on 07/22/22 which was negative for significant central venous compression. On 12/03/2022, Dr. Olsno performed radiofrequency ablation of the left above knee GSV. She is well known to the wound care center as well, has received care for prior ulcers here. She was last discharged from [facility] on 09/03/22, at that time she had a left medial leg ulcer (not the same location as current one). She was discharged with instructions to obtain new measured compression stockings, she has not done so yet. She has been taking her coumadin as directed. She has had significantly increased pain in this wound over the last few weeks. 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 After these shifts, her swelling and pain is much worse. She denies fevers, chills, nausea, vomiting. Subjective Subjective She saw Dr. Olson last week, she is scheduled for a glue ablation of below knee GSV/ASV. Her pain has been stable, tenderness just around the wound. No new or worsening redness, swelling, drainage, foul odor. No N/V, F/C. She continues to wear compression as directed. Objective Data Objective Data Vital Signs: Vital Signs Temp Pulse Resp BP O2 Del Method 97.5 F L 77 16 139/83 H Room Air 02/26/23 10:28 03/12/23 10:26 03/12/23 10:26 03/12/23 10:26 03/12/23 10:26 Oxygen Delivery Method Room Air Charges/Coding Visit Charges Office Visits / Consults: 21852 OV L3 Est Physical Exam Narrative Const General: cooperative Nutritional Appearance: well nourished Orientation: alert, awake and oriented x3 Resp Effort & Inspection: able to speak in complete sentences Skin General: no rashes or lesions noted and no erythema Wounds: left medial malleolus wound with minimal slough, significantly reduced in size from last week and significantly less erythema, drainage, and maceration. Still TTP, but back to her usual tenderness. Extremities Lower Extremity Edema: 1+: Bilateral Additional Details: Significant hemosiderin staining and chronic venous stasis skin changes of LLE. Psych Appearance: grossly normal and well kempt Mental Status: mental status grossly normal Speech and Movement: speech and movement normal Debridement Note Debridement Note No debridement was completed: No debridement was completed today Post-Debridement Measurements and Additional Note: Post-Debridement Measurements/Treatment - Nurse 1 - General Ulcer Assessment Start: 02/19/23 10:16 Freq: Status: Active Protocol: FLO Activity Type Activity Date Activity User E-sign Co-sign Detail Recorded Client Recorded Date Recorded By Document 02/19/23 10:17 JF [id number] 02/19/23 10:24 JF Document 02/26/23 10:28 DL [id number] 02/26/23 10:36 DL Document 03/12/23 10:26 RB [id number] 03/12/23 10:28 RB 02/19/23 02/26/23 03/12/23 10:17 10:28 10:26 - Today's Visit Information Type of service Follow-up Visit Follow-up Visit 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/BULLET CHARGING MACHINE OPERATOR (Physician/BULLET CHARGING MACHINE OPERATOR (Physician/BULLET CHARGING MACHINE OPERATOR ) ) ) Arrival Mode Ambulatory Ambulatory Ambulatory Transfer Assistance None None Patient Identification Verified (Name & Yes Yes Yes ) Patient Requires Transmission-Based No No No Precautions Vital Signs Temperature (97.8 F-99.1 F) 96.5 F L 97.5 F L Temperature Source Temporal Temporal Pulse Rate (60-100) 74 76 77 Pulse Location Monitor Monitor Monitor Respiratory Rate (12-18) 16 18 16 Respiratory rate source Observation Observation Observation Oxygen Delivery Method Room Air Blood Pressure (90/60-120/80) 144/84 H 144/86 H 139/83 H Blood Pressure Mean (mm Hg) 104 105 101 Source Monitor Monitor Monitor Position Semi-Fowlers Sitting Blood Pressure Location Left Arm Right Arm History Since Last Visit- (Skip if this is Patient's initial visit) Have you changed medications since your No No No last visit? Any new allergies or adverse reactions No No No Had a fall/change in ADL's that may No No No increase risk of falls Signs or symptoms of abuse and/or No No No neglect since last visit Have you been in the hospital since your No No No last visit? Has dressing in place as prescribed Yes Yes Yes Has compression in place as prescribed Yes Yes Yes Has offloadiing in place as prescribed N/A N/A N/A Experienced any changes in pain level or No No No management Left Footwear Regular Shoe Regular Shoe Right Footwear Regular Shoe Regular Shoe Pain Scale: 0-10 Numeric Is Patient Pain Free? Yes Yes Yes WC - Nurse 1 - General Ulcer Measurement Start: 02/19/23 10:16 Freq: Status: Active Protocol: Activity Type Activity Date Activity User E-sign Co-sign Detail Recorded Client Recorded Date Recorded By Document 02/19/23 10:17 JF [id number] 02/19/23 10:24 JF Document 02/26/23 10:28 DL [id number] 02/26/23 10:36 DL Document 03/12/23 10:26 RB [id number] 03/12/23 10:28 RB 02/19/23 02/26/23 03/12/23 10:17 10:28 10:26 Wound Center Nurse 1 #2 L med ankle cluster -Combined with other wound No No -Current Size (cm) - Length 4.7 5 0.1 -Current Size (cm) - Width 1.0 1 0.1 -Current Size (cm) - Depth 0.1 0.2 0.1 -Total Square Cm 4.70 5 0.01 -Photo Taken Yes No -Epithelialization None Present Medium 34-66% -Tunneling No No -Undermining/Tunneling No No -Circular Undermining No No -Exudate Amt Medium Medium Medium -Exudate Type Serosanguineous Serosanguineous Serosanguineous -Wound Margin Flat & Intact Distinct, Distinct, Outline Outline Attached Attached -Granulation Amt Small (1-33%) Medium (34-66%) Medium (34-66%) -Granulation Quality Red Red Red -Slough/Fibrin Yes Yes -Necrosis Amt Large (67-100%) Small (1-33%) Medium (34-66%) -Necrotic Tissue Type Adherent Slough Adherent Slough Adherent Slough -Structure Exposed N/A N/A -Texture (Darlene-wound Skin Appearance) Assessed, Scarring,Rash Assessed, Localized Edema Scarring -Moisture (Darlene-wound Skin Appearance) Assessed Assessed,Dry/ Scaly -Color (Darlene-wound Skin Appearance) Assessed, Erythema, No Abnormality, Hemosiderin Hemosiderin Hemosiderin Staining Staining Staining -Temperature (Darlene-wound Skin No Abnormality No Abnormality No Abnormality Appearance) (Pt Warm) (Pt Warm) (Pt Warm) -Tenderness on Palpation (Darlene-wound No Yes Skin Appearance) -Ulcer Cleansing Rinsed/ Rinsed/ Soap and Water Irrigated with Irrigated with Saline Saline -Foul Odor after Cleansing No No No -Anesthetic Used 5% Lidocaine 5% Lidocaine 5% Lidocaine Gel Gel Gel Lower Limb Edema Present Yes Yes Left Calf (cm) 42.5 38.5 41 Left Ankle (cm) 24.5 23 24 WC - Nurse 2 - General Ulcer CM Notes Start: 02/19/23 10:16 Freq: Status: Active Protocol: Activity Type Activity Date Activity User E-sign Co-sign Detail Recorded Client Recorded Date Recorded By Document 02/26/23 11:50 PL [id number] 02/26/23 11:51 PL 02/26/23 11:50 Wound Center Nurse 2 #2 L med ankle cluster -Post Debridement (cm) - Length 2.2 -Post Debridement (cm) - Width 0.6 -Post Debridement (cm) - Depth 0.1 -Total Square (Post) (cm) 1.32 Pain Scale: 0-10 Numeric Is Patient Pain Free? Yes - Nurse 3 - General Ulcer D/C NN Start: 02/19/23 10:16 Freq: Status: Active Protocol: Activity Type Activity Date Activity User E-sign Co-sign Detail Recorded Client Recorded Date Recorded By Document 02/19/23 10:56 [id number] 02/19/23 10:57 Document 02/26/23 11:40 KW [id number] 02/26/23 11:41 KW Document 03/12/23 10:57 [facility] [id number] 03/12/23 10:57 BM 02/19/23 02/26/23 03/12/23 10:56 11:40 10:57 Wound Care Center Nurse 3 #2 L med ankle cluster -Ulcer Cleansing Rinsed/ Rinsed/ Rinsed/ Irrigated with Irrigated with Irrigated with Saline Saline Saline -Foul Odor after Cleansing No No -Primary Dressing Applied Aquacel Extra Aquacel Extra Aquacel Extra -Other Dressing hydrogel since HYDROGEL santyl was not available -Primary Dressing Covered/Secured with Dry Gauze & Dry Gauze & Dry Gauze, Roll Gauze, Roll Gauze, Secured with Secured with Secured with Tape Tape Tape -Aquacel Extra 1 1 1 Left -Tubular Bandage Double Layer Double Layer -Size of Tubigrip Used Size D Size D -Size D ($) 2 2 Treatment Response Procedure Tolerated Well Pain Scale: 0-10 Numeric Is Patient Pain Free? Yes Yes Yes WC - Visit Discharge Discharge Condition Stable Stable Stable Ambulatory Status Ambulatory Ambulatory Ambulatory Transportation Private Auto Private Auto Private Auto Medication Reconcilliation completed & Yes No provided to patient/care provider Clinical Summary of Care Provided Yes Yes Assessment/Plan Assessment/Plan (1) Ulcer of extremity due to chronic venous insufficiency: CODE(S): L98.499 - Non-pressure chronic ulcer of skin of other sites with unspecified severity; I87.2 - Venous insufficiency (chronic) (peripheral) (2) Ulcer of left lower extremity with fat layer exposed: CODE(S): L97.922 - Non-pressure chronic ulcer of unspecified part of left lower leg with fat layer exposed PLAN: Continue to apply nickel-thick layer of santyl to wound base, aquacel extra over top. Periwound skin is improved. Will continue with gauze wrap for secondary dressing. Change at least once daily, more often as needed to keep clean and dry. Do not submerge the wound in water such as in a bath/pool/hot tub. Continue high-strength compression 40-50mmHg with tubigrips. Return to clinic in 2 weeks.
== END 2023-03-15 23:59 | disposition home or self-care (01) ==
LOC: WC 15:00
PROVIDERS: PCP Internal Medicine; Referring Provider Internal Medicine; Visit Provider Physician Assistant
DX: L98.499 Non-pressure chronic ulcer of skin of other sites with unspecified severity (principal); L97.922 Non-pressure chronic ulcer of unspecified part of left lower leg with fat layer exposed; I87.2 Venous insufficiency (chronic) (peripheral); Z79.01 Long term (current) use of anticoagulants
CPT/HCPCS: 93923; 93970; 99213; 99214; G0463

== ENCOUNTER 2023-03-25 07:02 | Day surgery (SDC) | payer MEDICAID, SELFPAY ==
[2023-03-24 07:09] VITALS: BMI 38.4
[2023-03-25 07:12] LABS: INR Fingerstick 1.6; Prothrombin Time Fingerstick 18.1 SEC (11.7-14.9)
--- NOTE | 2023-03-25 11:24 | PCM.OPRPT ---
Report of Operation Date of Procedure: 03/25/23 Pre-Operative Diagnosis: venous insufficiency with ulceration Post-Operative Diagnosis: same Surgery/Procedure Performed:: chemical ablation left great saphenous vein, below knee Surgeon: Gavino Olson Type of Anesthesia: Local and Sedation,Conscious Estimated Blood Loss (mL): 2 Description of Procedure: HPI: Patient is a 48-year-old female with recurrent left lower extremity venous wounds with extensive venous valvular reflux. She previously underwent a above-knee saphenous ablation which resulted in healing of some of her wounds but shortly after developed subsequent other wounds. She has saphenous vein reflux below the knee which has not yet been treated. She presents now for chemical ablation of the left greater saphenous vein below the knee. Description of procedure: Upon obtaining form consent and verification. Patient procedure site patient taken the Platform Architect where she was positioned prepped and draped in usual sterile fashion. Time was performed conscious sedation ministered with Versed and fentanyl. Skin overlying the saphenous vein was anesthetized with 1% lidocaine just superior to the medial malleolus. The great saphenous was then accessed under ultrasound guidance in retrograde fashion with a micropuncture needle wire. This was then exchanged for a 7 Bulgarian venous seal sheath. Through the sheath the starter wire was advanced and navigated through the saphenous to a point just below the previous ablation in the distal thigh. The ablation catheter was then advanced over the wire and positioned in the distal thigh great saphenous vein. The cyanoacrylate glue delivery catheter was then prepped and advanced through the outer catheter and positioned in the distal thigh great saphenous vein. Glue was then sequentially deposited along the great saphenous vein for a total length of 35 cm treatment zone with 0.9 cc of cyanoacrylate glue used. After completing this treatment zone the sheath and catheter withdrawn and manual pressure held after which satisfactory stasis was noted. Dry sterile dressing and compression Donaldo wrap were then applied the patient was awakened her sedation. She was taken to the recovery room with anticipated discharge home. Grafts/Implants Used: 0.9 cc cyanoacrylate; 35 cm treatment length
== END 2023-03-25 10:05 | disposition home or self-care (01) ==
PROVIDERS: PCP Internal Medicine; Referring Provider Surgery Trauma Surgery; Visit Provider Surgery Trauma Surgery
DX: I87.2 Venous insufficiency (chronic) (peripheral) (principal); L98.499 Non-pressure chronic ulcer of skin of other sites with unspecified severity; E11.9 Type 2 diabetes mellitus without complications; I83.90 Asymptomatic varicose veins of unspecified lower extremity; Z87.891 Personal history of nicotine dependence; F12.90 Cannabis use, unspecified, uncomplicated; Z86.718 Personal history of other venous thrombosis and embolism; Z86.711 Personal history of pulmonary embolism
CPT/HCPCS: 36416; 36482; 85610; 99152; 99153; C1894; J7040

== ENCOUNTER 2023-04-08 14:15 | Outpatient (RCR) | payer MEDICAID, SELFPAY ==
[2023-03-16 00:37] VITALS: BP 139/83; PULSE 77; RESP 16; TEMP 36.4
[2023-03-26 10:27] VITALS: RESP 18; TEMP 35.6
--- NOTE | 2023-03-26 15:58 | PN.PCM_ITS ---
History of Present Illness Date of Service: 03/26/23 Chief Complaint: Left medial, distal leg non healing ulcer History of Wound: Patient presents to [facility] for evaluation and management of left medial malleolus ulcer which has been present since the end of October. Patient is well known to me from the vascular office. Dr. Olson performed a venogram on 07/22/22 which was negative for significant central venous compression. On 12/03/2022, Dr. 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 She is well known to the wound care center as well, has received care for prior ulcers here. She was last discharged from [facility] on 09/03/22, at that time she had a left medial leg ulcer (not the same location as current one). She was discharged with instructions to obtain new measured compression stockings, she has not done so yet. She has been taking her coumadin as directed. 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 On 03/25/23, she had glue ablation of left below knee GSV/ASV. She tolerated the procedure well. She has been wearing the compression wraps as directed. Subjective Subjective Doing well following ablation, wearing compression and restarted her coumadin today as directed. Since last visit and even before ablation wound was improving in appearance. The open areas have significantly reduced in size, <0.5cm in 2 spots. She has not been applying the Santly this past week due to the decreased size. She has been applying Aquacel and dry dressing as directed. Objective Data Objective Data Vital Signs: Vital Signs Temp Pulse Resp BP 96.0 F L 77 18 139/83 H 03/26/23 10:27 03/16/23 00:37 03/26/23 10:03/16/23 00:37 Charges/Coding Visit Charges Office Visits / Consults: 99513 OV L3 Est Physical Exam Narrative Const General: cooperative Nutritional Appearance: well nourished Orientation: alert, awake and oriented x3 Resp Effort & Inspection: able to speak in complete sentences Skin General: no rashes or lesions noted and no erythema Wounds: left medial malleolus wound with minimal slough, significantly reduced in size from last visit, open areas <0.5 cm. Extremities Lower Extremity Edema: 1+: Bilateral Additional Details: Significant hemosiderin staining and chronic venous stasis skin changes of LLE. Psych Appearance: grossly normal and well kempt Mental Status: mental status grossly normal Speech and Movement: speech and movement normal Debridement Note Debridement Note No debridement was completed: No debridement was completed today Post-Debridement Measurements and Additional Note: Post-Debridement Measurements/Treatment ERIK Roman Nurse 1 - General Ulcer Assessment Start: 03/26/23 10:27 Freq: Status: Active Protocol: FLO Activity Type Activity Date Activity User E-sign Co-sign Detail Recorded Client Recorded Date Recorded By Document 03/26/23 10:27 JF [id number] 03/26/23 10:32 03/26/23 10:27 - Today's Visit Information Type of service 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/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 Any new allergies or adverse reactions No Had a fall/change in ADL's that may No increase risk of falls Have you been in the hospital since your No last visit? Has dressing in place as prescribed Yes Has compression in place as prescribed Yes Has offloadiing in place as prescribed N/A Experienced any changes in pain level or No management Left Footwear Regular Shoe Right Footwear Regular Shoe Pain Scale: 0-10 Numeric Is Patient Pain Free? Yes Jessie Nurse 1 - General Ulcer Measurement Start: 03/26/23 10:27 Freq: Status: Active Protocol: Activity Type Activity Date Activity User E-sign Co-sign Detail Recorded Client Recorded Date Recorded By Document 03/26/23 10:27 JF [id number] 03/26/23 10:32 03/26/23 10:27 Wound Center Nurse 1 #2 L med ankle cluster -Combined with other wound No -Current Size (cm) - Length 0.1 -Current Size (cm) - Width 0.1 -Current Size (cm) - Depth 0.1 -Total Square Cm 0.01 -Photo Taken Yes -Epithelialization Large 67-100% -Tunneling No -Undermining/Tunneling No -Circular Undermining No -Exudate Amt None Present -Wound Margin Indistinct, Non -Visible -Granulation Amt None Present (0 %) -Slough/Fibrin No -Structure Exposed N/A -Texture (Darlene-wound Skin Appearance) Assessed, Localized Edema -Moisture (Darlene-wound Skin Appearance) Assessed,Dry/ Scaly -Color (Darlene-wound Skin Appearance) Assessed, Hemosiderin Staining -Temperature (Darlene-wound Skin No Abnormality Appearance) (Pt Warm) -Tenderness on Palpation (Darlene-wound No Skin Appearance) -Ulcer Cleansing Rinsed/ Irrigated with Saline -Foul Odor after Cleansing No -Anesthetic Used 5% Lidocaine Gel Lower Limb Edema Present Yes Left Calf (cm) 39.2 Left Ankle (cm) 27.3 - Nurse 3 - General Ulcer D/C NN Start: 03/26/23 10:27 Freq: Status: Active Protocol: Activity Type Activity Date Activity User E-sign Co-sign Detail Recorded Client Recorded Date Recorded By Document 03/26/23 11:55 [id number] 03/26/23 11:56 03/26/23 11:55 Wound Care Center Nurse 3 #2 L med ankle cluster -Ulcer Cleansing Rinsed/ Irrigated with Saline -Foul Odor after Cleansing No -Primary Dressing Applied Aquacel Extra -Other Dressing hydrogel -Primary Dressing Covered/Secured with Dry Gauze & Roll Gauze, Secured with Tape -Aquacel Extra 1 Left -Compression Wrap Donaldo Wrap -Other 4 and 6 inch used to left leg Pain Scale: 0-10 Numeric Is Patient Pain Free? Yes - Visit Discharge Discharge Condition Stable Ambulatory Status Ambulatory Transportation Private Auto Medication Reconcilliation completed & Yes provided to patient/care provider Assessment/Plan Assessment/Plan (1) Ulcer of extremity due to chronic venous insufficiency: CODE(S): L98.499 - Non-pressure chronic ulcer of skin of other sites with unspecified severity; I87.2 - Venous insufficiency (chronic) (peripheral) (2) Ulcer of left lower extremity with fat layer exposed: CODE(S): L97.922 - Non-pressure chronic ulcer of unspecified part of left lower leg with fat layer exposed PLAN: Continue to apply nickel-thick layer of santyl to the open areas, aquacel extra over top. Continue with gauze wrap for secondary dressing. Change at least once daily, more often as needed to keep clean and dry. Do not submerge the wound in water such as in a bath/pool/hot tub. Continue high-strength compression 40-50mmHg with tubigrips. Return to clinic in 3 weeks.
[2023-04-08 14:21] VITALS: BP 160/82; PULSE 69; RESP 18; TEMP 36.3
--- NOTE | 2023-04-09 12:38 | PN.PCM_ITS ---
History of Present Illness Date of Service: 04/09/23 Chief Complaint: Left medial, distal leg non healing ulcer History of Wound: Patient presents to [facility] for evaluation and management of left medial malleolus ulcer which has been present since the end of October. Patient is well known to me from the vascular office. Dr. Olson performed a venogram on 07/22/22 which was negative for significant central venous compression. On 12/03/2022, Dr. 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 She is well known to the wound care center as well, has received care for prior ulcers here. She was last discharged from [facility] on 09/03/22, at that time she had a left medial leg ulcer (not the same location as current one). She was discharged with instructions to obtain new measured compression stockings, she has not done so yet. She has been taking her coumadin as directed. 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 On 03/25/23, she had glue ablation of left below knee GSV/ASV. She tolerated the procedure well. She has been wearing the compression wraps as directed. Subjective Subjective Wound has decreased in size, now only 3 open areas, smaller than an eraser head. Still with some redness/irritation at the inferior aspect of the wound at the ankle/top of the foot. She continues to apply santyl, aquacel, and dry gauze dressing. She continues to be consistent with compression. She has been working more than usual lately. Objective Data Objective Data Vital Signs: Vital Signs Temp Pulse Resp BP 97.3 F L 69 18 160/82 H 04/08/23 14:21 04/08/23 14:21 04/08/23 14:21 04/08/23 14:21 Charges/Coding Procedures Integumentary 111xxx-113xx: [id number] Shefali subq tissue 20 sq cm/< Physical Exam Narrative Const General: cooperative Nutritional Appearance: well nourished Orientation: alert, awake and oriented x3 Resp Effort & Inspection: able to speak in complete sentences Skin General: no rashes or lesions noted and no erythema Wounds: left medial malleolus wound with minimal slough, only 3 small open areas remaining Extremities Lower Extremity Edema: 1+: Bilateral Additional Details: Significant hemosiderin staining and chronic venous stasis skin changes of LLE. Psych Appearance: grossly normal and well kempt Mental Status: mental status grossly normal Speech and Movement: speech and movement normal Debridement Note Debridement Note Wound debrided: L ankle Type of Debridement: Selective debridement Anesthesia Used: 5% Lidocaine Gel Percentage of wound debrided: 50 Tissue Removed: slough, devitalized tissue Amount of bleeding with debridement: None Post-Debridement Measurements and Additional Note: Post-Debridement Measurements/Treatment - Nurse 1 - General Ulcer Assessment Start: 03/26/23 10:27 Freq: Status: Active Protocol: FLO Activity Type Activity Date Activity User E-sign Co-sign Detail Recorded Client Recorded Date Recorded By Document 03/26/23 10:27 JAMES [id number] 03/26/23 10:32 JF Document 04/08/23 14:21 RB [id number] 04/08/23 14:23 RB 03/26/23 04/08/23 10:27 14:21 - Today's Visit Information Type of service Follow-up Visit 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/CANCELING AND CUTTING CONTROL CLERK (Physician/CANCELING AND CUTTING CONTROL CLERK ) ) Arrival Mode Ambulatory Ambulatory Transfer Assistance None Patient Identification Verified (Name & Yes Yes ) Patient Requires Transmission-Based No No Precautions Vital Signs Temperature (97.8 F-99.1 F) 96.0 F L 97.3 F L Temperature Source Temporal Temporal Pulse Rate (60-100) 69 Pulse Location Monitor Respiratory Rate (12-18) 18 18 Respiratory rate source Observation Observation Blood Pressure (90/60-120/80) 160/82 H Blood Pressure Mean (mm Hg) 108 Source Monitor Position Semi-Fowlers Blood Pressure Location Left Arm History Since Last Visit- (Skip if this is Patient's initial visit) Have you changed medications since your No No last visit? Any new allergies or adverse reactions No No Had a fall/change in ADL's that may No No increase risk of falls Signs or symptoms of abuse and/or No neglect since last visit Have you been in the hospital since your No No last visit? Has dressing in place as prescribed Yes Yes Has compression in place as prescribed Yes Yes Has offloadiing in place as prescribed N/A No Experienced any changes in pain level or No No management Left Footwear Regular Shoe Right Footwear Regular Shoe Pain Scale: 0-10 Numeric Is Patient Pain Free? Yes Yes ERIK - Nurse 1 - General Ulcer Measurement Start: 03/26/23 10:27 Freq: Status: Active Protocol: Activity Type Activity Date Activity User E-sign Co-sign Detail Recorded Client Recorded Date Recorded By Document 03/26/23 10:27 JF [id number] 03/26/23 10:32 JF Document 04/08/23 14:21 RB [id number] 04/08/23 14:23 RB 03/26/23 04/08/23 10:27 14:21 Wound Center Nurse 1 #2 L med ankle cluster -Combined with other wound No No -Current Size (cm) - Length 0.1 1.5 -Current Size (cm) - Width 0.1 1 -Current Size (cm) - Depth 0.1 0.1 -Total Square Cm 0.01 1.5 -Photo Taken Yes Yes -Epithelialization Large 67-100% -Tunneling No No -Undermining/Tunneling No No -Circular Undermining No No -Exudate Amt None Present Medium -Exudate Type Serosanguineous -Wound Margin Indistinct, Non Distinct, -Visible Outline Attached -Granulation Amt None Present (0 Medium (34-66%) %) -Granulation Quality [place] -Slough/Fibrin No Yes -Necrosis Amt Medium (34-66%) -Necrotic Tissue Type Adherent Slough -Structure Exposed N/A N/A -Texture (Darlene-wound Skin Appearance) Assessed, Assessed Localized Edema -Moisture (Darlene-wound Skin Appearance) Assessed,Dry/ Maceration Scaly -Color (Darlene-wound Skin Appearance) Assessed, Assessed Hemosiderin Staining -Temperature (Darlene-wound Skin No Abnormality No Abnormality Appearance) (Pt Warm) (Pt Warm) -Tenderness on Palpation (Darlene-wound No No Skin Appearance) -Ulcer Cleansing Rinsed/ Wound Cleanser Irrigated with Saline -Foul Odor after Cleansing No No -Anesthetic Used 5% Lidocaine 5% Lidocaine Gel Gel Lower Limb Edema Present Yes Left Calf (cm) 39.2 41.5 Left Ankle (cm) 27.3 24.8 ERIK - Nurse 3 - General Ulcer D/C NN Start: 03/26/23 10:27 Freq: Status: Active Protocol: Activity Type Activity Date Activity User E-sign Co-sign Detail Recorded Client Recorded Date Recorded By Document 03/26/23 11:55 JF [id number] 03/26/23 11:56 JF Document 04/08/23 14:49 DL [id number] 04/08/23 14:50 DL 03/26/23 04/08/23 11:55 14:49 Wound Care Center Nurse 3 #2 L med ankle cluster -Ulcer Cleansing Rinsed/ Rinsed/ Irrigated with Irrigated with Saline Saline -Foul Odor after Cleansing No No -Primary Dressing Applied Aquacel Extra Aquacel Extra -Other Dressing hydrogel -Primary Dressing Covered/Secured with Dry Gauze & Dry Gauze & Roll Gauze, Roll Gauze, Secured with Secured with Tape Tape -Aquacel Extra 1 1 Left -Compression Wrap Donaldo Wrap -Tubular Bandage Single Layer -Size of Tubigrip Used Size D -Size D ($) 1 -Other 4 and 6 inch used to left leg Treatment Response Procedure Tolerated Well Pain Scale: 0-10 Numeric Is Patient Pain Free? Yes Yes WC - Visit Discharge Discharge Condition Stable Stable Ambulatory Status Ambulatory Ambulatory Transportation Private Auto Private Auto Medication Reconcilliation completed & Yes provided to patient/care provider Assessment/Plan Assessment/Plan (1) Ulcer of extremity due to chronic venous insufficiency: CODE(S): L98.499 - Non-pressure chronic ulcer of skin of other sites with unspecified severity; I87.2 - Venous insufficiency (chronic) (peripheral) (2) Ulcer of left lower extremity with fat layer exposed: CODE(S): L97.922 - Non-pressure chronic ulcer of unspecified part of left lower leg with fat layer exposed PLAN: Stop Santly. Apply Aquacel extra to wound beds. Continue with dry dressing over top. Change dressing at least twice daily, before and after work. Change dressing more often if it becomes soiled. Do not submerge the wound in water such as in a bath/pool/hot tub. Continue high-strength compression 40-50mmHg with tubigrips. She was encouraged to obtain measured compression stockings as prescribed. Return to clinic in 2 weeks.
== END 2023-04-15 23:59 | disposition home or self-care (01) ==
LOC: WC 14:15
PROVIDERS: PCP Internal Medicine; Referring Provider Internal Medicine; Visit Provider Physician Assistant
DX: L97.922 Non-pressure chronic ulcer of unspecified part of left lower leg with fat layer exposed (principal); I87.2 Venous insufficiency (chronic) (peripheral); Z79.01 Long term (current) use of anticoagulants
CPT/HCPCS: 99213; G0463

== ENCOUNTER 2023-04-22 15:30 | Outpatient (CLI) | payer MEDICAID, SELFPAY ==
--- NOTE | 2023-04-22 15:32 | VDLE_ITS ---
Reason For Study: Left leg pain Procedure LEFT This is a venous duplex using B-mode, color GSV is normal. flow and spectral Doppler. CFV is compressible, spontaneous, phasic, Exam performed in department. competent, and demonstrates normal A preliminary report was called and/or faxed augmentation. to Becky. FV is compressible, spontaneous, phasic, competent and demonstrates normal augmentation. T/P Trunk is compressible. PTV is compressible. LT PerV is compressible. PopV is partially compressible with bright intraluminal echoes consistent with Chronic DVT. Normal venous flow with augmentation. GSV and ASV are occluded s/p ablation. Varicose veins in calf are noncompressible. VL/Venous Duplex US, Unilateral Interpretation Summary Chronic deep vein thrombosis is noted in the left popliteal vein. Left great saphenous vein and accessory saphenous vein occluded s/p ablation. A djacent calf varicosities occluded Ordering Physician: Karyna Mccurdy Referring Physician: Carla Fountain Performed By: Deanna Griffin RVT
== END 2023-04-22 23:59 | disposition home or self-care (01) ==
PROVIDERS: PCP Internal Medicine; Referring Provider Physician Assistant; Visit Provider Physician Assistant
DX: I87.2 Venous insufficiency (chronic) (peripheral) (principal); L97.922 Non-pressure chronic ulcer of unspecified part of left lower leg with fat layer exposed; I82.532 Chronic embolism and thrombosis of left popliteal vein; Z79.01 Long term (current) use of anticoagulants
CPT/HCPCS: 93971; 99213; G0463

== ENCOUNTER 2023-05-06 14:30 | Outpatient (RCR) | payer MEDICAID, SELFPAY ==
[2023-04-16 00:37] VITALS: BP 160/82; PULSE 69; RESP 18; TEMP 36.3
[2023-04-22 14:23] VITALS: BP 143/78; PULSE 68; RESP 18; TEMP 35.9
--- NOTE | 2023-04-23 13:26 | PN.PCM_ITS ---
History of Present Illness Date of Service: 04/23/23 Chief Complaint: Left medial, distal leg non healing ulcer History of Wound: Patient presents to [facility] for evaluation and management of left medial malleolus ulcer which has been present since the end of October. Patient is well known to me from the vascular office. Dr. Olson performed a venogram on 07/22/22 which was negative for significant central venous compression. On 12/03/2022, Dr. 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 She is well known to the wound care center as well, has received care for prior ulcers here. She was last discharged from [facility] on 09/03/22, at that time she had a left medial leg ulcer (not the same location as current one). She was discharged with instructions to obtain new measured compression stockings, she has not done so yet. She has been taking her coumadin as directed. 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 On 03/25/23, she had glue ablation of left below knee GSV/ASV. She tolerated the procedure well. She has been wearing the compression wraps as directed. Subjective Subjective She continues to have skin irritation and discomfort around the L medial malleolus. She is concerned the open areas are enlarging again. She is not noticing increased drainage, redness, fould odor, N/V, F/C. She has been wearing compression as directed. She is getting U/S today in f/u from her venous ablation. Objective Data Objective Data Vital Signs: Vital Signs Temp Pulse Resp BP O2 Del Method 96.7 F L 68 18 143/78 H Room Air 04/22/23 14:23 04/22/23 14:23 04/22/23 14:23 04/22/23 14:23 04/22/23 14:23 Oxygen Delivery Method Room Air Charges/Coding Visit Charges Office Visits / Consults: 15325 OV L3 Est Physical Exam Narrative Const General: cooperative Nutritional Appearance: well nourished Orientation: alert, awake and oriented x3 Resp Effort & Inspection: able to speak in complete sentences Skin General: no rashes or lesions noted and no erythema Wounds: left medial malleolus wound with minimal slough, only 2 small open area s remaining Extremities Lower Extremity Edema: 1+: Bilateral Additional Details: Significant hemosiderin staining and chronic venous stasis skin changes of LLE. Psych Appearance: grossly normal and well kempt Mental Status: mental status grossly normal Speech and Movement: speech and movement normal Debridement Note Debridement Note No debridement was completed: No debridement was completed today Post-Debridement Measurements and Additional Note: Post-Debridement Measurements/Treatment ERIK - Nurse 1 - General Ulcer Assessment Start: 04/22/23 14:23 Freq: Status: Active Protocol: FLO Activity Type Activity Date Activity User E-sign Co-sign Detail Recorded Client Recorded Date Recorded By Document 04/22/23 14:23 KW [id number] 04/22/23 14:33 KW 04/22/23 14:23 WC - Today's Visit Information Type of service Initial Visit Arrival Mode Ambulatory Vital Signs Temperature (97.8 F-99.1 F) 96.7 F L Temperature Source Temporal Pulse Rate (60-100) 68 Pulse Location Monitor Respiratory Rate (12-18) 18 Respiratory rate source Observation Oxygen Delivery Method Room Air Blood Pressure (90/60-120/80) 143/78 H Blood Pressure Mean (mm Hg) 99 Source Monitor Position Semi-Fowlers Blood Pressure Location Left Arm History Since Last Visit- (Skip if this is Patient's initial visit) Have you changed medications since your No last visit? Any new allergies or adverse reactions No Had a fall/change in ADL's that may No increase risk of falls Signs or symptoms of abuse and/or No neglect since last visit Have you been in the hospital since your No last visit? Has dressing in place as prescribed Yes Has compression in place as prescribed No Has offloadiing in place as prescribed No Experienced any changes in pain level or No management Left Footwear Regular Shoe Right Footwear Regular Shoe Pain Scale: 0-10 Numeric Is Patient Pain Free? Yes - Nurse 1 - General Ulcer Measurement Start: 04/22/23 14:23 Freq: Status: Active Protocol: Activity Type Activity Date Activity User E-sign Co-sign Detail Recorded Client Recorded Date Recorded By Document 04/22/23 14:23 KW [id number] 04/22/23 14:33 KW 04/22/23 14:23 Wound Center Nurse 1 #2 L med ankle cluster -Current Size (cm) - Length 6.5 -Current Size (cm) - Width 0.6 -Current Size (cm) - Depth 0.1 -Total Square Cm 3.90 -Exudate Amt Small -Exudate Type Serosanguineous -Wound Margin Indistinct, Non -Visible -Necrosis Amt Small (1-33%) -Necrotic Tissue Type Adherent Slough -Structure Exposed None/Limited to Skin Breakdown -Texture (Darlene-wound Skin Appearance) Assessed, Scarring -Moisture (Darlene-wound Skin Appearance) Assessed -Color (Darlene-wound Skin Appearance) Assessed, Hemosiderin Staining -Temperature (Darlene-wound Skin No Abnormality Appearance) (Pt Warm) -Ulcer Cleansing Rinsed/ Irrigated with Saline -Anesthetic Used 5% Lidocaine Gel Left Calf (cm) 40 Left Ankle (cm) 25 - Nurse 3 - General Ulcer D/C NN Start: 04/22/23 14:23 Freq: Status: Active Protocol: Activity Type Activity Date Activity User E-sign Co-sign Detail Recorded Client Recorded Date Recorded By Document 04/22/23 15:26 DL [id number] 04/22/23 15:26 DL 04/22/23 15:26 Wound Care Center Nurse 3 #2 L med ankle cluster -Ulcer Cleansing Rinsed/ Irrigated with Saline -Foul Odor after Cleansing No -Primary Dressing Applied Promogran -Primary Dressing Covered/Secured with Dry Gauze & Roll Gauze, Secured with Tape -Promogran 1 Left -Tubular Bandage Single Layer -Size of Tubigrip Used Size D -Size D ($) 1 Treatment Response Procedure Tolerated Well Pain Scale: 0-10 Numeric Is Patient Pain Free? Yes WC - Visit Discharge Discharge Condition Stable Ambulatory Status Ambulatory Assessment/Plan Assessment/Plan (1) Ulcer of extremity due to chronic venous insufficiency: CODE(S): L98.499 - Non-pressure chronic ulcer of skin of other sites with unspecified severity; I87.2 - Venous insufficiency (chronic) (peripheral) (2) Ulcer of left lower extremity with fat layer exposed: CODE(S): L97.922 - Non-pressure chronic ulcer of unspecified part of left lower leg with fat layer exposed PLAN: At last visit, there were 3 small open areas, today I only see 2 small open areas. These remaining open areas appear stable in size from last visit. The periwound skin remains irritated in appearance, but less flaky than last visit. Continue to apply A+D ointment to these irritated areas while avoiding the open areas. Will change to Promogran applied directly to remaining open areas. Continue with dry dressing over top. Change dressing at least twice daily, before and after work. Change dressing more often if it becomes soiled. Do not submerge the wound in water such as in a bath/pool/hot tub. Continue high-strength compression 40-50mmHg with tubigrips. She was encouraged to obtain measured compression stockings as prescribed. Return to clinic in 2 weeks.
[2023-05-06 14:42] VITALS: RESP 18; TEMP 35.9
--- NOTE | 2023-05-12 20:49 | PCM.WC.PN ---
History of Present Illness Date of Service: 05/06/23 Chief Complaint: Left medial, distal leg non healing ulcer History of Wound: Patient presents to [facility] for evaluation and management of left medial malleolus ulcer which has been present since the end of October. Patient is well known to me from the vascular office. Dr. Olson performed a venogram on 07/22/22 which was negative for significant central venous compression. On 12/03/2022, Dr. 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 She is well known to the wound care center as well, has received care for prior ulcers here. She was last discharged from [facility] on 09/03/22, at that time she had a left medial leg ulcer (not the same location as current one). She was discharged with instructions to obtain new measured compression stockings, she has not done so yet. She has been taking her coumadin as directed. 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 On 03/25/23, she had glue ablation of left below knee GSV/ASV. She tolerated the procedure well. She has been wearing the compression wraps as directed. Subjective Subjective Ultrasound follow-ups have showed successful venous ablation. She remains compliant with compression. She still has very small open areas from which she notes serous drainage at the end of the day. She has not had any new or worsening redness, swelling, pain. No N/V, F/C. No new wounds/open areas. Objective Data Objective Data Vital Signs: Vital Signs Temp Pulse Resp BP O2 Del Method 96.7 F L 68 18 143/78 H Room Air 05/06/23 14:42 04/22/23 14:23 05/06/23 14:42 04/22/23 14:23 05/06/23 14:42 Oxygen Delivery Method Room Air Charges/Coding Visit Charges Office Visits / Consults: [id number] OV L3 Est Physical Exam Narrative Const General: cooperative Nutritional Appearance: well nourished Orientation: alert, awake and oriented x3 Resp Effort & Inspection: able to speak in complete sentences Skin General: no rashes or lesions noted and no erythema Wounds: left medial malleolus wound with minimal slough, only 2 small open areas remaining Extremities Lower Extremity Edema: 1+: Bilateral Additional Details: Significant hemosiderin staining and chronic venous stasis skin changes of LLE. Psych Appearance: grossly normal and well kempt Mental Status: mental status grossly normal Speech and Movement: speech and movement normal Debridement Note Debridement Note No debridement was completed: No debridement was completed today Post-Debridement Measurements and Additional Note: Post-Debridement Measurements/Treatment WC - Nurse 1 - General Ulcer Assessment Start: 04/22/23 14:23 Freq: Status: Active Protocol: FLO Activity Type Activity Date Activity User E-sign Co-sign Detail Recorded Client Recorded Date Recorded By Document 04/22/23 14:23 KW [id number] 04/22/23 14:33 KW Document 05/06/23 14:42 KW Desktop 05/06/23 14:51 KW 04/22/23 05/06/23 14:23 14:42 WC - Today's Visit Information Type of service Initial Visit 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/ASE CERTIFIED TECHNICIAN ) Arrival Mode Ambulatory Ambulatory Vital Signs Temperature (97.8 F-99.1 F) 96.7 F L 96.7 F L Temperature Source Temporal Temporal Pulse Rate (60-100) 68 Pulse Location Monitor Monitor Respiratory Rate (12-18) 18 18 Respiratory rate source Observation Observation Oxygen Delivery Method Room Air Room Air Blood Pressure (90/60-120/80) 143/78 H Blood Pressure Mean (mm Hg) 99 Source Monitor Monitor Position Semi-Fowlers Semi-Fowlers Blood Pressure Location Left Arm Left Arm History Since Last Visit- (Skip if this is Patient's initial visit) Have you changed medications since your No No last visit? Any new allergies or adverse reactions No No Had a fall/change in ADL's that may No No increase risk of falls Signs or symptoms of abuse and/or No No neglect since last visit Have you been in the hospital since your No No last visit? Has dressing in place as prescribed Yes Yes Has compression in place as prescribed No Yes Has offloadiing in place as prescribed No No Experienced any changes in pain level or No No management Left Footwear Regular Shoe Regular Shoe Right Footwear Regular Shoe Regular Shoe Pain Scale: 0-10 Numeric Is Patient Pain Free? Yes Yes LLE -Description Aching -Intensity 2 ERIK - Nurse 1 - General Ulcer Measurement Start: 04/22/23 14:23 Freq: Status: Active Protocol: Activity Type Activity Date Activity User E-sign Co-sign Detail Recorded Client Recorded Date Recorded By Document 04/22/23 14:23 KW [id number] 04/22/23 14:33 KW Document 05/06/23 14:42 KW Desktop 05/06/23 14:51 KW 04/22/23 05/06/23 14:23 14:42 Wound Center Nurse 1 #2 L med ankle cluster -Current Size (cm) - Length 6.5 2.5 -Current Size (cm) - Width 0.6 0.9 -Current Size (cm) - Depth 0.1 0.1 -Total Square Cm 3.90 2.25 -Exudate Amt Small Small -Exudate Type Serosanguineous Serosanguineous -Wound Margin Indistinct, Non Distinct, -Visible Outline Attached -Granulation Amt Small (1-33%) -Granulation Quality Red -Necrosis Amt Small (1-33%) Small (1-33%) -Necrotic Tissue Type Adherent Slough Adherent Slough -Structure Exposed None/Limited to Skin Breakdown -Texture (Darlene-wound Skin Appearance) Assessed, Assessed, Scarring Localized Edema -Moisture (Darlene-wound Skin Appearance) Assessed Assessed -Color (Darlene-wound Skin Appearance) Assessed, Assessed, Hemosiderin Erythema, Staining Hemosiderin Staining -Temperature (Darlene-wound Skin No Abnormality No Abnormality Appearance) (Pt Warm) (Pt Warm) -Ulcer Cleansing Rinsed/ Rinsed/ Irrigated with Irrigated with Saline Saline -Foul Odor after Cleansing No -Anesthetic Used 5% Lidocaine 5% Lidocaine Gel Gel Left Calf (cm) 40 39.0 Left Ankle (cm) 25 24.0 WC - Nurse 3 - General Ulcer D/C NN Start: 04/22/23 14:23 Freq: Status: Active Protocol: Activity Type Activity Date Activity User E-sign Co-sign Detail Recorded Client Recorded Date Recorded By Document 04/22/23 15:26 DL [id number] 04/22/23 15:26 DL Document 05/06/23 15:29 DL Desktop 05/06/23 15:29 DL 04/22/23 05/06/23 15:26 15:29 Wound Care Center Nurse 3 #2 L med ankle cluster -Ulcer Cleansing Rinsed/ Rinsed/ Irrigated with Irrigated with Saline Saline -Foul Odor after Cleansing No No -Primary Dressing Applied Promogran Fibracol Plus 4x4 -Primary Dressing Covered/Secured with Dry Gauze & Dry Gauze & Roll Gauze, Roll Gauze, Secured with Secured with Tape Tape -Fibracol Plus 4x4 1 -Promogran 1 Left -Tubular Bandage Single Layer Double Layer -Size of Tubigrip Used Size D Size D -Size D ($) 1 2 Treatment Response Procedure Procedure Tolerated Well Tolerated Well Pain Scale: 0-10 Numeric Is Patient Pain Free? Yes Yes WC - Visit Discharge Discharge Condition Stable Stable Ambulatory Status Ambulatory Ambulatory Transportation Private Auto Assessment/Plan Assessment/Plan (1) Ulcer of extremity due to chronic venous insufficiency: CODE(S): L98.499 - Non-pressure chronic ulcer of skin of other sites with unspecified severity; I87.2 - Venous insufficiency (chronic) (peripheral) (2) Ulcer of left lower extremity with fat layer exposed: CODE(S): L97.922 - Non-pressure chronic ulcer of unspecified part of left lower leg with fat layer exposed PLAN: The 2 small open areas are very small, 1 area is possibly closed though still with some indentation. The periwound skin remains irritated in appearance, but slightly improved from last visit. Continue to apply A+D ointment to these irritated areas while avoiding the open areas. Apply Fibracol to open areas. Continue with dry dressing over top. Change dressing at least twice daily, before and after work. Change dressing more often if it becomes soiled. Do not submerge the wound in water such as in a bath/pool/hot tub. Continue high-strength compression 40-50mmHg with tubigrips. She was encouraged to obtain measured compression stockings as prescribed. Return to clinic in 2 weeks.
== END 2023-05-15 23:59 | disposition home or self-care (01) ==
LOC: WC 14:30
PROVIDERS: PCP Internal Medicine; Referring Provider Internal Medicine; Visit Provider Physician Assistant
DX: L97.922 Non-pressure chronic ulcer of unspecified part of left lower leg with fat layer exposed (principal); I87.2 Venous insufficiency (chronic) (peripheral); Z79.01 Long term (current) use of anticoagulants
CPT/HCPCS: G0463; 99213

== ENCOUNTER 2023-08-13 20:41 | Emergency (ER) | payer SELFPAY ==
[2023-08-13 20:43] VITALS: BP 176/99; PULSE 108; RESP 15; TEMP 37.3; O2SAT 99; BMI 38.7
--- NOTE | 2023-08-13 21:33 | RAD_ITS ---
INDICATION: COLD SYMPTOMS EXAMINATION/TECHNIQUE: X-RAY - XR Chest 1 View COMPARISON: 12/09/2022. FINDINGS: LINES/DEVICES: None. LUNGS: No consolidation or evidence of an effusion. No evidence of edema or a pneumothorax. MEDIASTINUM AND CARDIOVASCULAR STRUCTURES: Cardiac silhouette is normal in size and contour. Mediastinum is unremarkable. BONES AND SOFT TISSUES: No acute abnormality. RAD/Chest 1 View (Portable) IMPRESSION: No evidence of cardiopulmonary disease. Electronically Signed: Aramis Matias DO at 22:10 EST ,
--- NOTE | 2023-08-13 21:35 | EDS_ITS ---
HPI History of Present Illness Chief Complaint: Cold Sx [facility] Medical History Antiphospholipid syndrome Diabetes mellitus type 2 in obese DVT (deep venous thrombosis) Pulmonary embolism Ulcer associated with varicose vein, with infection Home Medications pantoprazole 40 mg tablet,delayed release 40 mg PO DAILY GERD 03/21/17 [History Last Taken 03/11/18 08:00 40 mg] atorvastatin 40 mg tablet 40 mg PO QHS 03/14/21 [History Last Taken Unknown] canagliflozin 100 mg tablet (Invokana) 100 mg PO DAILY 05/06/22 [History Last Taken Unknown] clonazepam 1 mg tablet (Klonopin) 1 mg PO QHS 05/06/22 [History Last Taken Unknown] copper 380 square mm intrauterine device (ParaGard T 380A) 1 mm2 intrauterine QMONTH 05/06/22 [History Last Taken Unknown] diclofenac sodium 1 % topical gel (Voltaren Arthritis Pain) 1 ea topical PRN PRN Pain 05/06/22 [History Last Taken Unknown] glimepiride 4 mg tablet (Amaryl) 4 mg PO DAILY 05/06/22 [History Last Taken Unknown] hydrocortisone acetate 1 % rectal ointment 1 ea topical DAILY PRN PRN Itching 05/06/22 [History Last Taken Unknown] warfarin 5 mg tablet 5 mg PO DAILY 05/06/22 [History Last Taken 03/18/23] acetaminophen 500 mg tablet 1,000 mg PO Q6 06/25/22 [History Last Taken Unknown] gabapentin 100 mg capsule 200 mg PO DAILY 06/25/22 [History Last Taken Unknown] sertraline 100 mg tablet 100 mg PO DAILY 11/17/22 [History Last Taken Unknown] cyclobenzaprine 10 mg tablet 10 mg PO TID PRN Muscle Spasm #20 TABLETS 12/09/22 [Rx Last Taken Unknown] hydrocodone-acetaminophen 5-325mg 5mg-325mg 1 tab PO Q4H PRN PRN Pain 2 days #10 TABLETS 12/09/22 [Rx Last Taken Unknown] canagliflozin 100 mg tablet (Invokana) 100 mg PO DAILY #30 tabs 08/13/23 [Rx Last Taken Unknown] glimepiride 4 mg tablet 4 mg PO DAILY #30 tabs 08/13/23 [Rx Last Taken Unknown] glimepiride 4 mg tablet 4 mg PO DAILY #30 tabs 08/13/23 [Rx Last Taken Unknown] warfarin 4 mg tablet 4 mg PO DAILY #30 tabs 08/13/23 [Rx Last Taken Unknown] warfarin 5 mg tablet 5 mg PO DAILY #30 tabs 08/13/23 [Rx Last Taken Unknown] Allergy/AdvReac Type Severity Reaction Status Date / Time acetaminophen Allergy Rash Verified 08/13/23 20:47 [From Tylenol-Codeine] codeine Allergy Rash Verified 08/13/23 20:47 Surgical History H/O skin graft (~2002) Social History Smoking Status: Former smoker substance use type: other details: smokes medical marijuana EXAM Physical Exam Const Vital Signs: 08/13/23 20:43 08/13/23 21:27 08/13/23 23:34 Temperature 99.2 F H Temperature Source Temporal Pulse Rate 108 H 81 Respiratory Rate 15 18 Respiratory Effort Normal Non-Labored Respiratory Pattern Normal Blood Pressure 176/99 H 153/79 H Blood Pressure Mean 124 103 Pulse Ox 99 96 Oxygen Delivery Method Room Air MDM MDM MDM Narrative Medical decision making narrative: HISTORY OF PRESENT ILLNESS: 48-year-old female presents with concern for cold. States she felt warm yesterday today she had chills. She has a cough that is nonproductive. She is concerned she has coming down with a cold. She endorses she is supposed to be on warfarin and several other medicines however she is unable to fill them secondary to poor insurance access. REVIEW OF SYSTEMS: Pertinent positives: Cough Pertinent negatives: SOB, CP, LE Edema PHYSICAL EXAM: Nursing triage notes reviewed, Vital signs reviewed Constitutional: please see mdm HENT: MMM Eyes: Pupils equal round and reactive to light, Extraocular muscles intact Neck: No stridor, no JVD, full neck ROM Lungs: Clear to auscultation, No wheezing or rales. No increased work of breathing, no conversational dyspnea, no accessory muscle use, no nasal flaring. No respiratory distress noted Heart: Regular rate and rhythm, No murmurs, No rubs and No gallops, 2+ distal pulses (radial, femoral, posterior tibial) in all extremities Abdomen: Soft, there is no tenderness, rigidity, rebound or guarding, no obvious peritoneal signs, no palpable pulsatile abdominal masses, no auscultated abdominal bruit : No CVAT Extremities: No edema Neuro: No focal neurological deficits, cranial nerves II through XII intact, 5/5 strength in all extremities. Intact sensation to light touch in all extremities, 2+ reflexes bilateral patella tendons. Normal gait. No ataxia. Skin: No rash or lesions noted MEDICAL DECISION MAKING: Chief Complaint: Cough External records reviewed: Imaging reviewed: Chest x-ray from November 2022 shows no acute findings Factors affecting care: hyperlipidemia, GERD, on warfarin secondary to Social determinants of health: Poor access to healthcare History obtained from others: none Consults: none MDM Narrative: She was initially mildly tachycardic, afebrile and nontoxic-appearing. Exam focal cardiopulmonary normalities. No full consolidation noted. I considered the following differential diagnosis: COVID, flu, RSV, pneumonia ALL IMAGES (IF OBTAINED) HAVE BEEN PERSONALLY REVIEWED AND INTERPRETED BY MYSELF. Patient's chest x-ray was read reviewed myself shows no evidence of obvious pneumonia, pleural effusion or pulmonary edema. Radiologist interpretation agrees with my read. COVID-positive is likely etiology Will not give Paxlovid 2/2 warfarin interaction. Discussed stricked return precautions. Patient endorsed not having insurance coverage is not had her medicine for several weeks. Did write important medicine such as glimepiride, Invokana and warfarin. The patient and/or family, caregivers express understanding. The patient and/or family, caregivers agrees with the plan. Shared decision making: I will have a discussion with the patient and or visitors regarding risk/benefits of further testing or admission. They will be made aware of of the risk/benefits inherent in this decision they will be given the opportunity to voice understanding. Total critical care time today provided was at least 0 minutes. This excludes separately billable procedures. Critical care time (if documented) is secondary to the patient having high probability of clinically significant/life threatening deterioration in the patient's condition which required my urgent intervention. Impression: 1. Viral URI 2. Cough 3. COVID-19 Dispo: Charge home Radiography Diagnostic Testing: Clinical Impression(s) from Imaging Studies Chest X-Ray 08/13/23 21:33 IMPRESSION: No evidence of cardiopulmonary disease. Electronically Signed: Aramis Matias DO at 22:10 EST , Discharge Plan Triage Chief Complaint: Cold Sx Other Complaint: General Illness ED Provider: Zeyad Rao Dx/Rx/DC Orders Instructions: Coronavirus Disease 2019 (COVID-19): Overview Prescriptions: New warfarin 5 mg tablet 5 mg PO DAILY Qty: 30 0RF glimepiride 4 mg tablet 4 mg PO DAILY Qty: 30 0RF glimepiride 4 mg tablet 4 mg PO DAILY Qty: 30 0RF Invokana 100 mg tablet 100 mg PO DAILY Qty: 30 0RF warfarin 4 mg tablet 4 mg PO DAILY Qty: 30 0RF Continued warfarin 5 mg Tablet 5 mg PO DAILY Invokana 100 mg Tablet 100 mg PO DAILY No Action acetaminophen 500 mg tablet 1,000 mg PO Q6 sertraline 100 mg tablet 100 mg PO DAILY pantoprazole 40 MG tablet,delayed release (DR/EC) 40 mg PO DAILY Patient Comments: atorvastatin 40 mg tablet 40 mg PO QHS gabapentin 100 mg capsule 200 mg PO DAILY glimepiride [Amaryl] 4 mg Tablet 4 mg PO DAILY diclofenac sodium [Voltaren Arthritis Pain] 1 % Gel 1 ea TOPICAL PRN PRN (Reason: Pain) ParaGard T 380A 380 square mm Intrauterine Device 1 mm2 INTRAUTERINE QMONTH clonazepam [Klonopin] 1 mg Tablet 1 mg PO QHS Rx Instructions: administer 30 minutes before bedtime Anusol HC-1 1 % Ointment 1 ea topical DAILY PRN PRN (Reason: Itching) cyclobenzaprine [cyclobenzaprine] 10 mg tablet 10 mg PO TID PRN (Reason: Muscle Spasm) Qty: 20 0RF hydrocodone-acetaminophen [hydrocodone-acetaminophen] 5-325 mg tablet 1 tab PO Q4H PRN PRN (Reason: Pain) 2 Days Qty: 10 0RF Stand Alone Forms: ED Work / School Excuse Primary Care Provider: Carla Fountain Referrals: Carla Fountain MD [Primary Care Provider] - Activity Restrictions/Additional Instructions: Thank you for trusting us with your care today! Your COVID-19 test was positive. This explains your symptoms. Please take Tylenol (2 pills, 650 mg), ibuprofen (2 pills, 400 mg) every 6 hours as needed for pain and fever control. Please return to the emergency department if your symptoms change or worsen. Please follow with your primary care physician for further outpatient evaluation and management. Disposition Disposition: Home, Self Care Discharge Date/Time: 08/13/23 23:35
--- OUTSIDE RECORDS SUMMARY | 2023-08-13 21:38 | XMS RPT_ITS | CCD ---
Author Name Unknown Address [address] [place] [address] Organization [facility] Care Team Providers Care Boat Engines Installer Name Role Phone Александр BONILLA, Jeanie Primary Care Provider [facility], Shannen Unavailable [facility], Keti Unavailable Александр BONILLA, Jeanie Primary Care Provider [facility], Shannen Unavailable [facility], Keti Unavailable 13, Pharmacist Unavailable Александр BONILLA, Jeanie Primary Care Provider [phone] [facility], Keti Unavailable BECKY SEYMOUR Referring Unavailable GANTA, JEANIE Primary Care Unavailable BECKY SEYMOUR Attending Unavailable GANTA, JEANIE Primary Care Unavailable BECKY SEYMOUR Attending Unavailable TESTOTIS SANCHEZ Attending Unavailable TESTRAKEOTIS Referring Unavailable GANTA, JEANIE Primary Care Unavailable GANTA, JEANIE Referring Unavailable GANTA, JEANIE Primary Care Unavailable GANTA, JEANIE Primary Care Unavailable CRISTELA TOMPKINS Attending Unavailable BECKY SEYMOUR Referring Unavailable GANTA, JEANIE Primary Care Unavailable GANTA, JEANIE Primary Care Unavailable TESTRAOTIS ALMODOVAR Referring Unavailable GANTA, JEANIE Primary Care Unavailable GANTA, JEANIE Attending Unavailable GANTA, JEANIE Primary Care Unavailable GANTA, JEANIE Referring Unavailable GANTA, JEANIE Primary Care Unavailable GANTA, JEANIE Primary Care Unavailable GANTA, JEANIE Referring Unavailable GANTA, JEANIE Primary Care Unavailable GANTA, JEANIE Referring Unavailable GANTA, JEANIE Primary Care Unavailable GANTA, JEANIE Attending Unavailable GANTA, JEANIE Referring Unavailable GANTA, JEANIE Primary Care Unavailable GANTA, JEANIE Primary Care Unavailable BECKY SEYMOUR Attending Unavailable Allergies Allergy Classification Reported Allergen(s) Allergy Type Date of Onset Reaction(s) Facility (20 sources) Acetaminophen / Codeine; Translations: [ACETAMINOPHEN-COD EINE] Drug Allergy 7 Hives, Other: See Comments [facility] Work Phone: (20 sources) Pineapple; Translations: [PINEAPPLE] Drug Allergy 2 Rash [facility] Medications Current Medications Medication Drug Class(es) Dates Sig (Normalized) Sig (Original) cephalexin 500 mg oral capsule (4 sources) Cephalosporin Antibacterial Start: 02-21-2022 End: 03-02-2022 cephALEXin (KEFLEX) 500 mg capsule copper 313 mg drug implant (20 sources) Copper-containing Intrauterine Device Start: 12-08-2022 End: 12-05-2032 copper (PARAGARD) 380 square mm intrauterine device 1 Intra Uterine Device by INTRAUTERINE route as directed. 1 Intra Uterine Device 0 12/08/2022 12/05/2032 Active Completed/Discontinued Medications Medication Drug Class(es) Dates Sig (Normalized) Sig (Original) ascorbic acid 500 mg oral tablet (20 sources) Vitamin C Start: 04-04-2021 take 1 tablet by mouth once daily ascorbic acid, vitamin C, (VITAMIN C) 500 mg tablet Take 1 tablet by mouth once daily. 30 tablet 3 04/04/2021 Active Problems Active Problems Problem Classification Problem Date Documented Da te Episodic/Chronic Abdominal pain (6 sources) Generalized abdominal pain; Translations: [Generalized abdominal pain] Episodic Acquired foot deformities (1 source) Hallux valgus; Translations: [Hallux valgus (acquired), right foot] Chronic Anxiety disorders (20 sources) Anxiety; Translations: [Anxiety disorder, unspecified] Onset: 2 03-11-2012 Chronic Benign neoplasm of uterus (1 source) Uterine leiomyoma; Translations: [Leiomyoma of uterus, unspecified] Episodic Chronic ulcer of skin (1 source) Ulcer of lower extremity; Translations: [Non-pressure chronic ulcer of unspecified part of left lower leg with fat layer exposed] Chronic Coagulation and hemorrhagic disorders (20 sources) Antiphospholipid syndrome; Translations: [Antiphospholipid syndrome] Onset: 2 11-13-2011 Chronic Conditions associated with dizziness or vertigo (1 source) Dizziness; Translations: [Dizziness and giddiness] Episodic Diabetes mellitus with complications (20 sources) Type II diabetes mellitus uncontrolled; Translations: [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] Onset: 6 08-04-2019 Chronic Disorders of lipid metabolism (20 sources) Mixed hyperlipidemia; Translations: [Mixed hyperlipidemia] Onset: 7 09-11-2016 Chronic Esophageal disorders (20 sources) Gastroesophageal reflux disease; Translations: [Gastro-esophageal reflux disease without esophagitis] Onset: 2 11-13-2011 Chronic Hemorrhoids (1 source) Hemorrhoids; Translations: [Unspecified hemorrhoids] Episodic Immunizations and screening for infectious disease (2 sources) Exposure to sexually transmissible disorder; Translations: [Contact with and (suspected) exposure to infections with a predominantly sexual mode of transmission] Episodic Inflammatory diseases of female pelvic organs (2 sources) Bacterial vaginosis; Translations: [Acute vaginitis] Episodic Menstrual disorders (1 source) Irregular periods; Translations: [Irregular menstruation, unspecified] Chronic Mood disorders (20 sources) Recurrent major depression; Translations: [Major depressive disorder, recurrent, unspecified] Onset: 2 07-28-2012 Chronic Nutritional deficiencies (1 source) Cobalamin deficiency; Translations: [Deficiency of other specified B group vitamins] Episodic Other circulatory disease (20 sources) Inferior vena cava filter in situ; Translations: [Presence of other vascular implants and grafts] Onset: 2 11-13-2011 Chronic Other connective tissue disease (4 sources) Pain of left lower leg; Translations: [Pain in left lower leg] Episodic Other female genital disorders (3 sources) Abnormal uterine bleeding; Translations: [Abnormal uterine and vaginal bleeding, unspecified] Chronic Other female genital disorders (1 source) Abnormal uterine and vaginal bleeding, unspecified; Translations: [Abnormal uterine bleeding (AUB)] Onset: 3 Chronic Other female genital disorders (1 source) Vaginal discharge; Translations: [Other specified noninflammatory disorders of vagina] Episodic Other female genital disorders (1 source) White vaginal discharge; Translations: [Other specified noninflammatory disorders of vagina] Episodic Other gastrointestinal disorders (2 sources) Dysphagia; Translations: [Dysphagia, unspecified] Episodic Other gastrointestinal disorders (2 sources) Heartburn; Translations: [Heartburn] Episodic Other injuries and conditions due to external causes (3 sources) Injury of left leg; Translations: [Unspecified injury of left lower leg, initial encounter] Episodic Other injuries and conditions due to external causes (1 source) Contusion; Translations: [Other injury of unspecified body region, initial encounter] 03-01-2023 Episodic Other liver diseases (20 sources) Steatosis of liver; Translations: [Fatty (change of) liver, not elsewhere classified] 01-27-2016 Chronic Other nervous system disorders (20 sources) Carpal tunnel syndrome; Translations: [Carpal tunnel syndrome, unspecified upper limb] Onset: 4 03-27-2014 Chronic Other nutritional; endocrine; and metabolic disorders (20 sources) Body mass index 40+ - severely obese; Translations: [Morbid (severe) obesity due to excess calories] Onset: 8 11-15-2017 Chronic Other screening for suspected conditions (not mental disorders or infectious disease) (8 sources) Patient encounter status; Translations: [Encounter for screening for malignant neoplasm of colon] Episodic Skin and subcutaneous tissue infections (2 sources) Cellulitis of left lower limb; Translations: [Cellulitis of left lower limb] Episodic Varicose veins of lower extremity (2 sources) 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; Translations: [Varicose veins of left lower extremity with ulcer of ankle] Episodic Past or Other Problems Problem Classification Problem Date Documented Da te Episodic/Chronic Contraceptive and procreative management (20 sources) Intrauterine contraceptive device in situ; Translations: [Presence of (intrauterine) contraceptive device] Onset: 09-04-2022 Episodic Genitourinary symptoms and ill-defined conditions (2 sources) Masood hematuria; Translations: [Gross hematuria] Onset: 03-30-2017 03-01-2023 Episodic Mycoses (2 sources) Onychomycosis; Translations: [Tinea unguium] Onset: 12-17-2022 Episodic Open wounds of extremities (20 sources) Disorder of lower extremity; Translations: [Unspecified open wound, left lower leg, initial encounter] Onset: 04-14-2022 04-14-2022 Episodic Other aftercare (20 sources) Long-term current use of anticoagulant; Translations: [intermodal dispatcher (current) use of anticoagulants] Onset: 04-27-2019 04-27-2019 Episodic Other aftercare (2 sources) [facility] (current) use of anticoagulants; Translations: [intermodal dispatcher (current) use of anticoagulants] Onset: 04-27-2019 Episodic Other connective tissue disease (20 sources) Pain in lower limb; Translations: [Pain in leg, unspecified] Onset: 11-13-2011 11-13-2011 Episodic Phlebitis; thrombophlebitis and thromboembolism (20 sources) H/O: Deep vein thrombosis; Translations: [Personal history of other venous thrombosis and embolism] Onset: 11-13-2011 11-13-2011 Episodic Residual codes; unclassified (20 sources) Noncompliance with medication regimen; Translations: [Patient's other noncompliance with medication regimen] Onset: 11-29-2011 11-29-2011 Episodic Results Test Name Value Interpretation Reference Range Facil ity Vital Signs Date Time Vital Sign Value Performing Clinician Junior porter 03-01-2023 16:55-0400 Body temperature 98.2 [degF] Renee Athy PA-C Work Phone: [facility] 03-01-2023 16:55-0400 Body weight 102.06 kg Renee Athy PA-C Work Phone: [facility] 03-01-2023 16:55-0400 Diastolic blood pressure 70 mm[Hg] Renee Athy PA-C Work Phone: [facility] 03-01-2023 16:55-0400 Heart rate 94 /min Renee Athy PA-C Work Phone: [facility] 03-01-2023 16:55-0400 Respiratory rate 16 /min Renee Athy PA-C Work Phone: [facility] 03-01-2023 16:55-0400 SaO2% (BldA) [Mass fraction] 97 % Renee Athy PA-C Work Phone: [facility] 03-01-2023 16:55-0400 Systolic blood pressure 122 mm[Hg] Renee Athy PA-C Work Phone: [facility] 12-18-2022 09:48-0400 Body height 162.6 cm Jeanie Kim MD Work Phone: [facility] 12-18-2022 09:48-0400 Body temperature 98.2 [degF] Jeanie Kim MD Work Phone: [facility] 12-18-2022 09:48-0400 Body weight 103.42 kg Jeanie Kim MD Work Phone: [facility] 12-18-2022 09:48-0400 Diastolic blood pressure 68 mm[Hg] Jeanie Kim MD Work Phone: [facility] 12-18-2022 09:48-0400 Heart rate 74 /min Jeanie Kim MD Work Phone: [facility] 12-18-2022 09:48-0400 Respiratory rate 12 /min Jeanie Kim MD Work Phone: [facility] 12-18-2022 09:48-0400 SaO2% (BldA) [Mass fraction] 97 % Jeanie Kim MD Work Phone: [facility] 12-18-2022 09:48-0400 Systolic blood pressure 130 mm[Hg] Jeanie Kim MD Work Phone: [facility] 12-08-2022 12:02-0400 Diastolic blood pressure 76 mm[Hg] Cristela Leda [facility] LIAISON.BREWERY WORKER Work Phone: [facility] 12-08-2022 12:02-0400 Heart rate 77 /min Cristela Leda [facility] ACCOUNT LIAISON.BREWERY WORKER Work Phone: [facility] 12-08-2022 12:02-0400 SaO2% (BldA) [Mass fraction] 97 % Cristela Bayside [facility]IAISON.BREWERY WORKER Work Phone: [facility] 12-08-2022 12:02-0400 Systolic blood pressure 120 mm[Hg] Cristela Leda [facility]OUNT LIAISON.BREWERY WORKER Work Phone: [facility] 12-08-2022 11:26-0400 Body weight 102.97 kg Cristela Bayside [facility]IA[facility].BREWERY WORKER Work Phone: [facility] 10-21-2022 09:39-0500 Body weight 103.87 kg Becky Seymour [facility]IA[facility].CNM Work Phone: [facility] 10-21-2022 09:39-0500 Diastolic blood pressure 64 mm[Hg] Becky Seymour [facility]IAISON.CNM Work Phone: [facility] 10-21-2022 09:39-0500 Systolic blood pressure 112 mm[Hg] Becky Seymour [facility] LIAISON.CNM Work Phone: [facility] 09-16-2022 09:22-0500 Body weight 105.6 kg Becky Seymour [facility]IAISON.CNM Work Phone: [facility] 09-16-2022 09:22-0500 Diastolic blood pressure 64 mm[Hg] Becky Seymour [facility] LIAISON.CNM Work Phone: [facility] 09-16-2022 09:22-0500 Systolic blood pressure 110 mm[Hg] Becky Seymour [facility] LIAISON.CNM Work Phone: [facility] 09-04-2022 08:46-0500 Body height 162.6 cm Becky Seymour [facility] LIAISON.CNM Work Phone: [facility] 09-04-2022 08:46-0500 Body weight 107.14 kg Becky Seymour [facility]IA[facility].CNM Work Phone: [facility] 09-04-2022 08:46-0500 Diastolic blood pressure 72 mm[Hg] Becky Seymour [facility] LIAISON.CNM Work Phone: [facility] 09-04-2022 08:46-0500 Systolic blood pressure 118 mm[Hg] Becky Seymour [facility]IAISON.CNM Work Phone: [facility] 07-28-2022 10:51-0500 Body height 165.1 cm Jeanie Kim MD Work Phone: [facility] 07-28-2022 10:51-0500 Body temperature 97.9 [degF] Jeanie Kim MD Work Phone: [facility] 07-28-2022 10:51-0500 Body weight 104.78 kg Jeanie Kim MD Work Phone: [facility] 07-28-2022 10:51-0500 Diastolic blood pressure 74 mm[Hg] Jeanie Kim MD Work Phone: [facility] 07-28-2022 10:51-0500 Heart rate 87 /min Jeanie Kim MD Work Phone: [facility] 07-28-2022 10:51-0500 Respiratory rate 14 /min Jeanie Kim MD Work Phone: [facility] 07-28-2022 10:51-0500 SaO2% (BldA) [Mass fraction] 99 % Jeanie Kim MD Work Phone: [facility] 07-28-2022 10:51-0500 Systolic blood pressure 134 mm[Hg] Jeanie Kim MD Work Phone: [facility] 03-25-2022 13:30-0400 Body temperature 98.1 [degF] Sho Older [facility]OUNT LIAISON.BREWERY WORKER Work Phone: [facility] 03-25-2022 13:30-0400 Body weight 102.06 kg Sho Older [facility]OUNT LIAISON.BREWERY WORKER Work Phone: [facility] 03-25-2022 13:30-0400 Diastolic blood pressure 72 mm[Hg] Sho Older [facility] LIAISON.BREWERY WORKER Work Phone: [facility] 03-25-2022 13:30-0400 Heart rate 68 /min Sho Older [facility] LIAISON.BREWERY WORKER Work Phone: [facility] 03-25-2022 13:30-0400 Respiratory rate 16 /min Sho Older [facility]OUNT LIAISON.BREWERY WORKER Work Phone: [facility] 03-25-2022 13:30-0400 SaO2% (BldA) [Mass fraction] 100 % Sho Older [facility] LIAISON.BREWERY WORKER Work Phone: [facility] 03-25-2022 13:30-0400 Systolic blood pressure 116 mm[Hg] Sho Older [facility] LIAISON.BREWERY WORKER Work Phone: [facility] 03-21-2022 15:16-0400 Body temperature 98.1 [degF] [facility]OUNT LIAISON.BREWERY WORKER Work Phone: [facility] 03-21-2022 15:16-0400 Body weight 103.33 kg [facility] LIAISON.BREWERY WORKER Work Phone: [facility] 03-21-2022 15:16-0400 Diastolic blood pressure 80 mm[Hg] [facility] ACCOUNT LIAISON.BREWERY WORKER Work Phone: [facility] 03-21-2022 15:16-0400 Heart rate 77 /min [facility]OUNT LIAISON.BREWERY WORKER Work Phone: [facility] 03-21-2022 15:16-0400 Respiratory rate 16 /min [facility] ACCOUNT LIAISON.BREWERY WORKER Work Phone: [facility] 03-21-2022 15:16-0400 SaO2% (BldA) [Mass fraction] 97 % [facility]OUNT LIAISON.BREWERY WORKER Work Phone: [facility] 03-21-2022 15:16-0400 Systolic blood pressure 136 mm[Hg] [facility] ACCOUNT LIAISON.BREWERY WORKER Work Phone: [facility] 03-02-2022 08:23-0400 Body weight 100.25 kg Francy Older [facility] LIAISON.BREWERY WORKER Work Phone: [facility] 03-02-2022 08:23-0400 Diastolic blood pressure 72 mm[Hg] Francy Older [facility] LIAISON.BREWERY WORKER Work Phone: [facility] 03-02-2022 08:23-0400 Heart rate 78 /min Francy Older [facility]OUNT LIAISON.BREWERY WORKER Work Phone: [facility] 03-02-2022 08:23-0400 Respiratory rate 14 /min Francy Older [facility] LIAISON.BREWERY WORKER Work Phone: [facility] 03-02-2022 08:23-0400 Systolic blood pressure 146 mm[Hg] Francy Older [facility]OUNT LIAISON.BREWERY WORKER Work Phone: [facility] 02-23-2022 11:50-0400 Body weight 99.79 kg Francy Older [facility] LIAISON.BREWERY WORKER Work Phone: [facility] 02-23-2022 11:50-0400 Diastolic blood pressure 88 mm[Hg] Francy Older [facility]OUNT LIAISON.BREWERY WORKER Work Phone: [facility] 02-23-2022 11:50-0400 Heart rate 90 /min Francy Older [facility]IAISON.BREWERY WORKER Work Phone: [facility] 02-23-2022 11:50-0400 Respiratory rate 12 /min Francy Older [facility]IAISON.BREWERY WORKER Work Phone: [facility] 02-23-2022 11:50-0400 Systolic blood pressure 154 mm[Hg] Francy Older [facility] LIAISON.BREWERY WORKER Work Phone: [facility] 01-20-2022 07:30-0400 Body temperature 97.59 [degF] Lydia Britton APRN.BREWERY WORKER Work Phone: [facility] 01-20-2022 07:30-0400 Body weight 101.79 kg Lydia Britton APRN.BREWERY WORKER Work Phone: [facility] 01-20-2022 07:30-0400 Diastolic blood pressure 72 mm[Hg] Lydia Britton APRN.BREWERY WORKER Work Phone: [facility] 01-20-2022 07:30-0400 Heart rate 70 /min Lydia Britton APRN.BREWERY WORKER Work Phone: [facility] 01-20-2022 07:30-0400 Respiratory rate 18 /min Lydia Britton APRN.BREWERY WORKER Work Phone: [facility] 01-20-2022 07:30-0400 SaO2% (BldA) [Mass fraction] 99 % Lydia Britton APRN.BREWERY WORKER Work Phone: [facility] 01-20-2022 07:30-0400 Systolic blood pressure 126 mm[Hg] Lydia Britton APRN.BREWERY WORKER Work Phone: [facility] 12-08-2021 10:45-0400 Body height 166 cm Elba Hernandez [facility] LIAISON.BREWERY WORKER Work Phone: [facility] 12-08-2021 10:45-0400 Body weight 99.79 kg Elba Hernandez [facility] LIAISON.BREWERY WORKER Work Phone: [facility] 12-08-2021 10:45-0400 Diastolic blood pressure 74 mm[Hg] Elba Hernandez [facility] LIAISON.BREWERY WORKER Work Phone: [facility] 12-08-2021 10:45-0400 Heart rate 77 /min Elba Hernandez [facility] LIAISON.BREWERY WORKER Work Phone: [facility] 12-08-2021 10:45-0400 SaO2% (BldA) [Mass fraction] 99 % Elba Hernandez [facility]OUNT LIAISON.BREWERY WORKER Work Phone: [facility] 12-08-2021 10:45-0400 Systolic blood pressure 122 mm[Hg] Elba Hernandez [facility]OUNT LIAISON.BREWERY WORKER Work Phone: [facility] Encounters Encounter Date Encounter Type Care Provider Facility Start: 04-29-2023 Refill Jeanie Vargas Work Phone: [facility] Procedures Date Procedure Procedure Detail Performing Clinician Start: 12-18-2022 Hemoglobin A1c/Hemoglobin.total in Blood Jeanie Kim MD Work Phone: Start: 12-08-2022 Urine test visual color cmprsn meths Cristela Bayside [facility].BREWERY WORKER Work Phone: Start: 09-16-2022 Us transvaginal Becky Seymour [facility].CNM Work Phone: Start: 07-28-2022 Hemoglobin A1c/Hemoglobin.total in Blood Jeanie Kim MD Work Phone: Start: 07-28-2022 INFLUENZA VACCINE QUADRIVALENT 6 MO - 64 YRS IM Jeanie Kim MD Work Phone: Start: 02-23-2022 Radex ankle complete minimum 3 views Francy Older [facility].BREWERY WORKER Work Phone: Start: 02-23-2022 Dup-scan xtr veins unilateral/limited study Francy Older [facility].BREWERY WORKER Work Phone: Start: 01-20-2022 Urnls dip stick/tabl et rgnt auto w/o microscopy Lydia Britton [facility].BREWERY WORKER Work Phone: Start: 12-12-2021 Hepatobil syst imag inc gb w/pharma intervenj Elba Hernandez [facility].BREWERY WORKER Work Phone: Start: 03-27-2021 Mammography Sho De Leon [facility].BREWERY WORKER Work Phone: Plan of Treatment Date Care Activity Detail Author Start: 05-20-2030 Urine microalbumin profile [facility] Start: 03-14-2026 HPV TESTING HPV TESTING [facility] Start: 03-14-2026 PAP TESTING PAP TESTING [facility] Start: 12-19-2023 ANNUAL PCP TEAM CHRONIC DISEASE VISIT ANNUAL PCP TEAM CHRONIC DISEASE VISIT [facility] Start: 12-18-2023 Hepatitis B screening URINE ALBUMIN:CREATININE RATIO [facility] Start: 11-25-2023 3 comp foot exam completed DIABETIC FOOT EXAM [facility] Start: 07-28-2023 ANNUAL PCP TEAM CHRONIC DISEASE VISIT ANNUAL PCP TEAM CHRONIC DISEASE VISIT [facility] Start: 04-16-2023 Covid-19 Vaccine ( season) Covid-19 Vaccine ( season) [facility] Start: 04-16-2023 Influenza vaccination [facility] Start: 04-14-2023 ANNUAL PCP TEAM CHRONIC DISEASE VISIT ANNUAL PCP TEAM CHRONIC DISEASE VISIT [facility] Start: 04-13-2023 Hepatitis B surface antibody level LDL CHOLESTEROL [facility] Start: 03-25-2023 ANNUAL PCP TEAM CHRONIC DISEASE VISIT ANNUAL PCP TEAM CHRONIC DISEASE VISIT [facility] Start: 03-20-2023 Hemoglobin A1c/Hemoglobin.total in Blood HBA1C [facility] Start: 03-02-2023 ANNUAL PCP TEAM CHRONIC DISEASE VISIT ANNUAL PCP TEAM CHRONIC DISEASE VISIT [facility] Start: 02-23-2023 ANNUAL PCP TEAM CHRONIC DISEASE VISIT ANNUAL PCP TEAM CHRONIC DISEASE VISIT [facility] Start: 2023 SHINGRIX VACCINE (1 of 2) SHINGRIX VACCINE (1 of 2) [facility] Start: 12-01-2022 End: 01-31-2023 ALBUMIN/CREAT RATIO RND UR ALBUMIN/CREAT RATIO RND UR Lab Routine 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) Expected: 12/01/2022, Expires: 01/31/2023 [facility] Work Phone: Immunizations Immunization Date Immunization Notes Care Provider Sebastian white 07-28-2022 influenza, injectabl e, quadrivalent, contains preservative Jeanie Kim MD Work Phone: [facility] Work Phone: 07-28-2022 pneumococcal (PCV20) vaccine, 20 valent (PREVNAR 20) Jeanie Kim MD Work Phone: [facility] Work Phone: 07-28-2022 influenza virus vaccine, unspecified formulation Jeanie Kim MD Work Phone: [facility] 08-21-2021 influenza, injectabl e, quadrivalent, contains preservative Sho Older [facility]IA[facility] Work Phone: [facility] Work Phone: 05-20-2020 influenza, injectabl e, quadrivalent, contains preservative Sho Older [facility]IAISON.[facility] Work Phone: [facility] [facility] Work Phone: 05-20-2020 tetanus toxoid, redu connie diphtheria toxoid, and acellular pertussis vaccine, adsorbed [facility] Work Phone: [facility] Work Phone: 05-05-2019 influenza, injectabl e, quadrivalent, contains preservative [facility].[employer] Work Phone: [facility] 05-05-2018 influenza, injectabl e, quadrivalent, contains preservative [facility].[employer] Work Phone: [facility] 04-27-2017 influenza, injectabl e, quadrivalent, contains preservative [facility] Work Phone: [facility] 06-05-2016 influenza, injectabl e, quadrivalent, contains preservative [facility] Work Phone: [facility] 06-13-2015 influenza, seasonal, injectable [facility] Work Phone: [facility] Work Phone: 06-28-2013 influenza virus vaccine, unspecified formulation [facility] Work Phone: [facility] Work Phone: 04-10-2013 measles, mumps and rubella virus vaccine [facility] Work Phone: [facility] 03-06-2013 measles, mumps and rubella virus vaccine [facility] Work Phone: [facility] 07-27-2012 influenza virus vaccine, unspecified formulation [facility] Work Phone: [facility] 07-27-2012 pneumococcal polysaccharide vaccine, 23 valent [facility] Work Phone: [facility] 07-05-2012 tetanus and diphther ia toxoids, adsorbed, preservative free, for adult use (2 Lf of tetanus toxoid and 2 Lf of diphtheria toxoid) [facility] Work Phone: [facility] Work Phone: 05-01-2009 hepatitis B vaccine, adult dosage [facility] Work Phone: [facility] Work Phone: 11-28-2008 hepatitis B vaccine, adult dosage [facility] Work Phone: [facility] Work Phone: 07-17-2008 hepatitis B vaccine, adult dosage [facility] Work Phone: [facility] Work Phone: NEGATED: Highlighted row has not occurred!04-14-2022 pneumococcal (PCV20) vaccine, 20 valent (PREVNAR 20) Jeanie Kim MD Work Phone: [facility] Work Phone: Payers Date Payer Category Payer Medicaid [id number] 2019 Medicaid [employer] [id number] 2019-Present [phone] [address] [place] [address] Medicaid [id number] 2019 Medicaid [id number] 2019 Medicaid [id number] Social History Date Type Detail Facility Start: 11-13-2011 End: 03-21-2022 Tobacco smoking status NHIS Ex-smoker [facility] History of tobacco use Cigarette Smoker [facility] Start: 11-13-2011 End: 03-21-2022 Tobacco use and exposure Smokeless tobacco non-user [facility] Start: 09-11-2021 End: 09-16-2022 Alcohol intake Current drinker of alcohol (finding) [facility] Start: 09-11-2021 End: 08-28-2022 Alcohol intake [facility] Start: 03-17-2021 End: 07-30-2021 History SDOH Alcohol Frequency 2 [facility] Start: 03-17-2021 End: 07-30-2021 History SDOH Alcohol Std Drinks 1 [facility] Start: 03-08-2020 History SDOH Alcohol Comment Rarely [facility] Start: 03-17-2021 History SDOH Social Connections Living 7 [facility] Start: 03-17-2021 History SDOH Physical Activity DPW 0 [facility] Start: 03-17-2021 History SDOH Stress 5 [facility] Start: 03-17-2021 History SDOH Financial 3 [facility] Start: 02-07-2020 Education 15 [facility] Start: 10-10-2015 End: 03-21-2022 Tobacco Comment Hasn't smoked more than a full year , lot of second hand smoke. [facility] Start: 1975 Sex Assigned At Female [facility] Start: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 DILATION & CURETTAGE PAST SURGICAL HISTORY OF 05/2011 lipoma removed SKIN SUB GRAFT LEG right leg STENT, CAROTID ARTERY W/EMBOLIC PROTECT 2002 Allergies: ALLERGIES Allergen Reactions Acetaminophen-Codei* Hives, Other: See Comments shakey Pineapple Rash Medications: pantoprazole DR (PROTONIX) 40 mg tablet TAKE 1 TABLET BY MOUTH DAILY gabapentin (NEURONTIN) 100 mg capsule TAKE 2 CAPSULES BY MOUTH AT BEDTIME glimepiride (AMARYL) 4 mg tablet TAKE 1 TABLET BY MOUTH TWICE A DAY WITH MEALS celecoxib (CELEBREX) 100 mg capsule Take 1 capsule by mouth twice daily. For back pain. canagliflozin (INVOKANA) 100 mg tab Take 1 tablet by mouth daily before breakfast. cyanocobalamin (VITAMIN B-12) 1,000 mcg tab Take 1 tablet by mouth once daily. warfarin (COUMADIN) 5 mg tablet 5 mg daily except take 2.5mg on Sundays atorvastatin (LIPITOR) 40 mg tablet Take 1 tablet by mouth once daily. ascorbic acid, vitamin C, (VITAMIN C) 500 mg tablet Take 1 tablet by mouth once daily. diclofenac (VOLTAREN) 1 % topical gel Apply 2 g to affected area three times daily. Lactobacillus acidophilus (FLORAJEN ACIDOPHILUS) 20 billion cell cap Take 1 capsule by mouth once daily. hydrocortisone (ANUSOL-HC) 2.5 % rectal cream by RECTAL route twice daily. copper (PARAGARD T 380A) 380 square mm intrauterine device 1 Intra Uterine Device by INTRAUTERINE route continuous. sertraline (ZOLOFT) 50 mg tablet Take 1 tablet by mouth once daily. clonazePAM (KLONOPIN) 1 mg tablet Take 1 mg by mouth at bedtime as needed. peg 3350-Electrolytes (GOLYTELY) 236-22.74-6.74 -5.86 gram suspension Refer to printed prep instructions from your provider. Lancets lancets Test 2 times daily, Insulin Dep? No E11.9 DM 2 blood sugar diagnostic (BLOOD GLUCOSE TEST) test strip Test 2 times daily, Insulin Dep? 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 Vaping Use Vaping Use: Never used Substance Use Topics Alcohol use: Yes Alcohol/week: 0.0 standard drinks Comment: Rarely Drug use: No Review of Systems: Review of Systems Gastrointestinal: Positive for abdominal distention and abdominal pain. All other systems reviewed and are negative. Are you taking any blood thinners? Yes,Coumadin Physical Examination: BP 122/74 Pulse 77 Ht 5' 5.354 (1.66m) Wt 220 lb (99.8kg) SpO2 99% LMP 11/17/2021 BMI 36.21 kg/(m^2). Physical Exam Constitutional: Appearance: Normal appearance. She is normal weight. HENT: Head: Normocephalic and atraumatic. Eyes: Extraocular Movements: Extraocular movements intact. Pupils: Pupils are equal, round, and reactive to light. Cardiovascular: Rate and Rhythm: Normal rate and regular rhythm. Pulses: Normal pulses. Heart sounds: Normal heart sounds. Pulmonary: Effort: Pulmonary effort is normal. Breath sounds: Normal breath sounds. Abdominal: General: Abdomen is flat. Bowel sounds are normal. Palpations: Abdomen is soft. Tenderness: There is abdominal tenderness in the right upper quadrant, right lower quadrant, epigastric area, left upper quadrant and left lower quadrant. Comments: Generalized abdominal pain - epigastric area seemed to be the most tender Musculoskeletal: General: Normal range of motion. Cervical back: Normal range of motion and neck supple. Skin: General: Skin is warm and dry. Neurological: General: No focal deficit present. Mental Status: She is alert and oriented to person, place, and time. Psychiatric: Mood and Affect: Mood normal. Behavior: Behavior normal. ASSESSMENT: Generalized abdominal pain Right upper quadrant pain Colon cancer screening (primary encounter diagnosis) Dysphagia, unspecified type Heartburn PLAN: Assessment/Plan (Z12.11) Colon cancer screening (primary encounter diagnosis) (R10.84) Generalized abdominal pain (R10.11) Right upper quadrant pain (R13.10) Dysphagia, unspecified type (R12) Heartburn 1. Generalized abdominal pain -Patient presents today for ongoing right upper quadrant abdominal pain. Symptoms started shortly after diagnosed with COVID. She reports symptoms started on the left upper quadrant felt like she was laying on golf balls noticed left upper quadrant swelling. Abdominal pain has migrated to the right upper quadrant was constant dull aching with sharp shooting pains, currently pain is intermittent with sharp shooting pains in the right upper quadrant. Denies nausea or vomiting or symptoms worsening with food. She reports pain is random. Acid reflux symptoms are well controlled with pantoprazole. She reports starting on that 2 years ago when she was having symptoms of dysphagia and acid reflux denies ever having EGD. Recent ultrasound fatty liver, CT of the abdomen was ordered however its been denied by insurance. On physical examination patient had tenderness throughout abdomen, epigastric tenderness was more significant. Recommend EGD and colonoscopy. Recommend HIDA scan for right upper quadrant pain. - CONSULT TO GASTROENTEROLOGY - peg 3350-Electrolytes (GOLYTELY) 236-22.74-6.74 -5.86 gram suspension; Refer to printed prep instructions from your provider. Dispense: 4000 mL; Refill: 0 - NM HEPATOBILIARY W EF AND/OR RX; Future - COLONOSCOPY SCREENING; Future - EGD DIAGNOSTIC; Future 2. Right upper quadrant pain - peg 3350-Electrolytes (GOLYTELY) 236-22.74-6.74 -5.86 gram suspension; Refer to printed prep instructions from your provider. Dispense: 4000 mL; Refill: 0 - NM HEPATOBILIARY W EF AND/OR RX; Future - COLONOSCOPY SCREENING; Future - EGD DIAGNOSTIC; Future 3. Colon cancer screening -Patient denies a change in bowels. Recommend screening colonoscopy. - peg 3350-Electrolytes (GOLYTELY) 236-22.74-6.74 -5.86 gram suspension; Refer to printed prep instructions from your provider. Dispense: 4000 mL; Refill: 0 - COLONOSCOPY SCREENING; Future 4. Dysphagia, unspecified type - EGD DIAGNOSTIC; Future 5. Heartburn - EGD DIAGNOSTIC; Future Follow up in office 3 months/PRN. Recommended to please call office/go to ER if fever, chills, chest pain, SOB, diarrhea, nausea, emesis, worsening abdominal pain, dehydration occurs I spent 30 minutes in the visit, with more than 50% of the total [id number] time of the visit in counseling / coordination of care. I have confirmed and edited as necessary, the PFSH and ROS obtained by others. Elba Hernandez APRN.CNP December 08, 2021 12:09 PM documented in this encounter [facility] 12-03-2021 Miscellaneous Notes Patient has been identified by name and date of : Yes Patient phones for refill(s): Pending Prescriptions Disp Refills PANTOPRAZOLE 40 MG TABLET,DELAYED RELEASE 28 tablet 2 Sig: TAKE 1 TABLET BY MOUTH DAILY EBONY: Yes GABAPENTIN 100 MG CAPSULE 56 capsule Sig: TAKE 2 CAPSULES BY MOUTH AT BEDTIME EBONY: Yes GLIMEPIRIDE 4 MG TABLET 56 tablet Sig: TAKE 1 TABLET BY MOUTH TWICE A DAY WITH MEALS EBONY: Yes Date of last office visit in primary care: 10/13/21 Last 2 Encounter Wt Readings: Date: Wt: 10/13/2021 99.3 kg (219 lb) 09/11/2021 96.6 kg (213 lb) Previous labs/tests for medication: Diabetes: Hemoglobin A1C (%) Date Value 08/25/2021 9.4 03/24/2021 9.7 Please advise. Thank you. Fang Wilkins LPN documented in this encounter [facility] 11-28-2021 Miscellaneous Notes Patient notified. Please let patient know her INR is not therapeutic. She needs to increase to one pill every day and stop the 1/2 tab on Sundays. Thank you Sho De Leon APRN.ELLE documented in this encounter [facility] 11-19-2021 Miscellaneous Notes Noted. Sho De Leon APRN.CNP Patient states that she has missed a couple of days. She has a dental procedure tomorrow and plans to start normal dosing after that. She will come in 2 weeks for a recheck. Left message for return call. Please call patient and verify if she is taking coumadin as prescribed or if any of her medications have changed. If she is not taking the coumadin daily as prescribed she needs to do this and then have PT/INR rechecked in 2 weeks. Thank you Sho De Leon APRN.CNP documented in this encounter [facility] documented as of this encounter (statuses as of 11/19/2021) [facility] History of Past illness Narrative* Problem Noted Date Resolved Date Hyperlipidemia 10/25/2012 08/04/2019 Diabetes mellitus 11/13/2011 06/05/2016 documented as of this encounter (statuses as of 11/28/2021) [facility] History of Past illness Narrative* Problem Noted Date Resolved Date Hyperlipidemia 10/25/2012 08/04/2019 Diabetes mellitus 11/13/2011 06/05/2016 documented as of this encounter (statuses as of 12/04/2021) [facility] History of Past illness Narrative* Problem Noted Date Resolved Date Hyperlipidemia 10/25/2012 08/04/2019 Diabetes mellitus 11/13/2011 06/05/2016 documented as of this encounter (statuses as of 12/08/2021) [facility] History of Past illness Narrative* Problem Noted Date Resolved Date Hyperlipidemia 10/25/2012 08/04/2019 Diabetes mellitus 11/13/2011 06/05/2016 documented as of this encounter (statuses as of 12/08/2021) [address] History of Past illness Narrative* Problem Noted Date Resolved Date Hyperlipidemia 10/25/2012 08/04/2019 Diabetes mellitus 11/13/2011 06/05/2016 documented as of this encounter (statuses as of 12/11/2021) [address] History of Past illness Narrative* Problem Noted Date Resolved Date Hyperlipidemia 10/25/2012 08/04/2019 Diabetes mellitus 11/13/2011 06/05/2016 documented as of this encounter (statuses as of 12/13/2021) [address] History of Past illness Narrative* Problem Noted Date Resolved Date Hyperlipidemia 10/25/2012 08/04/2019 Diabetes mellitus 11/13/2011 06/05/2016 documented as of this encounter (statuses as of 12/18/2021) [address] History of Past illness Narrative* Problem Noted Date Resolved Date Hyperlipidemia 10/25/2012 08/04/2019 Diabetes mellitus 11/13/2011 06/05/2016 documented as of this encounter (statuses as of 12/22/2021) [address] History of Past illness Narrative* Problem Noted Date Resolved Date Hyperlipidemia 10/25/2012 08/04/2019 Diabetes mellitus 11/13/2011 06/05/2016 documented as of this encounter (statuses as of 01/01/2022) [address] History of Past illness Narrative* Problem Noted Date Resolved Date Hyperlipidemia 10/25/2012 08/04/2019 Diabetes mellitus 11/13/2011 06/05/2016 documented as of this encounter (statuses as of 01/02/2022) [address] History of Past illness Narrative* Problem Noted Date Resolved Date Hyperlipidemia 10/25/2012 08/04/2019 Diabetes mellitus 11/13/2011 06/05/2016 documented as of this encounter (statuses as of 01/05/2022) [address] History of Past illness Narrative* Problem Noted Date Resolved Date Hyperlipidemia 10/25/2012 08/04/2019 Diabetes mellitus 11/13/2011 06/05/2016 documented as of this encounter (statuses as of 01/14/2022) [address] History of Past illness Narrative* Problem Noted Date Resolved Date Hyperlipidemia 10/25/2012 08/04/2019 Diabetes mellitus 11/13/2011 06/05/2016 documented as of this encounter (statuses as of 01/20/2022) [facility] History of Past illness Narrative* Problem Noted Date Resolved Date Hyperlipidemia 10/25/2012 08/04/2019 Diabetes mellitus 11/13/2011 06/05/2016 documented as of this encounter (statuses as of 01/22/2022) [address] History of Past illness Narrative* Problem Noted Date Resolved Date Hyperlipidemia 10/25/2012 08/04/2019 Diabetes mellitus 11/13/2011 06/05/2016 documented as of this encounter (statuses as of 02/18/2022) [address] History of Past illness Narrative* Problem Noted Date Resolved Date Hyperlipidemia 10/25/2012 08/04/2019 Diabetes mellitus 11/13/2011 06/05/2016 documented as of this encounter (statuses as of 02/21/2022) [address] History of Past illness Narrative* Problem Noted Date Resolved Date Hyperlipidemia 10/25/2012 08/04/2019 Diabetes mellitus 11/13/2011 06/05/2016 documented as of this encounter (statuses as of 02/23/2022) [address] History of Past illness Narrative* Problem Noted Date Resolved Date Hyperlipidemia 10/25/2012 08/04/2019 Diabetes mellitus 11/13/2011 06/05/2016 documented as of this encounter (statuses as of 02/24/2022) [facility] History of Past illness Narrative* Problem Noted Date Resolved Date Hyperlipidemia 10/25/2012 08/04/2019 Diabetes mellitus 11/13/2011 06/05/2016 documented as of this encounter (statuses as of 02/24/2022) [address] History of Past illness Narrative* Problem Noted Date Resolved Date Hyperlipidemia 10/25/2012 08/04/2019 Diabetes mellitus 11/13/2011 06/05/2016 documented as of this encounter (statuses as of 03/02/2022) [place] [address]-12-2013 History of Past illness Narrative* Problem Noted Date Resolved Date Hyperlipidemia 10/25/2012 08/04/2019 Diabetes mellitus 11/13/2011 06/05/2016 documented as of this encounter (statuses as of 03/04/2022) [address] History of Past illness Narrative* Problem Noted Date Resolved Date Hyperlipidemia 10/25/2012 08/04/2019 Diabetes mellitus 11/13/2011 06/05/2016 documented as of this encounter (statuses as of 03/11/2022) [address] History of Past illness Narrative* Problem Noted Date Resolved Date Hyperlipidemia 10/25/2012 08/04/2019 Diabetes mellitus 11/13/2011 06/05/2016 documented as of this encounter (statuses as of 03/20/2022) [address] History of Past illness Narrative* Problem Noted Date Resolved Date Hyperlipidemia 10/25/2012 08/04/2019 Diabetes mellitus 11/13/2011 06/05/2016 documented as of this encounter (statuses as of 03/21/2022) [address] History of Past illness Narrative* Problem Noted Date Resolved Date Hyperlipidemia 10/25/2012 08/04/2019 Diabetes mellitus 11/13/2011 06/05/2016 documented as of this encounter (statuses as of 03/25/2022) [address] History of Past illness Narrative* Problem Noted Date Resolved Date Hyperlipidemia 10/25/2012 08/04/2019 Diabetes mellitus 11/13/2011 06/05/2016 documented as of this encounter (statuses as of 03/26/2022) [address] History of Past illness Narrative* Problem Noted Date Resolved Date Hyperlipidemia 10/25/2012 08/04/2019 Diabetes mellitus 11/13/2011 06/05/2016 documented as of this encounter (statuses as of 04/03/2022) [address] History of Past illness Narrative* Problem Noted Date Resolved Date Hyperlipidemia 10/25/2012 08/04/2019 Diabetes mellitus 11/13/2011 06/05/2016 documented as of this encounter (statuses as of 04/14/2022) [address] History of Past illness Narrative* Problem Noted Date Resolved Date Hyperlipidemia 10/25/2012 08/04/2019 Diabetes mellitus 11/13/2011 06/05/2016 documented as of this encounter (statuses as of 04/17/2022) [address] History of Past illness Narrative* Problem Noted Date Resolved Date Hyperlipidemia 10/25/2012 08/04/2019 Diabetes mellitus 11/13/2011 06/05/2016 documented as of this encounter (statuses as of 04/27/2022) [facility] History of Past illness Narrative* Problem Noted Date Resolved Date Hyperlipidemia 10/25/2012 08/04/2019 Diabetes mellitus 11/13/2011 06/05/2016 documented as of this encounter (statuses as of 05/07/2022) [address] History of Past illness Narrative* Problem Noted Date Resolved Date Hyperlipidemia 10/25/2012 08/04/2019 Diabetes mellitus 11/13/2011 06/05/2016 documented as of this encounter (statuses as of 06/02/2022) [facility] History of Past illness Narrative* Problem Noted Date Resolved Date Hyperlipidemia 10/25/2012 08/04/2019 Diabetes mellitus 11/13/2011 06/05/2016 documented as of this encounter (statuses as of 06/04/2022) [address] History of Past illness Narrative* Problem Noted Date Resolved Date Hyperlipidemia 10/25/2012 08/04/2019 Diabetes mellitus 11/13/2011 06/05/2016 documented as of this encounter (statuses as of 06/04/2022) [facility]2013 History of Past illness Narrative* Problem Noted Date Resolved Date Hyperlipidemia 10/25/2012 08/04/2019 Diabetes mellitus 11/13/2011 06/05/2016 documented as of this encounter (statuses as of 06/09/2022) [facility] History of Past illness Narrative* Problem Noted Date Resolved Date Hyperlipidemia 10/25/2012 08/04/2019 Diabetes mellitus 11/13/2011 06/05/2016 documented as of this encounter (statuses as of 06/24/2022) [place] [address]-12-2013 History of Past illness Narrative* Problem Noted Date Resolved Date Hyperlipidemia 10/25/2012 08/04/2019 Diabetes mellitus 11/13/2011 06/05/2016 documented as of this encounter (statuses as of 07/28/2022) [facility] History of Past illness Narrative* Problem Noted Date Resolved Date Hyperlipidemia 10/25/2012 08/04/2019 Diabetes mellitus 11/13/2011 06/05/2016 documented as of this encounter (statuses as of 08/03/2022) [address]12-2013 History of Past illness Narrative* Problem Noted Date Resolved Date Hyperlipidemia 10/25/2012 08/04/2019 Diabetes mellitus 11/13/2011 06/05/2016 documented as of this encounter (statuses as of 08/27/2022) [address]12-2013 History of Past illness Narrative* Problem Noted Date Resolved Date Hyperlipidemia 10/25/2012 08/04/2019 Diabetes mellitus 11/13/2011 06/05/2016 documented as of this encounter (statuses as of 08/31/2022) [address]12-2013 History of Past illness Narrative* Problem Noted Date Resolved Date Hyperlipidemia 10/25/2012 08/04/2019 Diabetes mellitus 11/13/2011 06/05/2016 documented as of this encounter (statuses as of 08/31/2022) [address]12-2013 History of Past illness Narrative* Problem Noted Date Resolved Date Hyperlipidemia 10/25/2012 08/04/2019 Diabetes mellitus 11/13/2011 06/05/2016 documented as of this encounter (statuses as of 09/04/2022) [address]12-2013 History of Past illness Narrative* Problem Noted Date Resolved Date Hyperlipidemia 10/25/2012 08/04/2019 Diabetes mellitus 11/13/2011 06/05/2016 documented as of this encounter (statuses as of 09/16/2022) [address]12-2013 History of Past illness Narrative* Problem Noted Date Resolved Date Hyperlipidemia 10/25/2012 08/04/2019 Diabetes mellitus 11/13/2011 06/05/2016 documented as of this encounter (statuses as of 09/24/2022) [address]12-2013 History of Past illness Narrative* Problem Noted Date Resolved Date Hyperlipidemia 10/25/2012 08/04/2019 Diabetes mellitus 11/13/2011 06/05/2016 documented as of this encounter (statuses as of 09/24/2022) [address]12-2013 History of Past illness Narrative* Problem Noted Date Resolved Date Hyperlipidemia 10/25/2012 08/04/2019 Diabetes mellitus 11/13/2011 06/05/2016 documented as of this encounter (statuses as of 09/28/2022) [address]12-2013 History of Past illness Narrative* Problem Noted Date Resolved Date Hyperlipidemia 10/25/2012 08/04/2019 Diabetes mellitus 11/13/2011 06/05/2016 documented as of this encounter (statuses as of 10/25/2022) [address]12-2013 History of Past illness Narrative* Problem Noted Date Resolved Date Hyperlipidemia 10/25/2012 08/04/2019 Diabetes mellitus 11/13/2011 06/05/2016 documented as of this encounter (statuses as of 11/20/2022) [facility] History of Past illness Narrative* Problem Noted Date Resolved Date Hyperlipidemia 10/25/2012 08/04/2019 Diabetes mellitus 11/13/2011 06/05/2016 documented as of this encounter (statuses as of 11/25/2022) [facility] History of Past illness Narrative* Problem Noted Date Resolved Date Hyperlipidemia 10/25/2012 08/04/2019 Diabetes mellitus 11/13/2011 06/05/2016 documented as of this encounter (statuses as of 12/03/2022) [facility] History of Past illness Narrative* Problem Noted Date Resolved Date Hyperlipidemia 10/25/2012 08/04/2019 Diabetes mellitus 11/13/2011 06/05/2016 documented as of this encounter (statuses as of 12/04/2022) [facility] History of Past illness Narrative* Problem Noted Date Resolved Date Hyperlipidemia 10/25/2012 08/04/2019 Diabetes mellitus 11/13/2011 06/05/2016 documented as of this encounter (statuses as of 12/08/2022) [facility] History of Past illness Narrative* Problem Noted Date Resolved Date Hyperlipidemia 10/25/2012 08/04/2019 Diabetes mellitus 11/13/2011 06/05/2016 documented as of this encounter (statuses as of 12/16/2022) [facility] History of Past illness Narrative* Problem Noted Date Resolved Date Hyperlipidemia 10/25/2012 08/04/2019 Diabetes mellitus 11/13/2011 06/05/2016 documented as of this encounter (statuses as of 12/17/2022) [facility] History of Past illness Narrative* Problem Noted Date Resolved Date Hyperlipidemia 10/25/2012 08/04/2019 Diabetes mellitus 11/13/2011 06/05/2016 documented as of this encounter (statuses as of 12/19/2022) [facility] History of Past illness Narrative* Problem Noted Date Resolved Date Hyperlipidemia 10/25/2012 08/04/2019 Diabetes mellitus 11/13/2011 06/05/2016 documented as of this encounter (statuses as of 12/19/2022) [address]12-2013 History of Past illness Narrative* Problem Noted Date Resolved Date Hyperlipidemia 10/25/2012 08/04/2019 Diabetes mellitus 11/13/2011 06/05/2016 documented as of this encounter (statuses as of 12/22/2022) [address]12-2013 History of Past illness Narrative* Problem Noted Date Resolved Date Hyperlipidemia 10/25/2012 08/04/2019 Diabetes mellitus 11/13/2011 06/05/2016 documented as of this encounter (statuses as of 01/14/2023) [address]12-2013 History of Past illness Narrative* Problem Noted Date Resolved Date Hyperlipidemia 10/25/2012 08/04/2019 Diabetes mellitus 11/13/2011 06/05/2016 documented as of this encounter (statuses as of 02/07/2023) [address]12-2013 History of Past illness Narrative* Problem Noted Date Diagnosed Date Resolved Date Hyperlipidemia 10/25/2012 08/04/2019 Diabetes mellitus 11/13/2011 06/05/2016 documented as of this encounter (statuses as of 02/20/2023) [address]12-2013 History of Past illness Narrative* Problem Noted Date Diagnosed Date Resolved Date Hyperlipidemia 10/25/2012 08/04/2019 Diabetes mellitus 11/13/2011 06/05/2016 documented as of this encounter (statuses as of 03/02/2023) [address]12-2013 History of Past illness Narrative* Problem Noted Date Diagnosed Date Resolved Date Hyperlipidemia 10/25/2012 08/04/2019 Diabetes mellitus 11/13/2011 06/05/2016 documented as of this encounter (statuses as of 03/02/2023) [address]12-2013 History of Past illness Narrative* Problem Noted Date Diagnosed Date Resolved Date Hyperlipidemia 10/25/2012 08/04/2019 Diabetes mellitus 11/13/2011 06/05/2016 documented as of this encounter (statuses as of 03/04/2023) [address]12-2013 History of Past illness Narrative* Problem Noted Date Diagnosed Date Resolved Date Hyperlipidemia 10/25/2012 08/04/2019 Diabetes mellitus 11/13/2011 06/05/2016 documented as of this encounter (statuses as of 03/23/2023) [facility] History of Past illness Narrative* Problem Noted Date Diagnosed Date Resolved Date Hyperlipidemia 10/25/2012 08/04/2019 Diabetes mellitus 11/13/2011 06/05/2016 documented as of this encounter (statuses as of 04/13/2023) [facility] History of Past illness Narrative* Problem Noted Date Diagnosed Date Resolved Date Hyperlipidemia 10/25/2012 08/04/2019 Diabetes mellitus 11/13/2011 06/05/2016 documented as of this encounter (statuses as of 04/14/2023) [place] [address]-12-2013 History of Past illness Narrative* Problem Noted Date Diagnosed Date Resolved Date Hyperlipidemia 10/25/2012 08/04/2019 Diabetes mellitus 11/13/2011 06/05/2016 documented as of this encounter (statuses as of 04/30/2023) [place] [address]12-2013 History of Past illness Narrative* Problem Noted Date Diagnosed Date Resolved Date Hyperlipidemia 10/25/2012 08/04/2019 Diabetes mellitus 11/13/2011 06/05/2016 documented as of this encounter (statuses as of 06/21/2023) [facility] note* Diagnosis Gastroesophageal reflux disease without esophagitis Esophageal reflux documented in this encounter [facility] note* Diagnosis Colon cancer screening- Primary Special screening for malignant neoplasms, colon Generalized abdominal pain Abdominal pain, generalized Right upper quadrant pain Abdominal pain, right upper quadrant Dysphagia, unspecified type Heartburn [facility]* Diagnosis Type 2 diabetes mellitus with diabetic neuropathy, without long-term current use of insulin (HCC)- Primary [facility] Diagnosis Generalized abdominal pain Abdominal pain, generalized Right upper quadrant pain Abdominal pain, right upper quadrant [facility]* Diagnosis Vaginal discharge- Primary Leukorrhea, not specified as infective Exposure to STD Contact with or exposure to other communicable diseases [facility] Diagnosis Generalized abdominal pain Abdominal pain, generalized Right upper quadrant pain Abdominal pain, right upper quadrant Colon cancer screening Special screening for malignant neoplasms, colon Dysphagia, unspecified type Heartburn [facility] Pain of left lower leg- Primary Pain in limb Injury of left lower extremity, initial encounter History of DVT of lower extremity Personal history of venous thrombosis and embolism [facility] Pain of left lower leg Pain in limb History of DVT of lower extremity Personal history of venous thrombosis and embolism [facility] Pain of left lower leg Pain in limb Injury of left lower extremity, initial encounter [facility] Diagnosis Deep vein thrombosis (DVT) of proximal vein of left lower extremity, unspecified chronicity (HCC)- Primary Cellulitis of left leg Cellulitis and abscess of leg, except foot Pain of left lower leg Pain in limb Chronic anticoagulation Long-term (current) use of anticoagulants [facility] Diagnosis Cellulitis of left lower extremity- Primary Cellulitis and abscess of leg, except foot [facility] Diagnosis Injury of left lower extremity, initial encounter- Primary Deep vein thrombosis (DVT) of proximal vein of left lower extremity, unspecified chronicity (HCC) Antiphospholipid antibody syndrome (HCC) Primary hypercoagulable state Mixed hyperlipidemia Uncontrolled type 2 diabetes mellitus with hyperglycemia (HCC) Vitamin B12 deficiency Other B-complex deficiencies [facility] Diagnosis Gastroesophageal reflux disease without esophagitis Esophageal reflux [facility] Diagnosis Gastroesophageal reflux disease without esophagitis Esophageal reflux [facility] Diagnosis Gastroesophageal reflux disease without esophagitis Esophageal reflux [facility] Diagnosis Uncontrolled type 2 diabetes mellitus with hyperglycemia (HCC)- Primary Need for influenza vaccination Need for prophylactic vaccination and inoculation against influenza Mixed hyperlipidemia Gastroesophageal reflux disease without esophagitis Esophageal reflux Recurrent major depressive disorder, in partial remission (HCC) Antiphospholipid antibody syndrome (HCC) Primary hypercoagulable state [facility] Diagnosis Dizziness- Primary Dizziness and giddiness [facility] Diagnosis Bacterial vaginosis Vaginitis and vulvovaginitis, unspecified [facility] Diagnosis Encounter for gynecological examination (general) (routine) with abnormal findings- Primary Encounter for screening mammogram for breast cancer Dense breast tissue IUD (intrauterine device) in place Presence of intrauterine contraceptive device Abnormal uterine bleeding (AUB) Screen for STD (sexually transmitted disease) Screening examination for venereal disease White vaginal discharge Leukorrhea, not specified as infective Hemorrhoids, unspecified hemorrhoid type [facility] Diagnosis Irregular bleeding- Primary Irregular menstrual cycle Encounter for IUD removal Encounter for removal of intrauterine contraceptive device [facility] Diagnosis Bacterial vaginosis Vaginitis and vulvovaginitis, unspecified [facility] Diagnosis control counseling- Primary General counseling for initiation of other contraceptive measures Abnormal uterine bleeding (AUB) Uterine leiomyoma, unspecified location [facility] Diagnosis Uncontrolled type 2 diabetes mellitus with hyperglycemia (HCC)- Primary Onychomycosis Dermatophytosis of nail Hallux valgus of right foot [facility] Diagnosis 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) [facility] Diagnosis Encounter for IUD insertion- Primary Encounter for insertion of intrauterine contraceptive device [facility] Diagnosis Varicose veins of left lower extremity with ulcer of ankle (CODE) (HCC)- Primary [facility] 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 Long-term (current) use of anticoagulants [facility] Diagnosis Uncontrolled type 2 diabetes mellitus with hyperglycemia (HCC)- Primary Varicose veins of left lower extremity with ulcer of ankle (CODE) (HCC) Antiphospholipid antibody syndrome (HCC) Primary hypercoagulable state Antiphospholipid syndrome (HCC) Primary hypercoagulable state Ulcer of left lower extremity with fat layer exposed (HCC) [facility] Diagnosis [facility] (current) use of anticoagulants- Primary Long-term (current) use of anticoagulants [facility] 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 Long-term (current) use of anticoagulants Antiphospholipid syndrome (HCC) Primary hypercoagulable state Antiphospholipid antibody syndrome (HCC) Primary hypercoagulable state [facility] Diagnosis Gross hematuria- Primary Bruising Contusion of unspecified site Chronic anticoagulation Long-term (current) use of anticoagulants documented in this encounter [facility] note* Diagnosis [facility] current use of anticoagulant- Primary Long-term (current) use of anticoagulants Antiphospholipid antibody syndrome (HCC) Primary hypercoagulable state Antiphospholipid syndrome (HCC) Primary hypercoagulable state documented in this encounter [facility] note* Diagnosis [facility] (current) use of anticoagulants- Primary Long-term (current) use of anticoagulants documented in this encounter [facility] note* Diagnosis Abnormal uterine bleeding (AUB) documented in this encounter [facility] for referral (narrative)* Outpatient Procedure (Routine) - Pending Review Specialty Diagnoses / Procedures Referred By Stef johnson Referred To [facility] [place] Diagnoses Generalized abdominal pain Right upper quadrant pain Dysphagia, unspecified type Heartburn Procedures EGD DIAGNOSTIC ESOPHAGOGASTRODUODENOSC OPY TRANSORAL DIAGNOSTIC Elba Hernandez APRN.BREWERY WORKER [address] [place] [id number] [facility] Disease [address] [address] Referral ID Status Reason Start Date Expiration Date Visits Requested Visits Authorized [id number] Pending Review Auto-Generat ed Referral 12/08/2021 12/08/2022 1 1 * Outpatient Procedure (Routine) - Pending Review Specialty Diagnoses / Procedures Referred By Stef johnson Referred To [facility] [place] Diagnoses Generalized abdominal pain Right upper quadrant pain Colon cancer screening Procedures COLONOSCOPY SCREENING COLONOSCOPY FLX DX W/COLLJ SPEC WHEN PFRMD Elba Hernandez APRN.CNP [address] [place] [address] [facility] Disease [address] [address] Referral ID Status Reason Start Date Expiration Date Visits Requested Visits Authorized [id number] Pending Review Auto-Generat ed Referral 12/08/2021 12/08/2022 1 1 * Diagnostic Procedure Only (Routine) - Authorized Specialty Diagnoses / Procedures Referred By Contac t Referred To Contact MOLECULAR & FUNCTIONAL IMAGING Diagnoses Generalized abdominal pain Right upper quadrant pain Procedures NM HEPATOBILIARY W EF AND/OR RX HEPATOBIL SYST IMAG INC GB W/PHARMA INTERVENElba Mendoza APRN.BREWERY WORKER [address] [place] [address] [facility] [address] [place] [address] Referral ID Status Reason Start Date Expiration Date Visits Requested Visits Authorized [id number] Authorized Auto-Generat ed Referral 12/08/2021 01/07/2023 1 1 [facility] for referral (narrative)* Diagnostic Procedure Only (Routine) - Closed Specialty Diagnoses / Procedures Referred By Contac t Referred To Contact MOLECULAR & FUNCTIONAL IMAGING Diagnoses Generalized abdominal pain Right upper quadrant pain Procedures NM HEPATOBILIARY W EF AND/OR RX HEPATOBIL SYST IMAG INC GB W/PHARMA Elba Calloway HOSPITAL ACCOUNT LIAISON.BREWERY WORKER [address] [place] [address] Molecular & Functional Imaging [address] [place] [address] Referral ID Status Reason Start Date Expiration Date V isits Requested Visits Authorized [id number] Closed Auto-Generate d Referral 12/08/2021 01/07/2023 1 1 [facility] for referral (narrative)* Diagnostic Procedure Only (Urgent) - Closed Specialty Diagnoses / Procedures Referred By Contac t Referred To Contact US IMAGING Diagnoses Pain of left lower leg History of DVT of lower extremity Procedures US DVT LOWER LT DUP-SCAN XTR VEINS UNILATERAL/LIMITED STUDY Francy De Leon APRN.BREWERY WORKER [address] [place] [address] Us Imaging Referral ID Status Reason Start Date Expiration Date V isits Requested Visits Authorized [id number] Closed Auto-Generate d Referral 02/23/2022 03/25/2023 1 1 * Diagnostic Procedure Only (Urgent) - Closed Specialty Diagnoses / Procedures Referred By Contac t Referred To Contact XR IMAGING Diagnoses Pain of left lower leg Injury of left lower extremity, initial encounter Procedures XR ANKLE GENERAL 3V AP/LAT/OBL LEFT RADEX ANKLE COMPLETE MINIMUM 3 VIEWS OlderFrancy APRN.BREWERY WORKER [address] [place] [address] Xr Imaging Referral ID Status Reason Start Date Expiration Date V isits Requested Visits Authorized [id number] Closed Auto-Generate d Referral 02/23/2022 03/25/2023 1 1 [facility] for referral (narrative)* Diagnostic Procedure Only (Urgent) - Closed Specialty Diagnoses / Procedures Referred By Contac t Referred To Contact US IMAGING Diagnoses Pain of left lower leg History of DVT of lower extremity Procedures US DVT LOWER LT DUP-SCAN XTR VEINS UNILATERAL/LIMITED STUDY Francy De Leon APRN.BREWERY WORKER [address] [place] [address] Us Imaging Referral ID Status Reason Start Date Expiration Date V isits Requested Visits Authorized [id number] Closed Auto-Generate d Referral 02/23/2022 03/25/2023 1 1 [facility] for referral (narrative)* Diagnostic Procedure Only (Urgent) - Closed Specialty Diagnoses / Procedures Referred By Contac t Referred To Contact XR IMAGING Diagnoses Pain of left lower leg Injury of left lower extremity, initial encounter Procedures XR ANKLE GENERAL 3V AP/LAT/OBL LEFT RADEX ANKLE COMPLETE MINIMUM 3 VIEWS Francy De Leon APRN.BREWERY WORKER [address] [place] [address] Xr Imaging Referral ID Status Reason Start Date Expiration Date V isits Requested Visits Authorized [id number] Closed Auto-Generate d Referral 02/23/2022 03/25/2023 1 1 [facility] for referral (narrative)* Outpatient Procedure (Routine) - Authorized Specialty Diagnoses / Procedures Referred By Contac t Referred To Contact [facility] Diagnoses Abnormal uterine bleeding (AUB) Procedures ENDOMETRIAL BIOPSY ENDOMETRIAL BX W/WO ENDOCERVIX BX W/O DILAT SPX Becky Seymour APRN.CNM [address] [place] [address] [place] [id number] Referral ID Status Reason Start Date Expiration Date Visits Requested Visits Authorized [id number] Authorized Auto-Generat ed Referral 09/04/2022 09/04/2023 1 1 * Outpatient Procedure (Routine) - Authorized Specialty Diagnoses / Procedures Referred By Contac t Referred To Contact [facility] Diagnoses IUD (intrauterine device) in place Abnormal uterine bleeding (AUB) Procedures REMOVE INTRAUTERINE DEVICE REMOVE INTRAUTERINE DEVICE Becky Seymour APRN.CNM [address] [place] [address] [address] Referral ID Status Reason Start Date Expiration Date Visits Requested Visits Authorized [id number] Authorized Auto-Generat ed Referral 09/04/2022 09/04/2023 1 1 * Diagnostic Procedure Only (Routine) - Authorized Specialty Diagnoses / Procedures Referred By Contac t Referred To Contact US IMAGING Diagnoses Abnormal uterine bleeding (AUB) Procedures US FEMALE PELVIS TRANSVAG US TRANSVAGINAL Becky Seymour APRN.CNM [address] [place] [address] Us Imaging Referral ID Status Reason Start Date Expiration Date Visits Requested Visits Authorized [id number] Authorized Auto-Generat ed Referral 09/04/2022 10/04/2023 1 1 * Diagnostic Procedure Only (Routine) - Pending Review Specialty Diagnoses / Procedures Referred By Contac t Referred To Contact [facility] IMAGING Diagnoses Encounter for screening mammogram for breast cancer Dense breast tissue Procedures BASIM SCREENING W ANAM SCREENING DIGITAL BREAST TOMOSYNTHESIS BI SCREENING MAMMOGRAPHY BI 2-VIEW BREAST INC CAD Becky Seymour APRN.CNM [address] [place] [address] Imaging [address] [place] [address] Referral ID Status Reason Start Date Expiration Date Visits Requested Visits Authorized [id number] Pending Review Auto-Generat ed Referral 09/04/2022 10/04/2023 1 1 [facility] for referral (narrative)* Outpatient Procedure (Routine) - Pending Review Specialty Diagnoses / Procedures Referred By Stef t Referred To Contact [facility] Diagnoses Irregular bleeding Procedures ENDOMETRIAL BIOPSY ENDOMETRIAL BX W/WO ENDOCERVIX BX W/O DILAT SPX Becky Seymour APRN.CNM [address] [place] [address] [facility] [address] [place] [address] Referral ID Status Reason Start Date Expiration Date Visits Requested Visits Authorized [id number] Pending Review Auto-Generat ed Referral 09/16/2022 09/16/2023 1 1 [facility] for referral (narrative)* Outpatient Procedure (Routine) - Authorized Specialty Diagnoses / Procedures Referred By Contac t Referred To Contact [facility] Diagnoses control counseling Procedures INSERT INTRAUTERINE DEVICE INTRAUT COPPER CONTRACEPTIVE INSERT INTRAUTERINE DEVICE Becky Seymour APRN.CNM [address] [place] [address] [address] Referral ID Status Reason Start Date Expiration Date Visits Requested Visits Authorized [id number] Authorized Auto-Generat ed Referral 10/21/2022 10/21/2023 1 1 [facility] for referral (narrative)* Outpatient Procedure (Routine) - Pending Review Specialty Diagnoses / Procedures Referred By Stef t Referred To Contact [facility] Diagnoses Encounter for IUD insertion Procedures INSERT INTRAUTERINE DEVICE INTRAUT COPPER CONTRACEPTIVE INSERT INTRAUTERINE DEVICE Cristela Tompkins APRN.CNP [address] [place] [address] [address] Referral ID Status Reason Start Date Expiration Date Visits Requested Visits Authorized [id number] Pending Review Auto-Generat ed Referral 12/08/2022 12/08/2023 1 1 [facility] for referral (narrative)* Diagnostic Procedure Only (Routine) - Closed Specialty Diagnoses / Procedures Referred By Stef t Referred To Contact US IMAGING Diagnoses Abnormal uterine bleeding (AUB) Procedures US FEMALE PELVIS TRANSVAG US TRANSVAGINAL Becky Seymour APRN.CNM [address] [place] [address] [place] [id number] Referral ID Status Reason Start Date Expiration Date V isits Requested Visits Authorized [id number] Closed Auto-Generate d Referral 09/04/2022 10/04/2023 1 1 [facility] for visit Narrative* Diagnostic Procedure Only (Urgent) - Closed Specialty Diagnoses / Procedures Referred By Stef t Referred To Contact XR IMAGING Diagnoses Pain of left lower leg Injury of left lower extremity, initial encounter Procedures XR ANKLE GENERAL 3V AP/LAT/OBL LEFT RADEX ANKLE COMPLETE MINIMUM 3 VIEWS Older, Francy, HOSPITAL ACCOUNT LIAISON.BREWERY WORKER [address] [place] [address] Xr Imaging Referral ID Status Reason Start Date Expiration Date V isits Requested Visits Authorized [id number] Closed Auto-Generate d Referral 02/23/2022 03/25/2023 1 1 [facility] Advance Directives No Advanced Directives Records FoundDocuments on File Type Date Recorded 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 Advance Directive(s) 02/20/2022 8:32 AM Documents on File Type Date Recorded 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 Advance Directive(s) 02/20/2022 8:32 AM Summary Purpose Family History No Family History Records Found Additional Source Comments Source Comments (unrecognize d section and content) In the event this informatio n is protected by the Federal Confidentiality of Alcohol and Drug Abuse Patient Records regulations: The Federal rules restrict any use of the information to criminally investigate or prosecute any alcohol or drug abuse patient.[facility] the event this information is protected by the Federal Confidentiality of Alcohol and Drug Abuse Patient Records regulations: The Federal rules restrict any use of the information to criminally investigate or prosecute any alcohol or drug abuse patient.[facility] the event this information is protected by the Federal Confidentiality of Alcohol and Drug Abuse Patient Records regulations: The Federal rules restrict any use of the information to criminally investigate or prosecute any alcohol or drug abuse patient.[facility] the event this information is protected by the Federal Confidentiality of Alcohol and Drug Abuse Patient Records regulations: The Federal rules restrict any use of the information to criminally investigate or prosecute any alcohol or drug abuse patient.[facility]In the event this information is protected by the Federal Confidentiality of Alcohol and Drug Abuse Patient Records regulations: The Federal rules restrict any use of the information to criminally investigate or prosecute any alcohol or drug abuse patient.[facility] HospitalIn the event this information is protected by the Federal Confidentiality of Alcohol and Drug Abuse Patient Records regulations: The Federal rules restrict any use of the information to criminally investigate or prosecute any alcohol or drug abuse patient.[facility] HospitalIn the event this information is protected by the Federal Confidentiality of Alcohol and Drug Abuse Patient Records regulations: The Federal rules restrict any use of the information to criminally investigate or prosecute any alcohol or drug abuse patient.[facility] HospitalIn the event this information is protected by the Federal Confidentiality of Alcohol and Drug Abuse Patient Records regulations: The Federal rules restrict any use of the information to criminally investigate or prosecute any alcohol or drug abuse patient.[facility] HospitalIn the event this information is protected by the Federal Confidentiality of Alcohol and Drug Abuse Patient Records regulations: The Federal rules restrict any use of the information to criminally investigate or prosecute any alcohol or drug abuse patient.[facility] HospitalIn the event this information is protected by the Federal Confidentiality of Alcohol and Drug Abuse Patient Records regulations: The Federal rules restrict any use of the information to criminally investigate or prosecute any alcohol or drug abuse patient.[facility] HospitalIn the event this information is protected by the Federal Confidentiality of Alcohol and Drug Abuse Patient Records regulations: The Federal rules restrict any use of the information to criminally investigate or prosecute any alcohol or drug abuse patient.[facility] HospitalIn the event this information is protected by the Federal Confidentiality of Alcohol and Drug Abuse Patient Records regulations: The Federal rules restrict any use of the information to criminally investigate or prosecute any alcohol or drug abuse patient.[facility] HospitalIn the event this information is protected by the Federal Confidentiality of Alcohol and Drug Abuse Patient Records regulations: The Federal rules restrict any use of the information to criminally investigate or prosecute any alcohol or drug abuse patient.[facility] HospitalIn the event this information is protected by the Federal Confidentiality of Alcohol and Drug Abuse Patient Records regulations: The Federal rules restrict any use of the information to criminally investigate or prosecute any alcohol or drug abuse patient.[facility] HospitalIn the event this information is protected by the Federal Confidentiality of Alcohol and Drug Abuse Patient Records regulations: The Federal rules restrict any use of the information to criminally investigate or prosecute any alcohol or drug abuse patient.[facility] HospitalIn the event this information is protected by the Federal Confidentiality of Alcohol and Drug Abuse Patient Records regulations: The Federal rules restrict any use of the information to criminally investigate or prosecute any alcohol or drug abuse patient.[facility] HospitalIn the event this information is protected by the Federal Confidentiality of Alcohol and Drug Abuse Patient Records regulations: The Federal rules restrict any use of the information to criminally investigate or prosecute any alcohol or drug abuse patient.[facility] HospitalIn the event this information is protected by the Federal Confidentiality of Alcohol and Drug Abuse Patient Records regulations: The Federal rules restrict any use of the information to criminally investigate or prosecute any alcohol or drug abuse patient.[facility] HospitalIn the event this information is protected by the Federal Confidentiality of Alcohol and Drug Abuse Patient Records regulations: The Federal rules restrict any use of the information to criminally investigate or prosecute any alcohol or drug abuse patient.[facility] HospitalIn the event this information is protected by the Federal Confidentiality of Alcohol and Drug Abuse Patient Records regulations: The Federal rules restrict any use of the information to criminally investigate or prosecute any alcohol or drug abuse patient.[facility] HospitalIn the event this information is protected by the Federal Confidentiality of Alcohol and Drug Abuse Patient Records regulations: The Federal rules restrict any use of the information to criminally investigate or prosecute any alcohol or drug abuse patient.[facility] HospitalIn the event this information is protected by the Federal Confidentiality of Alcohol and Drug Abuse Patient Records regulations: The Federal rules restrict any use of the information to criminally investigate or prosecute any alcohol or drug abuse patient.[facility] HospitalIn the event this information is protected by the Federal Confidentiality of Alcohol and Drug Abuse Patient Records regulations: The Federal rules restrict any use of the information to criminally investigate or prosecute any alcohol or drug abuse patient.[facility] HospitalIn the event this information is protected by the Federal Confidentiality of Alcohol and Drug Abuse Patient Records regulations: The Federal rules restrict any use of the information to criminally investigate or prosecute any alcohol or drug abuse patient.[facility] HospitalIn the event this information is protected by the Federal Confidentiality of Alcohol and Drug Abuse Patient Records regulations: The Federal rules restrict any use of the information to criminally investigate or prosecute any alcohol or drug abuse patient.[facility] HospitalIn the event this information is protected by the Federal Confidentiality of Alcohol and Drug Abuse Patient Records regulations: The Federal rules restrict any use of the information to criminally investigate or prosecute any alcohol or drug abuse patient.[facility] HospitalIn the event this information is protected by the Federal Confidentiality of Alcohol and Drug Abuse Patient Records regulations: The Federal rules restrict any use of the information to criminally investigate or prosecute any alcohol or drug abuse patient.[facility] HospitalIn the event this information is protected by the Federal Confidentiality of Alcohol and Drug Abuse Patient Records regulations: The Federal rules restrict any use of the information to criminally investigate or prosecute any alcohol or drug abuse patient.[facility] HospitalIn the event this information is protected by the Federal Confidentiality of Alcohol and Drug Abuse Patient Records regulations: The Federal rules restrict any use of the information to criminally investigate or prosecute any alcohol or drug abuse patient.[facility] HospitalIn the event this information is protected by the Federal Confidentiality of Alcohol and Drug Abuse Patient Records regulations: The Federal rules restrict any use of the information to criminally investigate or prosecute any alcohol or drug abuse patient.[facility] HospitalIn the event this information is protected by the Federal Confidentiality of Alcohol and Drug Abuse Patient Records regulations: The Federal rules restrict any use of the information to criminally investigate or prosecute any alcohol or drug abuse patient.[facility] HospitalIn the event this information is protected by the Federal Confidentiality of Alcohol and Drug Abuse Patient Records regulations: The Federal rules restrict any use of the information to criminally investigate or prosecute any alcohol or drug abuse patient.[facility] HospitalIn the event this information is protected by the Federal Confidentiality of Alcohol and Drug Abuse Patient Records regulations: The Federal rules restrict any use of the information to criminally investigate or prosecute any alcohol or drug abuse patient.[facility] HospitalIn the event this information is protected by the Federal Confidentiality of Alcohol and Drug Abuse Patient Records regulations: The Federal rules restrict any use of the information to criminally investigate or prosecute any alcohol or drug abuse patient.[facility] HospitalIn the event this information is protected by the Federal Confidentiality of Alcohol and Drug Abuse Patient Records regulations: The Federal rules restrict any use of the information to criminally investigate or prosecute any alcohol or drug abuse patient.[facility] HospitalIn the event this information is protected by the Federal Confidentiality of Alcohol and Drug Abuse Patient Records regulations: The Federal rules restrict any use of the information to criminally investigate or prosecute any alcohol or drug abuse patient.[facility] HospitalIn the event this information is protected by the Federal Confidentiality of Alcohol and Drug Abuse Patient Records regulations: The Federal rules restrict any use of the information to criminally investigate or prosecute any alcohol or drug abuse patient.[facility] HospitalIn the event this information is protected by the Federal Confidentiality of Alcohol and Drug Abuse Patient Records regulations: The Federal rules restrict any use of the information to criminally investigate or prosecute any alcohol or drug abuse patient.[facility] HospitalIn the event this information is protected by the Federal Confidentiality of Alcohol and Drug Abuse Patient Records regulations: The Federal rules restrict any use of the information to criminally investigate or prosecute any alcohol or drug abuse patient.[facility] HospitalIn the event this information is protected by the Federal Confidentiality of Alcohol and Drug Abuse Patient Records regulations: The Federal rules restrict any use of the information to criminally investigate or prosecute any alcohol or drug abuse patient.[facility] HospitalIn the event this information is protected by the Federal Confidentiality of Alcohol and Drug Abuse Patient Records regulations: The Federal rules restrict any use of the information to criminally investigate or prosecute any alcohol or drug abuse patient.[facility] HospitalIn the event this information is protected by the Federal Confidentiality of Alcohol and Drug Abuse Patient Records regulations: The Federal rules restrict any use of the information to criminally investigate or prosecute any alcohol or drug abuse patient.[facility] HospitalIn the event this information is protected by the Federal Confidentiality of Alcohol and Drug Abuse Patient Records regulations: The Federal rules restrict any use of the information to criminally investigate or prosecute any alcohol or drug abuse patient.[facility] HospitalIn the event this information is protected by the Federal Confidentiality of Alcohol and Drug Abuse Patient Records regulations: The Federal rules restrict any use of the information to criminally investigate or prosecute any alcohol or drug abuse patient.[facility] HospitalIn the event this information is protected by the Federal Confidentiality of Alcohol and Drug Abuse Patient Records regulations: The Federal rules restrict any use of the information to criminally investigate or prosecute any alcohol or drug abuse patient.[facility] HospitalIn the event this information is protected by the Federal Confidentiality of Alcohol and Drug Abuse Patient Records regulations: The Federal rules restrict any use of the information to criminally investigate or prosecute any alcohol or drug abuse patient.[facility] HospitalIn the event this information is protected by the Federal Confidentiality of Alcohol and Drug Abuse Patient Records regulations: The Federal rules restrict any use of the information to criminally investigate or prosecute any alcohol or drug abuse patient.[facility] HospitalIn the event this information is protected by the Federal Confidentiality of Alcohol and Drug Abuse Patient Records regulations: The Federal rules restrict any use of the information to criminally investigate or prosecute any alcohol or drug abuse patient.[facility] HospitalIn the event this information is protected by the Federal Confidentiality of Alcohol and Drug Abuse Patient Records regulations: The Federal rules restrict any use of the information to criminally investigate or prosecute any alcohol or drug abuse patient.[facility] HospitalIn the event this information is protected by the Federal Confidentiality of Alcohol and Drug Abuse Patient Records regulations: The Federal rules restrict any use of the information to criminally investigate or prosecute any alcohol or drug abuse patient.[facility] HospitalIn the event this information is protected by the Federal Confidentiality of Alcohol and Drug Abuse Patient Records regulations: The Federal rules restrict any use of the information to criminally investigate or prosecute any alcohol or drug abuse patient.[facility] HospitalIn the event this information is protected by the Federal Confidentiality of Alcohol and Drug Abuse Patient Records regulations: The Federal rules restrict any use of the information to criminally investigate or prosecute any alcohol or drug abuse patient.[facility] HospitalIn the event this information is protected by the Federal Confidentiality of Alcohol and Drug Abuse Patient Records regulations: The Federal rules restrict any use of the information to criminally investigate or prosecute any alcohol or drug abuse patient.[facility] HospitalIn the event this information is protected by the Federal Confidentiality of Alcohol and Drug Abuse Patient Records regulations: The Federal rules restrict any use of the information to criminally investigate or prosecute any alcohol or drug abuse patient.[facility] HospitalIn the event this information is protected by the Federal Confidentiality of Alcohol and Drug Abuse Patient Records regulations: The Federal rules restrict any use of the information to criminally investigate or prosecute any alcohol or drug abuse patient.[facility] HospitalIn the event this information is protected by the Federal Confidentiality of Alcohol and Drug Abuse Patient Records regulations: The Federal rules restrict any use of the information to criminally investigate or prosecute any alcohol or drug abuse patient.[facility] HospitalIn the event this information is protected by the Federal Confidentiality of Alcohol and Drug Abuse Patient Records regulations: The Federal rules restrict any use of the information to criminally investigate or prosecute any alcohol or drug abuse patient.[facility] HospitalIn the event this information is protected by the Federal Confidentiality of Alcohol and Drug Abuse Patient Records regulations: The Federal rules restrict any use of the information to criminally investigate or prosecute any alcohol or drug abuse patient.[facility] HospitalIn the event this information is protected by the Federal Confidentiality of Alcohol and Drug Abuse Patient Records regulations: The Federal rules restrict any use of the information to criminally investigate or prosecute any alcohol or drug abuse patient.[facility] HospitalIn the event this information is protected by the Federal Confidentiality of Alcohol and Drug Abuse Patient Records regulations: The Federal rules restrict any use of the information to criminally investigate or prosecute any alcohol or drug abuse patient.[facility] HospitalIn the event this information is protected by the Federal Confidentiality of Alcohol and Drug Abuse Patient Records regulations: The Federal rules restrict any use of the information to criminally investigate or prosecute any alcohol or drug abuse patient.[facility] HospitalIn the event this information is protected by the Federal Confidentiality of Alcohol and Drug Abuse Patient Records regulations: The Federal rules restrict any use of the information to criminally investigate or prosecute any alcohol or drug abuse patient.[facility] HospitalIn the event this information is protected by the Federal Confidentiality of Alcohol and Drug Abuse Patient Records regulations: The Federal rules restrict any use of the information to criminally investigate or prosecute any alcohol or drug abuse patient.[facility] HospitalIn the event this information is protected by the Federal Confidentiality of Alcohol and Drug Abuse Patient Records regulations: The Federal rules restrict any use of the information to criminally investigate or prosecute any alcohol or drug abuse patient.[facility] HospitalIn the event this information is protected by the Federal Confidentiality of Alcohol and Drug Abuse Patient Records regulations: The Federal rules restrict any use of the information to criminally investigate or prosecute any alcohol or drug abuse patient.[facility] HospitalIn the event this information is protected by the Federal Confidentiality of Alcohol and Drug Abuse Patient Records regulations: The Federal rules restrict any use of the information to criminally investigate or prosecute any alcohol or drug abuse patient.[facility] HospitalIn the event this information is protected by the Federal Confidentiality of Alcohol and Drug Abuse Patient Records regulations: The Federal rules restrict any use of the information to criminally investigate or prosecute any alcohol or drug abuse patient.[facility] HospitalIn the event this information is protected by the Federal Confidentiality of Alcohol and Drug Abuse Patient Records regulations: The Federal rules restrict any use of the information to criminally investigate or prosecute any alcohol or drug abuse patient.[facility] HospitalIn the event this information is protected by the Federal Confidentiality of Alcohol and Drug Abuse Patient Records regulations: The Federal rules restrict any use of the information to criminally investigate or prosecute any alcohol or drug abuse patient.[facility] HospitalIn the event this information is protected by the Federal Confidentiality of Alcohol and Drug Abuse Patient Records regulations: The Federal rules restrict any use of the information to criminally investigate or prosecute any alcohol or drug abuse patient.[facility] Reason for Visit (unrecogniz ed section and content) Reason Comments Refill Request Reason Comments Abdominal Pain right flank area eun cribes it as sharp off and on GERD treats with pantopra zole Specialty Diagnoses / Procedures Referred By Contac t Referred To Contact Gastroenterology Diagnoses Generalized abdominal pain Procedures CONSULT TO GASTROENTEROLOGY OFFICE/OUTPATIENT NEW HIGH MDM 60-74 MINUTES Sho De Leon APRN.BREWERY WORKER [address] [place] [address] Referral ID Status Reason Start Date Expiration Date V isits Requested Visits Authorized [id number] Closed PCP Requested Referral 10/23/2021 10/23/2022 1 1 Reason Comments Medication Question Reason Comments Hold Coumadin/have blood sugar Reason Comments Radiology NM Specialty Diagnoses / Procedures Referred By Contac t Referred To Contact MOLECULAR & FUNCTIONAL IMAGING Diagnoses Generalized abdominal pain Right upper quadrant pain Procedures NM HEPATOBILIARY W EF AND/OR RX HEPATOBIL SYST IMAG INC GB W/PHARMA INTERVENJ Elba Hernandez APRN.BREWERY WORKER [address] [place] [address] [facility] [address] [place] [address] Referral ID Status Reason Start Date Expiration Date V isits Requested Visits Authorized [id number] Closed Auto-Generate d Referral 12/08/2021 01/07/2023 1 1 Reason Comments Coumadin/INR Reason Comments Opened In Error Reason Onset Date Comments Refill Request 01/05/2022 Reason Comments Vaginal Problem Pt reported unprotec fe intercourse x3 wks, reported vaginal discharge, denied urinary sxs, odor pain Reason Comments well now clinic follow up left leg - ope n wound Reason Comments Radiology US Specialty Diagnoses / Procedures Referred By Stef t Referred To Contact US IMAGING Diagnoses Pain of left lower leg History of DVT of lower extremity Procedures US DVT LOWER LT DUP-SCAN XTR VEINS UNILATERAL/LIMITED STUDY Older, Francy, HOSPITAL ACCOUNT LIAISON.BREWERY WORKER [address] [place] [address] Us Imaging Referral ID Status Reason Start Date Expiration Date V isits Requested Visits Authorized [id number] Closed Auto-Generate d Referral 02/23/2022 03/25/2023 1 1 Reason Comments f/u blood clot Reason Onset Date Comments Refill Request 03/10/2022 Reason Comments Leg wound Reason Comments check wound left lower leg Wound x 3 wee ks Reason Comments Folliculitis UC follow up, cellul itis Reason Onset Date Comments Refill Request 04/03/2022 Reason Comments Insurance Authorization Reason Comments Patient Question Reason Onset Date Comments Refill Request 06/03/2022 Reason Onset Date Comments Refill Request 06/04/2022 rx went to wrong pharmacy Reason Comments Med Change Request Reason Onset Date Comments Refill Request 06/24/2022 Reason Onset Date Comments F/U Diabetes 3 Month Immunizations 07/28/2022 Flu vaccination Reason Onset Date Comments Refill Request 08/27/2022 Reason Onset Date Comments Refill Request 08/31/2022 Reason Comments Yearly Exam Reason Comments Endometrial Biopsy Specialty Diagnoses / Procedures Referred By Contac t Referred To Contact [facility] Diagnoses IUD (intrauterine device) in place Abnormal uterine bleeding (AUB) Procedures REMOVE INTRAUTERINE DEVICE REMOVE INTRAUTERINE DEVICE Becky Seymour APRN.CNM [address] [place] [address] [address] Referral ID Status Reason Start Date Expiration Date V isits Requested Visits Authorized [id number] Closed Auto-Generate d Referral 09/04/2022 09/04/2023 1 1 Reason Comments Transition Of Care Diabetes Care Reason Comments Diabetes A1c>9% Reason Onset Date Comments Refill Request 11/19/2022 Reason Comments Established Patient Diabetic Foot Check Reason Onset Date Comments Insertion Of IUD 12/08/2022 Specialty Diagnoses / Procedures Referred By Stef johnson Referred To Contact [facility] Diagnoses control counseling Procedures INSERT INTRAUTERINE DEVICE INTRAUT COPPER CONTRACEPTIVE INSERT INTRAUTERINE DEVICE Becky Seymour APRN.CN [address] [place] [address] [address] Referral ID Status Reason Start Date Expiration Date V isits Requested Visits Authorized [id number] Closed Auto-Generate d Referral 10/21/2022 10/21/2023 1 1 Reason Comments Consult Reason Onset Date Comments Refill Request 12/16/2022 Reason Comments Orders Reason Comments F/U Diabetes 3 Month Reason Onset Date Comments Anticoagulation 12/18/2022 Reason Onset Date Comments Refill Request 01/12/2023 Reason Onset Date Comments Refill Request 02/05/2023 Reason Comments Anticoagulation Telephone Fu Lab INR exp ected Reason Comments Hematuria low back pain x 2 da ys Reason Onset Date Comments Refill Request 03/02/2023 Reason Onset Date Comments Anticoagulation Telephone Fu 03/04/2023 Reason Comments Anticoagulation Telephone Fu Lab INR Reason Comments Medication Request Reason Onset Date Comments Refill Request 04/14/2023 Reason Onset Date Comments Refill Request 04/29/2023 Specialty Diagnoses / Procedures Referred By Stef johnson Referred To Contact US IMAGING Diagnoses Abnormal uterine bleeding (AUB) Procedures US FEMALE PELVIS TRANSVAG US TRANSVAGINAL Becky Seymour APRN.CNM [address] [place] [address] [place] [address] Referral ID Status Reason Start Date Expiration Date V isits Requested Visits Authorized [id number] Closed Auto-Generate d Referral 09/04/2022 10/04/2023 1 1 Care Teams (unrecognized sec tion and content) [employer] Installer Relationship Specialty Start Date End Date Jeanie Kim MD [address] [facility] [place] [address] PCP - General Internal Medicine 08/26/16 Shannen Cassidy, [facility] [address] [facility] [place] [address] Pharmacist Pharmacy 05/05/18 [facility] [address] [facility] [place] [address] Pharmacist Pharmacy 11/20/20 [employer] Installer Relationship Specialty Start Date End Date Jeanie Kim MD [address] [facility] [place] [address] PCP - General Internal Medicine 08/26/16 Shannen Cassidy, [facility] [address] [facility] [place] [address] Pharmacist Pharmacy 05/05/18 Lulu An, [facility] [address] [facility] [place] [address] Pharmacist Pharmacy 11/20/20 [employer] Installer Relationship Specialty Start Date End Date Jeanie Kim MD [address] [facility] [place] [address] PCP - General Internal Medicine 08/26/16 Shannen Cassidy, [facility] [address] [facility] [place] [address] Pharmacist Pharmacy 05/05/18 Lulu An, [facility] [address] [facility] [place] [address] Pharmacist Pharmacy 11/20/20 [employer] Installer Relationship Specialty Start Date End Date Jeanie Kim MD [address] [place] [address] PCP - General Internal Medicine 08/26/16 Shannen Cassidy, [facility] [address] [place] [address] Pharmacist Pharmacy 05/05/18 Lulu An, [facility] [address] [place] [address] Pharmacist Pharmacy 11/20/20 [employer] Installer Relationship Specialty Start Date End Date Jeanie Kim MD [address] [place] [address] PCP - General Internal Medicine 08/26/16 Shannen Cassidy, [facility] [address] [place] [address] Pharmacist Pharmacy 05/05/18 Juve Gildamaggy, [facility] [address] [place] [address] Pharmacist Pharmacy 11/20/20 [employer] Installer Relationship Specialty Start Date End Date Jeanie Kim MD [address] [place] [address] PCP - General Internal Medicine 08/26/16 Shannen Cassidy, [facility] [address] [place] [address] Pharmacist Pharmacy 05/05/18 Juve Gildamaggy, [facility] [address] [place] [address] Pharmacist Pharmacy 11/20/20 [employer] Installer Relationship Specialty Start Date End Date Jeanie Kim MD [address] [place] [address] PCP - General Internal Medicine 08/26/16 Shannen Cassidy [facility] [address] [place] [address] Pharmacist Pharmacy 05/05/18 [facility] [address] [place] [address] Pharmacist Pharmacy 11/20/20 [employer] Installer Relationship Specialty Start Date End Date Jeanie Kim MD [address] [place] [address] PCP - General Internal Medicine 08/26/16 [place], Shannen, [facility] [address] [place] [address] Pharmacist Pharmacy 05/05/18 Lulu An, [facility] [address] [place] [address] Pharmacist Pharmacy 11/20/20 [employer] Installer Relationship Specialty Start Date End Date Jeanie Kim MD [address] [place] [address] PCP - General Internal Medicine 08/26/16 AngeShannen herron, [facility] [address] [place] [address] Pharmacist Pharmacy 05/05/18 [facility] [address] [place] [address] Pharmacist Pharmacy 11/20/20 [employer] Installer Relationship Specialty Start Date End Date Jeanie Kim MD [address] [place] [address] PCP - General Internal Medicine 08/26/16 [place], Shannen, [facility] [address] [place] [address] Pharmacist Pharmacy 05/05/18 Lulu An, [facility] [address] [place] [address] Pharmacist Pharmacy 11/20/20 [employer] Installer Relationship Specialty Start Date End Date Jeanie Kim MD [address] [place] [address] PCP - General Internal Medicine 08/26/16 Shannen Cassidy, [facility] [address] [place] [address] Pharmacist Pharmacy 05/05/18 [facility] [address] [facility] [place] [address] Pharmacist Pharmacy 11/20/20 [employer] Installer Relationship Specialty Start Date End Date Jeanie Kim MD [address] [place] [address] PCP - General Internal Medicine 08/26/16 Shannen Cassidy, [facility] [address] [place] [address] Pharmacist Pharmacy 05/05/18 Lulu An, [facility] [address] [place] [address] Pharmacist Pharmacy 11/20/20 [employer] Installer Relationship Specialty Start Date End Date Jeanie Kim MD [address] [place] [address] PCP - General Internal Medicine 08/26/16 Shannen Cassidy, [facility] [address] [place] [address] Pharmacist Pharmacy 05/05/18 Lulu An, [facility] [address] [place] [address] Pharmacist Pharmacy 11/20/20 [employer] Installer Relationship Specialty Start Date End Date Jeanie Kim MD [address] [place] [address] PCP - General Internal Medicine 08/26/16 Shannen Cassidy, [facility] [address] [place] [address] Pharmacist Pharmacy 05/05/18 [facility] [address] [place] [address] Pharmacist Pharmacy 11/20/20 [employer] Installer Relationship Specialty Start Date End Date Jeanie Kim MD [address] [facility] [place] [address] PCP - General Internal Medicine 08/26/16 Shannen Cassidy, [facility] [address] [place] [address] Pharmacist Pharmacy 05/05/18 JuveGildamaggy, [facility] [address] [place] [address] Pharmacist Pharmacy 11/20/20 [employer] Installer Relationship Specialty Start Date End Date Jeanie Kim MD [address] [place] [address] PCP - General Internal Medicine 08/26/16 [facility] [address] [facility] [place] [address] Pharmacist Pharmacy 05/05/18 AmadorGildamaggy, [facility] [address] [place] [address] Pharmacist Pharmacy 11/20/20 [employer] Installer Relationship Specialty Start Date End Date Jeanie Kim MD [address] [place] [address] PCP - General Internal Medicine 08/26/16 Shannen Cassidy, [facility] [address] [place] [address] Pharmacist Pharmacy 05/05/18 [facility] [address] [facility] [place] [address] Pharmacist Pharmacy 11/20/20 [employer] Installer Relationship Specialty Start Date End Date Jeanie Kim MD [address] [facility] [place] [address] PCP - General Internal Medicine 08/26/16 Shannen Cassidy, [facility] [address] [facility] [place] [address] Pharmacist Pharmacy 05/05/18 [facility]ulu [facility] [address] [facility] [place] [address] Pharmacist Pharmacy 11/20/20 [employer] Installer Relationship Specialty Start Date End Date Jeanie Kim MD [address] [facility] [place] [address] PCP - General Internal Medicine 08/26/16 Shannen Cassidy, [facility] [address] [facility] [place] [address] Pharmacist Pharmacy 05/05/18 [facility] [address] [facility] [place] [address] Pharmacist Pharmacy 11/20/20 [employer] Installer Relationship Specialty Start Date End Date Jeanie Kim MD [address] [facility] [place] [address] PCP - General Internal Medicine 08/26/16 Shannen Cassidy, [facility] [address] [facility] [place] [address] Pharmacist Pharmacy 05/05/18 AmadorGilda borgesmaggy[facility] [address] [place] [address] Pharmacist Pharmacy 11/20/20 [employer] Installer Relationship Specialty Start Date End Date Jeanie Kim MD [address] [facility] [place] [address] PCP - General Internal Medicine 08/26/16 Shannen Cassidy, [facility] [address] [place] [address] Pharmacist Pharmacy 05/05/18 Lulu An, [facility] [address] [place] [address] Pharmacist Pharmacy 11/20/20 [employer] Installer Relationship Specialty Start Date End Date Jeanie Kim MD [address] [place] [address] PCP - General Internal Medicine 08/26/16 Shannen Cassidy, [facility] [address] [place] [address] Pharmacist Pharmacy 05/05/18 [employer] Installer Relationship Specialty Start Date End Date Jeanie Kim MD [address] [facility] [place] [address] PCP - General Internal Medicine 08/26/16 Shannen Cassidy, [facility] [address] [place] [address] Pharmacist Pharmacy 05/05/18 Lulu An, [facility] [address] [place] [address] Pharmacist Pharmacy 11/20/20 09/22/22 [employer] Installer Relationship Specialty Start Date End Date Jeanie Kim MD [address] [place] [address] PCP - General Internal Medicine 08/26/16 Shannen Cassidy, [facility] [address] [place] [address] Pharmacist Pharmacy 05/05/18 [employer] Installer Relationship Specialty Start Date End Date Jeanie Kim MD [address] [place] [address] PCP - General Internal Medicine 08/26/16 Shannen Cassidy, [facility] [address] [place] [address] Pharmacist Pharmacy 05/05/18 [employer] Installer Relationship Specialty Start Date End Date Jeanie Kim MD [address] [place] [address] PCP - General Internal Medicine 08/26/16 Shannen Cassidy, [facility] [address] [place] [address] Pharmacist Pharmacy 05/05/18 [employer] Installer Relationship Specialty Start Date End Date Jeanie Kim MD [address] [place] [address] PCP - General Internal Medicine 08/26/16 Shannen Cassidy, [facility] [address] [place] [address] Pharmacist Pharmacy 05/05/18 Lulu An, [facility] [address] [place] [address] Pharmacist Pharmacy 11/20/20 09/22/22 [employer] Installer Relationship Specialty Start Date End Date Jeanie Kim MD [address] [place] [address] PCP - General Internal Medicine 08/26/16 Shannen Cassidy, [facility] [address] [place] [address] Pharmacist Pharmacy 05/05/18 [employer] Installer Relationship Specialty Start Date End Date Jeanie Kim MD [address] [place] [address] PCP - General Internal Medicine 08/26/16 Shannen Cassidy, [facility] [address] [facility] [place] [address] Pharmacist Pharmacy 05/05/18 [employer] Installer Relationship Specialty Start Date End Date Jeanie Kim MD [address] [facility] [place] [address] PCP - General Internal Medicine 08/26/16 [place] Coast[place]annen herron, [facility] [address] [facility] [place] [address] Pharmacist Pharmacy 05/05/18 [employer] Installer Relationship Specialty Start Date End Date Jeanie Kim MD [address] [facility] [place] [address] PCP - General Internal Medicine 08/26/16 Shannen Cassidy, [facility] [address] [facility] [place] [address] Pharmacist Pharmacy 05/05/18 [employer] Installer Relationship Specialty Start Date End Date Jeanie Kim MD [address] [facility] [place] [address] PCP - General Internal Medicine 08/26/16 Shannen Cassidy, [facility] [address] [facility] [place] [address] Pharmacist Pharmacy 05/05/18 [employer] Installer Relationship Specialty Start Date End Date Jeanie Kim MD [address] [facility] [place] [address] PCP - General Internal Medicine 08/26/16 AngeShannen herron, [facility] [address] [facility] [place] [address] Pharmacist Pharmacy 05/05/18 13, Pharmacist [address] [place] [address] Pharmacist Pharmacy 12/21/22 [employer] Installer Relationship Specialty Start Date End Date Jeanie iKm MD [address] [facility] [place] [address] PCP - General Internal Medicine 08/26/16 Shannen Cassidy, [facility] [address] [facility] [place] [address] Pharmacist Pharmacy 05/05/18 13, Pharmacist [address] [place] [address] Pharmacist Pharmacy 12/21/22 [employer] Installer Relationship Specialty Start Date End Date Jeanie Kim MD [address] [facility] [place] [address] PCP - General Internal Medicine 08/26/16 [facility] [address] [facility] [place] [address] Pharmacist Pharmacy 05/05/18 13, Pharmacist [address] [place] [address] Pharmacist Pharmacy 12/21/22 [employer] Installer Relationship Specialty Start Date End Date Jeanie Kim MD [address] [facility] [place] [address] PCP - General Internal Medicine 08/26/16 Shannen Cassidy, [facility] [address] [facility] [place] [address] Pharmacist Pharmacy 05/05/18 13, Pharmacist [address] [place] [address] Pharmacist Pharmacy 12/21/22 [employer] Installer Relationship Specialty Start Date End Date Jeanie Kim MD [address] [facility] [place] [address] PCP - General Internal Medicine 08/26/16 Shannen Cassidy, [facility] [address] [facility] [place] [address] Pharmacist Pharmacy 05/05/18 13, Pharmacist [address] [place] [address] Pharmacist Pharmacy 12/21/22 [employer] Installer Relationship Specialty Start Date End Date Jeanie Kim MD [address] [facility] [place] [address] PCP - General Internal Medicine 08/26/16 Shannen Cassidy, [facility] [address] [facility] [place] [address] Pharmacist Pharmacy 05/05/18 13, Pharmacist [address] [place] [address] Pharmacist Pharmacy 12/21/22 [employer] Installer Relationship Specialty Start Date End Date Jeanie Kim MD [address] [facility] [place] [address] PCP - General Internal Medicine 08/26/16 Shannen Cassidy, [facility] [address] [facility] [place] [address] Pharmacist Pharmacy 05/05/18 13, Pharmacist [address] [place] [address] Pharmacist Pharmacy 12/21/22 [employer] Installer Relationship Specialty Start Date End Date Jeanie Kim MD [address] [facility] [place] [address] PCP - General Internal Medicine 08/26/16 Shannen Cassidy, [facility] [address] [facility] [place] [address] Pharmacist Pharmacy 05/05/18 13, Pharmacist [address] [place] [address] Pharmacist Pharmacy 12/21/22 [employer] Installer Relationship Specialty Start Date End Date Jeanie Kim MD [address] [place] [address] PCP - General Internal Medicine 08/26/16 [facility] [address] [place], [place] [address] Pharmacist Pharmacy 05/05/18 [facility] [address] [place] [address] Pharmacist Pharmacy 11/20/20 09/22/22 INFORMATION SOURCE (unrecogn ized section and content) FOR RECORDS PERTAINING TO PATIENTS WHO ARE OR HAVE BEEN ENROLLED IN A CHEMICAL DEPENDENCY/SUBSTANCEABUSE PROGRAM, SOME INFORMATION MAY BE OMITTED. This clinical summary was aggregated from multiple sources. Caution should be exercised in using it in the provision of clinical care. This summary normalizes information from multiple sources, and as a consequence, information in this document may materially change the coding, format and clinical context of patient data. In addition, data may be omitted in some cases. CLINICAL DECISIONS SHOULD BE BASED ON THE PRIMARY CLINICAL RECORDS. [employer] provides no warranty or guarantee of the accuracy or completeness of information in this document.
[2023-08-13 23:34] VITALS: BP 153/79; PULSE 81; RESP 18; O2SAT 96
== END 2023-08-13 23:35 | disposition home or self-care (01) ==
PROVIDERS: Emergency Provider Emergency Medicine; PCP Internal Medicine; Visit Provider Emergency Medicine
DX: U07.1 COVID-19 (principal); E11.9 Type 2 diabetes mellitus without complications; J06.9 Acute upper respiratory infection, unspecified; E78.5 Hyperlipidemia, unspecified; Z87.891 Personal history of nicotine dependence; K21.9 Gastro-esophageal reflux disease without esophagitis; R05.9 Cough, unspecified; Z86.718 Personal history of other venous thrombosis and embolism; Z79.01 Long term (current) use of anticoagulants; Z79.84 Long term (current) use of oral hypoglycemic drugs
CPT/HCPCS: 71045; 87631; 99282

== ENCOUNTER 2024-10-03 18:04 | Emergency (ER) | payer SELFPAY ==
[2024-10-03 18:08] VITALS: BP 184/92; PULSE 70; RESP 18; TEMP 36.5; O2SAT 100; BMI 40.1
--- NOTE | 2024-10-03 19:47 | ED.RN ---
Pt asked how much longer wait would be. RN informed pt that wait times cannot be accurately estimated and she was unable to give out a certain time. Informed that arrival to a room is based on pt severity and not arrival time to department. pt LWBS
== END 2024-10-03 19:47 | disposition left against medical advice (07) ==
LOC: ED 19:47
PROVIDERS: PCP Internal Medicine
DX: M54.9 Dorsalgia, unspecified (principal)